=== PATIENT | male | born 1940 | race Caucasian/White ===

== ENCOUNTER 2018-09-05 09:56 | Inpatient (IN) | payer MEDICARE, OTHER ==
[~2018-09-05] VITALS: Ht 172.7 cm; Wt 62.9 kg
--- NOTE | 2018-09-05 10:11 | PHYS DOC ---
Adult General Chief Complaint Chief Complaint: PSYCH EVALUATION HPI HPI 78-year-old male presents for medical clearance for behavioral health admission. The patient was stated to have increased combativeness, not sleeping , and increased paranoia. The patient denies any medical complaints or concerns. Review of Systems Review of Systems Constitutional: Denies fever or chills [] Eyes: Denies change in visual acuity, redness, or eye pain [] HENT: Denies nasal congestion or sore throat [] Respiratory: Denies cough or shortness of breath [] Cardiovascular: No additional information not addressed in HPI [] GI: Denies abdominal pain, nausea, vomiting, bloody stools or diarrhea [] : Denies dysuria or hematuria [] Musculoskeletal: Denies back pain or joint pain [] Integument: Denies rash or skin lesions [] Neurologic: Denies headache, focal weakness or sensory changes [] Endocrine: Denies polyuria or polydipsia [] All other systems were reviewed and found to be within normal limits, except as documented in this note. Physical Exam Physical Exam Constitutional: Well developed, well nourished, no acute distress, non-toxic appearance. [] HENT: Normocephalic, atraumatic, bilateral external ears normal, oropharynx moist, no oral exudates, nose normal. [] Eyes: PERRLA, EOMI, conjunctiva normal, no discharge. [] Neck: Normal range of motion, no tenderness, supple, no stridor. [] Cardiovascular:Heart rate regular rhythm, no murmur [] Lungs & Thorax: Bilateral breath sounds clear to auscultation [] Abdomen: Bowel sounds normal, soft, no tenderness, no masses, no pulsatile masses. [] Skin: Warm, dry, no erythema, no rash. [] Back: No tenderness, no CVA tenderness. [] Extremities: No tenderness, no cyanosis, no clubbing, ROM intact, no edema. [] Neurologic: Alert and oriented X 3, normal motor function, normal sensory function, no focal deficits noted. memory impairment. [] Psychologic: Affect normal, judgement normal, mood normal. [] EKG EKG Sinus rhythm, rate 71, normal axis, there was to place or depression.[] Radiology/Procedures Radiology/Procedures [] Course & Med Decision Making Course & Med Decision Making Pertinent Labs and Imaging studies reviewed. (See chart for details) EKG is unremarkable. Patient's labs are remarkable for a creatinine 1.5 and a blood sugar of 240. The patient is diabetic. We have not been provided a full medication list at this time. I do not believe this precludes admission at health floor. They will be able to administer medicines there. The patient was medically stable for behavioral health admission [] Dragon Disclaimer Dragon Disclaimer This electronic medical record was generated, in whole or in part, using a voice recognition dictation system. Departure Departure: Referrals: DARIO KNOWLES DO (PCP) LORETTA BOLAND DO Sep 05, 2018 10:11
[2018-09-05 10:26] LABS: BASO % 0 % (0-3); EOS # 0.1 x10^3/uL (0.0-0.7); EOS % 1 % (0-3); HEMATOCRIT 40.3 % (39.0-53.0); HEMOGLOBIN 13.6 g/dL (13.0-17.5); LYMPH # 0.8 x10^3/uL (1.0-4.8); LYMPH % 8 % (24-48); MEAN CORPUSCULAR HEMOGLOBIN 30 pg (25-35); MEAN CORPUSCULAR HGB CONC 34 g/dL (31-37); MEAN CORPUSCULAR VOLUME 89 fL (79-100); MONO # 0.5 x10^3/uL (0.0-1.1); MONO % 4 % (0-9); NEUT # 9.6 x10^3uL (1.8-7.7); NEUT % 87 % (31-73); PLATELET COUNT 283 x10^3/uL (140-400); RED BLOOD COUNT 4.51 x10^6/uL (4.30-5.70); RED CELL DISTRIBUTION WIDTH 13.9 % (11.5-14.5); WHITE BLOOD COUNT 11.1 x10^3/uL (4.0-11.0)
[2018-09-05 10:34] LABS: AMORPHOUS SEDIMENT,UR PRESENT /HPF; BACTERIA,URINE 0 /HPF (0-FEW); BILIRUBIN,URINE NEG (NEG); CLARITY,URINE CLEAR; COLOR,URINE YELLOW; GLUCOSE,URINE 100 mg/dL (NEG); NITRITE,URINE NEG (NEG); RBC,URINE 0 /HPF (0-2); UROBILINOGEN,URINE 0.2 mg/dL (0.2 mg/dL); WBC,URINE RARE /HPF (0-4)
[2018-09-05 10:37] LABS: ALBUMIN/GLOBULIN RATIO 1.1 (1.0-1.7); CALCIUM 8.8 mg/dL (8.5-10.1); CREATININE 1.5 mg/dL (0.7-1.3); GFR 45.3; MAGNESIUM 1.9 mg/dL (1.8-2.4); POTASSIUM 4.1 mmol/L (3.5-5.1); TOTAL BILIRUBIN 0.5 mg/dL (0.2-1.0); TOTAL PROTEIN 7.8 g/dL (6.4-8.2)
[2018-09-05 11:30] VITALS: BP 145/77
[2018-09-05] MEDS ORDERED: MAGNESIUM HYDROXIDE 2,400 MG/30 ML ORAL.SUSP. PO PRN (11:45)
[2018-09-05] MEDS ORDERED: METHYL SALICYLATE/MENTHOL TOPICAL OINTMENT 29GM TUBE. TP PRN (11:45)
[2018-09-05] MEDS ORDERED: MAG HYDROX/AL HYDROX/SIMETH 30 ML ORAL.SUSP PO PRN (11:45)
[2018-09-05] MEDS ORDERED: ACETAMINOPHEN 325 MG TABLET PO PRN ×2 (11:45→13:00)
[2018-09-05 12:10] LABS: VAL ACID 42 mcg/mL (50-100)
--- NOTE | 2018-09-05 12:31 | EKG ---
[address] [address] Test Date: 2018-09-05 Test Time: 10:27:51 Pat Name: EBER LAU Department: Room: [address] [place] [address] Gender: M Inpatient Nursing Aide: : 1940 Requested By: LORETTA BOLAND Order Number: [id number] Reading MD: Moustapha Baker Measurements Intervals [place] Rate: 71 P: 31 [place]: 204 QRS: 63 QRSD: 126 T: 64 QT: 402 QTc: 442 Interpretive Statements SINUS RHYTHM NON SPECIFIC INTRAVENTRICULAR BLOCK QRS(T) CONTOUR ABNORMALITY CONSIDER ANTEROSEPTAL MYOCARDIAL DAMAGE ABNORMAL ECG RI6.01 Unconfirmed report No previous ECG available for comparison Electronically Signed On 09-06-2018 8:45:41 POULTRY VACCINATOR by Moustapha Baker
[2018-09-05] MEDS ORDERED: ALUMINUM HYD PO PRN (13:00)
[2018-09-05] MEDS ORDERED: SIMETH PO PRN (13:00)
[2018-09-05] MEDS ORDERED: MAG HYDROX PO PRN (13:00)
[2018-09-05] MEDS ORDERED: LISI10TA2 PO (13:11)
[2018-09-05] MEDS ORDERED: RIVA1PAT23 TD (13:11)
[2018-09-05] MEDS ORDERED: MEMA10TA PO (13:11)
[2018-09-05] MEDS ORDERED: ASPI-630 PO (13:11)
[2018-09-05] MEDS ORDERED: POLY119P19 PO (13:11)
[2018-09-05] MEDS ORDERED: DIVA125C2 PO (13:11)
[2018-09-05] MEDS ORDERED: sonata PO (13:11)
[2018-09-05] MEDS ORDERED: TOLT4CAP PO (13:11)
[2018-09-05] MEDS ORDERED: MAG355OR11 PO (13:11)
[2018-09-05] MEDS ORDERED: OMEP40CA5 PO (13:11)
[2018-09-05] MEDS ORDERED: ACET325T9 PO (13:11)
[2018-09-05] MEDS ORDERED: EZET10TA18 PO (13:11)
[2018-09-05 14:15] LABS: THYROID STIM HORMONE (TSH) 1.016 uIU/mL (0.358-3.740)
[2018-09-05] MEDS: OXYBUTYNIN CHLORIDE 5 MG TABLET PO SCH ×2 (14:26→21:10)
[2018-09-05 16:13] VITALS: BP 172/90
[2018-09-05 19:10] LABS: HEMOGLOBIN A1C 6.7 % (4.8-5.6); THYROXINE 7.1 ug/dL (4.5-12.0)
--- NOTE | 2018-09-05 19:19 | PDOC ---
Exam Note: Naman Note: Please also refer to the separate dictated note~for this date of service dictated separately.~Patient seen individually. Discussed the patient with Nursing staff reviewed the chart.~Reviewed interim history and current functioning. Reviewed vital signs,~Labs/ Radiology~and current medications noted below. Continue current treatment with the changes noted in the dictated addendum note Assessment: Vital Signs: Vital Signs Date Time Temp Pulse Resp B/P (MAP) Pulse Ox O2 Delivery O2 Flow Rate FiO2 09/05/18 16:13 97.9 101 20 172/90 (117) 97 09/05/18 11:00 Room Air Labs: Laboratory Tests Test 09/05/18 10:00 09/05/18 10:05 09/05/18 16:41 Urine Collection Type Void Urine Color Yellow Urine Clarity Clear Urine pH 7.0 Urine Specific [place] 1.020 Urine Protein Trace (NEG-TRACE) Urine Glucose (UA) 100 mg/dL (NEG) Urine Ketones (Stick) Neg mg/dL (NEG) Urine Blood Trace (NEG) Urine Nitrite Neg (NEG) Urine Bilirubin Neg (NEG) Urine Urobilinogen Dipstick 0.2 mg/dL (0.2 mg/dL) Urine Leukocyte Esterase Neg (NEG) Urine RBC 0 /HPF (0-2) Urine WBC Rare /HPF (0-4) Urine Squamous Epithelial Cells None /LPF Urine Amorphous Sediment Present /HPF Urine Bacteria 0 /HPF (0-FEW) White Blood Count 11.1 x10^3/uL (4.0-11.0) H Red Blood Count 4.51 x10^6/uL (4.30-5.70) Hemoglobin 13.6 g/dL (13.0-17.5) Hematocrit 40.3 % (39.0-53.0) Mean Corpuscular Volume 89 fL (79-100) Mean Corpuscular Hemoglobin 30 pg (25-35) Mean Corpuscular Hemoglobin Concent 34 g/dL (31-37) Red Cell Distribution Width 13.9 % (11.5-14.5) Platelet Count 283 x10^3/uL (140-400) Neutrophils (%) (Auto) 87 % (31-73) H Lymphocytes (%) (Auto) 8 % (24-48) L Monocytes (%) (Auto) 4 % (0-9) Eosinophils (%) (Auto) 1 % (0-3) Basophils (%) (Auto) 0 % (0-3) Neutrophils # (Auto) 9.6 x10^3uL (1.8-7.7) H Lymphocytes # (Auto) 0.8 x10^3/uL (1.0-4.8) L Monocytes # (Auto) 0.5 x10^3/uL (0.0-1.1) Eosinophils # (Auto) 0.1 x10^3/uL (0.0-0.7) Basophils # (Auto) 0.0 x10^3/uL (0.0-0.2) Sodium Level 134 mmol/L (136-145) L Potassium Level 4.1 mmol/L (3.5-5.1) Chloride Level 96 mmol/L (98-107) L Carbon Dioxide Level 27 mmol/L (21-32) Anion Gap 11 (6-14) Blood Urea Nitrogen 23 mg/dL (8-26) Creatinine 1.5 mg/dL (0.7-1.3) H Estimated GFR (Cockcroft-Gault) 45.3 BUN/Creatinine Ratio 15 (6-20) Glucose Level 241 mg/dL (70-99) H Hemoglobin A1c 6.7 % (4.8-5.6) H Calcium Level 8.8 mg/dL (8.5-10.1) Magnesium Level 1.9 mg/dL (1.8-2.4) Iron Level 35 ug/dL (65-175) L Total Iron Binding Capacity 338 ug/dL (250-450) Iron Saturation 10 % (15-34) L Total Bilirubin 0.5 mg/dL (0.2-1.0) Aspartate Amino Transferase (AST) 20 U/L (15-37) Alanine Aminotransferase (ALT) 30 U/L (16-63) Alkaline Phosphatase 130 U/L (46-116) H Total Protein 7.8 g/dL (6.4-8.2) Albumin 4.0 g/dL (3.4-5.0) Albumin/Globulin Ratio 1.1 (1.0-1.7) Triglycerides Level 129 mg/dL (0-150) Cholesterol Level 181 mg/dL (0-200) LDL Cholesterol, Calculated 102 mg/dL (0-100) H VLDL Cholesterol, Calculated 25 mg/dL (0-40) Non-HDL Cholesterol Calculated 127 mg/dL (0-129) HDL Cholesterol 54 mg/dL (40-60) Cholesterol/HDL Ratio 3.0 Thyroid Stimulating Hormone (TSH) 1.016 uIU/mL (0.358-3.740) Thyroxine (T4) 7.1 ug/dL (4.5-12.0) Total Triiodothyronine (TT3) 96 ng/dL (71-180) Valproic Acid Level 42 mcg/mL (50-100) L Valproic Acid Last Dose Date 09/05/18 Valproic Acid Last Dose Time 0700 Glucose (Fingerstick) 99 mg/dL (70-99) Current Medications: Meds: Current Medications Acetaminophen (Tylenol) 650 mg PRN Q6HRS PRN PO PAIN / TEMP; Start 09/05/18 at 11:45; Status Cancel Multi-Ingredient Ointment (Analgesic [place]) 1 anupama PRN QID PRN TP MUSCLE PAIN; Start 09/05/18 at 11:45 Al Hydroxide/Mg Hydroxide (Mylanta Plus Xs) 15 ml PRN AFTMEALHC PRN PO DYSPEPSIA; Start 09/05/18 at 11:45 Magnesium Hydroxide (Milk Of Magnesia) 2,400 mg PRN QHS PRN PO CONSTIPATION; Start 09/05/18 at 11:45 Acetaminophen (Tylenol) 650 mg PRN Q4HRS PRN PO MILD PAIN; Start 09/05/18 at 13:00 Lisinopril (Prinivil) 10 mg DAILY PO ; Start 09/06/18 at 09:00 Aspirin (Children'S Aspirin) 81 mg DAILYWBKFT PO ; Start 09/06/18 at 08:00 Divalproex Sodium (Depakote Sprinkles) 125 mg BID PO ; Start 09/05/18 at 21:00 EZETIMIBE (Zetia) 10 mg DAILY PO ; Start 09/06/18 at 09:00 Non-Formulary Medication (Mag Hydrox/ Aluminum Hyd/ Simeth (Maalox Advanced Suspension)) 5 ml PRN PRN PO INDIGESTION; Start 09/05/18 at 13:00; Stop at 13:16; Status DC Memantine (Namenda) 10 mg BID PO ; Start 09/05/18 at 21:00 Pantoprazole Sodium (Protonix) 40 mg DAILYAC PO ; Start 09/06/18 at 07:30 Polyethylene Glycol (miraLAX) 17 gm DAILY PO ; Start 09/06/18 at 09:00 Rivastigmine (Exelon) 1 patch DAILY TD ; Start 09/06/18 at 09:00 Oxybutynin Chloride (Ditropan) 5 mg [id number] PO Last administered on 09/05/18at 14:26; Start 09/05/18 at 14:00 Zolpidem Tartrate (Ambien) 5 mg PRN QHS PRN PO INSOMNIA; Start 09/05/18 at 13: 30 Zolpidem Tartrate (Ambien) 5 mg QHS PO ; Start 09/05/18 at 21:00 Olanzapine (ZyPREXA ZYDIS) 2.5 mg PRN Q2HR PRN PO PSYCHOSIS Last administered on 09/05/18at 17:24; Start 09/05/18 at 16:45 Active Scripts Active Reported Depakote Sprinkle (Divalproex Sodium) 125 Mg Cap.sprink 125 Mg PO BID Zetia (Ezetimibe) 10 Mg Tablet 10 Mg PO DAILY08 Tylenol (Acetaminophen) 325 Mg Tablet 650 Mg PO PRN Q4HRS PRN [sonata] 10 Mg PO HS EXELON 9.5mg/24hr (Rivastigmine) 1 Each Patch.td24 1 Patch TD DAILY Omeprazole 40 Mg Capsule.dr 40 Mg PO DAILY Namenda (Memantine Hcl) 10 Mg Tablet 10 Mg PO BID Maalox Advanced Suspension (Mag Hydrox/Aluminum Hyd/Simeth) 355 Ml Oral.susp 5 Ml PO PRN PRN Lisinopril 10 Mg Tablet 10 Mg PO DAILY Glycolax (Polyethylene Glycol 3350) 119 Gm Powder 17 Gm PO DAILY Detrol La (Tolterodine Tartrate) 4 Mg Cap.er.24h 1 Cap PO DAILY Aspirin 81 Mg Tab.chew 81 Mg PO DAILY I have reviewed the current psychotropics carefully including drug interactions. Risk benefit ratio favors no change other than as noted in my dictated progress note. Diagnosis: Problems: (1) Dementia with behavioral disturbance (2) Dementia LINO DE PAZ MD Sep 05, 2018 19:19
[2018-09-05] MEDS: MEMANTINE 10 MG TABLET. PO SCH (21:09)
[2018-09-05] MEDS: ZOLPIDEM 5 MG TABLET. PO SCH (21:09)
[2018-09-05] MEDS: DIVALPROEX 125 MG CAP.SPRINK PO SCH (21:09)
[2018-09-06 05:50] VITALS: BP 126/72
[2018-09-06] MEDS: PANTOPRAZOLE 40 MG TABLET. PO SCH (09:07)
[2018-09-06] MEDS: LISINOPRIL 10 MG TABLET PO SCH (09:07)
[2018-09-06] MEDS: EZETIMIBE 10 MG TABLET PO SCH (09:07)
[2018-09-06] MEDS: MEMANTINE 10 MG TABLET. PO SCH ×2 (09:07→19:31)
[2018-09-06] MEDS: OXYBUTYNIN CHLORIDE 5 MG TABLET PO SCH ×3 (09:07→19:31)
[2018-09-06] MEDS: DIVALPROEX 125 MG CAP.SPRINK PO SCH ×2 (09:07→19:33)
[2018-09-06] MEDS: ASPIRIN 81 MG TAB.CHEW PO SCH (09:07)
[2018-09-06] MEDS: POLYETHYLENE GLYCOL 3350 17 GM PACKET. PO SCH (09:08)
[2018-09-06] MEDS: RIVASTIGMINE 9.5MG PATCH. TD SCH (09:08)
--- NOTE | 2018-09-06 13:00 | HP ---
ADMIT DATE: 09/05/2018 PSYCHIATRIC ADMISSION HISTORY/EVALUATION This late entry 09/05/2018 covers elements not covered in my initial note. INDICATIONS: I met with the patient on evening of 09/05/2018 at previously discussed with nursing staff and with Franchesca Granger, life skills coordinator at different occasions to gather referral information from his primary care physician, Dr. Miller Chapa at [facility], recommending inpatient psychiatric stabilization. IDENTIFYING DATA: The patient is a 78-year-old male referred by Dr. Chapa from [facility] on account of increasing confusion and being progressively more combative, destructive. He is having marked insomnia, has been paranoid, delusional. He believes staff was stealing from him and he was getting progressively aggressive. He had to be placed on one-on-one status with a sitter at the facility, initially referred to the local inpatient psychiatry unit and thereafter to us for psychiatric stabilization. He has failed a prior inpatient psychiatric stabilization at [place] in March. CHIEF COMPLAINT: "They are stealing things." The patient was pacing around the unit, extremely intrusive, had been called earlier in the day and added Zyprexa p.r.n. at the request of nursing staff and he seems to have done little better with that. HISTORY OF PRESENT ILLNESS: The patient has a history of dementia, Alzheimer's vascular type. He has been residing at the above senior care for some time, but more recently is getting increasingly agitated, aggressive, disruptive, very paranoid, delusional with marked insomnia and significant mood lability. No active suicidal or homicidal ideation. He has been exit seeking, wandering, resistive to treatment, posturing and threatening towards nursing staff even on the unit since arriving a short while before I saw him. No clear history of bipolar disorder. PAST PSYCHIATRIC HISTORY: As above. PAST MEDICAL HISTORY: Diabetes mellitus, chronic kidney disease and hypertension. ACCU-CHEKS: Before meals and at bedtime. CODE STATUS: FULL CODE. DIET: Regular. Takes medications whole. Ambulates ad myrna. UA on 09/05/2018 was negative, self toilets himself for bowel movements. CURRENT PSYCHOTROPICS: Depakote 250 mg b.i.d., valproic acid level is 42, Namenda 10 mg b.i.d., Exelon patch 9.5 mg a day, Ambien 5 mg at bedtime, may repeat x 1 for insomnia and Zyprexa was added p.r.n. 2.5 mg q.2 hours psychosis, agitation, p.r.n. max 10 mg in 24 hours. FAMILY HISTORY: Noncontributory. SOCIAL HISTORY: No history of alcohol, drug abuse, physical, sexual or elder abuse. He is not known to be a perpetrator. REACTION TO HOSPITALIZATION: The patient is oblivious of this. ASSETS: Supportive living at the above facility. MENTAL STATUS EXAM: The patient was seen individually on the evening of 09/05/2018. He is wandering, anxious, restless, quite paranoid even as I met with him. He is quite distractable. Insight, judgment, recent and remote memory, attention, concentration, fund of knowledge poor, consistent with his diagnosis. IMPRESSION: Major neurocognitive disorder, Alzheimer, vascular with delusion, depression, behavioral disturbance; anxiety disorder, unspecified; impulse control disorder, unspecified. Rest as above. PLAN: Admit to geropsychiatry unit at [facility]. I will see the patient daily individually from a psychiatric standpoint, medical followup with Dr. Narayanan. Observe the patient's baseline. Continue current psychotropics, may need to increase Depakote to reach therapeutic level and add scheduled atypical antipsychotic, but will decide after the baseline assessment. We will make sure his sleep pattern is stabilized as well. Estimated length of stay 10-12 days. DISPOSITION: Plans back to [facility]. MAN Nilesh DE PAZ MD DR: RUBY/nazia JOB#: [id number] / [id number]
[2018-09-06 16:01] VITALS: BP 159/74
[2018-09-06] MEDS: ZOLPIDEM 5 MG TABLET. PO SCH (19:31)
--- NOTE | 2018-09-06 19:50 | PDOC ---
Exam Note: Naman Note: Please also refer to the separate dictated note~for this date of service dictated separately.~Patient seen individually. Discussed the patient with Nursing staff reviewed the chart.~Reviewed interim history and current functioning. Reviewed vital signs,~Labs/ Radiology~and current medications noted below. Continue current treatment with the changes noted in the dictated addendum note Assessment: Vital Signs: Vital Signs Date Time Temp Pulse Resp B/P (MAP) Pulse Ox O2 Delivery O2 Flow Rate FiO2 09/06/18 16:01 97.9 69 16 159/74 (102) 98 09/05/18 11:00 Room Air I&O Intake and Output 09/06/18 07:00 Intake Total 720 ml Balance 720 ml Intake Oral 720 ml Labs: Laboratory Tests Test 09/06/18 07:11 09/06/18 11:29 09/06/18 17:28 09/06/18 19:05 Glucose (Fingerstick) 146 mg/dL (70-99) H 121 mg/dL (70-99) H 125 mg/dL (70-99) H 173 mg/dL (70-99) H Current Medications: Meds: Current Medications Acetaminophen (Tylenol) 650 mg PRN Q6HRS PRN PO PAIN / TEMP; Start 09/05/18 at 11:45; Status Cancel Multi-Ingredient Ointment (Analgesic [place]) 1 anupama PRN QID PRN TP MUSCLE PAIN; Start 09/05/18 at 11:45 Al Hydroxide/Mg Hydroxide (Mylanta Plus Xs) 15 ml PRN AFTMEALHC PRN PO DYSPEPSIA; Start 09/05/18 at 11:45 Magnesium Hydroxide (Milk Of Magnesia) 2,400 mg PRN QHS PRN PO CONSTIPATION; Start 09/05/18 at 11:45 Acetaminophen (Tylenol) 650 mg PRN Q4HRS PRN PO MILD PAIN; Start 09/05/18 at 13:00 Lisinopril (Prinivil) 10 mg DAILY PO Last administered on 09/06/18at 09:07; Start 09/06/18 at 09:00 Aspirin (Children'S Aspirin) 81 mg DAILYWBKFT PO Last administered on at 09:07; Start 09/06/18 at 08:00 Divalproex Sodium (Depakote Sprinkles) 125 mg BID PO Last administered on 09/06 09:07; Start 09/05/18 at 21:00; Stop 09/06/18 at 18:30; Status DC EZETIMIBE (Zetia) 10 mg DAILY PO Last administered on 09/06/18at 09:07; Start 09/06/18 at 09:00 Non-Formulary Medication (Mag Hydrox/ Aluminum Hyd/ Simeth (Maalox Advanced Suspension)) 5 ml PRN PRN PO INDIGESTION; Start 09/05/18 at 13:00; Stop at 13:16; Status DC Memantine (Namenda) 10 mg BID PO Last administered on 09/06/18 19:31; Start 09/05/18 at 21:00 Pantoprazole Sodium (Protonix) 40 mg DAILYAC PO Last administered on at 09:07; Start 09/06/18 at 07:30 Polyethylene Glycol (miraLAX) 17 gm DAILY PO Last administered on 09/06/18at 09 :08; Start 09/06/18 at 09:00 Rivastigmine (Exelon) 1 patch DAILY TD Last administered on 09/06/18at 09:08; Start 09/06/18 at 09:00 Oxybutynin Chloride (Ditropan) 5 mg [id number] PO Last administered on 09/06/18 19:31; Start 09/05/18 at 14:00 Zolpidem Tartrate (Ambien) 5 mg PRN QHS PRN PO INSOMNIA; Start 09/05/18 at 13: 30 Zolpidem Tartrate (Ambien) 5 mg QHS PO Last administered on 09/06/18at 19:31; Start 09/05/18 at 21:00 Olanzapine (ZyPREXA ZYDIS) 2.5 mg PRN Q2HR PRN PO PSYCHOSIS Last administered on 09/06/18at 03:13; Start 09/05/18 at 16:45 Vitamin D (Vitamin D3) 50,000 unit WEEKLY PO ; Start 09/07/18 at 09:00 Glimepiride (Amaryl) 2 mg DAILY PO ; Start 09/07/18 at 09:00 Divalproex Sodium (Depakote Sprinkles) 250 mg BID PO Last administered on 12/19 /18at 19:33; Start 09/06/18 at 21:00 Active Scripts Active Reported Depakote Sprinkle (Divalproex Sodium) 125 Mg Cap.sprink 125 Mg PO BID Zetia (Ezetimibe) 10 Mg Tablet 10 Mg PO DAILY08 Tylenol (Acetaminophen) 325 Mg Tablet 650 Mg PO PRN Q4HRS PRN [sonata] 10 Mg PO HS EXELON 9.5mg/24hr (Rivastigmine) 1 Each Patch.td24 1 Patch TD DAILY Omeprazole 40 Mg Capsule.dr 40 Mg PO DAILY Namenda (Memantine Hcl) 10 Mg Tablet 10 Mg PO BID Maalox Advanced Suspension (Mag Hydrox/Aluminum Hyd/Simeth) 355 Ml Oral.susp 5 Ml PO PRN PRN Lisinopril 10 Mg Tablet 10 Mg PO DAILY Glycolax (Polyethylene Glycol 3350) 119 Gm Powder 17 Gm PO DAILY Detrol La (Tolterodine Tartrate) 4 Mg Cap.er.24h 1 Cap PO DAILY Aspirin 81 Mg Tab.chew 81 Mg PO DAILY I have reviewed the current psychotropics carefully including drug interactions. Risk benefit ratio favors no change other than as noted in my dictated progress note. Diagnosis: Problems: (1) Anxiety disorder (2) Dementia, vascular, with depression (3) Depression (4) Major neurocognitive disorder (5) Impulse control disorder (6) Dementia (7) Dementia with behavioral disturbance LINO DE PAZ MD Sep 06, 2018 19:50
--- NOTE | 2018-09-06 21:56 | CONS ---
DATE OF CONSULTATION: 09/06/2018 REASON FOR CONSULTATION: Medical management. HISTORY OF PRESENT ILLNESS: The patient is a 78-year-old male patient, resident at [facility], who was referred by his primary care physician to this unit on account of increasing confusion, being progressively more combative, destructive, is having marked insomnia, has been paranoid and delusional. He believes staff was stealing from him and he was getting progressively aggressive, had to be placed on a 1:1 status with sitter at the facility. He has failed prior inpatient psychiatric stabilization at [facility] in March. PAST MEDICAL HISTORY: Significant for type 2 diabetes, chronic kidney disease and hypertension. PAST SURGICAL HISTORY: Significant for tooth extraction. PSYCHIATRIC HISTORY: Significant for dementia of Alzheimer's vascular type. Apparently, he has been residing at this facility for some time, but recently he was getting increasingly agitated, aggressive, disruptive, very paranoid, delusional with marked insomnia and significant mood lability; however, there was no evidence of any active suicidal or homicidal ideation. He apparently has been exit-seeking, wandering, resistive to treatment, posturing, threatening towards nursing staff even on the unit as soon as he arrived here. Code status is full code. FAMILY HISTORY: Unremarkable. SOCIAL HISTORY: He apparently resides at [facility]. He is an ex-smoker, quit smoking years ago. He does not drink alcohol or use recreational drugs. ALLERGIES: HE IS ALLERGIC TO PENICILLIN AND AMOXICILLIN. MEDICATIONS: He is currently on following medications: He is on rivastigmine 9.5 mg patch topically daily. He is on Zetia 10 mg daily, lisinopril 10 mg once a day, aspirin 81 mg once a day, acetaminophen 650 mg every 4 hours, divalproex sodium 125 mg twice a day, Namenda 10 mg p.o. b.i.d., Maalox 15 mL as needed for indigestion, polyethylene glycol 17 grams daily, omeprazole 40 mg once a day, Detrol-LA 1 capsule p.o. daily. PHYSICAL EXAMINATION: GENERAL: On examining him, the patient was sitting comfortably in his chair, in no apparent respiratory distress, was somewhat pale, cachectic, but no jaundice or cyanosis. No lymphadenopathy, no thyromegaly. No jugular venous distention. No limb edema. VITAL SIGNS: His heart rate was 72, blood pressure 126/72, temperature was 97.8, respiratory rate was 16 and oxygen saturation was 99% on room air. HEENT: Showed he is normocephalic, atraumatic. NECK: Supple. HEART: Showed normal first and second heart sounds. No gallop, rub or murmur. CHEST: Clear to auscultation. No crepitation or rhonchi. ABDOMEN: Distended, soft, nontender. No guarding or rigidity. No organomegaly. Hernial orifice intact. Bowel sounds normal. NEUROLOGIC: He was awake, alert, responding appropriately. All cranial nerves intact. EXTREMITIES: He moves extremities without difficulty. He ambulates without assistance or assistive devices. LABORATORY DATA: Showed a white cell count of 11,100, hemoglobin 13.6, hematocrit 40.3, MCV 89 and platelet count 203,000 with normal manual differential. His serum sodium was 134, potassium 4.1, chloride 96, bicarbonate 27, anion gap of 11, BUN 23, creatinine 1.5. Estimated GFR was 45 mL per minute. His glucose was 241. His hemoglobin A1c was 6.7. His calcium was 8.8, magnesium was 1.9. Total bilirubin, AST, ALT, alkaline phosphatase are normal. Total protein was 7.8, albumin was 4. His serum iron was 35, TIBC was 338. Iron saturation was 10. Serum triglycerides was 129, total cholesterol 181, LDL cholesterol 102, VLDL was 25, HDL cholesterol was 54 and cholesterol to HDL cholesterol ratio was 3. His vitamin B12 was 479 pg/mL. A 25-hydroxy vitamin D3 was only 15 ng/mL. TSH, T3, total T4 and total T3 are all within normal range. Urinalysis was essentially unremarkable. Toxic screen showed that his valproic acid was only 42 mcg/mL, which is subtherapeutic and his treponema pallidum antibodies were nonreactive. IMPRESSION: In summary, this is a 78-year-old male patient, who was admitted on account of increasing confusion, being progressively more combative, destructive. He is having marked insomnia, has been paranoid, delusional, believed staff was stealing from him, was getting progressively aggressive. He is here for inpatient psychiatric stabilization. Medically, he has hypertension, hyperlipidemia and chronic kidney disease. His blood sugar is suboptimally controlled. He is not on any oral hypoglycemic or insulin. Given his kidney function impairment, he is not a candidate for metformin, but I will start him on Amaryl 2 mg once a day and we will follow him closely and decide and we can increase Amaryl and add insulin if need be. His vitamin D also is low, so we will start him on cholecalciferol once a week. Thank you, Dr. Low for allowing me to participate in the care of this patient. DONOVAN PIPER MD DR: MURALI/nazia JOB#: [id number] / [id number]
[2018-09-06] MEDS: ZOLPIDEM 5 MG TABLET. PO PRN (22:09)
[2018-09-07 05:56] VITALS: BP 115/67
[2018-09-07] MEDS: RIVASTIGMINE 9.5MG PATCH. TD SCH (10:10)
[2018-09-07] MEDS: POLYETHYLENE GLYCOL 3350 17 GM PACKET. PO SCH (10:10)
[2018-09-07] MEDS: LISINOPRIL 10 MG TABLET PO SCH (10:11)
[2018-09-07] MEDS: PANTOPRAZOLE 40 MG TABLET. PO SCH (10:11)
[2018-09-07] MEDS: EZETIMIBE 10 MG TABLET PO SCH (10:11)
[2018-09-07] MEDS: ASPIRIN 81 MG TAB.CHEW PO SCH (10:11)
[2018-09-07] MEDS: DIVALPROEX 125 MG CAP.SPRINK PO SCH ×2 (10:11→21:20)
[2018-09-07] MEDS: MEMANTINE 10 MG TABLET. PO SCH ×2 (10:12→21:21)
[2018-09-07] MEDS: OXYBUTYNIN CHLORIDE 5 MG TABLET PO SCH ×3 (10:12→21:19)
[2018-09-07] MEDS: GLIMEPIRIDE 2 MG TABLET PO SCH (10:13)
[2018-09-07] MEDS: CHOLECALCIFEROL (VITAMIN D3) 50,000 UNIT CAPSULE PO SCH (10:13)
[2018-09-07 15:35] VITALS: BP 153/80
[2018-09-07] MEDS: ZOLPIDEM 5 MG TABLET. PO SCH (21:20)
[2018-09-07] MEDS: traZODone 50 MG TABLET. PO SCH (21:20)
--- NOTE | 2018-09-07 22:54 | PDOC ---
Exam Note: Naman Note: Please also refer to the separate dictated note~for this date of service dictated separately.~Patient seen individually. Discussed the patient with Nursing staff reviewed the chart.~Reviewed interim history and current functioning. Reviewed vital signs,~Labs/ Radiology~and current medications noted below. Continue current treatment with the changes noted in the dictated addendum note Assessment: Vital Signs: Vital Signs Date Time Temp Pulse Resp B/P (MAP) Pulse Ox O2 Delivery O2 Flow Rate FiO2 09/07/18 15:35 97.8 98 18 153/80 (104) 100 Room Air I&O Intake and Output 09/07/18 07:01 Intake Total 1200 ml Balance 1200 ml Intake Oral 1200 ml # Voids 1 Labs: Laboratory Tests Test 09/07/18 11:29 09/07/18 16:51 09/07/18 19:12 Glucose (Fingerstick) 189 mg/dL (70-99) H 78 mg/dL (70-99) 177 mg/dL (70-99) H Current Medications: Meds: Current Medications Acetaminophen (Tylenol) 650 mg PRN Q6HRS PRN PO PAIN / TEMP; Start 09/05/18 at 11:45; Status Cancel Multi-Ingredient Ointment (Analgesic [place]) 1 anupama PRN QID PRN TP MUSCLE PAIN; Start 09/05/18 at 11:45 Al Hydroxide/Mg Hydroxide (Mylanta Plus Xs) 15 ml PRN AFTMEALHC PRN PO DYSPEPSIA; Start 09/05/18 at 11:45 Magnesium Hydroxide (Milk Of Magnesia) 2,400 mg PRN QHS PRN PO CONSTIPATION; Start 09/05/18 at 11:45 Acetaminophen (Tylenol) 650 mg PRN Q4HRS PRN PO MILD PAIN; Start 09/05/18 at 13:00 Lisinopril (Prinivil) 10 mg DAILY PO Last administered on 09/07/18at 10:11; Start 09/06/18 at 09:00 Aspirin (Children'S Aspirin) 81 mg DAILYWBKFT PO Last administered on at 10:11; Start 09/06/18 at 08:00 Divalproex Sodium (Depakote Sprinkles) 125 mg BID PO Last administered on 09/06at 09:07; Start 09/05/18 at 21:00; Stop 09/06/18 at 18:30; Status DC EZETIMIBE (Zetia) 10 mg DAILY PO Last administered on 09/07/18 10:11; Start 09/06/18 at 09:00 Non-Formulary Medication (Mag Hydrox/ Aluminum Hyd/ Simeth (Maalox Advanced Suspension)) 5 ml PRN PRN PO INDIGESTION; Start 09/05/18 at 13:00; Stop at 13:16; Status DC Memantine (Namenda) 10 mg BID PO Last administered on 09/07/18 21:21; Start 09/05/18 at 21:00 Pantoprazole Sodium (Protonix) 40 mg DAILYAC PO Last administered on 10:11; Start 09/06/18 at 07:30 Polyethylene Glycol (miraLAX) 17 gm DAILY PO Last administered on 09/07/18 10 :10; Start 09/06/18 at 09:00 Rivastigmine (Exelon) 1 patch DAILY TD Last administered on 09/07/18at 10:10; Start 09/06/18 at 09:00 Oxybutynin Chloride (Ditropan) 5 mg [id number] PO Last administered on 09/07/18 21:19; Start 09/05/18 at 14:00 Zolpidem Tartrate (Ambien) 5 mg PRN QHS PRN PO INSOMNIA Last administered on at 22:09; Start 09/05/18 at 13:30 Zolpidem Tartrate (Ambien) 5 mg QHS PO Last administered on 09/07/18at 21:20; Start 09/05/18 at 21:00 Olanzapine (ZyPREXA ZYDIS) 2.5 mg PRN Q2HR PRN PO PSYCHOSIS Last administered on 09/07/18at 14:04; Start 09/05/18 at 16:45 Vitamin D (Vitamin D3) 50,000 unit WEEKLY PO Last administered on 09/07/18 10 :13; Start 09/07/18 at 09:00 Glimepiride (Amaryl) 2 mg DAILY PO Last administered on 09/07/18at 10:13; Start 09/07/18 at 09:00 Divalproex Sodium (Depakote Sprinkles) 250 mg BID PO Last administered on 09/07at 21:20; Start 09/06/18 at 21:00 Trazodone HCl (Desyrel) 50 mg QHS PO Last administered on 09/07/18at 21:20; Start 09/07/18 at 21:00 Trazodone HCl (Desyrel) 50 mg PRN QHS PRN PO INSOMNIA; Start 09/07/18 at 11:30 Sertraline HCl (Zoloft) 25 mg DAILY PO ; Start 09/08/18 at 09:00 Active Scripts Active Reported Depakote Sprinkle (Divalproex Sodium) 125 Mg Cap.sprink 125 Mg PO BID Zetia (Ezetimibe) 10 Mg Tablet 10 Mg PO DAILY08 Tylenol (Acetaminophen) 325 Mg Tablet 650 Mg PO PRN Q4HRS PRN [sonata] 10 Mg PO HS EXELON 9.5mg/24hr (Rivastigmine) 1 Each Patch.td24 1 Patch TD DAILY Omeprazole 40 Mg Capsule.dr 40 Mg PO DAILY Namenda (Memantine Hcl) 10 Mg Tablet 10 Mg PO BID Maalox Advanced Suspension (Mag Hydrox/Aluminum Hyd/Simeth) 355 Ml Oral.susp 5 Ml PO PRN PRN Lisinopril 10 Mg Tablet 10 Mg PO DAILY Glycolax (Polyethylene Glycol 3350) 119 Gm Powder 17 Gm PO DAILY Detrol La (Tolterodine Tartrate) 4 Mg Cap.er.24h 1 Cap PO DAILY Aspirin 81 Mg Tab.chew 81 Mg PO DAILY I have reviewed the current psychotropics carefully including drug interactions. Risk benefit ratio favors no change other than as noted in my dictated progress note. Diagnosis: Problems: (1) Dementia (2) Dementia with behavioral disturbance (3) Anxiety disorder (4) Depression (5) Impulse control disorder (6) Dementia, vascular, with depression (7) Major neurocognitive disorder LINO DE PAZ MD Sep 07, 2018 22:54
[2018-09-08] MEDS: ZOLPIDEM 5 MG TABLET. PO PRN (00:09)
[2018-09-08] MEDS: traZODone 50 MG TABLET. PO PRN (00:09)
[2018-09-08 02:53] VITALS: BP 144/73
[2018-09-08 06:27] VITALS: BP 159/75
[2018-09-08] MEDS: ASPIRIN 81 MG TAB.CHEW PO SCH (09:15)
[2018-09-08] MEDS: PANTOPRAZOLE 40 MG TABLET. PO SCH (09:15)
[2018-09-08] MEDS: DIVALPROEX 125 MG CAP.SPRINK PO SCH ×2 (09:15→20:30)
[2018-09-08] MEDS: POLYETHYLENE GLYCOL 3350 17 GM PACKET. PO SCH (09:16)
[2018-09-08] MEDS: RIVASTIGMINE 9.5MG PATCH. TD SCH (09:16)
[2018-09-08] MEDS: EZETIMIBE 10 MG TABLET PO SCH (09:16)
[2018-09-08] MEDS: MEMANTINE 10 MG TABLET. PO SCH ×2 (09:16→20:30)
[2018-09-08] MEDS: GLIMEPIRIDE 2 MG TABLET PO SCH (09:16)
[2018-09-08] MEDS: LISINOPRIL 10 MG TABLET PO SCH (09:16)
[2018-09-08] MEDS: OXYBUTYNIN CHLORIDE 5 MG TABLET PO SCH ×3 (09:16→20:30)
[2018-09-08] MEDS: SERTRALINE 25 MG TABLET. PO SCH (09:17)
[2018-09-08 15:23] VITALS: BP 149/75
--- NOTE | 2018-09-08 20:23 | PN ---
DATE: 09/07/2018 PSYCHIATRIC PROGRESS NOTE This late entry 09/07/2018 covers elements not covered in my initial note. SUBJECTIVE: I met with the patient in the evening. The patient slept just 1-1/2 hours previous night. The patient was also staffed at a treatment team meeting in the morning. He seems to have significant sundowning. He believes people are in his business and his home banging on the windows, labile. REVIEW OF SYSTEMS: No CV, , pulmonary, eye, ENT system symptoms on review. Reliability poor. MENTAL STATUS EXAM: Oriented to himself. Insight, judgment, recent and remote memory, attention, concentration, fund of knowledge poor, consistent with his diagnosis mentioned in my initial note. IMPRESSION: Major neurocognitive disorder, Alzheimer, vascular with delusion, depression, behavioral disturbance. Rest unchanged. PLAN: Start Zoloft 25 mg a day, trazodone 50 mg at bedtime p.r.n., january repeat x 1. Did receive Zyprexa p.r.n. at 2:00 p.m. Rest unchanged. Follow labs level on the Depakote to reach therapeutic level. MAN Nilesh DE PAZ MD DR: RUBY/nazia JOB#: [id number] / [id number]
--- NOTE | 2018-09-08 20:26 | PN ---
DATE: 09/06/2018 This late entry 09/06/2018 covers elements not covered in my initial note. SUBJECTIVE: I met with the patient in the evening. The patient slept 5-3/4 hours previous evening. He remains quite confused, was quite combative previous night, difficult to redirect at times, again combative in the morning stripped himself naked. He received Zyprexa in the morning, confused, wandering. REVIEW OF SYSTEMS: No CV, , pulmonary, eye, ENT system symptoms on review. Reliability poor. MENTAL STATUS EXAM: Oriented to himself. Insight, judgment, recent and remote memory, attention, concentration, fund of knowledge poor, consistent with his diagnosis. IMPRESSION: Major neurocognitive disorder, Alzheimer, vascular with delusion, depression, behavioral disturbance; anxiety disorder, unspecified; impulse control disorder, unspecified. PLAN: Valproic acid level subtherapeutic at 42 on Depakote 250 b.i.d. We will increase to 375 b.i.d. On further review, in fact this level was on 125 b.i.d. and we will increase it to 250 b.i.d. Check CBC, CMP, valproic acid level in 3 days with a plan to reach therapeutic level. Rest of psychotropics are unchanged from initial note. LINO DE PAZ MD DR: RUBY/nazia JOB#: [id number] / [id number]
[2018-09-08] MEDS: traZODone 50 MG TABLET. PO SCH (20:30)
[2018-09-08] MEDS: MIRTAZAPINE 7.5 MG TABLET. PO SCH (20:33)
--- NOTE | 2018-09-08 22:42 | PDOC ---
Exam Note: Naman Note: Please also refer to the separate dictated note~for this date of service dictated separately.~Patient seen individually. Discussed the patient with Nursing staff reviewed the chart.~Reviewed interim history and current functioning. Reviewed vital signs,~Labs/ Radiology~and current medications noted below. Continue current treatment with the changes noted in the dictated addendum note Assessment: Vital Signs: Vital Signs Date Time Temp Pulse Resp B/P (MAP) Pulse Ox O2 Delivery O2 Flow Rate FiO2 09/08/18 15:23 97.5 77 20 149/75 (99) 97 09/08/18 06:27 Room Air I&O Intake and Output 09/08/18 07:01 Intake Total 965 ml Balance 965 ml Intake Oral 965 ml # Voids 3 Labs: Laboratory Tests Test 09/08/18 07:35 09/08/18 11:31 09/08/18 16:35 09/08/18 19:57 Glucose (Fingerstick) 156 mg/dL (70-99) H 144 mg/dL (70-99) H 122 mg/dL (70-99) H 169 mg/dL (70-99) H Current Medications: Meds: Current Medications Acetaminophen (Tylenol) 650 mg PRN Q6HRS PRN PO PAIN / TEMP; Start 09/05/18 at 11:45; Status Cancel Multi-Ingredient Ointment (Analgesic [place]) 1 anupama PRN QID PRN TP MUSCLE PAIN; Start 09/05/18 at 11:45 Al Hydroxide/Mg Hydroxide (Mylanta Plus Xs) 15 ml PRN AFTMEALHC PRN PO DYSPEPSIA; Start 09/05/18 at 11:45 Magnesium Hydroxide (Milk Of Magnesia) 2,400 mg PRN QHS PRN PO CONSTIPATION; Start 09/05/18 at 11:45 Acetaminophen (Tylenol) 650 mg PRN Q4HRS PRN PO MILD PAIN; Start 09/05/18 at 13:00 Lisinopril (Prinivil) 10 mg DAILY PO Last administered on 09/08/18at 09:16; Start 09/06/18 at 09:00 Aspirin (Children'S Aspirin) 81 mg DAILYWBKFT PO Last administered on at 09:15; Start 09/06/18 at 08:00 Divalproex Sodium (Depakote Sprinkles) 125 mg BID PO Last administered on 09/06at 09:07; Start 09/05/18 at 21:00; Stop 09/06/18 at 18:30; Status DC EZETIMIBE (Zetia) 10 mg DAILY PO Last administered on 09/08/18at 09:16; Start 09/06/18 at 09:00 Non-Formulary Medication (Mag Hydrox/ Aluminum Hyd/ Simeth (Maalox Advanced Suspension)) 5 ml PRN PRN PO INDIGESTION; Start 09/05/18 at 13:00; Stop at 13:16; Status DC Memantine (Namenda) 10 mg BID PO Last administered on 09/08/18at 20:30; Start 09/05/18 at 21:00 Pantoprazole Sodium (Protonix) 40 mg DAILYAC PO Last administered on at 09:15; Start 09/06/18 at 07:30 Polyethylene Glycol (miraLAX) 17 gm DAILY PO Last administered on 09/08/18at 09 :16; Start 09/06/18 at 09:00 Rivastigmine (Exelon) 1 patch DAILY TD Last administered on 09/08/18at 09:16; Start 09/06/18 at 09:00 Oxybutynin Chloride (Ditropan) 5 mg [id number] PO Last administered on 09/08/18at 20:30; Start 09/05/18 at 14:00 Zolpidem Tartrate (Ambien) 5 mg PRN QHS PRN PO INSOMNIA Last administered on at 00:09; Start 09/05/18 at 13:30; Stop 09/08/18 at 18:09; Status DC Zolpidem Tartrate (Ambien) 5 mg QHS PO Last administered on 09/07/18at 21:20; Start 09/05/18 at 21:00; Stop 09/08/18 at 18:09; Status DC Olanzapine (ZyPREXA ZYDIS) 2.5 mg PRN Q2HR PRN PO PSYCHOSIS Last administered on 09/07/18at 14:04; Start 09/05/18 at 16:45 Vitamin D (Vitamin D3) 50,000 unit WEEKLY PO Last administered on 09/07/18at 10 :13; Start 09/07/18 at 09:00 Glimepiride (Amaryl) 2 mg DAILY PO Last administered on 09/08/18at 09:16; Start 09/07/18 at 09:00 Divalproex Sodium (Depakote Sprinkles) 250 mg BID PO Last administered on 09/08at 20:30; Start 09/06/18 at 21:00 Trazodone HCl (Desyrel) 50 mg QHS PO Last administered on 09/08/18at 20:30; Start 09/07/18 at 21:00 Trazodone HCl (Desyrel) 50 mg PRN QHS PRN PO INSOMNIA Last administered on at 00:09; Start 09/07/18 at 11:30 Sertraline HCl (Zoloft) 25 mg DAILY PO Last administered on 09/08/18at 09:17; Start 09/08/18 at 09:00 Mirtazapine (Remeron) 7.5 mg QHS PO Last administered on 09/08/18at 20:33; Start 09/08/18 at 21:00 Active Scripts Active Reported Depakote Sprinkle (Divalproex Sodium) 125 Mg Cap.sprink 125 Mg PO BID Zetia (Ezetimibe) 10 Mg Tablet 10 Mg PO DAILY08 Tylenol (Acetaminophen) 325 Mg Tablet 650 Mg PO PRN Q4HRS PRN [sonata] 10 Mg PO HS EXELON 9.5mg/24hr (Rivastigmine) 1 Each Patch.td24 1 Patch TD DAILY Omeprazole 40 Mg Capsule.dr 40 Mg PO DAILY Namenda (Memantine Hcl) 10 Mg Tablet 10 Mg PO BID Maalox Advanced Suspension (Mag Hydrox/Aluminum Hyd/Simeth) 355 Ml Oral.susp 5 Ml PO PRN PRN Lisinopril 10 Mg Tablet 10 Mg PO DAILY Glycolax (Polyethylene Glycol 3350) 119 Gm Powder 17 Gm PO DAILY Detrol La (Tolterodine Tartrate) 4 Mg Cap.er.24h 1 Cap PO DAILY Aspirin 81 Mg Tab.chew 81 Mg PO DAILY I have reviewed the current psychotropics carefully including drug interactions. Risk benefit ratio favors no change other than as noted in my dictated progress note. Diagnosis: Problems: (1) Dementia (2) Dementia with behavioral disturbance (3) Anxiety disorder (4) Depression (5) Impulse control disorder (6) Dementia, vascular, with depression (7) Major neurocognitive disorder LINO DE PAZ MD Sep 08, 2018 22:42
[2018-09-09 06:38] VITALS: BP 105/63
[2018-09-09] MEDS: LISINOPRIL 10 MG TABLET PO SCH (09:00)
[2018-09-09] MEDS: PANTOPRAZOLE 40 MG TABLET. PO SCH (09:25)
[2018-09-09] MEDS: ASPIRIN 81 MG TAB.CHEW PO SCH (09:25)
[2018-09-09] MEDS: OXYBUTYNIN CHLORIDE 5 MG TABLET PO SCH ×3 (09:25→20:46)
[2018-09-09] MEDS: GLIMEPIRIDE 2 MG TABLET PO SCH (09:25)
[2018-09-09] MEDS: DIVALPROEX 125 MG CAP.SPRINK PO SCH ×2 (09:25→20:45)
[2018-09-09] MEDS: POLYETHYLENE GLYCOL 3350 17 GM PACKET. PO SCH (09:26)
[2018-09-09] MEDS: SERTRALINE 25 MG TABLET. PO SCH (09:26)
[2018-09-09] MEDS: RIVASTIGMINE 9.5MG PATCH. TD SCH (09:26)
[2018-09-09] MEDS: MEMANTINE 10 MG TABLET. PO SCH ×2 (09:26→20:46)
[2018-09-09] MEDS: EZETIMIBE 10 MG TABLET PO SCH (09:26)
[2018-09-09 11:49] LABS: ALBUMIN 3.8 g/dL (3.4-5.0); ALBUMIN/GLOBULIN RATIO 1.1 (1.0-1.7); ALK PHOS 118 U/L (46-116); ALT (SGPT) 27 U/L (16-63); ANION GAP 10 (6-14); AST (SGOT) 27 U/L (15-37); BLOOD UREA NITROGEN 40 mg/dL (8-26); BUN/CREATININE RATIO 22 (6-20); CALCIUM 9.3 mg/dL (8.5-10.1); CARBON DIOXIDE 28 mmol/L (21-32); CHLORIDE 99 mmol/L (98-107); CREATININE 1.8 mg/dL (0.7-1.3); GFR 36.7; GLUCOSE 191 mg/dL (70-99); POTASSIUM 4.5 mmol/L (3.5-5.1); SODIUM 137 mmol/L (136-145); TOTAL BILIRUBIN 0.4 mg/dL (0.2-1.0); TOTAL PROTEIN 7.4 g/dL (6.4-8.2)
[2018-09-09 11:50] LABS: VAL ACID 56 mcg/mL (50-100)
[2018-09-09 11:53] LABS: BASO % 0 % (0-3); EOS # 0.1 x10^3/uL (0.0-0.7); EOS % 1 % (0-3); HEMATOCRIT 37.3 % (39.0-53.0); HEMOGLOBIN 12.6 g/dL (13.0-17.5); LYMPH # 1.1 x10^3/uL (1.0-4.8); LYMPH % 10 % (24-48); MEAN CORPUSCULAR HEMOGLOBIN 30 pg (25-35); MEAN CORPUSCULAR HGB CONC 34 g/dL (31-37); MEAN CORPUSCULAR VOLUME 90 fL (79-100); MONO # 0.6 x10^3/uL (0.0-1.1); MONO % 6 % (0-9); NEUT # 8.8 x10^3uL (1.8-7.7); NEUT % 83 % (31-73); PLATELET COUNT 283 x10^3/uL (140-400); RED BLOOD COUNT 4.16 x10^6/uL (4.30-5.70); RED CELL DISTRIBUTION WIDTH 13.8 % (11.5-14.5); WHITE BLOOD COUNT 10.6 x10^3/uL (4.0-11.0)
[2018-09-09 16:02] VITALS: BP 141/80
[2018-09-09] MEDS: MIRTAZAPINE 7.5 MG TABLET. PO SCH (20:46)
[2018-09-09] MEDS: traZODone 50 MG TABLET. PO SCH (20:46)
--- NOTE | 2018-09-09 22:01 | PDOC ---
Exam Note: Naman Note: Please also refer to the separate dictated note~for this date of service dictated separately.~Patient seen individually. Discussed the patient with Nursing staff reviewed the chart.~Reviewed interim history and current functioning. Reviewed vital signs,~Labs/ Radiology~and current medications noted below. Continue current treatment with the changes noted in the dictated addendum note Assessment: Vital Signs: Vital Signs Date Time Temp Pulse Resp B/P (MAP) Pulse Ox O2 Delivery O2 Flow Rate FiO2 09/09/18 16:02 97.4 80 18 141/80 (100) 97 Room Air I&O Intake and Output 09/09/18 07:01 Intake Total 1080 ml Balance 1080 ml Intake Oral 1080 ml Labs: Laboratory Tests Test 09/09/18 07:38 09/09/18 11:00 09/09/18 11:43 09/09/18 16:46 Glucose (Fingerstick) 157 mg/dL (70-99) H 156 mg/dL (70-99) H 72 mg/dL (70-99) White Blood Count 10.6 x10^3/uL (4.0-11.0) Red Blood Count 4.16 x10^6/uL (4.30-5.70) L Hemoglobin 12.6 g/dL (13.0-17.5) L Hematocrit 37.3 % (39.0-53.0) L Mean Corpuscular Volume 90 fL (79-100) Mean Corpuscular Hemoglobin 30 pg (25-35) Mean Corpuscular Hemoglobin Concent 34 g/dL (31-37) Red Cell Distribution Width 13.8 % (11.5-14.5) Platelet Count 283 x10^3/uL (140-400) Neutrophils (%) (Auto) 83 % (31-73) H Lymphocytes (%) (Auto) 10 % (24-48) L Monocytes (%) (Auto) 6 % (0-9) Eosinophils (%) (Auto) 1 % (0-3) Basophils (%) (Auto) 0 % (0-3) Neutrophils # (Auto) 8.8 x10^3uL (1.8-7.7) H Lymphocytes # (Auto) 1.1 x10^3/uL (1.0-4.8) Monocytes # (Auto) 0.6 x10^3/uL (0.0-1.1) Eosinophils # (Auto) 0.1 x10^3/uL (0.0-0.7) Basophils # (Auto) 0.0 x10^3/uL (0.0-0.2) Sodium Level 137 mmol/L (136-145) Potassium Level 4.5 mmol/L (3.5-5.1) Chloride Level 99 mmol/L (98-107) Carbon Dioxide Level 28 mmol/L (21-32) Anion Gap 10 (6-14) Blood Urea Nitrogen 40 mg/dL (8-26) H Creatinine 1.8 mg/dL (0.7-1.3) H Estimated GFR (Cockcroft-Gault) 36.7 BUN/Creatinine Ratio 22 (6-20) H Glucose Level 191 mg/dL (70-99) H Calcium Level 9.3 mg/dL (8.5-10.1) Total Bilirubin 0.4 mg/dL (0.2-1.0) Aspartate Amino Transferase (AST) 27 U/L (15-37) Alanine Aminotransferase (ALT) 27 U/L (16-63) Alkaline Phosphatase 118 U/L (46-116) H Total Protein 7.4 g/dL (6.4-8.2) Albumin 3.8 g/dL (3.4-5.0) Albumin/Globulin Ratio 1.1 (1.0-1.7) Valproic Acid Level 56 mcg/mL (50-100) Valproic Acid Last Dose Date 09/08/2018 Valproic Acid Last Dose Time 2100 Test 09/09/18 19:53 Glucose (Fingerstick) 173 mg/dL (70-99) H Current Medications: Meds: Current Medications Acetaminophen (Tylenol) 650 mg PRN Q6HRS PRN PO PAIN / TEMP; Start 09/05/18 at 11:45; Status Cancel Multi-Ingredient Ointment (Analgesic [place]) 1 anupama PRN QID PRN TP MUSCLE PAIN; Start 09/05/18 at 11:45 Al Hydroxide/Mg Hydroxide (Mylanta Plus Xs) 15 ml PRN AFTMEALHC PRN PO DYSPEPSIA; Start 09/05/18 at 11:45 Magnesium Hydroxide (Milk Of Magnesia) 2,400 mg PRN QHS PRN PO CONSTIPATION; Start 09/05/18 at 11:45 Acetaminophen (Tylenol) 650 mg PRN Q4HRS PRN PO MILD PAIN; Start 09/05/18 at 13:00 Lisinopril (Prinivil) 10 mg DAILY PO Last administered on 09/08/18 09:16; Start 09/06/18 at 09:00; Stop 09/09/18 at 17:03; Status DC Aspirin (Children'S Aspirin) 81 mg DAILYWBKFT PO Last administered on 09:25; Start 09/06/18 at 08:00 Divalproex Sodium (Depakote Sprinkles) 125 mg BID PO Last administered on 09/06 09:07; Start 09/05/18 at 21:00; Stop 09/06/18 at 18:30; Status DC EZETIMIBE (Zetia) 10 mg DAILY PO Last administered on 09/09/18 09:26; Start 09/06/18 at 09:00 Non-Formulary Medication (Mag Hydrox/ Aluminum Hyd/ Simeth (Maalox Advanced Suspension)) 5 ml PRN PRN PO INDIGESTION; Start 09/05/18 at 13:00; Stop at 13:16; Status DC Memantine (Namenda) 10 mg BID PO Last administered on 09/09/18at 20:46; Start 09/05/18 at 21:00 Pantoprazole Sodium (Protonix) 40 mg DAILYAC PO Last administered on 09:25; Start 09/06/18 at 07:30 Polyethylene Glycol (miraLAX) 17 gm DAILY PO Last administered on 09/09/18at 09 :26; Start 09/06/18 at 09:00 Rivastigmine (Exelon) 1 patch DAILY TD Last administered on 09/09/18 09:26; Start 09/06/18 at 09:00 Oxybutynin Chloride (Ditropan) 5 mg [id number] PO Last administered on 09/09/18at 20:46; Start 09/05/18 at 14:00 Zolpidem Tartrate (Ambien) 5 mg PRN QHS PRN PO INSOMNIA Last administered on at 00:09; Start 09/05/18 at 13:30; Stop 09/08/18 at 18:09; Status DC Zolpidem Tartrate (Ambien) 5 mg QHS PO Last administered on 09/07/18at 21:20; Start 09/05/18 at 21:00; Stop 09/08/18 at 18:09; Status DC Olanzapine (ZyPREXA ZYDIS) 2.5 mg PRN Q2HR PRN PO PSYCHOSIS Last administered on 09/09/18at 13:14; Start 09/05/18 at 16:45 Vitamin D (Vitamin D3) 50,000 unit WEEKLY PO Last administered on 09/07/18at 10 :13; Start 09/07/18 at 09:00 Glimepiride (Amaryl) 2 mg DAILY PO Last administered on 09/09/18at 09:25; Start 09/07/18 at 09:00 Divalproex Sodium (Depakote Sprinkles) 250 mg BID PO Last administered on 09/09at 20:45; Start 09/06/18 at 21:00 Trazodone HCl (Desyrel) 50 mg QHS PO Last administered on 09/09/18at 20:46; Start 09/07/18 at 21:00 Trazodone HCl (Desyrel) 50 mg PRN QHS PRN PO INSOMNIA Last administered on at 00:09; Start 09/07/18 at 11:30 Sertraline HCl (Zoloft) 25 mg DAILY PO Last administered on 09/09/18at 09:26; Start 09/08/18 at 09:00 Mirtazapine (Remeron) 7.5 mg QHS PO Last administered on 09/09/18at 20:46; Start 09/08/18 at 21:00 Amlodipine Besylate (Norvasc) 10 mg DAILY PO ; Start 09/10/18 at 09:00 Active Scripts Active Reported Depakote Sprinkle (Divalproex Sodium) 125 Mg Cap.sprink 125 Mg PO BID Zetia (Ezetimibe) 10 Mg Tablet 10 Mg PO DAILY08 Tylenol (Acetaminophen) 325 Mg Tablet 650 Mg PO PRN Q4HRS PRN [sonata] 10 Mg PO HS EXELON 9.5mg/24hr (Rivastigmine) 1 Each Patch.td24 1 Patch TD DAILY Omeprazole 40 Mg Capsule.dr 40 Mg PO DAILY Namenda (Memantine Hcl) 10 Mg Tablet 10 Mg PO BID Maalox Advanced Suspension (Mag Hydrox/Aluminum Hyd/Simeth) 355 Ml Oral.susp 5 Ml PO PRN PRN Lisinopril 10 Mg Tablet 10 Mg PO DAILY Glycolax (Polyethylene Glycol 3350) 119 Gm Powder 17 Gm PO DAILY Detrol La (Tolterodine Tartrate) 4 Mg Cap.er.24h 1 Cap PO DAILY Aspirin 81 Mg Tab.chew 81 Mg PO DAILY I have reviewed the current psychotropics carefully including drug interactions. Risk benefit ratio favors no change other than as noted in my dictated progress note. Diagnosis: Problems: (1) Dementia (2) Dementia with behavioral disturbance (3) Anxiety disorder (4) Depression (5) Impulse control disorder (6) Dementia, vascular, with depression (7) Major neurocognitive disorder LINO DE PAZ MD Sep 09, 2018 22:01
[2018-09-10 06:11] VITALS: BP 132/62
[2018-09-10 06:14] VITALS: BP 132/62
[2018-09-10] MEDS: PANTOPRAZOLE 40 MG TABLET. PO SCH (09:18)
[2018-09-10] MEDS: GLIMEPIRIDE 2 MG TABLET PO SCH (09:19)
[2018-09-10] MEDS: POLYETHYLENE GLYCOL 3350 17 GM PACKET. PO SCH (09:19)
[2018-09-10] MEDS: OXYBUTYNIN CHLORIDE 5 MG TABLET PO SCH ×3 (09:19→20:59)
[2018-09-10] MEDS: DIVALPROEX 125 MG CAP.SPRINK PO SCH ×2 (09:19→20:59)
[2018-09-10] MEDS: SERTRALINE 25 MG TABLET. PO SCH (09:19)
[2018-09-10] MEDS: EZETIMIBE 10 MG TABLET PO SCH (09:19)
[2018-09-10] MEDS: ASPIRIN 81 MG TAB.CHEW PO SCH (09:19)
[2018-09-10] MEDS: MEMANTINE 10 MG TABLET. PO SCH ×2 (09:19→20:59)
[2018-09-10] MEDS: RIVASTIGMINE 9.5MG PATCH. TD SCH (09:20)
[2018-09-10] MEDS: amLODIPine BESYLATE 10 MG TABLET PO SCH (09:27)
--- NOTE | 2018-09-10 14:16 | PN ---
DATE: 09/09/2018 This is a late entry 09/09/2018 covers the elements not covered in my initial note. SUBJECTIVE: I met with the patient in the evening. The patient slept 6-3/4 hours previous evening. He remains confused, wandering, forgetful, urinated on the floor. Valproic acid level is 56, therapeutic. REVIEW OF SYSTEMS: No CV, , pulmonary, eye, ENT system symptoms on review. Reliability poor. MENTAL STATUS EXAM: Oriented to himself. Insight, judgment, recent and remote memory, attention, concentration, fund of knowledge poor, consistent with his diagnosis. He individually talked at length with me about getting frustrated because he gets forgetful. We talked about different phases of life, how we have different assets and disabilities at different stages including childhood, adolescent, adult and older adulthood. He seemed to share understanding, but quickly forgotten it when I came back to him a short while later on rounds. IMPRESSION: Major neurocognitive disorder, Alzheimer, vascular with delusion, depression, behavioral disturbance. Rest unchanged. PLAN: No change from initial note. We have got the Depakote therapeutic. Maintain Remeron, Namenda, Exelon patch, Zyprexa p.r.n., trazodone, and Zoloft. LINO DE PAZ MD DR: RUBY/nazia JOB#: [id number] / [id number]
[2018-09-10 16:12] VITALS: BP 109/68
--- NOTE | 2018-09-10 16:57 | PN ---
DATE: 09/08/2018 PSYCHIATRIC PROGRESS NOTE This late entry 09/08/2018 covers elements, not covered in my initial note. SUBJECTIVE: I met with the patient in the evening. The patient did not sleep at all the previous night. Remains confused, pleasant, delusional. Believes he is 57 years old and is going to war. He has not had to wear onesie however. REVIEW OF SYSTEMS: No CV, , pulmonary, eye, ENT system symptoms on review. Reliability poor. MENTAL STATUS EXAM: Oriented to himself. Insight, judgment, recent and remote memory, attention, concentration, fund of knowledge poor, consistent with his diagnosis mentioned in my initial note. PLAN: Add Remeron 7.5 mg p.o. at bedtime for insomnia. Rest unchanged. Namenda patch, Depakote along with Zyprexa p.r.n. MAN Nilesh DE PAZ MD DR: RUBY/nazia JOB#: [id number] / [id number]
[2018-09-10] MEDS: traZODone 50 MG TABLET. PO SCH (20:59)
[2018-09-10] MEDS: MIRTAZAPINE 7.5 MG TABLET. PO SCH (20:59)
--- NOTE | 2018-09-10 22:48 | PDOC ---
Exam Note: Naman Note: Please also refer to the separate dictated note~for this date of service dictated separately.~Patient seen individually. Discussed the patient with Nursing staff reviewed the chart.~Reviewed interim history and current functioning. Reviewed vital signs,~Labs/ Radiology~and current medications noted below. Continue current treatment with the changes noted in the dictated addendum note Assessment: Vital Signs: Vital Signs Date Time Temp Pulse Resp B/P (MAP) Pulse Ox O2 Delivery O2 Flow Rate FiO2 09/10/18 16:12 98.3 77 20 109/68 (82) 97 09/10/18 06:11 Room Air I&O Intake and Output 09/10/18 07:01 Intake Total 605 ml Balance 605 ml Intake Oral 605 ml # Voids 2 Labs: Laboratory Tests Test 09/10/18 07:28 09/10/18 11:27 09/10/18 16:22 09/10/18 19:17 Glucose (Fingerstick) 118 mg/dL (70-99) H 148 mg/dL (70-99) H 87 mg/dL (70-99) 145 mg/dL (70-99) H Current Medications: Meds: Current Medications Acetaminophen (Tylenol) 650 mg PRN Q6HRS PRN PO PAIN / TEMP; Start 09/05/18 at 11:45; Status Cancel Multi-Ingredient Ointment (Analgesic [place]) 1 anupama PRN QID PRN TP MUSCLE PAIN; Start 09/05/18 at 11:45 Al Hydroxide/Mg Hydroxide (Mylanta Plus Xs) 15 ml PRN AFTMEALHC PRN PO DYSPEPSIA; Start 09/05/18 at 11:45 Magnesium Hydroxide (Milk Of Magnesia) 2,400 mg PRN QHS PRN PO CONSTIPATION; Start 09/05/18 at 11:45 Acetaminophen (Tylenol) 650 mg PRN Q4HRS PRN PO MILD PAIN; Start 09/05/18 at 13:00 Lisinopril (Prinivil) 10 mg DAILY PO Last administered on 09/08/18at 09:16; Start 09/06/18 at 09:00; Stop 09/09/18 at 17:03; Status DC Aspirin (Children'S Aspirin) 81 mg DAILYWBKFT PO Last administered on at 09:19; Start 09/06/18 at 08:00 Divalproex Sodium (Depakote Sprinkles) 125 mg BID PO Last administered on 09/06 09:07; Start 09/05/18 at 21:00; Stop 09/06/18 at 18:30; Status DC EZETIMIBE (Zetia) 10 mg DAILY PO Last administered on 09/10/18 09:19; Start 09/06/18 at 09:00 Non-Formulary Medication (Mag Hydrox/ Aluminum Hyd/ Simeth (Maalox Advanced Suspension)) 5 ml PRN PRN PO INDIGESTION; Start 09/05/18 at 13:00; Stop at 13:16; Status DC Memantine (Namenda) 10 mg BID PO Last administered on 09/10/18 20:59; Start 09/05/18 at 21:00 Pantoprazole Sodium (Protonix) 40 mg DAILYAC PO Last administered on 09:18; Start 09/06/18 at 07:30 Polyethylene Glycol (miraLAX) 17 gm DAILY PO Last administered on 09/10/18 09 :19; Start 09/06/18 at 09:00 Rivastigmine (Exelon) 1 patch DAILY TD Last administered on 09/10/18 09:20; Start 09/06/18 at 09:00 Oxybutynin Chloride (Ditropan) 5 mg [id number] PO Last administered on 09/10/18at 20:59; Start 09/05/18 at 14:00 Zolpidem Tartrate (Ambien) 5 mg PRN QHS PRN PO INSOMNIA Last administered on at 00:09; Start 09/05/18 at 13:30; Stop 09/08/18 at 18:09; Status DC Zolpidem Tartrate (Ambien) 5 mg QHS PO Last administered on 09/07/18at 21:20; Start 09/05/18 at 21:00; Stop 09/08/18 at 18:09; Status DC Olanzapine (ZyPREXA ZYDIS) 2.5 mg PRN Q2HR PRN PO PSYCHOSIS Last administered on 09/10/18 21:00; Start 09/05/18 at 16:45 Vitamin D (Vitamin D3) 50,000 unit WEEKLY PO Last administered on 12/20/18at 10 :13; Start 09/07/18 at 09:00 Glimepiride (Amaryl) 2 mg DAILY PO Last administered on 09/10/18 09:19; Start 09/07/18 at 09:00 Divalproex Sodium (Depakote Sprinkles) 250 mg BID PO Last administered on 09/10 20:59; Start 09/06/18 at 21:00 Trazodone HCl (Desyrel) 50 mg QHS PO Last administered on 09/10/18 20:59; Start 09/07/18 at 21:00 Trazodone HCl (Desyrel) 50 mg PRN QHS PRN PO INSOMNIA Last administered on at 00:09; Start 09/07/18 at 11:30 Sertraline HCl (Zoloft) 25 mg DAILY PO Last administered on 09/10/18 09:19; Start 09/08/18 at 09:00 Mirtazapine (Remeron) 7.5 mg QHS PO Last administered on 09/10/18 20:59; Start 09/08/18 at 21:00 Amlodipine Besylate (Norvasc) 10 mg DAILY PO Last administered on 09/10/18 09 :27; Start 09/10/18 at 09:00 Quetiapine Fumarate (SEROquel) 12.5 mg BIDWMEALS PO ; Start 09/11/18 at 08:00 Active Scripts Active Reported Depakote Sprinkle (Divalproex Sodium) 125 Mg Cap.sprink 125 Mg PO BID Zetia (Ezetimibe) 10 Mg Tablet 10 Mg PO DAILY08 Tylenol (Acetaminophen) 325 Mg Tablet 650 Mg PO PRN Q4HRS PRN [sonata] 10 Mg PO HS EXELON 9.5mg/24hr (Rivastigmine) 1 Each Patch.td24 1 Patch TD DAILY Omeprazole 40 Mg Capsule.dr 40 Mg PO DAILY Namenda (Memantine Hcl) 10 Mg Tablet 10 Mg PO BID Maalox Advanced Suspension (Mag Hydrox/Aluminum Hyd/Simeth) 355 Ml Oral.susp 5 Ml PO PRN PRN Lisinopril 10 Mg Tablet 10 Mg PO DAILY Glycolax (Polyethylene Glycol 3350) 119 Gm Powder 17 Gm PO DAILY Detrol La (Tolterodine Tartrate) 4 Mg Cap.er.24h 1 Cap PO DAILY Aspirin 81 Mg Tab.chew 81 Mg PO DAILY I have reviewed the current psychotropics carefully including drug interactions. Risk benefit ratio favors no change other than as noted in my dictated progress note. Diagnosis: Problems: (1) Dementia (2) Dementia with behavioral disturbance (3) Anxiety disorder (4) Depression (5) Impulse control disorder (6) Dementia, vascular, with depression (7) Major neurocognitive disorder LINO DE PAZ MD Sep 10, 2018 22:48
[2018-09-11 06:20] VITALS: BP 143/79
[2018-09-11] MEDS: RIVASTIGMINE 9.5MG PATCH. TD SCH (07:28)
[2018-09-11] MEDS: DIVALPROEX 125 MG CAP.SPRINK PO SCH ×2 (07:28→21:06)
[2018-09-11] MEDS: amLODIPine BESYLATE 10 MG TABLET PO SCH (07:29)
[2018-09-11] MEDS: OXYBUTYNIN CHLORIDE 5 MG TABLET PO SCH ×3 (07:29→21:06)
[2018-09-11] MEDS: PANTOPRAZOLE 40 MG TABLET. PO SCH (07:29)
[2018-09-11] MEDS: EZETIMIBE 10 MG TABLET PO SCH (07:29)
[2018-09-11] MEDS: POLYETHYLENE GLYCOL 3350 17 GM PACKET. PO SCH (07:29)
[2018-09-11] MEDS: MEMANTINE 10 MG TABLET. PO SCH ×2 (07:29→21:06)
[2018-09-11] MEDS: SERTRALINE 25 MG TABLET. PO SCH (07:29)
[2018-09-11] MEDS: ASPIRIN 81 MG TAB.CHEW PO SCH (07:30)
[2018-09-11] MEDS: GLIMEPIRIDE 2 MG TABLET PO SCH (07:30)
[2018-09-11] MEDS: QUEtiapine 25 MG TABLET. PO SCH ×2 (07:31→16:48)
[2018-09-11 09:45] LABS: CALCIUM 8.4 mg/dL (8.5-10.1); CREATININE 1.6 mg/dL (0.7-1.3); POTASSIUM 5.2 mmol/L (3.5-5.1)
[2018-09-11 16:08] VITALS: BP 157/83
--- NOTE | 2018-09-11 18:51 | PDOC ---
Exam Note: Naman Note: Please also refer to the separate dictated note~for this date of service dictated separately.~Patient seen individually. Discussed the patient with Nursing staff reviewed the chart.~Reviewed interim history and current functioning. Reviewed vital signs,~Labs/ Radiology~and current medications noted below. Continue current treatment with the changes noted in the dictated addendum note Assessment: Vital Signs: Vital Signs Date Time Temp Pulse Resp B/P (MAP) Pulse Ox O2 Delivery O2 Flow Rate FiO2 09/11/18 16:08 97.9 55 22 157/83 (107) 98 Room Air I&O Intake and Output 09/11/18 07:01 Intake Total 1440 ml Balance 1440 ml Intake Oral 1440 ml # Bowel Movements 1 Labs: Laboratory Tests Test 09/10/18 19:17 09/11/18 07:28 09/11/18 09:26 09/11/18 11:37 Glucose (Fingerstick) 145 mg/dL (70-99) H 146 mg/dL (70-99) H 55 mg/dL (70-99) L Sodium Level 136 mmol/L (136-145) Potassium Level 5.2 mmol/L (3.5-5.1) H Chloride Level 98 mmol/L (98-107) Carbon Dioxide Level 30 mmol/L (21-32) Anion Gap 8 (6-14) Blood Urea Nitrogen 32 mg/dL (8-26) H Creatinine 1.6 mg/dL (0.7-1.3) H Estimated GFR (Cockcroft-Gault) 42.0 Glucose Level 243 mg/dL (70-99) H Calcium Level 8.4 mg/dL (8.5-10.1) L Test 09/11/18 11:50 09/11/18 16:40 Glucose (Fingerstick) 60 mg/dL (70-99) L 89 mg/dL (70-99) Current Medications: Meds: Current Medications Acetaminophen (Tylenol) 650 mg PRN Q6HRS PRN PO PAIN / TEMP; Start 09/05/18 at 11:45; Status Cancel Multi-Ingredient Ointment (Analgesic [place]) 1 anupama PRN QID PRN TP MUSCLE PAIN; Start 09/05/18 at 11:45 Al Hydroxide/Mg Hydroxide (Mylanta Plus Xs) 15 ml PRN AFTMEALHC PRN PO DYSPEPSIA; Start 09/05/18 at 11:45 Magnesium Hydroxide (Milk Of Magnesia) 2,400 mg PRN QHS PRN PO CONSTIPATION; Start 09/05/18 at 11:45 Acetaminophen (Tylenol) 650 mg PRN Q4HRS PRN PO MILD PAIN; Start 09/05/18 at 13:00 Lisinopril (Prinivil) 10 mg DAILY PO Last administered on 09/08/18 09:16; Start 09/06/18 at 09:00; Stop 09/09/18 at 17:03; Status DC Aspirin (Children'S Aspirin) 81 mg DAILYWBKFT PO Last administered on 07:30; Start 09/06/18 at 08:00 Divalproex Sodium (Depakote Sprinkles) 125 mg BID PO Last administered on 09/06at 09:07; Start 09/05/18 at 21:00; Stop 09/06/18 at 18:30; Status DC EZETIMIBE (Zetia) 10 mg DAILY PO Last administered on 09/11/18 07:29; Start 09/06/18 at 09:00 Non-Formulary Medication (Mag Hydrox/ Aluminum Hyd/ Simeth (Maalox Advanced Suspension)) 5 ml PRN PRN PO INDIGESTION; Start 09/05/18 at 13:00; Stop at 13:16; Status DC Memantine (Namenda) 10 mg BID PO Last administered on 09/11/18at 07:29; Start 09/05/18 at 21:00 Pantoprazole Sodium (Protonix) 40 mg DAILYAC PO Last administered on at 07:29; Start 09/06/18 at 07:30 Polyethylene Glycol (miraLAX) 17 gm DAILY PO Last administered on 09/11/18 07 :29; Start 09/06/18 at 09:00 Rivastigmine (Exelon) 1 patch DAILY TD Last administered on 09/11/18 07:28; Start 09/06/18 at 09:00 Oxybutynin Chloride (Ditropan) 5 mg [id number] PO Last administered on 09/11/18at 15:14; Start 09/05/18 at 14:00 Zolpidem Tartrate (Ambien) 5 mg PRN QHS PRN PO INSOMNIA Last administered on at 00:09; Start 09/05/18 at 13:30; Stop 09/08/18 at 18:09; Status DC Zolpidem Tartrate (Ambien) 5 mg QHS PO Last administered on 09/07/18at 21:20; Start 09/05/18 at 21:00; Stop 09/08/18 at 18:09; Status DC Olanzapine (ZyPREXA ZYDIS) 2.5 mg PRN Q2HR PRN PO PSYCHOSIS Last administered on 09/11/18 07:21; Start 09/05/18 at 16:45 Vitamin D (Vitamin D3) 50,000 unit WEEKLY PO Last administered on 09/07/18at 10 :13; Start 09/07/18 at 09:00 Glimepiride (Amaryl) 2 mg DAILY PO Last administered on 09/11/18at 07:30; Start 09/07/18 at 09:00 Divalproex Sodium (Depakote Sprinkles) 250 mg BID PO Last administered on 09/11at 07:28; Start 09/06/18 at 21:00 Trazodone HCl (Desyrel) 50 mg QHS PO Last administered on 09/10/18at 20:59; Start 09/07/18 at 21:00 Trazodone HCl (Desyrel) 50 mg PRN QHS PRN PO INSOMNIA Last administered on at 00:09; Start 09/07/18 at 11:30 Sertraline HCl (Zoloft) 25 mg DAILY PO Last administered on 09/11/18at 07:29; Start 09/08/18 at 09:00 Mirtazapine (Remeron) 7.5 mg QHS PO Last administered on 09/10/18at 20:59; Start 09/08/18 at 21:00 Amlodipine Besylate (Norvasc) 10 mg DAILY PO Last administered on 09/11/18 07 :29; Start 09/10/18 at 09:00 Quetiapine Fumarate (SEROquel) 12.5 mg BIDWMEALS PO Last administered on at 16:48; Start 09/11/18 at 08:00 Docusate Sodium (Colace) 100 mg BID PO ; Start 09/11/18 at 21:00 Active Scripts Active Reported Depakote Sprinkle (Divalproex Sodium) 125 Mg Cap.sprink 125 Mg PO BID Zetia (Ezetimibe) 10 Mg Tablet 10 Mg PO DAILY08 Tylenol (Acetaminophen) 325 Mg Tablet 650 Mg PO PRN Q4HRS PRN [sonata] 10 Mg PO HS EXELON 9.5mg/24hr (Rivastigmine) 1 Each Patch.td24 1 Patch TD DAILY Omeprazole 40 Mg Capsule.dr 40 Mg PO DAILY Namenda (Memantine Hcl) 10 Mg Tablet 10 Mg PO BID Maalox Advanced Suspension (Mag Hydrox/Aluminum Hyd/Simeth) 355 Ml Oral.susp 5 Ml PO PRN PRN Lisinopril 10 Mg Tablet 10 Mg PO DAILY Glycolax (Polyethylene Glycol 3350) 119 Gm Powder 17 Gm PO DAILY Detrol La (Tolterodine Tartrate) 4 Mg Cap.er.24h 1 Cap PO DAILY Aspirin 81 Mg Tab.chew 81 Mg PO DAILY I have reviewed the current psychotropics carefully including drug interactions. Risk benefit ratio favors no change other than as noted in my dictated progress note. LINO DE PAZ MD Sep 11, 2018 18:51
[2018-09-11] MEDS: traZODone 50 MG TABLET. PO SCH (21:06)
[2018-09-11] MEDS: MIRTAZAPINE 7.5 MG TABLET. PO SCH (21:06)
[2018-09-11] MEDS: DOCUSATE SODIUM 100 MG CAPSULE PO SCH (21:07)
[2018-09-12 05:26] VITALS: BP 159/77
[2018-09-12] MEDS: EZETIMIBE 10 MG TABLET PO SCH (08:17)
[2018-09-12] MEDS: PANTOPRAZOLE 40 MG TABLET. PO SCH (08:18)
[2018-09-12] MEDS: ASPIRIN 81 MG TAB.CHEW PO SCH (08:18)
[2018-09-12] MEDS: DIVALPROEX 125 MG CAP.SPRINK PO SCH ×2 (08:18→19:13)
[2018-09-12] MEDS: MEMANTINE 10 MG TABLET. PO SCH ×2 (08:18→19:13)
[2018-09-12] MEDS: SERTRALINE 25 MG TABLET. PO SCH (08:18)
[2018-09-12] MEDS: amLODIPine BESYLATE 10 MG TABLET PO SCH (08:18)
[2018-09-12] MEDS: GLIMEPIRIDE 2 MG TABLET PO SCH (08:19)
[2018-09-12] MEDS: OXYBUTYNIN CHLORIDE 5 MG TABLET PO SCH ×3 (08:19→19:13)
[2018-09-12] MEDS: DOCUSATE SODIUM 100 MG CAPSULE PO SCH ×2 (08:19→19:13)
[2018-09-12] MEDS: QUEtiapine 25 MG TABLET. PO SCH ×2 (08:19→16:59)
[2018-09-12] MEDS: RIVASTIGMINE 9.5MG PATCH. TD SCH (08:20)
[2018-09-12] MEDS: POLYETHYLENE GLYCOL 3350 17 GM PACKET. PO SCH (08:20)
[2018-09-12 16:37] VITALS: BP 141/73
--- NOTE | 2018-09-12 17:09 | PN ---
DATE: 09/10/2018 PSYCHIATRIC PROGRESS NOTE This late entry 09/10/2018 covers elements not covered in my initial note. SUBJECTIVE: I met with the patient in the evening. The patient slept 6-1/4 hours previous night. He has been restless, somewhat delusional, believes his is here, but has not urinated on the floor. BUN and creatinine elevated. We will defer to Dr. Narayanan. Postvoid bladder showed 0 mL. REVIEW OF SYSTEMS: No CV, , pulmonary, eye, ENT system symptoms on review. Reliability poor. MENTAL STATUS EXAM: Oriented to himself. Insight, judgment, recent and remote memory, attention, concentration, fund of knowledge poor consistent with his diagnosis mentioned in my initial note. IMPRESSION: Major neurocognitive disorder, Alzheimer, vascular with delusion, depression, behavioral disturbance. Rest unchanged. PLAN: Start Seroquel 12.5 mg 9 a.m., 5:00 p.m. Rest unchanged per initial note. MAN Nilesh DE PAZ MD DR: RUBY/nazia JOB#: [id number] / [id number]
--- NOTE | 2018-09-12 17:11 | PN ---
DATE: 09/11/2018 PSYCHIATRIC PROGRESS NOTE This late entry 09/11/2018 covers elements not covered in my initial note. SUBJECTIVE: I met with the patient in the evening. The patient remains confused, has been wandering around the unit. He tried to hit the nursing staff, slept 5-3/4 hours previous evening. Received Zyprexa when he became aggressive, then was better by the time I met with him in the evening. REVIEW OF SYSTEMS: No CV, , pulmonary, eye, ENT system symptoms on review. Reliability poor. MENTAL STATUS EXAM: Oriented to himself. Insight, judgment, recent and remote memory, attention, concentration, fund of knowledge poor consistent with his diagnosis mentioned in my initial note. PLAN: No change from initial note. MAN Nilesh DE PAZ MD DR: RUBY/nazia JOB#: [id number] / [id number]
--- NOTE | 2018-09-12 18:59 | PDOC ---
Exam Note: Naman Note: Please also refer to the separate dictated note~for this date of service dictated separately.~Patient seen individually. Discussed the patient with Nursing staff reviewed the chart.~Reviewed interim history and current functioning. Reviewed vital signs,~Labs/ Radiology~and current medications noted below. Continue current treatment with the changes noted in the dictated addendum note Assessment: Vital Signs: Vital Signs Date Time Temp Pulse Resp B/P (MAP) Pulse Ox O2 Delivery O2 Flow Rate FiO2 09/12/18 16:37 97.9 59 22 141/73 (95) 94 09/12/18 05:26 Room Air I&O Intake and Output 09/12/18 07:01 Intake Total 1320 ml Balance 1320 ml Intake Oral 1320 ml Labs: Laboratory Tests Test 09/11/18 19:16 09/12/18 07:17 09/12/18 11:29 09/12/18 17:50 Glucose (Fingerstick) 220 mg/dL (70-99) H 157 mg/dL (70-99) H 190 mg/dL (70-99) H 157 mg/dL (70-99) H Current Medications: Meds: Current Medications Acetaminophen (Tylenol) 650 mg PRN Q6HRS PRN PO PAIN / TEMP; Start 09/05/18 at 11:45; Status Cancel Multi-Ingredient Ointment (Analgesic [place]) 1 anupama PRN QID PRN TP MUSCLE PAIN; Start 09/05/18 at 11:45 Al Hydroxide/Mg Hydroxide (Mylanta Plus Xs) 15 ml PRN AFTMEALHC PRN PO DYSPEPSIA; Start 09/05/18 at 11:45 Magnesium Hydroxide (Milk Of Magnesia) 2,400 mg PRN QHS PRN PO CONSTIPATION; Start 09/05/18 at 11:45 Acetaminophen (Tylenol) 650 mg PRN Q4HRS PRN PO MILD PAIN; Start 09/05/18 at 13:00 Lisinopril (Prinivil) 10 mg DAILY PO Last administered on 09/08/18at 09:16; Start 09/06/18 at 09:00; Stop 09/09/18 at 17:03; Status DC Aspirin (Children'S Aspirin) 81 mg DAILYWBKFT PO Last administered on at 08:18; Start 12/19/18 at 08:00 Divalproex Sodium (Depakote Sprinkles) 125 mg BID PO Last administered on 09/06 09:07; Start 09/05/18 at 21:00; Stop 09/06/18 at 18:30; Status DC EZETIMIBE (Zetia) 10 mg DAILY PO Last administered on 09/12/18 08:17; Start 09/06/18 at 09:00 Non-Formulary Medication (Mag Hydrox/ Aluminum Hyd/ Simeth (Maalox Advanced Suspension)) 5 ml PRN PRN PO INDIGESTION; Start 09/05/18 at 13:00; Stop at 13:16; Status DC Memantine (Namenda) 10 mg BID PO Last administered on 09/12/18 08:18; Start 09/05/18 at 21:00 Pantoprazole Sodium (Protonix) 40 mg DAILYAC PO Last administered on 08:18; Start 09/06/18 at 07:30 Polyethylene Glycol (miraLAX) 17 gm DAILY PO Last administered on 09/12/18 08 :20; Start 09/06/18 at 09:00 Rivastigmine (Exelon) 1 patch DAILY TD Last administered on 09/12/18 08:20; Start 09/06/18 at 09:00 Oxybutynin Chloride (Ditropan) 5 mg [id number] PO Last administered on 09/12/18at 14:28; Start 09/05/18 at 14:00 Zolpidem Tartrate (Ambien) 5 mg PRN QHS PRN PO INSOMNIA Last administered on at 00:09; Start 09/05/18 at 13:30; Stop 09/08/18 at 18:09; Status DC Zolpidem Tartrate (Ambien) 5 mg QHS PO Last administered on 09/07/18at 21:20; Start 09/05/18 at 21:00; Stop 09/08/18 at 18:09; Status DC Olanzapine (ZyPREXA ZYDIS) 2.5 mg PRN Q2HR PRN PO PSYCHOSIS Last administered on 09/11/18at 07:21; Start 09/05/18 at 16:45 Vitamin D (Vitamin D3) 50,000 unit WEEKLY PO Last administered on 09/07/18at 10 :13; Start 09/07/18 at 09:00 Glimepiride (Amaryl) 2 mg DAILY PO Last administered on 09/12/18 08:19; Start 09/07/18 at 09:00 Divalproex Sodium (Depakote Sprinkles) 250 mg BID PO Last administered on 09/12 08:18; Start 09/06/18 at 21:00 Trazodone HCl (Desyrel) 50 mg QHS PO Last administered on 09/11/18at 21:06; Start 09/07/18 at 21:00 Trazodone HCl (Desyrel) 50 mg PRN QHS PRN PO INSOMNIA Last administered on at 00:09; Start 09/07/18 at 11:30 Sertraline HCl (Zoloft) 25 mg DAILY PO Last administered on 09/12/18 08:18; Start 09/08/18 at 09:00 Mirtazapine (Remeron) 7.5 mg QHS PO Last administered on 09/11/18at 21:06; Start 09/08/18 at 21:00 Amlodipine Besylate (Norvasc) 10 mg DAILY PO Last administered on 09/12/18 08 :18; Start 09/10/18 at 09:00 Quetiapine Fumarate (SEROquel) 12.5 mg BIDWMEALS PO Last administered on at 16:59; Start 09/11/18 at 08:00 Docusate Sodium (Colace) 100 mg BID PO Last administered on 09/12/18 08:19; Start 09/11/18 at 21:00 Active Scripts Active Reported Depakote Sprinkle (Divalproex Sodium) 125 Mg Cap.sprink 125 Mg PO BID Zetia (Ezetimibe) 10 Mg Tablet 10 Mg PO DAILY08 Tylenol (Acetaminophen) 325 Mg Tablet 650 Mg PO PRN Q4HRS PRN [sonata] 10 Mg PO HS EXELON 9.5mg/24hr (Rivastigmine) 1 Each Patch.td24 1 Patch TD DAILY Omeprazole 40 Mg Capsule.dr 40 Mg PO DAILY Namenda (Memantine Hcl) 10 Mg Tablet 10 Mg PO BID Maalox Advanced Suspension (Mag Hydrox/Aluminum Hyd/Simeth) 355 Ml Oral.susp 5 Ml PO PRN PRN Lisinopril 10 Mg Tablet 10 Mg PO DAILY Glycolax (Polyethylene Glycol 3350) 119 Gm Powder 17 Gm PO DAILY Detrol La (Tolterodine Tartrate) 4 Mg Cap.er.24h 1 Cap PO DAILY Aspirin 81 Mg Tab.chew 81 Mg PO DAILY I have reviewed the current psychotropics carefully including drug interactions. Risk benefit ratio favors no change other than as noted in my dictated progress note. Diagnosis: Problems: (1) Dementia (2) Dementia with behavioral disturbance (3) Anxiety disorder (4) Depression (5) Impulse control disorder (6) Dementia, vascular, with depression (7) Major neurocognitive disorder LINO DE PAZ MD Sep 12, 2018 18:59
[2018-09-12] MEDS: traZODone 50 MG TABLET. PO SCH (19:13)
[2018-09-12] MEDS: MIRTAZAPINE 7.5 MG TABLET. PO SCH (19:13)
[2018-09-13 06:01] VITALS: BP 163/81
[2018-09-13] MEDS: EZETIMIBE 10 MG TABLET PO SCH (08:05)
[2018-09-13] MEDS: MEMANTINE 10 MG TABLET. PO SCH ×2 (08:05→20:25)
[2018-09-13] MEDS: DIVALPROEX 125 MG CAP.SPRINK PO SCH ×2 (08:05→20:24)
[2018-09-13] MEDS: OXYBUTYNIN CHLORIDE 5 MG TABLET PO SCH ×3 (08:05→20:25)
[2018-09-13] MEDS: SERTRALINE 25 MG TABLET. PO SCH (08:05)
[2018-09-13] MEDS: DOCUSATE SODIUM 100 MG CAPSULE PO SCH ×2 (08:05→20:25)
[2018-09-13] MEDS: ASPIRIN 81 MG TAB.CHEW PO SCH (08:05)
[2018-09-13] MEDS: QUEtiapine 25 MG TABLET. PO SCH ×2 (08:06→17:44)
[2018-09-13] MEDS: RIVASTIGMINE 9.5MG PATCH. TD SCH (08:07)
[2018-09-13] MEDS: amLODIPine BESYLATE 10 MG TABLET PO SCH (08:07)
[2018-09-13] MEDS: POLYETHYLENE GLYCOL 3350 17 GM PACKET. PO SCH (08:09)
[2018-09-13] MEDS: GLIMEPIRIDE 2 MG TABLET PO SCH (08:10)
[2018-09-13] MEDS: PANTOPRAZOLE 40 MG TABLET. PO SCH (08:13)
[2018-09-13 08:15] LABS: CREATININE 1.5 mg/dL (0.7-1.3); GFR 45.3; POTASSIUM 4.2 mmol/L (3.5-5.1)
[2018-09-13 16:45] VITALS: BP 127/72
[2018-09-13] MEDS: MIRTAZAPINE 7.5 MG TABLET. PO SCH (20:24)
[2018-09-13] MEDS: traZODone 50 MG TABLET. PO SCH (20:25)
--- NOTE | 2018-09-13 22:20 | PN ---
DATE: 09/12/2018 PSYCHIATRIC PROGRESS NOTE This late entry 09/12/2018 covers elements not covered in my initial note. SUBJECTIVE: I met with the patient in the evening. The patient slept 7 hours previous night. He remains confused, has been wandering around the unit. Otherwise, pleasant as I met with him. REVIEW OF SYSTEMS: No CV, , pulmonary, eye, ENT system symptoms on review. MENTAL STATUS EXAM: Oriented to himself. Insight, judgment, recent and remote memory, attention, concentration, fund of knowledge poor, consistent with his diagnosis mentioned in my initial note. PLAN: No change from initial note. Valproic acid level therapeutic at 56. MAN Nilesh DE PAZ MD DR: RUBY/nazia JOB#: [id number] / [id number]
--- NOTE | 2018-09-13 22:45 | PDOC ---
Exam Note: Naman Note: Please also refer to the separate dictated note~for this date of service dictated separately.~Patient seen individually. Discussed the patient with Nursing staff reviewed the chart.~Reviewed interim history and current functioning. Reviewed vital signs,~Labs/ Radiology~and current medications noted below. Continue current treatment with the changes noted in the dictated addendum note Assessment: Vital Signs: Vital Signs Date Time Temp Pulse Resp B/P (MAP) Pulse Ox O2 Delivery O2 Flow Rate FiO2 09/13/18 16:45 98.9 70 18 127/72 (90) 98 09/12/18 05:26 Room Air I&O Intake and Output 09/13/18 07:01 Intake Total 1680 ml Balance 1680 ml Intake Oral 1680 ml Labs: Laboratory Tests Test 09/13/18 07:21 09/13/18 07:22 09/13/18 11:08 09/13/18 16:46 Glucose (Fingerstick) 126 mg/dL (70-99) H 152 mg/dL (70-99) H 128 mg/dL (70-99) H Sodium Level 137 mmol/L (136-145) Potassium Level 4.2 mmol/L (3.5-5.1) Chloride Level 100 mmol/L (98-107) Carbon Dioxide Level 27 mmol/L (21-32) Anion Gap 10 (6-14) Blood Urea Nitrogen 30 mg/dL (8-26) H Creatinine 1.5 mg/dL (0.7-1.3) H Estimated GFR (Cockcroft-Gault) 45.3 Glucose Level 135 mg/dL (70-99) H Calcium Level 9.0 mg/dL (8.5-10.1) Current Medications: Meds: Current Medications Acetaminophen (Tylenol) 650 mg PRN Q6HRS PRN PO PAIN / TEMP; Start 09/05/18 at 11:45; Status Cancel Multi-Ingredient Ointment (Analgesic [place]) 1 anupama PRN QID PRN TP MUSCLE PAIN; Start 09/05/18 at 11:45 Al Hydroxide/Mg Hydroxide (Mylanta Plus Xs) 15 ml PRN AFTMEALHC PRN PO DYSPEPSIA; Start 09/05/18 at 11:45 Magnesium Hydroxide (Milk Of Magnesia) 2,400 mg PRN QHS PRN PO CONSTIPATION; Start 09/05/18 at 11:45 Acetaminophen (Tylenol) 650 mg PRN Q4HRS PRN PO MILD PAIN; Start 09/05/18 at 13:00 Lisinopril (Prinivil) 10 mg DAILY PO Last administered on 09/08/18at 09:16; Start 09/06/18 at 09:00; Stop 09/09/18 at 17:03; Status DC Aspirin (Children'S Aspirin) 81 mg DAILYWBKFT PO Last administered on at 08:05; Start 09/06/18 at 08:00 Divalproex Sodium (Depakote Sprinkles) 125 mg BID PO Last administered on 09/06at 09:07; Start 09/05/18 at 21:00; Stop 09/06/18 at 18:30; Status DC EZETIMIBE (Zetia) 10 mg DAILY PO Last administered on 09/13/18at 08:05; Start 09/06/18 at 09:00 Non-Formulary Medication (Mag Hydrox/ Aluminum Hyd/ Simeth (Maalox Advanced Suspension)) 5 ml PRN PRN PO INDIGESTION; Start 09/05/18 at 13:00; Stop at 13:16; Status DC Memantine (Namenda) 10 mg BID PO Last administered on 09/13/18at 20:25; Start 09/05/18 at 21:00 Pantoprazole Sodium (Protonix) 40 mg DAILYAC PO Last administered on at 08:13; Start 09/06/18 at 07:30 Polyethylene Glycol (miraLAX) 17 gm DAILY PO Last administered on 09/13/18at 08 :09; Start 09/06/18 at 09:00 Rivastigmine (Exelon) 1 patch DAILY TD Last administered on 09/13/18at 08:07; Start 09/06/18 at 09:00 Oxybutynin Chloride (Ditropan) 5 mg [id number] PO Last administered on 09/13/18at 20:25; Start 09/05/18 at 14:00 Zolpidem Tartrate (Ambien) 5 mg PRN QHS PRN PO INSOMNIA Last administered on at 00:09; Start 09/05/18 at 13:30; Stop 09/08/18 at 18:09; Status DC Zolpidem Tartrate (Ambien) 5 mg QHS PO Last administered on 09/07/18at 21:20; Start 09/05/18 at 21:00; Stop 09/08/18 at 18:09; Status DC Olanzapine (ZyPREXA ZYDIS) 2.5 mg PRN Q2HR PRN PO PSYCHOSIS Last administered on 09/11/18 07:21; Start 09/05/18 at 16:45 Vitamin D (Vitamin D3) 50,000 unit WEEKLY PO Last administered on 09/07/18at 10 :13; Start 09/07/18 at 09:00 Glimepiride (Amaryl) 2 mg DAILY PO Last administered on 09/13/18 08:10; Start 09/07/18 at 09:00 Divalproex Sodium (Depakote Sprinkles) 250 mg BID PO Last administered on 09/13at 20:24; Start 09/06/18 at 21:00 Trazodone HCl (Desyrel) 50 mg QHS PO Last administered on 09/13/18at 20:25; Start 09/07/18 at 21:00 Trazodone HCl (Desyrel) 50 mg PRN QHS PRN PO INSOMNIA Last administered on at 00:09; Start 09/07/18 at 11:30 Sertraline HCl (Zoloft) 25 mg DAILY PO Last administered on 09/13/18at 08:05; Start 09/08/18 at 09:00 Mirtazapine (Remeron) 7.5 mg QHS PO Last administered on 09/13/18at 20:24; Start 09/08/18 at 21:00 Amlodipine Besylate (Norvasc) 10 mg DAILY PO Last administered on 09/13/18 08 :07; Start 09/10/18 at 09:00 Quetiapine Fumarate (SEROquel) 12.5 mg BIDWMEALS PO Last administered on 17:44; Start 09/11/18 at 08:00 Docusate Sodium (Colace) 100 mg BID PO Last administered on 09/13/18 20:25; Start 09/11/18 at 21:00 Active Scripts Active Reported Depakote Sprinkle (Divalproex Sodium) 125 Mg Cap.sprink 125 Mg PO BID Zetia (Ezetimibe) 10 Mg Tablet 10 Mg PO DAILY08 Tylenol (Acetaminophen) 325 Mg Tablet 650 Mg PO PRN Q4HRS PRN [sonata] 10 Mg PO HS EXELON 9.5mg/24hr (Rivastigmine) 1 Each Patch.td24 1 Patch TD DAILY Omeprazole 40 Mg Capsule.dr 40 Mg PO DAILY Namenda (Memantine Hcl) 10 Mg Tablet 10 Mg PO BID Maalox Advanced Suspension (Mag Hydrox/Aluminum Hyd/Simeth) 355 Ml Oral.susp 5 Ml PO PRN PRN Lisinopril 10 Mg Tablet 10 Mg PO DAILY Glycolax (Polyethylene Glycol 3350) 119 Gm Powder 17 Gm PO DAILY Detrol La (Tolterodine Tartrate) 4 Mg Cap.er.24h 1 Cap PO DAILY Aspirin 81 Mg Tab.chew 81 Mg PO DAILY I have reviewed the current psychotropics carefully including drug interactions. Risk benefit ratio favors no change other than as noted in my dictated progress note. Diagnosis: Problems: (1) Dementia (2) Dementia with behavioral disturbance (3) Anxiety disorder (4) Depression (5) Impulse control disorder (6) Dementia, vascular, with depression (7) Major neurocognitive disorder LINO DE PAZ MD Sep 13, 2018 22:45
[2018-09-14 05:43] VITALS: BP 165/83
[2018-09-14] MEDS: EZETIMIBE 10 MG TABLET PO SCH (08:28)
[2018-09-14] MEDS: amLODIPine BESYLATE 10 MG TABLET PO SCH (08:29)
[2018-09-14] MEDS: OXYBUTYNIN CHLORIDE 5 MG TABLET PO SCH ×3 (08:29→19:57)
[2018-09-14] MEDS: SERTRALINE 25 MG TABLET. PO SCH (08:29)
[2018-09-14] MEDS: DOCUSATE SODIUM 100 MG CAPSULE PO SCH ×2 (08:29→19:58)
[2018-09-14] MEDS: QUEtiapine 25 MG TABLET. PO SCH ×2 (08:29→18:31)
[2018-09-14] MEDS: DIVALPROEX 125 MG CAP.SPRINK PO SCH ×2 (08:29→19:57)
[2018-09-14] MEDS: POLYETHYLENE GLYCOL 3350 17 GM PACKET. PO SCH (08:30)
[2018-09-14] MEDS: ASPIRIN 81 MG TAB.CHEW PO SCH (08:30)
[2018-09-14] MEDS: MEMANTINE 10 MG TABLET. PO SCH ×2 (08:30→19:57)
[2018-09-14] MEDS: RIVASTIGMINE 9.5MG PATCH. TD SCH (08:30)
[2018-09-14] MEDS: GLIMEPIRIDE 2 MG TABLET PO SCH (08:37)
[2018-09-14] MEDS: CHOLECALCIFEROL (VITAMIN D3) 50,000 UNIT CAPSULE PO SCH (08:37)
[2018-09-14] MEDS: PANTOPRAZOLE 40 MG TABLET. PO SCH (08:37)
[2018-09-14 16:08] VITALS: BP 144/65
[2018-09-14] MEDS: MIRTAZAPINE 7.5 MG TABLET. PO SCH (19:57)
[2018-09-14] MEDS: traZODone 50 MG TABLET. PO SCH (19:58)
--- NOTE | 2018-09-14 22:41 | PDOC ---
Exam Note: Naman Note: Please also refer to the separate dictated note~for this date of service dictated separately.~Patient seen individually. Discussed the patient with Nursing staff reviewed the chart.~Reviewed interim history and current functioning. Reviewed vital signs,~Labs/ Radiology~and current medications noted below. Continue current treatment with the changes noted in the dictated addendum note Assessment: Vital Signs: Vital Signs Date Time Temp Pulse Resp B/P (MAP) Pulse Ox O2 Delivery O2 Flow Rate FiO2 09/14/18 16:08 98.5 78 16 144/65 (91) 97 09/12/18 05:26 Room Air I&O Intake and Output 09/14/18 07:01 Intake Total 960 ml Balance 960 ml Intake Oral 960 ml Labs: Laboratory Tests Test 09/14/18 07:36 Glucose (Fingerstick) 99 mg/dL (70-99) Current Medications: Meds: Current Medications Acetaminophen (Tylenol) 650 mg PRN Q6HRS PRN PO PAIN / TEMP; Start 09/05/18 at 11:45; Status Cancel Multi-Ingredient Ointment (Analgesic [place]) 1 anupama PRN QID PRN TP MUSCLE PAIN; Start 09/05/18 at 11:45 Al Hydroxide/Mg Hydroxide (Mylanta Plus Xs) 15 ml PRN AFTMEALHC PRN PO DYSPEPSIA; Start 09/05/18 at 11:45 Magnesium Hydroxide (Milk Of Magnesia) 2,400 mg PRN QHS PRN PO CONSTIPATION; Start 09/05/18 at 11:45 Acetaminophen (Tylenol) 650 mg PRN Q4HRS PRN PO MILD PAIN; Start 09/05/18 at 13:00 Lisinopril (Prinivil) 10 mg DAILY PO Last administered on 09/08/18at 09:16; Start 09/06/18 at 09:00; Stop 09/09/18 at 17:03; Status DC Aspirin (Children'S Aspirin) 81 mg DAILYWBKFT PO Last administered on at 08:30; Start 09/06/18 at 08:00 Divalproex Sodium (Depakote Sprinkles) 125 mg BID PO Last administered on 09/06at 09:07; Start 09/05/18 at 21:00; Stop 09/06/18 at 18:30; Status DC EZETIMIBE (Zetia) 10 mg DAILY PO Last administered on 09/14/18 08:28; Start 09/06/18 at 09:00 Non-Formulary Medication (Mag Hydrox/ Aluminum Hyd/ Simeth (Maalox Advanced Suspension)) 5 ml PRN PRN PO INDIGESTION; Start 09/05/18 at 13:00; Stop at 13:16; Status DC Memantine (Namenda) 10 mg BID PO Last administered on 09/14/18 19:57; Start 09/05/18 at 21:00 Pantoprazole Sodium (Protonix) 40 mg DAILYAC PO Last administered on 08:37; Start 09/06/18 at 07:30 Polyethylene Glycol (miraLAX) 17 gm DAILY PO Last administered on 09/14/18 08 :30; Start 09/06/18 at 09:00 Rivastigmine (Exelon) 1 patch DAILY TD Last administered on 09/14/18 08:30; Start 09/06/18 at 09:00 Oxybutynin Chloride (Ditropan) 5 mg [id number] PO Last administered on 09/14/18 19:57; Start 09/05/18 at 14:00 Zolpidem Tartrate (Ambien) 5 mg PRN QHS PRN PO INSOMNIA Last administered on at 00:09; Start 09/05/18 at 13:30; Stop 09/08/18 at 18:09; Status DC Zolpidem Tartrate (Ambien) 5 mg QHS PO Last administered on 09/07/18at 21:20; Start 09/05/18 at 21:00; Stop 09/08/18 at 18:09; Status DC Olanzapine (ZyPREXA ZYDIS) 2.5 mg PRN Q2HR PRN PO PSYCHOSIS Last administered on 09/11/18at 07:21; Start 09/05/18 at 16:45 Vitamin D (Vitamin D3) 50,000 unit WEEKLY PO Last administered on 09/14/18 08 :37; Start 09/07/18 at 09:00 Glimepiride (Amaryl) 2 mg DAILY PO Last administered on 09/14/18at 08:37; Start 09/07/18 at 09:00 Divalproex Sodium (Depakote Sprinkles) 250 mg BID PO Last administered on 09/14 19:57; Start 09/06/18 at 21:00 Trazodone HCl (Desyrel) 50 mg QHS PO Last administered on 09/14/18 19:58; Start 09/07/18 at 21:00 Trazodone HCl (Desyrel) 50 mg PRN QHS PRN PO INSOMNIA Last administered on at 00:09; Start 09/07/18 at 11:30 Sertraline HCl (Zoloft) 25 mg DAILY PO Last administered on 09/14/18 08:29; Start 09/08/18 at 09:00 Mirtazapine (Remeron) 7.5 mg QHS PO Last administered on 09/14/18 19:57; Start 09/08/18 at 21:00 Amlodipine Besylate (Norvasc) 10 mg DAILY PO Last administered on 09/14/18 08 :29; Start 09/10/18 at 09:00 Quetiapine Fumarate (SEROquel) 12.5 mg BIDWMEALS PO Last administered on 18:31; Start 09/11/18 at 08:00 Docusate Sodium (Colace) 100 mg BID PO Last administered on 09/14/18 19:58; Start 09/11/18 at 21:00 Active Scripts Active Reported Depakote Sprinkle (Divalproex Sodium) 125 Mg Cap.sprink 125 Mg PO BID Zetia (Ezetimibe) 10 Mg Tablet 10 Mg PO DAILY08 Tylenol (Acetaminophen) 325 Mg Tablet 650 Mg PO PRN Q4HRS PRN [sonata] 10 Mg PO HS EXELON 9.5mg/24hr (Rivastigmine) 1 Each Patch.td24 1 Patch TD DAILY Omeprazole 40 Mg Capsule.dr 40 Mg PO DAILY Namenda (Memantine Hcl) 10 Mg Tablet 10 Mg PO BID Maalox Advanced Suspension (Mag Hydrox/Aluminum Hyd/Simeth) 355 Ml Oral.susp 5 Ml PO PRN PRN Lisinopril 10 Mg Tablet 10 Mg PO DAILY Glycolax (Polyethylene Glycol 3350) 119 Gm Powder 17 Gm PO DAILY Detrol La (Tolterodine Tartrate) 4 Mg Cap.er.24h 1 Cap PO DAILY Aspirin 81 Mg Tab.chew 81 Mg PO DAILY I have reviewed the current psychotropics carefully including drug interactions. Risk benefit ratio favors no change other than as noted in my dictated progress note. Diagnosis: Problems: (1) Dementia (2) Dementia with behavioral disturbance (3) Anxiety disorder (4) Depression (5) Impulse control disorder (6) Dementia, vascular, with depression (7) Major neurocognitive disorder LINO DE PAZ MD Sep 14, 2018 22:41
[2018-09-15 06:00] VITALS: BP 122/65
[2018-09-15] MEDS: GLIMEPIRIDE 2 MG TABLET PO SCH (07:45)
[2018-09-15] MEDS: DIVALPROEX 125 MG CAP.SPRINK PO SCH ×2 (07:45→19:47)
[2018-09-15] MEDS: EZETIMIBE 10 MG TABLET PO SCH (07:45)
[2018-09-15] MEDS: PANTOPRAZOLE 40 MG TABLET. PO SCH (07:45)
[2018-09-15] MEDS: RIVASTIGMINE 9.5MG PATCH. TD SCH (07:45)
[2018-09-15] MEDS: QUEtiapine 25 MG TABLET. PO SCH ×3 (07:46→16:44)
[2018-09-15] MEDS: DOCUSATE SODIUM 100 MG CAPSULE PO SCH ×2 (07:46→19:47)
[2018-09-15] MEDS: MEMANTINE 10 MG TABLET. PO SCH ×2 (07:47→19:47)
[2018-09-15] MEDS: ASPIRIN 81 MG TAB.CHEW PO SCH (07:47)
[2018-09-15] MEDS: SERTRALINE 25 MG TABLET. PO SCH (07:47)
[2018-09-15] MEDS: OXYBUTYNIN CHLORIDE 5 MG TABLET PO SCH ×3 (07:47→19:47)
[2018-09-15] MEDS: amLODIPine BESYLATE 10 MG TABLET PO SCH (07:47)
[2018-09-15] MEDS: POLYETHYLENE GLYCOL 3350 17 GM PACKET. PO SCH (07:47)
--- NOTE | 2018-09-15 07:47 | PDOC ---
Exam Note: Naman Note: S/O: The patient was seen on rounds in the evening of 09/13/2018. Dictated note covers elements not covered in my initial note of 09/13/2018. Overall, the patient remains confused, wanders the unit, not aggressive. His visited and was very pleased that he was less angry, not rattling the doors, not aggressive. He tries to remove his clothes, oblivious of what he is doing. When I questioned him he felt the year was 1997. ROS: No CV, , Eye, ENT, pulmonary system symptoms on review. MSE: Oriented to himself. Insight and judgment, recent and remote memory, attention and concentration, fund of knowledge poor consistent with his diagnosis mentioned in my initial note. Plan: No change from initial note. Assessment: Vital Signs: Vital Signs Date Time Temp Pulse Resp B/P (MAP) Pulse Ox O2 Delivery O2 Flow Rate FiO2 09/15/18 06:00 98.6 74 20 122/65 (84) 98 09/12/18 05:26 Room Air I&O Intake and Output 09/15/18 07:01 Intake Total 1205 ml Balance 1205 ml Intake Oral 1205 ml Labs: Laboratory Tests Test 09/15/18 07:09 Glucose (Fingerstick) 104 mg/dL (70-99) H Current Medications: Meds: Current Medications Acetaminophen (Tylenol) 650 mg PRN Q6HRS PRN PO PAIN / TEMP; Start 09/05/18 at 11:45; Status Cancel Multi-Ingredient Ointment (Analgesic [place]) 1 anupama PRN QID PRN TP MUSCLE PAIN; Start 09/05/18 at 11:45 Al Hydroxide/Mg Hydroxide (Mylanta Plus Xs) 15 ml PRN AFTMEALHC PRN PO DYSPEPSIA; Start 09/05/18 at 11:45 Magnesium Hydroxide (Milk Of Magnesia) 2,400 mg PRN QHS PRN PO CONSTIPATION; Start 09/05/18 at 11:45 Acetaminophen (Tylenol) 650 mg PRN Q4HRS PRN PO MILD PAIN; Start 09/05/18 at 13:00 Lisinopril (Prinivil) 10 mg DAILY PO Last administered on 09/08/18at 09:16; Start 09/06/18 at 09:00; Stop 09/09/18 at 17:03; Status DC Aspirin (Children'S Aspirin) 81 mg DAILYWBKFT PO Last administered on at 08:30; Start 09/06/18 at 08:00 Divalproex Sodium (Depakote Sprinkles) 125 mg BID PO Last administered on 09/06at 09:07; Start 09/05/18 at 21:00; Stop 09/06/18 at 18:30; Status DC EZETIMIBE (Zetia) 10 mg DAILY PO Last administered on 09/14/18at 08:28; Start 09/06/18 at 09:00 Non-Formulary Medication (Mag Hydrox/ Aluminum Hyd/ Simeth (Maalox Advanced Suspension)) 5 ml PRN PRN PO INDIGESTION; Start 09/05/18 at 13:00; Stop at 13:16; Status DC Memantine (Namenda) 10 mg BID PO Last administered on 09/14/18at 19:57; Start 09/05/18 at 21:00 Pantoprazole Sodium (Protonix) 40 mg DAILYAC PO Last administered on at 08:37; Start 09/06/18 at 07:30 Polyethylene Glycol (miraLAX) 17 gm DAILY PO Last administered on 09/14/18 08 :30; Start 09/06/18 at 09:00 Rivastigmine (Exelon) 1 patch DAILY TD Last administered on 09/14/18 08:30; Start 09/06/18 at 09:00 Oxybutynin Chloride (Ditropan) 5 mg [id number] PO Last administered on 09/14/18at 19:57; Start 09/05/18 at 14:00 Zolpidem Tartrate (Ambien) 5 mg PRN QHS PRN PO INSOMNIA Last administered on at 00:09; Start 09/05/18 at 13:30; Stop 09/08/18 at 18:09; Status DC Zolpidem Tartrate (Ambien) 5 mg QHS PO Last administered on 09/07/18at 21:20; Start 09/05/18 at 21:00; Stop 09/08/18 at 18:09; Status DC Olanzapine (ZyPREXA ZYDIS) 2.5 mg PRN Q2HR PRN PO PSYCHOSIS Last administered on 09/11/18 07:21; Start 09/05/18 at 16:45 Vitamin D (Vitamin D3) 50,000 unit WEEKLY PO Last administered on 09/14/18 08 :37; Start 09/07/18 at 09:00 Glimepiride (Amaryl) 2 mg DAILY PO Last administered on 09/14/18 08:37; Start 09/07/18 at 09:00 Divalproex Sodium (Depakote Sprinkles) 250 mg BID PO Last administered on 09/14 19:57; Start 09/06/18 at 21:00 Trazodone HCl (Desyrel) 50 mg QHS PO Last administered on 09/14/18 19:58; Start 09/07/18 at 21:00 Trazodone HCl (Desyrel) 50 mg PRN QHS PRN PO INSOMNIA Last administered on at 00:09; Start 09/07/18 at 11:30 Sertraline HCl (Zoloft) 25 mg DAILY PO Last administered on 09/14/18 08:29; Start 09/08/18 at 09:00 Mirtazapine (Remeron) 7.5 mg QHS PO Last administered on 09/14/18 19:57; Start 09/08/18 at 21:00 Amlodipine Besylate (Norvasc) 10 mg DAILY PO Last administered on 09/14/18 08 :29; Start 09/10/18 at 09:00 Quetiapine Fumarate (SEROquel) 12.5 mg BIDWMEALS PO Last administered on 18:31; Start 09/11/18 at 08:00 Docusate Sodium (Colace) 100 mg BID PO Last administered on 09/14/18 19:58; Start 09/11/18 at 21:00 Active Scripts Active Reported Depakote Sprinkle (Divalproex Sodium) 125 Mg Cap.sprink 125 Mg PO BID Zetia (Ezetimibe) 10 Mg Tablet 10 Mg PO DAILY08 Tylenol (Acetaminophen) 325 Mg Tablet 650 Mg PO PRN Q4HRS PRN [sonata] 10 Mg PO HS EXELON 9.5mg/24hr (Rivastigmine) 1 Each Patch.td24 1 Patch TD DAILY Omeprazole 40 Mg Capsule.dr 40 Mg PO DAILY Namenda (Memantine Hcl) 10 Mg Tablet 10 Mg PO BID Maalox Advanced Suspension (Mag Hydrox/Aluminum Hyd/Simeth) 355 Ml Oral.susp 5 Ml PO PRN PRN Lisinopril 10 Mg Tablet 10 Mg PO DAILY Glycolax (Polyethylene Glycol 3350) 119 Gm Powder 17 Gm PO DAILY Detrol La (Tolterodine Tartrate) 4 Mg Cap.er.24h 1 Cap PO DAILY Aspirin 81 Mg Tab.chew 81 Mg PO DAILY I have reviewed the current psychotropics carefully including drug interactions. Risk benefit ratio favors no change other than as noted in my dictated progress note. Diagnosis: Problems: (1) Dementia (2) Dementia with behavioral disturbance (3) Anxiety disorder (4) Depression (5) Impulse control disorder (6) Dementia, vascular, with depression (7) Major neurocognitive disorder LINO DE PAZ MD Sep 15, 2018 07:47
[2018-09-15 16:34] VITALS: BP 130/72
[2018-09-15] MEDS: MIRTAZAPINE 7.5 MG TABLET. PO SCH (19:47)
[2018-09-15] MEDS: traZODone 50 MG TABLET. PO SCH (19:47)
--- NOTE | 2018-09-15 20:40 | PN ---
DATE: 09/14/2018 PSYCHIATRIC PROGRESS NOTE This late entry 09/14/2018 covers elements not covered in my initial note. SUBJECTIVE: I met with the patient in the evening. The patient remains confused. Gait unsteady. Slept 7-3/4 hours previous night. Somewhat grandiose at times. REVIEW OF SYSTEMS: No CV, , eye, ENT system symptoms on review. Reliability poor. MENTAL STATUS EXAM: Oriented to himself. Insight, judgment, recent and remote memory, attention, concentration, fund of knowledge poor, consistent with his diagnosis mentioned in my initial note. PLAN: No change from initial note. Continue psychotropics per initial note. MAN Nilesh DE PAZ MD DR: RUBY/nazia JOB#: [id number] / [id number]
--- NOTE | 2018-09-15 22:50 | PDOC ---
Exam Note: Naman Note: Please also refer to the separate dictated note~for this date of service dictated separately.~Patient seen individually. Discussed the patient with Nursing staff reviewed the chart.~Reviewed interim history and current functioning. Reviewed vital signs,~Labs/ Radiology~and current medications noted below. Continue current treatment with the changes noted in the dictated addendum note Assessment: Vital Signs: Vital Signs Date Time Temp Pulse Resp B/P (MAP) Pulse Ox O2 Delivery O2 Flow Rate FiO2 09/15/18 16:34 98.5 89 20 130/72 (91) 97 Room Air I&O Intake and Output 09/15/18 07:01 Intake Total 1205 ml Balance 1205 ml Intake Oral 1205 ml Labs: Laboratory Tests Test 09/15/18 07:09 Glucose (Fingerstick) 104 mg/dL (70-99) H Current Medications: Meds: Current Medications Acetaminophen (Tylenol) 650 mg PRN Q6HRS PRN PO PAIN / TEMP; Start 09/05/18 at 11:45; Status Cancel Multi-Ingredient Ointment (Analgesic [place]) 1 anupama PRN QID PRN TP MUSCLE PAIN; Start 09/05/18 at 11:45 Al Hydroxide/Mg Hydroxide (Mylanta Plus Xs) 15 ml PRN AFTMEALHC PRN PO DYSPEPSIA; Start 09/05/18 at 11:45 Magnesium Hydroxide (Milk Of Magnesia) 2,400 mg PRN QHS PRN PO CONSTIPATION; Start 09/05/18 at 11:45 Acetaminophen (Tylenol) 650 mg PRN Q4HRS PRN PO MILD PAIN; Start 09/05/18 at 13:00 Lisinopril (Prinivil) 10 mg DAILY PO Last administered on 09/08/18at 09:16; Start 09/06/18 at 09:00; Stop 09/09/18 at 17:03; Status DC Aspirin (Children'S Aspirin) 81 mg DAILYWBKFT PO Last administered on at 07:47; Start 09/06/18 at 08:00 Divalproex Sodium (Depakote Sprinkles) 125 mg BID PO Last administered on 09/06at 09:07; Start 09/05/18 at 21:00; Stop 09/06/18 at 18:30; Status DC EZETIMIBE (Zetia) 10 mg DAILY PO Last administered on 09/15/18 07:45; Start 09/06/18 at 09:00 Non-Formulary Medication (Mag Hydrox/ Aluminum Hyd/ Simeth (Maalox Advanced Suspension)) 5 ml PRN PRN PO INDIGESTION; Start 09/05/18 at 13:00; Stop at 13:16; Status DC Memantine (Namenda) 10 mg BID PO Last administered on 09/15/18 19:47; Start 09/05/18 at 21:00 Pantoprazole Sodium (Protonix) 40 mg DAILYAC PO Last administered on 07:45; Start 09/06/18 at 07:30 Polyethylene Glycol (miraLAX) 17 gm DAILY PO Last administered on 09/15/18 07 :47; Start 09/06/18 at 09:00 Rivastigmine (Exelon) 1 patch DAILY TD Last administered on 09/15/18 07:45; Start 09/06/18 at 09:00 Oxybutynin Chloride (Ditropan) 5 mg [id number] PO Last administered on 09/15/18 19:47; Start 09/05/18 at 14:00 Zolpidem Tartrate (Ambien) 5 mg PRN QHS PRN PO INSOMNIA Last administered on at 00:09; Start 09/05/18 at 13:30; Stop 09/08/18 at 18:09; Status DC Zolpidem Tartrate (Ambien) 5 mg QHS PO Last administered on 09/07/18at 21:20; Start 09/05/18 at 21:00; Stop 09/08/18 at 18:09; Status DC Olanzapine (ZyPREXA ZYDIS) 2.5 mg PRN Q2HR PRN PO PSYCHOSIS Last administered on 09/11/18 07:21; Start 09/05/18 at 16:45 Vitamin D (Vitamin D3) 50,000 unit WEEKLY PO Last administered on 09/14/18at 08 :37; Start 09/07/18 at 09:00 Glimepiride (Amaryl) 2 mg DAILY PO Last administered on 09/15/18 07:45; Start 09/07/18 at 09:00 Divalproex Sodium (Depakote Sprinkles) 250 mg BID PO Last administered on 09/15 19:47; Start 09/06/18 at 21:00 Trazodone HCl (Desyrel) 50 mg QHS PO Last administered on 09/15/18 19:47; Start 09/07/18 at 21:00 Trazodone HCl (Desyrel) 50 mg PRN QHS PRN PO INSOMNIA Last administered on at 00:09; Start 09/07/18 at 11:30 Sertraline HCl (Zoloft) 25 mg DAILY PO Last administered on 09/15/18 07:47; Start 09/08/18 at 09:00; Stop 09/15/18 at 12:55; Status DC Mirtazapine (Remeron) 7.5 mg QHS PO Last administered on 09/15/18 19:47; Start 09/08/18 at 21:00 Amlodipine Besylate (Norvasc) 10 mg DAILY PO Last administered on 09/15/18 07 :47; Start 09/10/18 at 09:00 Quetiapine Fumarate (SEROquel) 12.5 mg BIDWMEALS PO Last administered on 07:46; Start 09/11/18 at 08:00; Stop 09/15/18 at 12:55; Status DC Docusate Sodium (Colace) 100 mg BID PO Last administered on 09/15/18 19:47; Start 09/11/18 at 21:00 Quetiapine Fumarate (SEROquel) 12.5 mg TID@0900,1300,1700 PO Last administered on 09/15/18at 16:44; Start 09/15/18 at 13:00 Sertraline HCl (Zoloft) 50 mg DAILY PO ; Start 09/16/18 at 09:00 Active Scripts Active Reported Depakote Sprinkle (Divalproex Sodium) 125 Mg Cap.sprink 125 Mg PO BID Zetia (Ezetimibe) 10 Mg Tablet 10 Mg PO DAILY08 Tylenol (Acetaminophen) 325 Mg Tablet 650 Mg PO PRN Q4HRS PRN [sonata] 10 Mg PO HS EXELON 9.5mg/24hr (Rivastigmine) 1 Each Patch.td24 1 Patch TD DAILY Omeprazole 40 Mg Capsule.dr 40 Mg PO DAILY Namenda (Memantine Hcl) 10 Mg Tablet 10 Mg PO BID Maalox Advanced Suspension (Mag Hydrox/Aluminum Hyd/Simeth) 355 Ml Oral.susp 5 Ml PO PRN PRN Lisinopril 10 Mg Tablet 10 Mg PO DAILY Glycolax (Polyethylene Glycol 3350) 119 Gm Powder 17 Gm PO DAILY Detrol La (Tolterodine Tartrate) 4 Mg Cap.er.24h 1 Cap PO DAILY Aspirin 81 Mg Tab.chew 81 Mg PO DAILY I have reviewed the current psychotropics carefully including drug interactions. Risk benefit ratio favors no change other than as noted in my dictated progress note. Diagnosis: Problems: (1) Dementia (2) Dementia with behavioral disturbance (3) Anxiety disorder (4) Depression (5) Impulse control disorder (6) Dementia, vascular, with depression (7) Major neurocognitive disorder LINO DE PAZ MD Sep 15, 2018 22:50
[2018-09-16 05:40] VITALS: BP 145/65
[2018-09-16] MEDS ORDERED: SERTRALINE 50 MG TABLET. PO SCH (09:00)
[2018-09-16] MEDS: PANTOPRAZOLE 40 MG TABLET. PO SCH (09:06)
[2018-09-16] MEDS: ASPIRIN 81 MG TAB.CHEW PO SCH (09:07)
[2018-09-16] MEDS: GLIMEPIRIDE 2 MG TABLET PO SCH (09:07)
[2018-09-16] MEDS: DOCUSATE SODIUM 100 MG CAPSULE PO SCH ×2 (09:07→20:11)
[2018-09-16] MEDS: OXYBUTYNIN CHLORIDE 5 MG TABLET PO SCH ×3 (09:08→20:11)
[2018-09-16] MEDS: MEMANTINE 10 MG TABLET. PO SCH ×2 (09:08→20:11)
[2018-09-16] MEDS: DIVALPROEX 125 MG CAP.SPRINK PO SCH ×2 (09:08→20:11)
[2018-09-16] MEDS: POLYETHYLENE GLYCOL 3350 17 GM PACKET. PO SCH (09:08)
[2018-09-16] MEDS: EZETIMIBE 10 MG TABLET PO SCH (09:09)
[2018-09-16] MEDS: QUEtiapine 25 MG TABLET. PO SCH ×3 (09:09→17:03)
[2018-09-16] MEDS: amLODIPine BESYLATE 10 MG TABLET PO SCH (09:09)
[2018-09-16] MEDS: RIVASTIGMINE 9.5MG PATCH. TD SCH (09:10)
[2018-09-16 09:28] LABS: BASO % 1 % (0-3); EOS # 0.2 x10^3/uL (0.0-0.7); EOS % 3 % (0-3); HEMATOCRIT 37.1 % (39.0-53.0); HEMOGLOBIN 12.5 g/dL (13.0-17.5); LYMPH # 1.4 x10^3/uL (1.0-4.8); LYMPH % 17 % (24-48); MEAN CORPUSCULAR HEMOGLOBIN 30 pg (25-35); MEAN CORPUSCULAR HGB CONC 34 g/dL (31-37); MEAN CORPUSCULAR VOLUME 89 fL (79-100); MONO # 0.7 x10^3/uL (0.0-1.1); MONO % 8 % (0-9); NEUT # 5.7 x10^3uL (1.8-7.7); NEUT % 71 % (31-73); PLATELET COUNT 269 x10^3/uL (140-400); RED BLOOD COUNT 4.14 x10^6/uL (4.30-5.70); RED CELL DISTRIBUTION WIDTH 13.5 % (11.5-14.5); WHITE BLOOD COUNT 8.1 x10^3/uL (4.0-11.0)
[2018-09-16 09:43] LABS: ALBUMIN 3.8 g/dL (3.4-5.0); ALBUMIN/GLOBULIN RATIO 1.1 (1.0-1.7); CALCIUM 9.1 mg/dL (8.5-10.1); CREATININE 1.6 mg/dL (0.7-1.3); POTASSIUM 4.3 mmol/L (3.5-5.1); TOTAL BILIRUBIN 0.4 mg/dL (0.2-1.0); TOTAL PROTEIN 7.3 g/dL (6.4-8.2)
[2018-09-16 15:44] VITALS: BP 171/80
[2018-09-16] MEDS: MIRTAZAPINE 7.5 MG TABLET. PO SCH (20:11)
[2018-09-16] MEDS: traZODone 50 MG TABLET. PO SCH (20:11)
--- NOTE | 2018-09-16 22:00 | PDOC ---
Exam Note: Naman Note: Please also refer to the separate dictated note~for this date of service dictated separately.~Patient seen individually. Discussed the patient with Nursing staff reviewed the chart.~Reviewed interim history and current functioning. Reviewed vital signs,~Labs/ Radiology~and current medications noted below. Continue current treatment with the changes noted in the dictated addendum note Assessment: Vital Signs: Vital Signs Date Time Temp Pulse Resp B/P (MAP) Pulse Ox O2 Delivery O2 Flow Rate FiO2 09/16/18 15:44 98.4 67 19 171/80 (110) 100 Room Air I&O Intake and Output 09/16/18 07:01 Intake Total 1205 ml Balance 1205 ml Intake Oral 1205 ml Labs: Laboratory Tests Test 09/16/18 07:12 09/16/18 08:55 Glucose (Fingerstick) 86 mg/dL (70-99) White Blood Count 8.1 x10^3/uL (4.0-11.0) Red Blood Count 4.14 x10^6/uL (4.30-5.70) L Hemoglobin 12.5 g/dL (13.0-17.5) L Hematocrit 37.1 % (39.0-53.0) L Mean Corpuscular Volume 89 fL (79-100) Mean Corpuscular Hemoglobin 30 pg (25-35) Mean Corpuscular Hemoglobin Concent 34 g/dL (31-37) Red Cell Distribution Width 13.5 % (11.5-14.5) Platelet Count 269 x10^3/uL (140-400) Neutrophils (%) (Auto) 71 % (31-73) Lymphocytes (%) (Auto) 17 % (24-48) L Monocytes (%) (Auto) 8 % (0-9) Eosinophils (%) (Auto) 3 % (0-3) Basophils (%) (Auto) 1 % (0-3) Neutrophils # (Auto) 5.7 x10^3uL (1.8-7.7) Lymphocytes # (Auto) 1.4 x10^3/uL (1.0-4.8) Monocytes # (Auto) 0.7 x10^3/uL (0.0-1.1) Eosinophils # (Auto) 0.2 x10^3/uL (0.0-0.7) Basophils # (Auto) 0.0 x10^3/uL (0.0-0.2) Sodium Level 137 mmol/L (136-145) Potassium Level 4.3 mmol/L (3.5-5.1) Chloride Level 99 mmol/L (98-107) Carbon Dioxide Level 30 mmol/L (21-32) Anion Gap 8 (6-14) Blood Urea Nitrogen 34 mg/dL (8-26) H Creatinine 1.6 mg/dL (0.7-1.3) H Estimated GFR (Cockcroft-Gault) 42.0 BUN/Creatinine Ratio 21 (6-20) H Glucose Level 169 mg/dL (70-99) H Calcium Level 9.1 mg/dL (8.5-10.1) Total Bilirubin 0.4 mg/dL (0.2-1.0) Aspartate Amino Transferase (AST) 32 U/L (15-37) Alanine Aminotransferase (ALT) 28 U/L (16-63) Alkaline Phosphatase 110 U/L (46-116) Total Protein 7.3 g/dL (6.4-8.2) Albumin 3.8 g/dL (3.4-5.0) Albumin/Globulin Ratio 1.1 (1.0-1.7) Current Medications: Meds: Current Medications Acetaminophen (Tylenol) 650 mg PRN Q6HRS PRN PO PAIN / TEMP; Start 09/05/18 at 11:45; Status Cancel Multi-Ingredient Ointment (Analgesic [place]) 1 anupama PRN QID PRN TP MUSCLE PAIN; Start 09/05/18 at 11:45 Al Hydroxide/Mg Hydroxide (Mylanta Plus Xs) 15 ml PRN AFTMEALHC PRN PO DYSPEPSIA; Start 09/05/18 at 11:45 Magnesium Hydroxide (Milk Of Magnesia) 2,400 mg PRN QHS PRN PO CONSTIPATION; Start 09/05/18 at 11:45 Acetaminophen (Tylenol) 650 mg PRN Q4HRS PRN PO MILD PAIN; Start 09/05/18 at 13:00 Lisinopril (Prinivil) 10 mg DAILY PO Last administered on 09/08/18at 09:16; Start 09/06/18 at 09:00; Stop 09/09/18 at 17:03; Status DC Aspirin (Children'S Aspirin) 81 mg DAILYWBKFT PO Last administered on 09:07; Start 09/06/18 at 08:00 Divalproex Sodium (Depakote Sprinkles) 125 mg BID PO Last administered on 09/06at 09:07; Start 09/05/18 at 21:00; Stop 09/06/18 at 18:30; Status DC EZETIMIBE (Zetia) 10 mg DAILY PO Last administered on 09/16/18 09:09; Start 09/06/18 at 09:00 Non-Formulary Medication (Mag Hydrox/ Aluminum Hyd/ Simeth (Maalox Advanced Suspension)) 5 ml PRN PRN PO INDIGESTION; Start 09/05/18 at 13:00; Stop at 13:16; Status DC Memantine (Namenda) 10 mg BID PO Last administered on 09/16/18 20:11; Start 09/05/18 at 21:00 Pantoprazole Sodium (Protonix) 40 mg DAILYAC PO Last administered on 09:06; Start 09/06/18 at 07:30 Polyethylene Glycol (miraLAX) 17 gm DAILY PO Last administered on 09/16/18 09 :08; Start 09/06/18 at 09:00 Rivastigmine (Exelon) 1 patch DAILY TD Last administered on 09/16/18 09:10; Start 09/06/18 at 09:00 Oxybutynin Chloride (Ditropan) 5 mg [id number] PO Last administered on 09/16/18at 20:11; Start 09/05/18 at 14:00 Zolpidem Tartrate (Ambien) 5 mg PRN QHS PRN PO INSOMNIA Last administered on at 00:09; Start 09/05/18 at 13:30; Stop 09/08/18 at 18:09; Status DC Zolpidem Tartrate (Ambien) 5 mg QHS PO Last administered on 09/07/18at 21:20; Start 09/05/18 at 21:00; Stop 09/08/18 at 18:09; Status DC Olanzapine (ZyPREXA ZYDIS) 2.5 mg PRN Q2HR PRN PO PSYCHOSIS Last administered on 09/11/18at 07:21; Start 09/05/18 at 16:45 Vitamin D (Vitamin D3) 50,000 unit WEEKLY PO Last administered on 09/14/18at 08 :37; Start 09/07/18 at 09:00 Glimepiride (Amaryl) 2 mg DAILY PO Last administered on 09/16/18 09:07; Start 09/07/18 at 09:00 Divalproex Sodium (Depakote Sprinkles) 250 mg BID PO Last administered on 09/16 20:11; Start 09/06/18 at 21:00 Trazodone HCl (Desyrel) 50 mg QHS PO Last administered on 09/16/18 20:11; Start 09/07/18 at 21:00 Trazodone HCl (Desyrel) 50 mg PRN QHS PRN PO INSOMNIA Last administered on at 00:09; Start 09/07/18 at 11:30 Sertraline HCl (Zoloft) 25 mg DAILY PO Last administered on 09/15/18at 07:47; Start 09/08/18 at 09:00; Stop 09/15/18 at 12:55; Status DC Mirtazapine (Remeron) 7.5 mg QHS PO Last administered on 09/16/18 20:11; Start 09/08/18 at 21:00 Amlodipine Besylate (Norvasc) 10 mg DAILY PO Last administered on 09/16/18 09 :09; Start 09/10/18 at 09:00 Quetiapine Fumarate (SEROquel) 12.5 mg BIDWMEALS PO Last administered on at 07:46; Start 09/11/18 at 08:00; Stop 09/15/18 at 12:55; Status DC Docusate Sodium (Colace) 100 mg BID PO Last administered on 09/16/18 20:11; Start 09/11/18 at 21:00 Quetiapine Fumarate (SEROquel) 12.5 mg TID@0900,1300,1700 PO Last administered on 09/16/18 17:03; Start 09/15/18 at 13:00 Sertraline HCl (Zoloft) 50 mg DAILY PO Last administered on 09/16/18 09:10; Start 12/29/18 at 09:00 Active Scripts Active Reported Depakote Sprinkle (Divalproex Sodium) 125 Mg Cap.sprink 125 Mg PO BID Zetia (Ezetimibe) 10 Mg Tablet 10 Mg PO DAILY08 Tylenol (Acetaminophen) 325 Mg Tablet 650 Mg PO PRN Q4HRS PRN [sonata] 10 Mg PO HS EXELON 9.5mg/24hr (Rivastigmine) 1 Each Patch.td24 1 Patch TD DAILY Omeprazole 40 Mg Capsule.dr 40 Mg PO DAILY Namenda (Memantine Hcl) 10 Mg Tablet 10 Mg PO BID Maalox Advanced Suspension (Mag Hydrox/Aluminum Hyd/Simeth) 355 Ml Oral.susp 5 Ml PO PRN PRN Lisinopril 10 Mg Tablet 10 Mg PO DAILY Glycolax (Polyethylene Glycol 3350) 119 Gm Powder 17 Gm PO DAILY Detrol La (Tolterodine Tartrate) 4 Mg Cap.er.24h 1 Cap PO DAILY Aspirin 81 Mg Tab.chew 81 Mg PO DAILY I have reviewed the current psychotropics carefully including drug interactions. Risk benefit ratio favors no change other than as noted in my dictated progress note. Diagnosis: Problems: (1) Dementia (2) Dementia with behavioral disturbance (3) Anxiety disorder (4) Depression (5) Impulse control disorder (6) Dementia, vascular, with depression (7) Major neurocognitive disorder LINO DE PAZ MD Sep 16, 2018 22:00
[2018-09-17 06:32] VITALS: BP 130/76
[2018-09-17] MEDS: PANTOPRAZOLE 40 MG TABLET. PO SCH (08:34)
[2018-09-17] MEDS: ASPIRIN 81 MG TAB.CHEW PO SCH (08:35)
[2018-09-17] MEDS: DOCUSATE SODIUM 100 MG CAPSULE PO SCH ×2 (08:36→20:11)
[2018-09-17] MEDS: DIVALPROEX 125 MG CAP.SPRINK PO SCH ×2 (08:36→20:12)
[2018-09-17] MEDS: GLIMEPIRIDE 2 MG TABLET PO SCH (08:36)
[2018-09-17] MEDS: OXYBUTYNIN CHLORIDE 5 MG TABLET PO SCH ×3 (08:36→20:11)
[2018-09-17] MEDS: POLYETHYLENE GLYCOL 3350 17 GM PACKET. PO SCH (08:38)
[2018-09-17] MEDS: MEMANTINE 10 MG TABLET. PO SCH ×2 (08:39→20:13)
[2018-09-17] MEDS: RIVASTIGMINE 9.5MG PATCH. TD SCH (08:39)
[2018-09-17] MEDS: QUEtiapine 25 MG TABLET. PO SCH ×3 (08:40→17:06)
[2018-09-17] MEDS: amLODIPine BESYLATE 10 MG TABLET PO SCH (08:40)
[2018-09-17] MEDS: EZETIMIBE 10 MG TABLET PO SCH (08:43)
[2018-09-17] MEDS: SERTRALINE 25 MG TABLET. PO SCH (08:47)
[2018-09-17 16:09] VITALS: BP 135/71
[2018-09-17] MEDS: traZODone 50 MG TABLET. PO SCH (20:11)
[2018-09-17] MEDS: MIRTAZAPINE 7.5 MG TABLET. PO SCH (20:11)
[2018-09-17] MEDS: traZODone 50 MG TABLET. PO PRN (23:00)
--- NOTE | 2018-09-17 23:11 | PDOC ---
Exam Note: Naman Note: Please also refer to the separate dictated note~for this date of service dictated separately.~Patient seen individually. Discussed the patient with Nursing staff reviewed the chart.~Reviewed interim history and current functioning. Reviewed vital signs,~Labs/ Radiology~and current medications noted below. Continue current treatment with the changes noted in the dictated addendum note Assessment: Vital Signs: Vital Signs Date Time Temp Pulse Resp B/P (MAP) Pulse Ox O2 Delivery O2 Flow Rate FiO2 09/17/18 16:09 98.1 67 17 135/71 (92) 97 09/17/18 06:32 Room Air I&O Intake and Output 09/17/18 07:01 Intake Total 965 ml Balance 965 ml Intake Oral 965 ml # Bowel Movements 2 Labs: Laboratory Tests Test 09/17/18 07:27 Glucose (Fingerstick) 94 mg/dL (70-99) Current Medications: Meds: Current Medications Acetaminophen (Tylenol) 650 mg PRN Q6HRS PRN PO PAIN / TEMP; Start 09/05/18 at 11:45; Status Cancel Multi-Ingredient Ointment (Analgesic [place]) 1 anupama PRN QID PRN TP MUSCLE PAIN; Start 09/05/18 at 11:45 Al Hydroxide/Mg Hydroxide (Mylanta Plus Xs) 15 ml PRN AFTMEALHC PRN PO DYSPEPSIA; Start 09/05/18 at 11:45 Magnesium Hydroxide (Milk Of Magnesia) 2,400 mg PRN QHS PRN PO CONSTIPATION; Start 09/05/18 at 11:45 Acetaminophen (Tylenol) 650 mg PRN Q4HRS PRN PO MILD PAIN; Start 09/05/18 at 13:00 Lisinopril (Prinivil) 10 mg DAILY PO Last administered on 09/08/18at 09:16; Start 09/06/18 at 09:00; Stop 09/09/18 at 17:03; Status DC Aspirin (Children'S Aspirin) 81 mg DAILYWBKFT PO Last administered on at 08:35; Start 09/06/18 at 08:00 Divalproex Sodium (Depakote Sprinkles) 125 mg BID PO Last administered on 09/06at 09:07; Start 09/05/18 at 21:00; Stop 09/06/18 at 18:30; Status DC EZETIMIBE (Zetia) 10 mg DAILY PO Last administered on 09/17/18 08:43; Start 09/06/18 at 09:00 Non-Formulary Medication (Mag Hydrox/ Aluminum Hyd/ Simeth (Maalox Advanced Suspension)) 5 ml PRN PRN PO INDIGESTION; Start 09/05/18 at 13:00; Stop at 13:16; Status DC Memantine (Namenda) 10 mg BID PO Last administered on 09/17/18 20:13; Start 09/05/18 at 21:00 Pantoprazole Sodium (Protonix) 40 mg DAILYAC PO Last administered on 08:34; Start 09/06/18 at 07:30 Polyethylene Glycol (miraLAX) 17 gm DAILY PO Last administered on 09/17/18 08 :38; Start 09/06/18 at 09:00 Rivastigmine (Exelon) 1 patch DAILY TD Last administered on 09/17/18 08:39; Start 09/06/18 at 09:00 Oxybutynin Chloride (Ditropan) 5 mg [id number] PO Last administered on 09/17/18 20:11; Start 09/05/18 at 14:00 Zolpidem Tartrate (Ambien) 5 mg PRN QHS PRN PO INSOMNIA Last administered on at 00:09; Start 09/05/18 at 13:30; Stop 09/08/18 at 18:09; Status DC Zolpidem Tartrate (Ambien) 5 mg QHS PO Last administered on 09/07/18at 21:20; Start 09/05/18 at 21:00; Stop 09/08/18 at 18:09; Status DC Olanzapine (ZyPREXA ZYDIS) 2.5 mg PRN Q2HR PRN PO PSYCHOSIS Last administered on 09/11/18 07:21; Start 09/05/18 at 16:45 Vitamin D (Vitamin D3) 50,000 unit WEEKLY PO Last administered on 09/14/18 08 :37; Start 09/07/18 at 09:00 Glimepiride (Amaryl) 2 mg DAILY PO Last administered on 09/17/18 08:36; Start 09/07/18 at 09:00 Divalproex Sodium (Depakote Sprinkles) 250 mg BID PO Last administered on 09/17 20:12; Start 09/06/18 at 21:00 Trazodone HCl (Desyrel) 50 mg QHS PO Last administered on 09/17/18at 20:11; Start 09/07/18 at 21:00 Trazodone HCl (Desyrel) 50 mg PRN QHS PRN PO INSOMNIA Last administered on 23:00; Start 09/07/18 at 11:30 Sertraline HCl (Zoloft) 25 mg DAILY PO Last administered on 09/15/18 07:47; Start 09/08/18 at 09:00; Stop 09/15/18 at 12:55; Status DC Mirtazapine (Remeron) 7.5 mg QHS PO Last administered on 09/17/18 20:11; Start 09/08/18 at 21:00 Amlodipine Besylate (Norvasc) 10 mg DAILY PO Last administered on 09/17/18at 08 :40; Start 09/10/18 at 09:00 Quetiapine Fumarate (SEROquel) 12.5 mg BIDWMEALS PO Last administered on at 07:46; Start 09/11/18 at 08:00; Stop 09/15/18 at 12:55; Status DC Docusate Sodium (Colace) 100 mg BID PO Last administered on 09/17/18at 20:11; Start 09/11/18 at 21:00 Quetiapine Fumarate (SEROquel) 12.5 mg TID@0900,1300,1700 PO Last administered on 09/17/18 17:06; Start 09/15/18 at 13:00 Sertraline HCl (Zoloft) 50 mg DAILY PO Last administered on 09/16/18 09:10; Start 09/16/18 at 09:00; Stop 09/16/18 at 23:24; Status DC Sertraline HCl (Zoloft) 75 mg DAILY PO Last administered on 09/17/18 08:47; Start 09/17/18 at 09:00 Active Scripts Active Reported Depakote Sprinkle (Divalproex Sodium) 125 Mg Cap.sprink 125 Mg PO BID Zetia (Ezetimibe) 10 Mg Tablet 10 Mg PO DAILY08 Tylenol (Acetaminophen) 325 Mg Tablet 650 Mg PO PRN Q4HRS PRN [sonata] 10 Mg PO HS EXELON 9.5mg/24hr (Rivastigmine) 1 Each Patch.td24 1 Patch TD DAILY Omeprazole 40 Mg Capsule.dr 40 Mg PO DAILY Namenda (Memantine Hcl) 10 Mg Tablet 10 Mg PO BID Maalox Advanced Suspension (Mag Hydrox/Aluminum Hyd/Simeth) 355 Ml Oral.susp 5 Ml PO PRN PRN Lisinopril 10 Mg Tablet 10 Mg PO DAILY Glycolax (Polyethylene Glycol 3350) 119 Gm Powder 17 Gm PO DAILY Detrol La (Tolterodine Tartrate) 4 Mg Cap.er.24h 1 Cap PO DAILY Aspirin 81 Mg Tab.chew 81 Mg PO DAILY I have reviewed the current psychotropics carefully including drug interactions. Risk benefit ratio favors no change other than as noted in my dictated progress note. Diagnosis: Problems: (1) Dementia (2) Dementia with behavioral disturbance (3) Anxiety disorder (4) Depression (5) Impulse control disorder (6) Dementia, vascular, with depression (7) Major neurocognitive disorder LINO DE PAZ MD Sep 17, 2018 23:11
[2018-09-18] MEDS ORDERED: LOPERAMIDE 2 MG CAPSULE PO PRN (04:45)
[2018-09-18 05:42] VITALS: BP 152/78
[2018-09-18] MEDS: PANTOPRAZOLE 40 MG TABLET. PO SCH (08:35)
[2018-09-18] MEDS: DIVALPROEX 125 MG CAP.SPRINK PO SCH ×2 (08:36→20:42)
[2018-09-18] MEDS: GLIMEPIRIDE 2 MG TABLET PO SCH (08:36)
[2018-09-18] MEDS: ASPIRIN 81 MG TAB.CHEW PO SCH (08:36)
[2018-09-18] MEDS: DOCUSATE SODIUM 100 MG CAPSULE PO SCH ×3 (08:36→20:45)
[2018-09-18] MEDS: OXYBUTYNIN CHLORIDE 5 MG TABLET PO SCH ×3 (08:36→20:42)
[2018-09-18] MEDS: MEMANTINE 10 MG TABLET. PO SCH ×2 (08:37→20:42)
[2018-09-18] MEDS: SERTRALINE 25 MG TABLET. PO SCH (08:38)
[2018-09-18] MEDS: amLODIPine BESYLATE 10 MG TABLET PO SCH (08:38)
[2018-09-18] MEDS: EZETIMIBE 10 MG TABLET PO SCH (08:38)
[2018-09-18] MEDS: QUEtiapine 25 MG TABLET. PO SCH ×3 (08:38→16:46)
[2018-09-18] MEDS: RIVASTIGMINE 9.5MG PATCH. TD SCH (08:39)
[2018-09-18] MEDS: POLYETHYLENE GLYCOL 3350 17 GM PACKET. PO SCH (08:44)
--- NOTE | 2018-09-18 12:25 | RAD ---
CT ABDOMEN PELVIS WO CONTRAST Indication: INCONSISTENT BOWEL MOVEMENTS, POSSIBLE OBSTRUCTION. NO CONTRAST PER ORDER. CREATINE 1.6 Exposure: One or more of the following individualized dose reduction techniques were utilized for this examination: 1. Automated exposure control 2. Adjustment of the mA and/or kV according to patient size 3. Use of iterative reconstruction technique. Comparison: None are available. Contrast: No intravenous contrast given. No oral contrast per request. Evaluation of solid viscera, bowel and vasculature is compromised by the noncontrast technique. Lower thorax: There are a couple of small granulomas in the left lung base. Tiny noncalcified nodule in the anterior right lung base measures 4 mm. Liver: Unremarkable Spleen: Unremarkable Pancreas: Unremarkable Adrenals: Left adrenal mass, measures 2.6 cm and about 33 Hounsfield units. Smaller right adrenal mass measures 12 mm. Kidneys: Lesion at the lateral aspect of the left kidney measures 19 mm diameter, with a small area of wall calcification. This lesion measures 15 Hounsfield units. There is a separate smaller lesion just below this which measures 7 mm and is too small to characterize. There are couple of small right renal lesions, subcentimeter and too small to characterize. Urinary tracts: Tiny right lower pole calcification, compatible with a tiny nonobstructive calculus. Gallbladder: No calcified stone Aorta: Calcified and ectatic, with a small area of mild aneurysmal dilatation at the infrarenal aorta, measures 2.8 cm diameter. Lymph nodes: No significant enlargement GI tract: The colon is moderately distended with gas and stool. No significant small bowel dilatation. There appears to be wall thickening of the distal sigmoid colon and rectum. Appendix is normal. Reproductive organs: Prostate measures 5.3 cm in width. Urinary bladder: Unremarkable. Peritoneum: No evidence of pneumoperitoneum. No free fluid. Abdominal wall: Small fat-containing right inguinal hernia. Spine: Degenerative spondylosis. Bones: No destructive process identified. External Soft Tissue: No acute findings. IMPRESSION: 1. Moderate wall thickening of the distal sigmoid colon and rectum. Nonspecific, possibilities include malignant neoplasm versus colitis/proctitis. Recommend workup as possible malignancy. Moderate distention of the colon with gas and stool could be due to partial obstruction or ileus. 2. Complex left renal lesion, may represent a complex cyst, with wall calcification, recommend further evaluation with outpatient renal ultrasound. Other subcentimeter renal lesions are too small to characterize. 3. Small infrarenal abdominal aortic aneurysm, measures 2.8 cm. 4. Left adrenal mass, measures 2.6 cm. Smaller right adrenal mass measures 1.2 cm. These are nonspecific, could represent metastatic lesions. 5. Tiny nonobstructive right lower pole renal calculus. 6. Tiny right lung base pulmonary nodule, measures 4 mm, as per Fleischner guidelines could consider follow-up CT chest in 12 months if high risk. 7. Prostatomegaly. Electronically signed by: Rene Gottlieb MD (09/18/2018 12:21 PM) [id number]
[2018-09-18 16:48] VITALS: BP 152/78
--- NOTE | 2018-09-18 19:59 | PN ---
DATE: 09/15/2018 PSYCHIATRIC PROGRESS NOTE This late entry 09/15/2018 covers elements not covered in my initial note. SUBJECTIVE: I met with the patient in the evening and staffed at treatment team meeting earlier in the day with the entire team. The patient remains somewhat grandiose, delusional, believes he owns the hospital, and was telling the nurses "you are doing a good job." He slept 7-1/4 hours previous night. Appetite 90%. REVIEW OF SYSTEMS: No CV, , pulmonary, eye, ENT system symptoms on review. Reliability poor. MENTAL STATUS EXAM: Oriented to himself. Insight, judgment, recent and remote memory, attention, concentration, fund of knowledge poor, consistent with his diagnosis mentioned in my initial note. PLAN: Increase Seroquel from 12.5 mg b.i.d. to 12.5 mg 9 a.m., 1:00 p.m., 5:00 p.m. and Zoloft from 25 mg a day to 50 mg a day. Continue rest unchanged. MAN Nilesh DE PAZ MD DR: RUBY/nazia JOB#: [id number] / [id number]
[2018-09-18] MEDS: MIRTAZAPINE 7.5 MG TABLET. PO SCH (20:43)
[2018-09-18] MEDS: traZODone 50 MG TABLET. PO SCH (20:43)
--- NOTE | 2018-09-18 22:12 | PN ---
DATE: 09/16/2018 PSYCHIATRIC PROGRESS NOTE This late entry 09/16/2018 covers elements not covered in my initial note. SUBJECTIVE: I met with the patient in the evening. The patient slept 7 hours previous night. In the morning, he was confused, urinated on the floor. Once he was placed ____ then he did better. He remains anxious, obsessive. REVIEW OF SYSTEMS: No CV, , pulmonary, eye, ENT system symptoms on review. Reliability poor. MENTAL STATUS EXAM: Oriented to himself. Insight, judgment, recent and remote memory, attention, concentration, fund of knowledge poor, consistent with his diagnosis. IMPRESSION: Major neurocognitive disorder, Alzheimer, vascular with delusion, depression, behavioral disturbance. Rest unchanged. PLAN: Increase Zoloft from 50 mg a day to 75 mg a day. Continue rest unchanged from initial note. MAN Nilesh DE PAZ MD DR: RUBY/nazia JOB#: [id number] / [id number]
--- NOTE | 2018-09-18 22:20 | PN ---
DATE: 09/17/2018 PSYCHIATRIC PROGRESS NOTE This late entry 09/17/2018 covers elements not covered in my initial note. SUBJECTIVE: I met with the patient in the evening. The patient slept 7-1/2 hours previous night. He has some problems, toileting, urinated on the floor, then smeared his feces in the day room. Staff will use ____ to help with this, but he does redirect. REVIEW OF SYSTEMS: No CV, , pulmonary, eye, ENT system symptoms on review. Reliability poor. MENTAL STATUS EXAM: Oriented to himself. Insight, judgment, recent and remote memory, attention, concentration, fund of knowledge poor, consistent with his diagnosis mentioned in my initial note. PLAN: No change from initial note. MAN Nilesh DE PAZ MD DR: RUBY/nazia JOB#: [id number] / [id number]
--- NOTE | 2018-09-18 22:44 | PDOC ---
Exam Note: Naman Note: Please also refer to the separate dictated note~for this date of service dictated separately.~Patient seen individually. Discussed the patient with Nursing staff reviewed the chart.~Reviewed interim history and current functioning. Reviewed vital signs,~Labs/ Radiology~and current medications noted below. Continue current treatment with the changes noted in the dictated addendum note Assessment: Vital Signs: Vital Signs Date Time Temp Pulse Resp B/P (MAP) Pulse Ox O2 Delivery O2 Flow Rate FiO2 09/18/18 16:48 97.0 73 16 152/78 (102) 99.0 09/18/18 05:42 98 09/17/18 06:32 Room Air I&O Intake and Output 09/18/18 07:01 Intake Total 1160 ml Balance 1160 ml Intake Oral 1160 ml # Bowel Movements 5 Labs: Laboratory Tests Test 09/18/18 07:37 Glucose (Fingerstick) 140 mg/dL (70-99) H Current Medications: Meds: Current Medications Acetaminophen (Tylenol) 650 mg PRN Q6HRS PRN PO PAIN / TEMP; Start 09/05/18 at 11:45; Status Cancel Multi-Ingredient Ointment (Analgesic [place]) 1 anupama PRN QID PRN TP MUSCLE PAIN; Start 09/05/18 at 11:45 Al Hydroxide/Mg Hydroxide (Mylanta Plus Xs) 15 ml PRN AFTMEALHC PRN PO DYSPEPSIA; Start 09/05/18 at 11:45 Magnesium Hydroxide (Milk Of Magnesia) 2,400 mg PRN QHS PRN PO CONSTIPATION; Start 09/05/18 at 11:45 Acetaminophen (Tylenol) 650 mg PRN Q4HRS PRN PO MILD PAIN; Start 09/05/18 at 13:00 Lisinopril (Prinivil) 10 mg DAILY PO Last administered on 09/08/18at 09:16; Start 09/06/18 at 09:00; Stop 09/09/18 at 17:03; Status DC Aspirin (Children'S Aspirin) 81 mg DAILYWBKFT PO Last administered on at 08:36; Start 09/06/18 at 08:00 Divalproex Sodium (Depakote Sprinkles) 125 mg BID PO Last administered on 09/06at 09:07; Start 09/05/18 at 21:00; Stop 09/06/18 at 18:30; Status DC EZETIMIBE (Zetia) 10 mg DAILY PO Last administered on 09/18/18 08:38; Start 09/06/18 at 09:00 Non-Formulary Medication (Mag Hydrox/ Aluminum Hyd/ Simeth (Maalox Advanced Suspension)) 5 ml PRN PRN PO INDIGESTION; Start 09/05/18 at 13:00; Stop at 13:16; Status DC Memantine (Namenda) 10 mg BID PO Last administered on 09/18/18 20:42; Start 09/05/18 at 21:00 Pantoprazole Sodium (Protonix) 40 mg DAILYAC PO Last administered on 08:35; Start 09/06/18 at 07:30 Polyethylene Glycol (miraLAX) 17 gm DAILY PO Last administered on 09/17/18 08 :38; Start 09/06/18 at 09:00 Rivastigmine (Exelon) 1 patch DAILY TD Last administered on 09/18/18 08:39; Start 09/06/18 at 09:00 Oxybutynin Chloride (Ditropan) 5 mg [id number] PO Last administered on 09/18/18 20:42; Start 09/05/18 at 14:00 Zolpidem Tartrate (Ambien) 5 mg PRN QHS PRN PO INSOMNIA Last administered on at 00:09; Start 09/05/18 at 13:30; Stop 09/08/18 at 18:09; Status DC Zolpidem Tartrate (Ambien) 5 mg QHS PO Last administered on 09/07/18at 21:20; Start 09/05/18 at 21:00; Stop 09/08/18 at 18:09; Status DC Olanzapine (ZyPREXA ZYDIS) 2.5 mg PRN Q2HR PRN PO PSYCHOSIS Last administered on 09/11/18 07:21; Start 09/05/18 at 16:45 Vitamin D (Vitamin D3) 50,000 unit WEEKLY PO Last administered on 09/14/18 08 :37; Start 09/07/18 at 09:00 Glimepiride (Amaryl) 2 mg DAILY PO Last administered on 09/18/18 08:36; Start 09/07/18 at 09:00 Divalproex Sodium (Depakote Sprinkles) 250 mg BID PO Last administered on 09/18 20:42; Start 09/06/18 at 21:00 Trazodone HCl (Desyrel) 50 mg QHS PO Last administered on 09/18/18 20:43; Start 09/07/18 at 21:00 Trazodone HCl (Desyrel) 50 mg PRN QHS PRN PO INSOMNIA Last administered on 23:00; Start 09/07/18 at 11:30 Sertraline HCl (Zoloft) 25 mg DAILY PO Last administered on 09/15/18 07:47; Start 09/08/18 at 09:00; Stop 09/15/18 at 12:55; Status DC Mirtazapine (Remeron) 7.5 mg QHS PO Last administered on 09/18/18 20:43; Start 09/08/18 at 21:00 Amlodipine Besylate (Norvasc) 10 mg DAILY PO Last administered on 09/18/18 08 :38; Start 09/10/18 at 09:00 Quetiapine Fumarate (SEROquel) 12.5 mg BIDWMEALS PO Last administered on 07:46; Start 09/11/18 at 08:00; Stop 09/15/18 at 12:55; Status DC Docusate Sodium (Colace) 100 mg BID PO Last administered on 09/18/18 20:45; Start 09/11/18 at 21:00 Quetiapine Fumarate (SEROquel) 12.5 mg TID@0900,1300,1700 PO Last administered on 09/18/18 16:46; Start 09/15/18 at 13:00 Sertraline HCl (Zoloft) 50 mg DAILY PO Last administered on 09/16/18at 09:10; Start 09/16/18 at 09:00; Stop 09/16/18 at 23:24; Status DC Sertraline HCl (Zoloft) 75 mg DAILY PO Last administered on 09/18/18 08:38; Start 09/17/18 at 09:00 Loperamide HCl (Imodium) 2 mg PRN Q15MIN PRN PO DIARRHEA Last administered on 09/18/18at 04:57; Start 09/18/18 at 04:45 Active Scripts Active Reported Depakote Sprinkle (Divalproex Sodium) 125 Mg Cap.sprink 125 Mg PO BID Zetia (Ezetimibe) 10 Mg Tablet 10 Mg PO DAILY08 Tylenol (Acetaminophen) 325 Mg Tablet 650 Mg PO PRN Q4HRS PRN [sonata] 10 Mg PO HS EXELON 9.5mg/24hr (Rivastigmine) 1 Each Patch.td24 1 Patch TD DAILY Omeprazole 40 Mg Capsule.dr 40 Mg PO DAILY Namenda (Memantine Hcl) 10 Mg Tablet 10 Mg PO BID Maalox Advanced Suspension (Mag Hydrox/Aluminum Hyd/Simeth) 355 Ml Oral.susp 5 Ml PO PRN PRN Lisinopril 10 Mg Tablet 10 Mg PO DAILY Glycolax (Polyethylene Glycol 3350) 119 Gm Powder 17 Gm PO DAILY Detrol La (Tolterodine Tartrate) 4 Mg Cap.er.24h 1 Cap PO DAILY Aspirin 81 Mg Tab.chew 81 Mg PO DAILY I have reviewed the current psychotropics carefully including drug interactions. Risk benefit ratio favors no change other than as noted in my dictated progress note. Diagnosis: Problems: (1) Dementia (2) Dementia with behavioral disturbance (3) Anxiety disorder (4) Depression (5) Impulse control disorder (6) Dementia, vascular, with depression (7) Major neurocognitive disorder LINO DE PAZ MD Sep 18, 2018 22:44
[2018-09-19 05:59] VITALS: BP 127/75
[2018-09-19] MEDS: DIVALPROEX 125 MG CAP.SPRINK PO SCH ×2 (08:39→19:53)
[2018-09-19] MEDS: MEMANTINE 10 MG TABLET. PO SCH ×2 (08:39→19:52)
[2018-09-19] MEDS: EZETIMIBE 10 MG TABLET PO SCH (08:39)
[2018-09-19] MEDS: ASPIRIN 81 MG TAB.CHEW PO SCH (08:39)
[2018-09-19] MEDS: PANTOPRAZOLE 40 MG TABLET. PO SCH (08:39)
[2018-09-19] MEDS: OXYBUTYNIN CHLORIDE 5 MG TABLET PO SCH ×3 (08:39→19:53)
[2018-09-19] MEDS: GLIMEPIRIDE 2 MG TABLET PO SCH (08:39)
[2018-09-19] MEDS: SERTRALINE 25 MG TABLET. PO SCH (08:40)
[2018-09-19] MEDS: DOCUSATE SODIUM 100 MG CAPSULE PO SCH ×2 (08:40→19:52)
[2018-09-19] MEDS: QUEtiapine 25 MG TABLET. PO SCH ×3 (08:40→17:19)
[2018-09-19] MEDS: amLODIPine BESYLATE 10 MG TABLET PO SCH (08:40)
[2018-09-19] MEDS: RIVASTIGMINE 9.5MG PATCH. TD SCH (08:42)
[2018-09-19] MEDS: POLYETHYLENE GLYCOL 3350 17 GM PACKET. PO SCH (08:42)
[2018-09-19 16:25] VITALS: BP 156/80
[2018-09-19] MEDS: MIRTAZAPINE 7.5 MG TABLET. PO SCH (19:52)
[2018-09-19] MEDS: traZODone 50 MG TABLET. PO SCH (19:53)
--- NOTE | 2018-09-19 22:55 | PDOC ---
Exam Note: Naman Note: Please also refer to the separate dictated note~for this date of service dictated separately.~Patient seen individually. Discussed the patient with Nursing staff reviewed the chart.~Reviewed interim history and current functioning. Reviewed vital signs,~Labs/ Radiology~and current medications noted below. Continue current treatment with the changes noted in the dictated addendum note Assessment: Vital Signs: Vital Signs Date Time Temp Pulse Resp B/P (MAP) Pulse Ox O2 Delivery O2 Flow Rate FiO2 09/19/18 16:25 97.4 92 20 156/80 (105) 98 09/18/18 16:48 99.0 09/17/18 06:32 Room Air I&O Intake and Output 09/19/18 07:01 Intake Total 1040 ml Balance 1040 ml Intake Oral 1040 ml # Bowel Movements 2 Labs: Laboratory Tests Test 09/19/18 07:35 09/19/18 13:35 Glucose (Fingerstick) 159 mg/dL (70-99) H Clostridium difficile Toxin B Gene Negative (Negative) Current Medications: Meds: Current Medications Acetaminophen (Tylenol) 650 mg PRN Q6HRS PRN PO PAIN / TEMP; Start 09/05/18 at 11:45; Status Cancel Multi-Ingredient Ointment (Analgesic [place]) 1 anupama PRN QID PRN TP MUSCLE PAIN; Start 09/05/18 at 11:45 Al Hydroxide/Mg Hydroxide (Mylanta Plus Xs) 15 ml PRN AFTMEALHC PRN PO DYSPEPSIA; Start 09/05/18 at 11:45 Magnesium Hydroxide (Milk Of Magnesia) 2,400 mg PRN QHS PRN PO CONSTIPATION; Start 09/05/18 at 11:45 Acetaminophen (Tylenol) 650 mg PRN Q4HRS PRN PO MILD PAIN Last administered on 09/19/18at 14:23; Start 09/05/18 at 13:00 Lisinopril (Prinivil) 10 mg DAILY PO Last administered on 09/08/18at 09:16; Start 09/06/18 at 09:00; Stop 09/09/18 at 17:03; Status DC Aspirin (Children'S Aspirin) 81 mg DAILYWBKFT PO Last administered on 09/19/18at 08:39; Start 09/06/18 at 08:00 Divalproex Sodium (Depakote Sprinkles) 125 mg BID PO Last administered on 09/06at 09:07; Start 09/05/18 at 21:00; Stop 09/06/18 at 18:30; Status DC EZETIMIBE (Zetia) 10 mg DAILY PO Last administered on 09/19/18 08:39; Start at 09:00 Non-Formulary Medication (Mag Hydrox/ Aluminum Hyd/ Simeth (Maalox Advanced Suspension)) 5 ml PRN PRN PO INDIGESTION; Start 09/05/18 at 13:00; Stop at 13:16; Status DC Memantine (Namenda) 10 mg BID PO Last administered on 09/19/18 19:52; Start at 21:00 Pantoprazole Sodium (Protonix) 40 mg DAILYAC PO Last administered on 09/19/18 08:39; Start 09/06/18 at 07:30 Polyethylene Glycol (miraLAX) 17 gm DAILY PO Last administered on 09/19/18 08: 42; Start 09/06/18 at 09:00 Rivastigmine (Exelon) 1 patch DAILY TD Last administered on 09/19/18 08:42; Start 09/06/18 at 09:00 Oxybutynin Chloride (Ditropan) 5 mg [id number] PO Last administered on 09/19/18 19: 53; Start 09/05/18 at 14:00 Zolpidem Tartrate (Ambien) 5 mg PRN QHS PRN PO INSOMNIA Last administered on at 00:09; Start 09/05/18 at 13:30; Stop 09/08/18 at 18:09; Status DC Zolpidem Tartrate (Ambien) 5 mg QHS PO Last administered on 09/07/18at 21:20; Start 09/05/18 at 21:00; Stop 09/08/18 at 18:09; Status DC Olanzapine (ZyPREXA ZYDIS) 2.5 mg PRN Q2HR PRN PO PSYCHOSIS Last administered on 09/11/18at 07:21; Start 09/05/18 at 16:45 Vitamin D (Vitamin D3) 50,000 unit WEEKLY PO Last administered on 09/14/18at 08 :37; Start 09/07/18 at 09:00 Glimepiride (Amaryl) 2 mg DAILY PO Last administered on 09/19/18 08:39; Start 09/07/18 at 09:00 Divalproex Sodium (Depakote Sprinkles) 250 mg BID PO Last administered on 19:53; Start 09/06/18 at 21:00 Trazodone HCl (Desyrel) 50 mg QHS PO Last administered on 09/19/18 19:53; Start 09/07/18 at 21:00 Trazodone HCl (Desyrel) 50 mg PRN QHS PRN PO INSOMNIA Last administered on at 23:00; Start 09/07/18 at 11:30 Sertraline HCl (Zoloft) 25 mg DAILY PO Last administered on 09/15/18at 07:47; Start 09/08/18 at 09:00; Stop 09/15/18 at 12:55; Status DC Mirtazapine (Remeron) 7.5 mg QHS PO Last administered on 09/19/18 19:52; Start 09/08/18 at 21:00 Amlodipine Besylate (Norvasc) 10 mg DAILY PO Last administered on 09/19/18 08: 40; Start 09/10/18 at 09:00 Quetiapine Fumarate (SEROquel) 12.5 mg BIDWMEALS PO Last administered on at 07:46; Start 09/11/18 at 08:00; Stop 09/15/18 at 12:55; Status DC Docusate Sodium (Colace) 100 mg BID PO Last administered on 09/19/18 19:52; Start 09/11/18 at 21:00 Quetiapine Fumarate (SEROquel) 12.5 mg TID@0900,1300,1700 PO Last administered on 09/19/18 17:19; Start 09/15/18 at 13:00 Sertraline HCl (Zoloft) 50 mg DAILY PO Last administered on 09/16/18at 09:10; Start 09/16/18 at 09:00; Stop 09/16/18 at 23:24; Status DC Sertraline HCl (Zoloft) 75 mg DAILY PO Last administered on 1/1/19at 08:40; Start 09/17/18 at 09:00 Loperamide HCl (Imodium) 2 mg PRN Q15MIN PRN PO DIARRHEA Last administered on 09/18/18at 04:57; Start 09/18/18 at 04:45 Active Scripts Active Reported Depakote Sprinkle (Divalproex Sodium) 125 Mg Cap.sprink 125 Mg PO BID Zetia (Ezetimibe) 10 Mg Tablet 10 Mg PO DAILY08 Tylenol (Acetaminophen) 325 Mg Tablet 650 Mg PO PRN Q4HRS PRN [sonata] 10 Mg PO HS EXELON 9.5mg/24hr (Rivastigmine) 1 Each Patch.td24 1 Patch TD DAILY Omeprazole 40 Mg Capsule.dr 40 Mg PO DAILY Namenda (Memantine Hcl) 10 Mg Tablet 10 Mg PO BID Maalox Advanced Suspension (Mag Hydrox/Aluminum Hyd/Simeth) 355 Ml Oral.susp 5 Ml PO PRN PRN Lisinopril 10 Mg Tablet 10 Mg PO DAILY Glycolax (Polyethylene Glycol 3350) 119 Gm Powder 17 Gm PO DAILY Detrol La (Tolterodine Tartrate) 4 Mg Cap.er.24h 1 Cap PO DAILY Aspirin 81 Mg Tab.chew 81 Mg PO DAILY I have reviewed the current psychotropics carefully including drug interactions. Risk benefit ratio favors no change other than as noted in my dictated progress note. Diagnosis: Problems: (1) Dementia (2) Dementia with behavioral disturbance (3) Anxiety disorder (4) Depression (5) Impulse control disorder (6) Dementia, vascular, with depression (7) Major neurocognitive disorder LINO DE PAZ MD Sep 19, 2018 22:55
--- NOTE | 2018-09-19 23:32 | PN ---
DATE: 09/18/2018 PSYCHIATRIC PROGRESS NOTE This late entry for date of service 09/18/2018 covers elements not covered in my initial note. SUBJECTIVE: I met with the patient in the evening. The patient slept 4-1/4 hours previous night. He did well at night, at times up and down in his moods, ambulating in the unit. He was having some diarrhea, complained of abdominal pain. CT abdomen shows some masses in the adrenal and kidney area and I will defer to Dr. Narayanan. Stool sample has been sent for Dr. Narayanan. REVIEW OF SYSTEMS: No CV, , pulmonary, eye, ENT system symptoms on review. Reliability poor. MENTAL STATUS EXAMINATION: Oriented to himself. Insight, judgment, recent and remote memory, attention, concentration, fund of knowledge poor, consistent with his diagnosis mentioned in my initial note. PLAN: No change from initial note. MAN Nilesh DE PAZ MD DR: RUBY/nazia JOB#: [id number] / [id number]
[2018-09-20 05:34] VITALS: BP 135/73
[2018-09-20] MEDS: RIVASTIGMINE 9.5MG PATCH. TD SCH (07:43)
[2018-09-20] MEDS: amLODIPine BESYLATE 10 MG TABLET PO SCH (07:44)
[2018-09-20] MEDS: SERTRALINE 25 MG TABLET. PO SCH (07:44)
[2018-09-20] MEDS: EZETIMIBE 10 MG TABLET PO SCH (07:44)
[2018-09-20] MEDS: GLIMEPIRIDE 2 MG TABLET PO SCH (07:44)
[2018-09-20] MEDS: ASPIRIN 81 MG TAB.CHEW PO SCH (07:45)
[2018-09-20] MEDS: DIVALPROEX 125 MG CAP.SPRINK PO SCH (07:45)
[2018-09-20] MEDS: PANTOPRAZOLE 40 MG TABLET. PO SCH (07:45)
[2018-09-20] MEDS: QUEtiapine 25 MG TABLET. PO SCH ×3 (07:45→17:34)
[2018-09-20] MEDS: OXYBUTYNIN CHLORIDE 5 MG TABLET PO SCH ×2 (07:45→12:29)
[2018-09-20] MEDS: MEMANTINE 10 MG TABLET. PO SCH (07:45)
[2018-09-20] MEDS: DOCUSATE SODIUM 100 MG CAPSULE PO SCH (07:49)
[2018-09-20] MEDS: POLYETHYLENE GLYCOL 3350 17 GM PACKET. PO SCH (07:49)
[2018-09-20 14:39] LABS: BASO # 0.1 x10^3/uL (0.0-0.2); BASO % 1 % (0-3); EOS # 0.1 x10^3/uL (0.0-0.7); EOS % 1 % (0-3); HEMATOCRIT 39.4 % (39.0-53.0); HEMOGLOBIN 12.9 g/dL (13.0-17.5); LYMPH # 1.1 x10^3/uL (1.0-4.8); LYMPH % 10 % (24-48); MEAN CORPUSCULAR HEMOGLOBIN 30 pg (25-35); MEAN CORPUSCULAR HGB CONC 33 g/dL (31-37); MEAN CORPUSCULAR VOLUME 91 fL (79-100); MONO # 0.7 x10^3/uL (0.0-1.1); MONO % 6 % (0-9); NEUT # 9.2 x10^3uL (1.8-7.7); NEUT % 83 % (31-73); PLATELET COUNT 304 x10^3/uL (140-400); RED BLOOD COUNT 4.35 x10^6/uL (4.30-5.70); RED CELL DISTRIBUTION WIDTH 13.7 % (11.5-14.5); WHITE BLOOD COUNT 11.1 x10^3/uL (4.0-11.0)
[2018-09-20 14:52] LABS: ALBUMIN 3.9 g/dL (3.4-5.0); CREATININE 1.7 mg/dL (0.7-1.3); GFR 39.2; TOTAL BILIRUBIN 0.3 mg/dL (0.2-1.0); TOTAL PROTEIN 7.7 g/dL (6.4-8.2)
[2018-09-20 16:10] VITALS: BP 144/87
[2018-09-20] MEDS ORDERED: CHOL500016 PO (17:16)
[2018-09-20] MEDS ORDERED: GLIM2TAB2 PO (17:17)
[2018-09-20] MEDS ORDERED: LOPE2CAP PO (17:18)
[2018-09-20] MEDS ORDERED: MAGN2400 PO (17:18)
[2018-09-20] MEDS ORDERED: MIRT7.5T8 PO (17:19)
[2018-09-20] MEDS ORDERED: METH29OI TP (17:19)
[2018-09-20] MEDS ORDERED: OLAN5TAB9 PO (17:20)
[2018-09-20] MEDS ORDERED: OXYB5TAB7 PO (17:21)
[2018-09-20] MEDS ORDERED: PANT40TA3 PO (17:21)
[2018-09-20] MEDS ORDERED: QUET25TA5 PO (17:22)
[2018-09-20] MEDS ORDERED: AMLO10TA4 PO (17:23)
[2018-09-20] MEDS ORDERED: SERT50TA PO (17:23)
[2018-09-20] MEDS ORDERED: TRAZ-85 PO ×2 (17:24)
--- NOTE | 2018-09-20 18:47 | PDOC ---
Exam Note: Naman Note: Please also refer to the separate dictated note~for this date of service dictated separately.~Patient seen individually. Discussed the patient with Nursing staff reviewed the chart.~Reviewed interim history and current functioning. Reviewed vital signs,~Labs/ Radiology~and current medications noted below. Continue current treatment with the changes noted in the dictated addendum note Assessment: Vital Signs: Vital Signs Date Time Temp Pulse Resp B/P (MAP) Pulse Ox O2 Delivery O2 Flow Rate FiO2 09/20/18 16:10 97.8 86 20 144/87 (106) 97 09/18/18 16:48 99.0 09/17/18 06:32 Room Air I&O Intake and Output 09/20/18 07:01 Intake Total 960 ml Balance 960 ml Intake Oral 960 ml # Bowel Movements 1 Labs: Laboratory Tests Test 09/20/18 07:31 09/20/18 14:25 Glucose (Fingerstick) 135 mg/dL (70-99) H White Blood Count 11.1 x10^3/uL (4.0-11.0) H Red Blood Count 4.35 x10^6/uL (4.30-5.70) Hemoglobin 12.9 g/dL (13.0-17.5) L Hematocrit 39.4 % (39.0-53.0) Mean Corpuscular Volume 91 fL (79-100) Mean Corpuscular Hemoglobin 30 pg (25-35) Mean Corpuscular Hemoglobin Concent 33 g/dL (31-37) Red Cell Distribution Width 13.7 % (11.5-14.5) Platelet Count 304 x10^3/uL (140-400) Neutrophils (%) (Auto) 83 % (31-73) H Lymphocytes (%) (Auto) 10 % (24-48) L Monocytes (%) (Auto) 6 % (0-9) Eosinophils (%) (Auto) 1 % (0-3) Basophils (%) (Auto) 1 % (0-3) Neutrophils # (Auto) 9.2 x10^3uL (1.8-7.7) H Lymphocytes # (Auto) 1.1 x10^3/uL (1.0-4.8) Monocytes # (Auto) 0.7 x10^3/uL (0.0-1.1) Eosinophils # (Auto) 0.1 x10^3/uL (0.0-0.7) Basophils # (Auto) 0.1 x10^3/uL (0.0-0.2) Sodium Level 138 mmol/L (136-145) Potassium Level 4.0 mmol/L (3.5-5.1) Chloride Level 101 mmol/L (98-107) Carbon Dioxide Level 28 mmol/L (21-32) Anion Gap 9 (6-14) Blood Urea Nitrogen 47 mg/dL (8-26) H Creatinine 1.7 mg/dL (0.7-1.3) H Estimated GFR (Cockcroft-Gault) 39.2 BUN/Creatinine Ratio 28 (6-20) H Glucose Level 158 mg/dL (70-99) H Calcium Level 9.0 mg/dL (8.5-10.1) Total Bilirubin 0.3 mg/dL (0.2-1.0) Aspartate Amino Transferase (AST) 25 U/L (15-37) Alanine Aminotransferase (ALT) 28 U/L (16-63) Alkaline Phosphatase 107 U/L (46-116) Total Protein 7.7 g/dL (6.4-8.2) Albumin 3.9 g/dL (3.4-5.0) Albumin/Globulin Ratio 1.0 (1.0-1.7) Current Medications: Meds: Current Medications Acetaminophen (Tylenol) 650 mg PRN Q6HRS PRN PO PAIN / TEMP; Start 09/05/18 at 11:45; Status Cancel Multi-Ingredient Ointment (Analgesic [place]) 1 teresita PRN QID PRN TP MUSCLE PAIN; Start 09/05/18 at 11:45; Stop 09/20/18 at 17:56; Status DC Al Hydroxide/Mg Hydroxide (Mylanta Plus Xs) 15 ml PRN AFTMEALHC PRN PO DYSPEPSIA; Start 09/05/18 at 11:45; Stop 09/20/18 at 17:56; Status DC Magnesium Hydroxide (Milk Of Magnesia) 2,400 mg PRN QHS PRN PO CONSTIPATION; Start 09/05/18 at 11:45; Stop 09/20/18 at 17:56; Status DC Acetaminophen (Tylenol) 650 mg PRN Q4HRS PRN PO MILD PAIN Last administered on 09/19/18 14:23; Start 09/05/18 at 13:00; Stop 09/20/18 at 17:56; Status DC Lisinopril (Prinivil) 10 mg DAILY PO Last administered on 09/08/18at 09:16; Start 09/06/18 at 09:00; Stop 09/09/18 at 17:03; Status DC Aspirin (Children'S Aspirin) 81 mg DAILYWBKFT PO Last administered on 09/20/18 07:45; Start 09/06/18 at 08:00; Stop 09/20/18 at 17:56; Status DC Divalproex Sodium (Depakote Sprinkles) 125 mg BID PO Last administered on 09/06at 09:07; Start 09/05/18 at 21:00; Stop 09/06/18 at 18:30; Status DC EZETIMIBE (Zetia) 10 mg DAILY PO Last administered on 09/20/18 07:44; Start at 09:00; Stop 09/20/18 at 17:56; Status DC Non-Formulary Medication (Mag Hydrox/ Aluminum Hyd/ Simeth (Maalox Advanced Suspension)) 5 ml PRN PRN PO INDIGESTION; Start 09/05/18 at 13:00; Stop at 13:16; Status DC Memantine (Namenda) 10 mg BID PO Last administered on 09/20/18 07:45; Start at 21:00; Stop 09/20/18 at 17:56; Status DC Pantoprazole Sodium (Protonix) 40 mg DAILYAC PO Last administered on 09/20/18 07:45; Start 09/06/18 at 07:30; Stop 09/20/18 at 17:56; Status DC Polyethylene Glycol (miraLAX) 17 gm DAILY PO Last administered on 09/19/18 08: 42; Start 09/06/18 at 09:00; Stop 09/20/18 at 17:56; Status DC Rivastigmine (Exelon) 1 patch DAILY TD Last administered on 09/20/18 07:43; Start 09/06/18 at 09:00; Stop 09/20/18 at 17:56; Status DC Oxybutynin Chloride (Ditropan) 5 mg [id number] PO Last administered on 09/20/18 12: 29; Start 09/05/18 at 14:00; Stop 09/20/18 at 17:56; Status DC Zolpidem Tartrate (Ambien) 5 mg PRN QHS PRN PO INSOMNIA Last administered on at 00:09; Start 09/05/18 at 13:30; Stop 09/08/18 at 18:09; Status DC Zolpidem Tartrate (Ambien) 5 mg QHS PO Last administered on 09/07/18at 21:20; Start 09/05/18 at 21:00; Stop 09/08/18 at 18:09; Status DC Olanzapine (ZyPREXA ZYDIS) 2.5 mg PRN Q2HR PRN PO PSYCHOSIS Last administered on 09/11/18at 07:21; Start 09/05/18 at 16:45; Stop 09/20/18 at 17:56; Status DC Vitamin D (Vitamin D3) 50,000 unit WEEKLY PO Last administered on 09/14/18at 08 :37; Start 09/07/18 at 09:00; Stop 09/20/18 at 17:56; Status DC Glimepiride (Amaryl) 2 mg DAILY PO Last administered on 09/20/18 07:44; Start 09/07/18 at 09:00; Stop 09/20/18 at 17:56; Status DC Divalproex Sodium (Depakote Sprinkles) 250 mg BID PO Last administered on 07:45; Start 09/06/18 at 21:00; Stop 09/20/18 at 17:56; Status DC Trazodone HCl (Desyrel) 50 mg QHS PO Last administered on 09/19/18 19:53; Start 09/07/18 at 21:00; Stop 09/20/18 at 17:56; Status DC Trazodone HCl (Desyrel) 50 mg PRN QHS PRN PO INSOMNIA Last administered on at 23:00; Start 09/07/18 at 11:30; Stop 09/20/18 at 17:56; Status DC Sertraline HCl (Zoloft) 25 mg DAILY PO Last administered on 09/15/18at 07:47; Start 09/08/18 at 09:00; Stop 09/15/18 at 12:55; Status DC Mirtazapine (Remeron) 7.5 mg QHS PO Last administered on 09/19/18 19:52; Start 09/08/18 at 21:00; Stop 09/20/18 at 17:56; Status DC Amlodipine Besylate (Norvasc) 10 mg DAILY PO Last administered on 09/20/18at 07: 44; Start 09/10/18 at 09:00; Stop 09/20/18 at 17:56; Status DC Quetiapine Fumarate (SEROquel) 12.5 mg BIDWMEALS PO Last administered on at 07:46; Start 09/11/18 at 08:00; Stop 09/15/18 at 12:55; Status DC Docusate Sodium (Colace) 100 mg BID PO Last administered on 09/19/18 19:52; Start 09/11/18 at 21:00; Stop 09/20/18 at 17:56; Status DC Quetiapine Fumarate (SEROquel) 12.5 mg TID@0900,1300,1700 PO Last administered on 09/20/18at 17:34; Start 09/15/18 at 13:00; Stop 09/20/18 at 17:56; Status DC Sertraline HCl (Zoloft) 50 mg DAILY PO Last administered on 09/16/18at 09:10; Start 09/16/18 at 09:00; Stop 09/16/18 at 23:24; Status DC Sertraline HCl (Zoloft) 75 mg DAILY PO Last administered on 09/20/18at 07:44; Start 09/17/18 at 09:00; Stop 09/20/18 at 17:56; Status DC Loperamide HCl (Imodium) 2 mg PRN Q15MIN PRN PO DIARRHEA Last administered on 09/18/18at 04:57; Start 09/18/18 at 04:45; Stop 09/20/18 at 17:56; Status DC Active Scripts Active Reported Trazodone Hcl 50 Mg Tablet 50 Mg PO PRN QHS PRN Trazodone Hcl 50 Mg Tablet 50 Mg PO QHS Norvasc (Amlodipine Besylate) 10 Mg Tablet 10 Mg PO DAILY Zoloft (Sertraline Hcl) 50 Mg Tablet 75 Mg PO DAILY PRN Seroquel (Quetiapine Fumarate) 25 Mg Tablet 12.5 Tab PO TID@0900,1300,1700 Protonix (Pantoprazole Sodium) 40 Mg Tablet.dr 40 Mg PO DAILYAC Oxybutynin Chloride 5 Mg Tablet 5 Mg PO [id number] Olanzapine 5 Mg Tablet 2.5 Mg PO PRN Q2HR PRN Mirtazapine 7.5 Mg Tablet 7.5 Mg PO QHS Analgesic [place] (Methyl Salicylate/Menthol) 28 Gm Oint...g. 1 Teresita TP PRN QID PRN Milk Of Magnesia (Magnesium Hydroxide) 2,400 Mg/10 Ml Oral.susp 2,400 Mg PO PRN QHS PRN Loperamide (Loperamide Hcl) 2 Mg Capsule 2 Mg PO PRN Q15MIN PRN Glimepiride 2 Mg Tablet 2 Mg PO DAILY Vitamin D3 (Cholecalciferol (Vitamin D3)) 5,000 Unit Tablet 5,000 Unit PO WEEKLY Depakote Sprinkle (Divalproex Sodium) 125 Mg Cap.sprink 250 Mg PO BID Zetia (Ezetimibe) 10 Mg Tablet 10 Mg PO DAILY08 Tylenol (Acetaminophen) 325 Mg Tablet 650 Mg PO PRN Q4HRS PRN EXELON 9.5mg/24hr (Rivastigmine) 1 Each Patch.td24 1 Patch TD DAILY Namenda (Memantine Hcl) 10 Mg Tablet 10 Mg PO BID Maalox Advanced Suspension (Mag Hydrox/Aluminum Hyd/Simeth) 355 Ml Oral.susp 5 Ml PO PRN PRN Aspirin 81 Mg Tab.chew 81 Mg PO DAILY I have reviewed the current psychotropics carefully including drug interactions. Risk benefit ratio favors no change other than as noted in my dictated progress note. Diagnosis: Problems: (1) Proctocolitis (2) Major neurocognitive disorder (3) Dementia, vascular, with depression (4) Impulse control disorder (5) Anxiety disorder LINO DE PAZ MD Sep 20, 2018 18:47
--- NOTE | 2018-09-20 23:04 | PN ---
DATE: 09/19/2018 PSYCHIATRIC PROGRESS NOTE This late entry 09/19/2018 covers elements not covered in my initial note. SUBJECTIVE: I met with the patient in the evening. The patient slept 3-1/2 hours previous night. He is compliant with his medications. He is constantly talking about feeling like he is going to have bowel movement. CT abdomen has some masses, but I will defer this to Dr. Narayanan. Compliant with meds. REVIEW OF SYSTEMS: No CV, , pulmonary, eye, ENT system symptoms on review. Reliability poor. MENTAL STATUS EXAM: Oriented to himself. Insight, judgment, recent and remote memory, attention, concentration, fund of knowledge poor, consistent with his diagnosis mentioned in my initial note. PLAN: Increase trazodone and he can get another 50 mg p.r.n. after the scheduled dosage of 50 mg if he is still not asleep. Rest of the meds will be unchanged, but we will increase the Remeron from 7.5 at bedtime to 15 mg at bedtime. MAN Nilesh DE PAZ MD DR: RUBY/nazia JOB#: [id number] / [id number]
--- NOTE | 2018-09-21 18:05 | DS ---
DATE OF DISCHARGE: 09/20/2018 DISCHARGE SUMMARY/PSYCHIATRIC PROGRESS NOTE This late entry 09/20/2018 covers elements not covered in my initial note of 09/20/2018. REASON FOR ADMISSION: Please refer to the admission history for details. Briefly, the patient is a 78-year-old male referred to us from [facility] by his primary care physician on account of worsening confusion being combative, destructive, and unmanageable. He is having marked paranoia and delusion, the staff was stealing from him. He is demented, was having significant insomnia. He had failed outpatient psychiatric interventions. SIGNIFICANT FINDINGS AND CLINICAL COURSE: Following admission, the patient was seen daily individually by myself from a psychiatric standpoint, medical followup with Dr. Narayanan. The patient remains confused, somewhat anxious, restless, paranoid. Adjustments were made in his psychotropics and he seemed to be responding to a combination of Depakote 250 mg b.i.d. with a valproic acid level therapeutic at 56, Namenda 10 b.i.d., Exelon patch 9.5 mg a day, Remeron 15 mg at bedtime to help with insomnia and anxiety. Zyprexa was p.r.n., trazodone 50 mg at bedtime, january repeat x 1; Zoloft 75 mg a day; Seroquel 12.5 mg 3 times a day. From a psychiatric standpoint, he was doing much better with his agitation, though he remained confused. Paranoia was much improved. However, at this stage, he developed some medical setbacks. A CT abdomen had shown some intra-abdominal lesions and Dr. Narayanan transferred him to [address] [place] [address] for further medical management. REVIEW OF SYSTEMS: Prior to discharge on 09/20/2018, no CV, , pulmonary, eye, ENT system symptoms on review. Reliability poor. MENTAL STATUS EXAM: Oriented to himself. Insight, judgment, recent and remote memory, attention, concentration, fund of knowledge poor, consistent with his diagnosis. FINAL DIAGNOSES: Major neurocognitive disorder, Alzheimer, vascular with delusion, depression, behavioral disturbance; anxiety disorder, unspecified; impulse control disorder, unspecified; proctocolitis. Positive CT abdomen. Rest unchanged from admission. DISCHARGE MEDICATIONS: Please refer to the MRAD. DISCHARGE INSTRUCTIONS: Further psychiatric medical followup on . Time for discharge day management greater than 30 minutes. LINO DE PAZ MD DR: RUBY/nazia JOB#: [id number] / [id number]
== END 2018-09-20 17:55 | disposition short-term general hospital (02) | DRG 57 ==
LOC: ER 09:56 → GEROPSY 11:10
PROVIDERS: ADMIT Psychiatry & Neurology Psychiatry; ATTEND Psychiatry & Neurology Psychiatry
DX: G30.9 Alzheimer's disease, unspecified (principal); F01.51 Vascular dementia, unspecified severity, with behavioral disturbance; F02.81 Dementia in other diseases classified elsewhere, unspecified severity, with behavioral disturbance; F05 Delirium due to known physiological condition; E11.22 Type 2 diabetes mellitus with diabetic chronic kidney disease; E78.5 Hyperlipidemia, unspecified; F32.9 Major depressive disorder, single episode, unspecified; F41.9 Anxiety disorder, unspecified; F63.9 Impulse disorder, unspecified; G47.00 Insomnia, unspecified; I12.9 Hypertensive chronic kidney disease with stage 1 through stage 4 chronic kidney disease, or unspecified chronic kidney disease; N18.9 Chronic kidney disease, unspecified; Z79.899 Other long term (current) drug therapy; Z87.891 Personal history of nicotine dependence; Z88.0 Allergy status to penicillin; Z88.8 Allergy status to other drugs, medicaments and biological substances
CPT/HCPCS: 36415; 74176; 80048; 80053; 80061; 80164; 81001; 82306; 82607; 82947; 83036; 83540; 83550; 83735; 84436; 84443; 84480; 85025; 86592; 87045; 87493; 93005; 99285-25

== ENCOUNTER 2018-09-20 18:03 | Inpatient (IN) | payer MEDICARE, OTHER ==
[~2018-09-20] VITALS: Ht 172.7 cm; Wt 62.7 kg
[~2018-09-20 18:03] MED LIST: ACET325T9 PO; AMLO10TA4 PO; ASPI-630 PO; CHOL500016 PO; DIVA125C2 PO; EZET10TA18 PO; GLIM2TAB2 PO; LISI10TA2 PO; LOPE2CAP PO; MAG355OR11 PO; MAGN2400 PO; MEMA10TA PO; METH29OI TP; MIRT7.5T8 PO; OLAN5TAB9 PO; OMEP40CA5 PO; OXYB5TAB7 PO; PANT40TA3 PO; POLY119P19 PO; QUET25TA5 PO; RIVA1PAT23 TD; SERT50TA PO; TOLT4CAP PO; TRAZ-85 PO; sonata PO
[2018-09-20 18:36] VITALS: BP 158/80
[2018-09-20] MEDS ORDERED: METHYL SALICYLATE/MENTHOL TOPICAL OINTMENT 29GM TUBE. TP PRN (19:00)
[2018-09-20] MEDS ORDERED: traZODone 50 MG TABLET. PO PRN (19:00)
[2018-09-20] MEDS ORDERED: SERTRALINE 50 MG TABLET. PO PRN (19:00)
[2018-09-20] MEDS ORDERED: ACETAMINOPHEN 325 MG TABLET PO PRN (19:00)
[2018-09-20] MEDS ORDERED: MAG HYDROX/AL HYDROX/SIMETH 30 ML ORAL.SUSP PO PRN (19:15)
[2018-09-20] MEDS ORDERED: MAGNESIUM HYDROXIDE 2,400 MG/30 ML ORAL.SUSP. PO PRN (19:15)
[2018-09-20] MEDS ORDERED: LOPERAMIDE 2 MG CAPSULE PO PRN (19:15)
[2018-09-20] MEDS ORDERED: cefTRIAXone IV Push 1 GM VIAL. IVP SCH (20:00)
[2018-09-20] MEDS: IV NORMAL SALINE 1,000ML 1,000 ML IV SCH (20:10)
[2018-09-20] MEDS: OXYBUTYNIN CHLORIDE 5 MG TABLET PO SCH (20:11)
[2018-09-20] MEDS: DIVALPROEX 125 MG CAP.SPRINK PO SCH (20:11)
[2018-09-20] MEDS: MEMANTINE 10 MG TABLET. PO SCH (20:12)
[2018-09-20] MEDS ORDERED: traZODone 50 MG TABLET. PO SCH (21:00)
[2018-09-20] MEDS ORDERED: MIRTAZAPINE 7.5 MG TABLET. PO SCH (21:00)
[2018-09-20] MEDS ORDERED: oxyCODONE IR 5 MG TABLET PO PRN (23:00)
[2018-09-21 00:01] VITALS: BP 169/74
[2018-09-21 05:49] VITALS: BP 166/82
[2018-09-21] MEDS ORDERED: PANTOPRAZOLE 40 MG TABLET. PO SCH (07:30)
[2018-09-21] MEDS ORDERED: ASPIRIN 81 MG TAB.CHEW PO SCH (08:00)
[2018-09-21] MEDS ORDERED: EZETIMIBE 10 MG TABLET PO SCH (09:00)
[2018-09-21] MEDS ORDERED: CHOLECALCIFEROL (VITAMIN D3) 50,000 UNIT CAPSULE PO SCH (09:00)
[2018-09-21] MEDS ORDERED: GLIMEPIRIDE 2 MG TABLET PO SCH (09:00)
[2018-09-21] MEDS ORDERED: RIVASTIGMINE 9.5MG PATCH. TD SCH (09:00)
[2018-09-21] MEDS ORDERED: SERTRALINE 50 MG TABLET. PO SCH (09:00)
[2018-09-21] MEDS ORDERED: amLODIPine BESYLATE 10 MG TABLET PO SCH (09:00)
[2018-09-21] MEDS: QUEtiapine 25 MG TABLET. PO SCH ×3 (09:12→17:23)
[2018-09-21] MEDS: IV NORMAL SALINE 1,000ML 1,000 ML IV SCH ×2 (09:12→15:00)
[2018-09-21] MEDS: DIVALPROEX 125 MG CAP.SPRINK PO SCH (09:13)
[2018-09-21] MEDS: MEMANTINE 10 MG TABLET. PO SCH (09:14)
[2018-09-21] MEDS: OXYBUTYNIN CHLORIDE 5 MG TABLET PO SCH ×2 (09:14→14:14)
[2018-09-21 09:31] LABS: CALCIUM 8.5 mg/dL (8.5-10.1); CREATININE 1.5 mg/dL (0.7-1.3); GFR 45.3; POTASSIUM 3.6 mmol/L (3.5-5.1)
[2018-09-21 11:02] VITALS: BP 179/82
[2018-09-21 11:54] LABS: BASO % 0 % (0-3); EOS % 0 % (0-3); HEMATOCRIT 33.8 % (39.0-53.0); HEMOGLOBIN 11.6 g/dL (13.0-17.5); LYMPH # 0.5 x10^3/uL (1.0-4.8); LYMPH % 5 % (24-48); MEAN CORPUSCULAR HEMOGLOBIN 31 pg (25-35); MEAN CORPUSCULAR HGB CONC 34 g/dL (31-37); MEAN CORPUSCULAR VOLUME 89 fL (79-100); MONO # 0.3 x10^3/uL (0.0-1.1); MONO % 3 % (0-9); NEUT # 8.9 x10^3uL (1.8-7.7); NEUT % 91 % (31-73); PLATELET COUNT 249 x10^3/uL (140-400); RED CELL DISTRIBUTION WIDTH 13.5 % (11.5-14.5); WHITE BLOOD COUNT 9.7 x10^3/uL (4.0-11.0)
[2018-09-21] MEDS ORDERED: MORPHINE SULFATE 2 MG/ML DISP.SYRIN. IV ONE (12:00)
[2018-09-21] MEDS ORDERED: HYOSCYAMINE 0.125 MG TAB.RAPDIS PO PRN (13:30)
[2018-09-21 15:20] VITALS: BP 176/78
[2018-09-21] MEDS: MORPHINE SULFATE 4 MG/ML DISP.SYRIN. IV PRN ×2 (15:23→18:54)
--- NOTE | 2018-09-21 15:35 | SSS ---
ADMIT DATE: 09/20/2018 HISTORY OF PRESENT ILLNESS: The patient is a 78-year-old male patient who was seen originally at [facility] for medical management. He was noted to have recurrent bouts of diarrhea and his kidney function has worsened, so we did send stool for C. diff as well as stool for culture and sensitivities and I did a CT scan of the abdomen and pelvis, which showed multiple abnormalities including moderate wall thickening of the distal sigmoid colon and rectum, nonspecific, possibilities include 1. Malignant neoplasm versus colitis, proctitis, and the radiologist recommended workup for possible malignancy, moderate distention of the colon with gas and stool could be due to partial obstruction or ileus. 2. Complex left renal lesion represents complex cyst with wall calcification. I recommend further evaluation with outpatient renal ultrasound. 3. Small infrarenal abdominal aortic aneurysm measuring about 2.8 cm, left adrenal mass measuring 2.6 cm, smaller right adrenal mass measuring 1.2 cm. These are nonspecific and could represent metastatic lesion. He has tiny nonobstructive right lower pole renal calculus. 4. Tiny right lung base pulmonary nodule measuring 4 mm and prostatomegaly. Given that he has diarrhea and his kidney function is worsening, a decision was made to transfer him to [address] [place] [address] and start him on IV antibiotic as well as IV fluid for rehydration. Given that he is allergic to PENICILLIN, I did start him on IV Rocephin and Zithromax. PAST MEDICAL HISTORY: Significant for type 2 diabetes, chronic kidney disease, hypertension, and benign prostatic hypertrophy. PAST SURGICAL HISTORY: Significant for tooth extraction. PSYCHIATRIC HISTORY: Significant for dementia, Alzheimer's vascular type. Apparently, he has been residing at [facility] for some time, but recently he was getting increasingly agitated, aggressive, disruptive, very paranoid, delusional with marked insomnia, and significant mood lability. However, there was no evidence of any active suicidal or homicidal ideation. He apparently has been exit seeking, wondering, resistant to treatment, posturing, threatening towards nursing staff even at the [facility] as soon as he arrived there. FAMILY HISTORY: Unremarkable. SOCIAL HISTORY: Apparently, resides at the [facility]. He is an ex-smoker, quit smoking years ago. He does not drink alcohol or use any recreational drugs. ALLERGIES: He is allergic to PENICILLIN and AMOXICILLIN. MEDICATIONS: He is currently on following medications: He is on Exelon 9.5 mg patch topically once a day, Zetia 10 mg once a day, amlodipine 10 mg once a day, aspirin 81 mg once a day, methyl salicylate for analgesic balm 4 times a day, acetaminophen 650 mg every 4 hours, divalproex sodium 125 mg twice a day, mirtazapine 7.5 mg at bedtime, sertraline 75 mg p.o. daily, trazodone 50 mg at bedtime as needed, olanzapine 2.5 mg every 2 hours, quetiapine fumarate 12.5 mg 3 times a day. He is on Namenda 10 mg twice a day, Maalox 15 mL as needed, loperamide 2 mg every 2 hours as needed for diarrhea, milk of magnesia 30 mL p.o. daily p.r.n. for constipation, glipizide 10 mg once a day, cholecalciferol for vitamin D3 5000 international units once a week. REVIEW OF SYSTEMS: The patient is complaining of abdominal pain and diarrhea, and was transferred to ICU. PHYSICAL EXAMINATION: GENERAL: On arrival, he looked well and was clearly in no apparent respiratory distress, pale, somewhat cachectic, but no jaundice, cyanosis, or thyromegaly. No jugular venous distension. No limb edema. VITAL SIGNS: His heart rate was 84, blood pressure was 169/74, temperature was 97.9, respiratory rate was 18 and oxygen saturation was 98%. HEAD, EYES, EARS, NOSE AND THROAT: Showed normocephalic, atraumatic. NECK: Supple. HEART: Showed normal first and second heart sounds. No gallop, rub or murmur. CHEST: Clear to auscultation. No crepitation or rhonchi. ABDOMEN: Distended, soft, nontender. No guarding or rigidity. No organomegaly. There is some tenderness mostly in the suprapubic area. LABORATORY DATA: Showed white cell count of 11,000, hemoglobin 12.9, hematocrit 39, MCV 91, and platelet count of 304,000. His chemistry showed serum sodium of 138, potassium 4, chloride 101, bicarbonate 28, anion gap of 9, BUN 47, creatinine 1.7, estimated GFR was 59 mL per minute, his glucose 158, calcium was 9. Total bilirubin, AST, ALT, alkaline phosphatase were normal. Total protein was 7.7 and albumin was 3.9. He was started on IV Rocephin and Zithromax as well as IV fluid. He was transferred to the ICU. He did very well overnight. Unfortunately, this morning, he started complaining of pain in the suprapubic area and he was noted to be retaining urine, so an indwelling Navarro catheter was placed. He also complained of back pain and was started with IV fluid. Repeat lab work this morning showed serum sodium is 140, potassium 3.6, chloride 104, bicarbonate 25, anion gap of 11, BUN 44, creatinine 1.5, estimated GFR was 45 mL per minute, his glucose 163, calcium was 8.5. His white cell count was 9700, hemoglobin 12, hematocrit 34, MCV 89 and platelet count of 249,000. Given that there is a chance that he might have colon cancer with metastases versus acute proctocolitis and after a lengthy discussion with his , a decision was made to transfer him to [place] to consult the director river restoration to decide on further management accordingly. FINAL DISCHARGE DIAGNOSES: Moderate wall thickening of the distal sigmoid colon and rectum with a differential including malignant neoplasm versus proctocolitis, acute on chronic kidney injury, benign prostatic hypertrophy with bladder outlet obstruction requiring indwelling Navarro catheter. Multiple complex renal lesions, left adrenal mass measuring 2.6 cm, small right adrenal mass that could represent metastatic lesion. DONOVAN PIPER MD DR: MURALI/nazia JOB#: [id number] / [id number]
--- NOTE | 2018-09-21 18:47 | PDOC ---
Exam Note: Naman Note: Please also refer to the separate dictated note~for this date of service dictated separately.~Patient seen individually. Discussed the patient with Nursing staff reviewed the chart.~Reviewed interim history and current functioning. Reviewed vital signs,~Labs/ Radiology~and current medications noted below. Continue current treatment with the changes noted in the dictated addendum note Assessment: Vital Signs: Vital Signs Date Time Temp Pulse Resp B/P (MAP) Pulse Ox O2 Delivery O2 Flow Rate FiO2 09/21/18 15:59 99 Room Air 09/21/18 15:20 99.3 72 20 176/78 (110) I&O Intake and Output 09/21/18 07:01 Intake Total 1000 ml Output Total 850 ml Balance 150 ml Intake Oral 900 ml IV Total 100 ml Output Urine Total 850 ml # Voids 13 Labs: Laboratory Tests Test 09/21/18 09:05 White Blood Count 9.7 x10^3/uL (4.0-11.0) Red Blood Count 3.80 x10^6/uL (4.30-5.70) L Hemoglobin 11.6 g/dL (13.0-17.5) L Hematocrit 33.8 % (39.0-53.0) L Mean Corpuscular Volume 89 fL (79-100) Mean Corpuscular Hemoglobin 31 pg (25-35) Mean Corpuscular Hemoglobin Concent 34 g/dL (31-37) Red Cell Distribution Width 13.5 % (11.5-14.5) Platelet Count 249 x10^3/uL (140-400) Neutrophils (%) (Auto) 91 % (31-73) H Lymphocytes (%) (Auto) 5 % (24-48) L Monocytes (%) (Auto) 3 % (0-9) Eosinophils (%) (Auto) 0 % (0-3) Basophils (%) (Auto) 0 % (0-3) Neutrophils # (Auto) 8.9 x10^3uL (1.8-7.7) H Lymphocytes # (Auto) 0.5 x10^3/uL (1.0-4.8) L Monocytes # (Auto) 0.3 x10^3/uL (0.0-1.1) Eosinophils # (Auto) 0.0 x10^3/uL (0.0-0.7) Basophils # (Auto) 0.0 x10^3/uL (0.0-0.2) Sodium Level 140 mmol/L (136-145) Potassium Level 3.6 mmol/L (3.5-5.1) Chloride Level 104 mmol/L (98-107) Carbon Dioxide Level 25 mmol/L (21-32) Anion Gap 11 (6-14) Blood Urea Nitrogen 44 mg/dL (8-26) H Creatinine 1.5 mg/dL (0.7-1.3) H Estimated GFR (Cockcroft-Gault) 45.3 Glucose Level 163 mg/dL (70-99) H Calcium Level 8.5 mg/dL (8.5-10.1) Current Medications: Meds: Current Medications Sodium Chloride 1,000 ml @ 100 mls/hr Q10H IV Last administered on 09/21/18 09 :12; Start 09/20/18 at 19:00 Metronidazole 100 ml @ 100 mls/hr Q8HRS IV Last administered on 09/21/18 14:56 ; Start 09/20/18 at 22:00 Ceftriaxone Sodium 1 gm/ Sodium Chloride 50 ml @ 100 mls/hr Q24H IV ; Start 09/20/18 at 20:00; Stop 09/20/18 at 22:10; Status DC Acetaminophen (Tylenol) 650 mg PRN Q4HRS PRN PO MILD PAIN Last administered on 09/20/18 21:35; Start 09/20/18 at 19:00 Multi-Ingredient Ointment (Analgesic [place]) 1 teresita PRN QID PRN TP muscle pain; Start 09/20/18 at 19:00 Mirtazapine (Remeron) 7.5 mg QHS PO Last administered on 09/20/18 20:12; Start 09/20/18 at 21:00 Oxybutynin Chloride (Ditropan) 5 mg [id number] PO Last administered on 09/21/18 14: 14; Start 09/20/18 at 21:00 Sertraline HCl (Zoloft) 75 mg DAILY PRN PO ; Start 09/20/18 at 19:00; Stop at 19:06; Status DC Amlodipine Besylate (Norvasc) 10 mg DAILY PO Last administered on 1/3/19at 09: 12; Start 09/21/18 at 09:00 Aspirin (Children'S Aspirin) 81 mg [id number] PO Last administered on 09/21/18 09:15; Start 09/21/18 at 08:00 Vitamin D (Vitamin D3) 50,000 unit WEEKLY PO Last administered on 09/21/18 09: 13; Start 09/21/18 at 09:00 Divalproex Sodium (Depakote Sprinkles) 250 mg BID PO Last administered on 09:13; Start 09/20/18 at 21:00 EZETIMIBE (Zetia) 10 mg DAILY PO Last administered on 09/21/18 09:15; Start 09/21/18 at 09:00 Glimepiride (Amaryl) 2 mg DAILY PO Last administered on 09/21/18 09:14; Start 09/21/18 at 09:00 Loperamide HCl (Imodium) 2 mg PRN Q15MIN PRN PO DIARRHEA; Start 09/20/18 at 19: 15 Al Hydroxide/Mg Hydroxide (Mylanta Plus Xs) 15 ml PRN Q2HR PRN PO DYSPEPSIA; Start 09/20/18 at 19:15 Magnesium Hydroxide (Milk Of Magnesia) 2,400 mg PRN QHS PRN PO CONSTIPATION; Start 09/20/18 at 19:15 Memantine (Namenda) 10 mg BID PO Last administered on 09/21/18 09:14; Start 09/20/18 at 21:00 Olanzapine (ZyPREXA ZYDIS) 2.5 mg PRN Q2HR PRN PO psychosis Last administered on 09/20/18at 21:35; Start 09/20/18 at 19:15 Pantoprazole Sodium (Protonix) 40 mg DAILYAC PO Last administered on 09/21/18 09:14; Start 09/21/18 at 07:30 Quetiapine Fumarate (SEROquel) 12.5 mg TID@0900,1300,1700 PO Last administered on 09/21/18 17:23; Start 09/21/18 at 09:00 Rivastigmine (Exelon) 1 patch DAILY TD Last administered on 09/21/18 09:15; Start 09/21/18 at 09:00 Trazodone HCl (Desyrel) 50 mg PRN QHS PRN PO INSOMNIA Last administered on 22:28; Start 09/20/18 at 19:00 Trazodone HCl (Desyrel) 50 mg QHS PO Last administered on 09/20/18at 20:11; Start 09/20/18 at 21:00 Sertraline HCl (Zoloft) 75 mg DAILY PO Last administered on 09/21/18at 09:14; Start 09/21/18 at 09:00 Ceftriaxone Sodium (Rocephin) 1 gm Q24H IVP Last administered on 09/20/18at 20:10 ; Start 09/20/18 at 20:00 Oxycodone HCl (Roxicodone) 5 mg PRN Q4HRS PRN PO PAIN Last administered on 23:04; Start 09/20/18 at 23:00 Morphine Sulfate (Morphine 2mg Syringe) 2 mg 1X ONCE IV Last administered on at 11:54; Start 09/21/18 at 12:00; Stop 09/21/18 at 12:01; Status DC Hyoscyamine (Anaspaz) 0.125 mg PRN Q4HRS PRN PO STOMACH CRAMPING Last administered on 09/21/18at 15:24; Start 09/21/18 at 13:30 Lactobacillus Rhamnosus (Culturelle) 1 cap BID PO ; Start 09/21/18 at 21:00 Morphine Sulfate (Morphine 4mg Syringe) 4 mg PRN Q4HRS PRN IV PAIN Last administered on 09/21/18at 15:23; Start 09/21/18 at 15:15 Active Scripts Active Reported Trazodone Hcl 50 Mg Tablet 50 Mg PO PRN QHS PRN Trazodone Hcl 50 Mg Tablet 50 Mg PO QHS Norvasc (Amlodipine Besylate) 10 Mg Tablet 10 Mg PO DAILY Zoloft (Sertraline Hcl) 50 Mg Tablet 75 Mg PO DAILY PRN Seroquel (Quetiapine Fumarate) 25 Mg Tablet 12.5 Tab PO TID@0900,1300,1700 Protonix (Pantoprazole Sodium) 40 Mg Tablet.dr 40 Mg PO DAILYAC Oxybutynin Chloride 5 Mg Tablet 5 Mg PO [id number] Olanzapine 5 Mg Tablet 2.5 Mg PO PRN Q2HR PRN Mirtazapine 7.5 Mg Tablet 7.5 Mg PO QHS Analgesic [place] (Methyl Salicylate/Menthol) 28 Gm Oint...g. 1 Teresita TP PRN QID PRN Milk Of Magnesia (Magnesium Hydroxide) 2,400 Mg/10 Ml Oral.susp 2,400 Mg PO PRN QHS PRN Loperamide (Loperamide Hcl) 2 Mg Capsule 2 Mg PO PRN Q15MIN PRN Glimepiride 2 Mg Tablet 2 Mg PO DAILY Vitamin D3 (Cholecalciferol (Vitamin D3)) 5,000 Unit Tablet 5,000 Unit PO WEEKLY Depakote Sprinkle (Divalproex Sodium) 125 Mg Cap.sprink 250 Mg PO BID Zetia (Ezetimibe) 10 Mg Tablet 10 Mg PO DAILY08 Tylenol (Acetaminophen) 325 Mg Tablet 650 Mg PO PRN Q4HRS PRN EXELON 9.5mg/24hr (Rivastigmine) 1 Each Patch.td24 1 Patch TD DAILY Namenda (Memantine Hcl) 10 Mg Tablet 10 Mg PO BID Maalox Advanced Suspension (Mag Hydrox/Aluminum Hyd/Simeth) 355 Ml Oral.susp 5 Ml PO PRN PRN Aspirin 81 Mg Tab.chew 81 Mg PO DAILY I have reviewed the current psychotropics carefully including drug interactions. Risk benefit ratio favors no change other than as noted in my dictated progress note. Diagnosis: Problems: (1) Gmjvo-ar-kfhecpc kidney injury (2) Proctocolitis (3) Major neurocognitive disorder (4) Dementia, vascular, with depression (5) Impulse control disorder (6) Anxiety disorder LINO DE PAZ MD Sep 21, 2018 18:47
[2018-09-21] MEDS ORDERED: LACTOBACILLUS RHAMNOSUS GG 1 CAPSULE. PO SCH (21:00)
--- NOTE | 2018-09-22 20:11 | PN ---
DATE: 09/21/2018 PSYCHIATRIC PROGRESS NOTE This note covers elements not covered in my initial note 09/21/2018. SUBJECTIVE: Briefly, the patient is a 78-year-old male who was in the ICU at [facility] having been transferred from [facility] on account of proctocolitis with possible intraabdominal malignancy, primary or secondary. He remains confused, somewhat restless, agitated, but is being transferred to [facility] for further medical management. I did discuss with nursing staff. Overall, his mentation is no different from the [facility] and remains confused consistent with his diagnosis of major neurocognitive disorder, Alzheimer, vascular with delusion, depression; anxiety disorder, unspecified. PLAN: I would not recommend any changes in his psychotropics. Further management can be continued at [facility]. MAN Nilesh DE PAZ MD DR: RUBY/nazia JOB#: [id number] / [id number]
== END 2018-09-21 19:00 | disposition short-term general hospital (02) | DRG 375 ==
LOC: ICU 18:08
PROVIDERS: ADMIT Internal Medicine; ATTEND Internal Medicine
DX: C18.9 Malignant neoplasm of colon, unspecified (principal); K51.30 Ulcerative (chronic) rectosigmoiditis without complications; N17.9 Acute kidney failure, unspecified; E11.22 Type 2 diabetes mellitus with diabetic chronic kidney disease; F01.50 Vascular dementia, unspecified severity, without behavioral disturbance, psychotic disturbance, mood disturbance, and anxiety; F02.80 Dementia in other diseases classified elsewhere, unspecified severity, without behavioral disturbance, psychotic disturbance, mood disturbance, and anxiety; F32.9 Major depressive disorder, single episode, unspecified; F41.9 Anxiety disorder, unspecified; F63.9 Impulse disorder, unspecified; Z88.8 Allergy status to other drugs, medicaments and biological substances; G30.9 Alzheimer's disease, unspecified; E27.8 Other specified disorders of adrenal gland; N32.0 Bladder-neck obstruction; G47.00 Insomnia, unspecified; I12.9 Hypertensive chronic kidney disease with stage 1 through stage 4 chronic kidney disease, or unspecified chronic kidney disease; N18.9 Chronic kidney disease, unspecified; N40.0 Benign prostatic hyperplasia without lower urinary tract symptoms; Z87.891 Personal history of nicotine dependence; Z88.0 Allergy status to penicillin
CPT/HCPCS: 36415; 80048; 85025; 87040; 87641; J0696; J2270; J3490; J7030

== ENCOUNTER 2018-09-28 16:32 | Inpatient (IN) | payer MEDICARE, OTHER ==
[~2018-09-28] VITALS: Ht 172.7 cm; Wt 59.4 kg
[2018-09-28] MEDS ORDERED: TAMS0.4C2 PO (18:02)
[2018-09-28] MEDS ORDERED: MAGN400T3 PO (18:02)
[2018-09-28] MEDS ORDERED: OXYC1TAB15 PO (18:02)
[2018-09-28] MEDS ORDERED: HYOS0.12 PO (18:02)
[2018-09-28] MEDS ORDERED: CLON1PAT2 TD (18:02)
--- NOTE | 2018-09-28 18:27 | NUR ---
Admission Note with Justification for Admission to [facility] Patient admitted to [facility] for protective oversight for emergency stabilization of acute psychiatric crisis. Pt admitted from: [facility] Mode of arrival: EMS Accompanied By: EMS Precipitating behaviors that initiated intake and admission: It was reported that patient was combative with nurses at [facility] and a code arambula had to be called. He has been agitated and aggressive, confused, hallucinating and delusional. Description of failure of out patient attempts at stabilization in previous setting list behavior and medication trials: previous hospitalization at [facility], but then he was transferred to [facility] for medical reasons before discharge. Behaviors and assessment findings upon admission: Patient arrived with EMS on a gurney. He was wearing a gown and shoes. He did NOT have his glasses upon arrival. He was verbally abusive and tried to strike [employer]. He is resistive with vital signs and assessment. Accusing staff of stealing his sun glasses. Skin on his bottom is reddened but intact. Has pink foam on it for protection. [facility] reported that he is having formed stools. Navarro, rectal tube and IV removed before arrival. Patient ambulates with walker, assist x2 per report. Plan: Admit for protective oversight for adjustment and stabilization of medications, behaviors and mood. Intense treatment regimen including groups, medication adjustments, therapy, consistent regimen for ADL's, self care, and sleep hygiene. Daily monitoring by Inpatient staff, Psychiatry, and Medical Physician.
[2018-09-28] MEDS ORDERED: oxyCODONE/APAP 5/325 1 TAB TABLET PO PRN (18:30)
[2018-09-28] MEDS ORDERED: ACETAMINOPHEN 325 MG TABLET PO PRN (18:30)
[2018-09-28] MEDS ORDERED: METHYL SALICYLATE/MENTHOL TOPICAL OINTMENT 29GM TUBE. TP PRN (18:30)
[2018-09-28] MEDS ORDERED: HYOSCYAMINE 0.125 MG TAB.RAPDIS PO PRN (18:30)
[2018-09-28 18:32] VITALS: BP 152/70
[2018-09-28] MEDS ORDERED: MAGNESIUM HYDROXIDE 2,400 MG/30 ML ORAL.SUSP. PO PRN (18:45)
[2018-09-28] MEDS ORDERED: MAG HYDROX/AL HYDROX/SIMETH 30 ML ORAL.SUSP PO PRN (18:45)
[2018-09-28] MEDS ORDERED: LOPERAMIDE 2 MG CAPSULE PO PRN (18:45)
[2018-09-28] MEDS: MIRTAZAPINE 7.5 MG TABLET. PO SCH (19:56)
[2018-09-28] MEDS: MEMANTINE 10 MG TABLET. PO SCH (19:57)
[2018-09-28] MEDS: OXYBUTYNIN CHLORIDE 5 MG TABLET PO SCH (19:57)
[2018-09-28] MEDS: DIVALPROEX 125 MG CAP.SPRINK PO SCH (19:57)
--- NOTE | 2018-09-28 22:46 | NUR ---
Nursing Note The patient was located in his room when approached for his medication pass. The patient was very confused and disoriented when assessed by this nurse. The patient took his medication crushed in ice cream. The patient was interactive during interview but unable to follow conversation/very disorganized. The patient exited bed at approximately 2230 with no clothing or undergarments and was witnessed by this nurse ambulating in the hallway. the patient was escorted back into his room and was helped into the bathroom. The patient had urinated a large amount in his bed and brief. The patient is currently receiving a shower.
--- NOTE | 2018-09-28 22:51 | PDOC ---
Exam Note: Naman Note: Please also refer to the separate dictated note~for this date of service dictated separately.~Patient seen individually. Discussed the patient with Nursing staff reviewed the chart.~Reviewed interim history and current functioning. Reviewed vital signs,~Labs/ Radiology~and current medications noted below. Continue current treatment with the changes noted in the dictated addendum note Assessment: Vital Signs: Vital Signs Date Time Temp Pulse Resp B/P (MAP) Pulse Ox O2 Delivery O2 Flow Rate FiO2 09/28/18 18:32 97.6 91 20 152/70 (97) 97 Room Air Labs: Laboratory Tests Test 09/28/18 19:26 Glucose (Fingerstick) 87 mg/dL (70-99) Current Medications: Meds: Current Medications Acetaminophen (Tylenol) 650 mg PRN Q4HRS PRN PO MILD PAIN; Start 09/28/18 at 18 :30 Clonidine HCl (Catapres Tts-2) 1 patch WEEKLY TD ; Start 09/30/18 at 09:00 Hyoscyamine (Anaspaz) 0.125 mg PRN Q4HRS PRN PO stomach cramping ; Start at 18:30 Multi-Ingredient Ointment (Analgesic [place]) 1 teresita PRN QID PRN TP muscle pain; Start 09/28/18 at 18:30 Mirtazapine (Remeron) 7.5 mg QHS PO Last administered on 09/28/18at 19:56; Start 09/28/18 at 21:00 Oxybutynin Chloride (Ditropan) 5 mg [id number] PO Last administered on 09/28/18at 19 :57; Start 09/28/18 at 21:00 Oxycodone/ Acetaminophen (Percocet 5/325) 1 tab PRN Q4HRS PRN PO PAIN; Start at 18:30 Sertraline HCl (Zoloft) 75 mg DAILY PO ; Start 09/29/18 at 09:00 Tamsulosin HCl (Flomax) 0.4 mg DAILY PO ; Start 09/29/18 at 09:00 Amlodipine Besylate (Norvasc) 10 mg DAILY PO ; Start 09/29/18 at 09:00 Aspirin (Children'S Aspirin) 81 mg DAILY PO ; Start 09/29/18 at 09:00 Vitamin D (Vitamin D3) 5,000 unit WEEKLY PO ; Start 09/29/18 at 09:00 Divalproex Sodium (Depakote Sprinkles) 250 mg BID PO Last administered on at 19:57; Start 09/28/18 at 21:00 EZETIMIBE (Zetia) 10 mg DAILY08 PO ; Start 09/29/18 at 08:00 Glimepiride (Amaryl) 2 mg DAILY PO ; Start 09/29/18 at 09:00 Loperamide HCl (Imodium) 2 mg PRN Q15MIN PRN PO DIARRHEA; Start 09/28/18 at 18: 45 Al Hydroxide/Mg Hydroxide (Mylanta Plus Xs) 15 ml PRN Q2HR PRN PO INDIGESTION; Start 09/28/18 at 18:45 Magnesium Hydroxide (Milk Of Magnesia) 2,400 mg PRN QHS PRN PO CONSTIPATION; Start 09/28/18 at 18:45 Memantine (Namenda) 10 mg BID PO Last administered on 09/28/18at 19:57; Start at 21:00 Olanzapine (ZyPREXA ZYDIS) 2.5 mg PRN Q2HR PRN PO AGITATION; Start 09/28/18 at 18:45 Pantoprazole Sodium (Protonix) 40 mg DAILYAC PO ; Start 09/29/18 at 07:30 Quetiapine Fumarate (SEROquel) 12.5 mg TID@0900,1300,1700 PO ; Start 09/29/18 at 09:00 Rivastigmine (Exelon) 1 patch DAILY TD ; Start 09/29/18 at 09:00 Active Scripts Active Reported Tamsulosin Hcl 0.4 Mg Cap.er.24h 0.4 Mg PO DAILY Percocet 5-325 Mg Tablet (Oxycodone Hcl/Acetaminophen) 1 Each Tablet 1 Tab PO PRN Q4HRS PRN Magnesium Oxide 400 Mg Tablet 2,400 Mg PO PRN QHS Anaspaz (Hyoscyamine Sulfate) 0.125 Mg Tab.rapdis 0.125 Mg PO PRN Q4HRS PRN Clonidine Tts-2 (Clonidine) 1 Each Patch.tdwk 1 Patch TD WEEKLY Norvasc (Amlodipine Besylate) 10 Mg Tablet 10 Mg PO DAILY Zoloft (Sertraline Hcl) 50 Mg Tablet 75 Mg PO DAILY PRN Seroquel (Quetiapine Fumarate) 25 Mg Tablet 12.5 Tab PO TID@0900,1300,1700 Protonix (Pantoprazole Sodium) 40 Mg Tablet.dr 40 Mg PO DAILYAC Oxybutynin Chloride 5 Mg Tablet 5 Mg PO [id number] Olanzapine 5 Mg Tablet 2.5 Mg PO PRN Q2HR PRN Mirtazapine 7.5 Mg Tablet 7.5 Mg PO QHS Analgesic [place] (Methyl Salicylate/Menthol) 28 Gm Oint...g. 1 Teresita TP PRN QID PRN Loperamide (Loperamide Hcl) 2 Mg Capsule 2 Mg PO PRN Q15MIN PRN Glimepiride 2 Mg Tablet 2 Mg PO DAILY Vitamin D3 (Cholecalciferol (Vitamin D3)) 5,000 Unit Tablet 5,000 Unit PO WEEKLY Depakote Sprinkle (Divalproex Sodium) 125 Mg Cap.sprink 250 Mg PO BID Zetia (Ezetimibe) 10 Mg Tablet 10 Mg PO DAILY08 Tylenol (Acetaminophen) 325 Mg Tablet 650 Mg PO PRN Q4HRS PRN EXELON 9.5mg/24hr (Rivastigmine) 1 Each Patch.td24 1 Patch TD DAILY Namenda (Memantine Hcl) 10 Mg Tablet 10 Mg PO BID Maalox Advanced Suspension (Mag Hydrox/Aluminum Hyd/Simeth) 355 Ml Oral.susp 15 Ml PO PRN Q2HR PRN Aspirin 81 Mg Tab.chew 81 Mg PO DAILY I have reviewed the current psychotropics carefully including drug interactions. Risk benefit ratio favors no change other than as noted in my dictated progress note. Diagnosis: Problems: (1) Dementia with behavioral disturbance (2) Depression (3) Proctocolitis (4) Anxiety disorder (5) Impulse control disorder (6) Dementia, vascular, with depression (7) Soxep-io-jbblcjz kidney injury (8) Major neurocognitive disorder LINO DE PAZ MD Sep 28, 2018 22:51
[2018-09-29 05:29] VITALS: BP 130/69
[2018-09-29 07:43] LABS: BASO # 0.1 x10^3/uL (0.0-0.2); BASO % 1 % (0-3); EOS # 0.6 x10^3/uL (0.0-0.7); EOS % 6 % (0-3); HEMOGLOBIN 11.2 g/dL (13.0-17.5); LYMPH # 0.8 x10^3/uL (1.0-4.8); LYMPH % 8 % (24-48); MEAN CORPUSCULAR HEMOGLOBIN 30 pg (25-35); MEAN CORPUSCULAR HGB CONC 34 g/dL (31-37); MEAN CORPUSCULAR VOLUME 89 fL (79-100); MONO # 0.7 x10^3/uL (0.0-1.1); MONO % 6 % (0-9); NEUT # 8.3 x10^3uL (1.8-7.7); NEUT % 79 % (31-73); PLATELET COUNT 257 x10^3/uL (140-400); RED BLOOD COUNT 3.72 x10^6/uL (4.30-5.70); WHITE BLOOD COUNT 10.4 x10^3/uL (4.0-11.0)
[2018-09-29 07:53] LABS: ALBUMIN 2.8 g/dL (3.4-5.0); ALBUMIN/GLOBULIN RATIO 0.9 (1.0-1.7); CALCIUM 8.2 mg/dL (8.5-10.1); CREATININE 1.3 mg/dL (0.7-1.3); GFR 53.4; TOTAL BILIRUBIN 0.4 mg/dL (0.2-1.0); TOTAL PROTEIN 5.8 g/dL (6.4-8.2)
[2018-09-29 08:06] LABS: VAL ACID 30 mcg/mL (50-100)
[2018-09-29] MEDS ORDERED: CHOLECALCIFEROL (VITAMIN D3) 1,000 UNIT TABLET PO SCH (09:00)
--- NOTE | 2018-09-29 09:23 | NUR ---
Activity Therapy Assessment Pt. previously admitted to [facility] on 09/05/2018 and discharged 09/21/2018. Initial assessment remains valid, see below. Pt. is still experiencing delusions and is often combative with staff. Pt. did not recognize therapist when she greeted him this morning. Repeating goal for this admission- Goal set to increase leisure awareness: Pt. will participate in three groups per week. Activity Therapy Assessment Completed based on observation, interview, and [employer] notes. Pt. was in the hallway wandering and was agreeable to meet with therapist. Pt. stood and wandered while speaking with therapist, seemingly restless. Pt. was able to answer therapist questions with some processing time. Pt. memory seems to be slow and his lucidity seems to vary. Pt. stated at the beginning of the interview that his two sons are "about 16 and 17" and he has no grandchildren. Later in the interview, Pt. stated that he has a granddaughter, Dominga, and that both of his boys are . Pt. stated that 'my memory comes and goes. There isn't much to be done about it I guess'. Pt. expressed he enjoys golf but ' it is far too expensive to play now' and then jumped into a clear memory of taking his granddaughter golfing. In terms of stress management, Pt. stated 'I learned to get along- I have stress every day. It's annoying but there isn't anything I can do about it'. Pt. seems friendlier and more lucid in the mornings; he is able to attend groups at that time and participates well. In the afternoons and evenings, Pt. displays clear sundowning behavior- he becomes more agitated, confused, delusional and combative. It has also been reported that Pt. is not sleeping well. Initial goal set to increase leisure awareness: Pt. will participate in three groups before discharge Goal changed 09/14/2018: Pt. will participate in three groups per week
[2018-09-29] MEDS: DIVALPROEX 125 MG CAP.SPRINK PO SCH ×2 (09:49→20:14)
[2018-09-29] MEDS: OXYBUTYNIN CHLORIDE 5 MG TABLET PO SCH ×3 (09:49→20:14)
[2018-09-29] MEDS: MEMANTINE 10 MG TABLET. PO SCH ×2 (09:49→20:14)
[2018-09-29] MEDS: TAMSULOSIN 0.4 MG CAP.ER.24H. PO SCH (09:52)
[2018-09-29] MEDS: GLIMEPIRIDE 2 MG TABLET PO SCH (09:52)
[2018-09-29] MEDS: PANTOPRAZOLE 40 MG TABLET. PO SCH (09:52)
[2018-09-29] MEDS: QUEtiapine 25 MG TABLET. PO SCH ×3 (09:52→17:10)
[2018-09-29] MEDS: ASPIRIN 81 MG TAB.CHEW PO SCH (09:53)
[2018-09-29] MEDS: amLODIPine BESYLATE 10 MG TABLET PO SCH (09:53)
[2018-09-29] MEDS: EZETIMIBE 10 MG TABLET PO SCH (09:53)
[2018-09-29] MEDS: SERTRALINE 50 MG TABLET. PO SCH (09:53)
[2018-09-29] MEDS: RIVASTIGMINE 9.5MG PATCH. TD SCH (09:54)
--- NOTE | 2018-09-29 10:55 | NUR ---
PSYCHOSOCIAL ASSESSMENT ADMISSION DATE: 09/28/18 CONTACT INFORMATION: DPOA/Guardian Contact Name: Thi Hilario Contact Address: [place] [address] Contact Phone #: [phone] (H) or [phone] (C) ETHNIC ORIGIN: REASONS FOR ADMISSION: Combative, Sig. Change Sleep, Suspicious/paranoid ADDITIONAL ADMISSION COMMENTS: Per pt. intake, pt. is combative, destructive, not sleeping, cornered staff claiming they were stealing from him, and increased paranoia. REASON FOR ADMISSION IN PATIENT/FAMILY'S OWN WORDS: Per pt., "I have a problem with my butt". "It's been a couple of years now and I fell off a step stool". Per pt. , "He can't seem to locate a bathroom" and will urinate in the hallway. Pt. "wanders" is "not sleeping" and "got combative Tuesday night". She also shared he has been on a 1:1 at his facility, and they moved him up to assisted living. He also has wild thoughts and gets stuck on them, such as believing some jesus is working on his house and that someone has parked a bunch of cars on his property. PATIENT/FAMILY EXPECTATIONS FOR ADMISSION: Per pt., "That they can look at me and see what can be done". Per pt., "I would like to see him sleep all night," "not get angry," and "be a little calmer." "I want him to be comfortable where ever he has to be." LIVING SITUATION: Patient lives with: Assisted Living Contact Name: Britt [facility] Contact Address: [address] [place] [address] Contact Phone #: [phone] and [phone] (C) Contact Fax #: [phone] FAMILY RELATIONS: Marital Status: # of Marriages: 1 Pt. has been to his Thi for 60 years. # of Children: 2 Pt. has two boys Jeremy and Jeol and two granddaughters Dominga and Jaison. [facility] Family Support: Concerned and Cooperative Additional Comments r/t Family: Pt. family would prefer to be called aftertreatment team for pt. update. SIGNIFICANT PSYCHIATRIC/MEDICAL HISTORY: Psychiatric/Treatment History: Per pt. , pt. was diagnosed with Dementia over 5 years ago. No psychiatric treatment history was reported. Pertinent Family History: Pt. family has no known psychiatric history. HISTORICAL DATA: Childhood Environment: [place], Nurturing, and Supportive Comment: According to pt., his childhood was "good". 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 Pt. shared he lived with his mother, father, and older brother Cresencio. He said they didn't have a lot of money but made do with what they had. Psychological Abuse: None Additional Comments: None reported by both pt. and pt. . Drug Abuse History last 12 months: No Comment: PERSONAL HISTORY: Vocational history: After retiring from the [employer], the pt. 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 service: [employer] 20 years. Druze background: When asked if pt. was taoist/spiritual he responded, "not really". He went on to share he has "been going to congregational over in...I don't remember the name of the town". He believe mass was "Confucianist". According to his , pt. was going to congregational service while at [place] but had limited knowledge of what mass it was. She stated he grew up "Sikhism, but hasn't gone in years". Sexual orientation: Heterosexual Educational Level: Pt. graduated from high school. Past/Present Interests/Hobbies: Per pt., "I guess the only hobby I have now is collecting guns, cleaning them up, and keeping them in the safe." Pt. shared pt. used to love to mow the grass. Financial support/resources: [facility]/Pension, Social Security, and Long-Term Care Insurance Monthly income: [id number] Person handling finances: Thi Hilario Do you have a history of legal problems: N Cultural considerations: None SOCIAL RELATIONSHIPS-CURRENT/PAST: Psychiatrist: None PCP: Dr. Miller Chapa Counselor/Therapist: None Veterans' Administration: None Support Group: None Fancy Needleworker/Motor Teacher: None Other relationships: None STRENGTHS & WEAKNESSES: Patient's strengths: Good family support, Good verbal skills, Stable living arrange, and Financial support Patient's weaknesses: Impulsive and Health problems PRELIMINARY PLAN OF TREATMENT: Preliminary plan: Dec. Hallucination/Delusions, Promote Coping Skill, Medication Stabilization, Control abnormal behavior, and Prevent Deterioration DISCHARGE PLANNING: Discharge planning/disposition: Assisted Living - [facility] ADDITIONAL INFORMATION: Other Pertinent Data: Pt. was able to supply some of the information needed for psychosocial, however, family was contacted for verification and more information. Pt. shared she transported pt. here and would probably be transporting him back upon discharge. ADDITIONAL: Psychosocial was copied from pt. previous visit 09/05/2018 to 09/20/2018. Pt. , Thi, was contacted for updated pt. information. Thi shared pt. medical history over the past couple of weeks. She stated, "I don't want him going through any surgeries". She is worried about his "quality of life". She reports pt. was returned to the [facility] due to pt. being "a little combative" and "pulling out tubes". Per pt. intake, pt. was combative with nursing staff, sundowners, insomnia, agitated, restless, hallucinating, delusional, distracted, belligerent, and verbally aggressive. Pt. will need a memory care facility upon discharge.
--- NOTE | 2018-09-29 12:04 | NUR ---
patient calm and compliant with medication crushed taken in chocolate ice cream. Wearing onesie r/t taking his clothes off and walking in hallway overnight. Patients spouse dropped off bags of belongings, will inventory items and place in closet. No aggression or combativeness noted. Patient calmly wandering in hallway and day room throughout the morning.
[2018-09-29] MEDS: MIRTAZAPINE 7.5 MG TABLET. PO SCH (20:14)
--- NOTE | 2018-09-29 21:16 | PN ---
DATE: 09/29/2018 SUBJECTIVE: The patient was seen today, met with the staff, chart reviewed, also covering for Dr. Low. Staff reports increased confusion. constantly wandering, intrusive, walking into others home, but also labile, occasionally becomes combative with the staff, increased confusion in the afternoons, also periods where he becomes delusional and also having auditory hallucinations. The patient is also exhibiting poor impulse control and difficulty to read or write: VITAL SIGNS: Temperature 98.8, blood pressure 130/69, pulse 70, respirations 20, O2 sat 97%. Slept about 5 hours last night. CURRENT MEDICATIONS: The patient's medications reviewed and include Seroquel 12.5 mg t.i.d., Exelon patch 1 daily, Zoloft 75 mg daily, Namenda 10 mg b.i.d., Depakote 250 mg b.i.d., mirtazapine 7.5 mg at night. The patient is not having any side effects. LABORATORY DATA: The patient's lab reviewed. The patient's hemoglobin was low at 11.2. Fluctuating glucose levels. The patient is not having any major behavior problems at this time. ASSESSMENT: Dementia with behavior disturbances; impulse control disorder, unspecified. PLAN: Continue with the current treatment plan. JOHNNA BURGER MD DR: KERVIN/nazia JOB#: [id number] / [id number]
[2018-09-29 21:28] LABS: BACTERIA,URINE 0 /HPF (0-FEW); BILIRUBIN,URINE NEG (NEG); CLARITY,URINE CLEAR; COLOR,URINE AMBER; GLUCOSE,URINE NEG (NEG); NITRITE,URINE NEG (NEG); RBC,URINE 0 /HPF (0-2); UROBILINOGEN,URINE 0.2 mg/dL (0.2 mg/dL); WBC,URINE OCC /HPF (0-4)
[2018-09-29 21:29] LABS: SQUAMOUS EPITHELIAL CELL,UR OCC /LPF
--- NOTE | 2018-09-30 01:59 | CONS ---
DATE OF CONSULTATION: 09/29/2018 HISTORY OF PRESENT ILLNESS: The patient is a 78-year-old male patient who was [facility] a transfer from [facility] on account of increasing confusion, being progressively more of combative, destructive, having marked insomnia, has been paranoid and delusional. He believes staff were stealing from him. He was getting progressively aggressive, had to be placed on a 1:1 status in different facility. He has failed prior inpatient psychiatric stabilization at [facility] in March and was admitted to this unit for inpatient psychiatric stabilization. While here, he has had multiple episodes of diarrhea and therefore he was transferred to [address] [place] [address] scan showed the possibility of proctocolitis versus malignancy. We did start him on IV antibiotic in the form of Rocephin and Flagyl. Stool sent for C. diff toxin was negative and after discussion with his , he was transferred to [facility] where he was evaluated by the surgical team and the tray room worker. We continued the IV fluid, IV antibiotic, and he underwent flexible sigmoidoscopy, which showed that there is no evidence of malignancy. The rectal and sigmoid mucosa were normal. He was found to have sigmoid volvulus and he underwent partial decompression after which he had multiple episodes of diarrhea and has hypokalemia and acute kidney injury that was treated with IV fluid and potassium supplement. He was seen by the surgical team who spoke with his and apparently she did not want any further aggressive treatment or surgical treatment, although she is aware that the sigmoid volvulus might recur. We attempted to transfer him to a care home facility in [place] as per his 's request, but the DON there refused to take him on the account of his behavior and therefore after he was medically stabilized at [facility], he was transferred back to [facility] for inpatient psychiatric stabilization. When I saw him today, he was actually doing extremely well, he was sitting in the dining room. He did not eat much food, but he ate his applesauce, his tea, and his grapes, and has been up and about, walking around without any assistance or assistive devices. PAST MEDICAL HISTORY: Significant for type 2 diabetes, chronic kidney disease, hypertension, benign prostatic hypertrophy, and most recently sigmoid volvulus that required flexible sigmoidoscopy for decompression. PAST SURGICAL HISTORY: Significant for tooth extraction and recently flexible sigmoidoscopy and sigmoid volvulus decompression. PAST PSYCHIATRIC HISTORY: Significant for dementia of Alzheimer, vascular type. FAMILY HISTORY: Unremarkable. SOCIAL HISTORY: He apparently was a resident at the [facility]. He is an ex-smoker, quit smoking years ago. He does not drink alcohol or use any recreational drugs. ALLERGIES: He is allergic to PENICILLIN AND AMOXICILLIN. MEDICATIONS: He is currently on following medications: He is on Exelon 9.5 mg transdermal patch topically daily; hyoscyamine 0.125 mg p.o. q. 4 hourly p.r.n. for stomach cramping; tamsulosin 0.4 mg at bedtime for benign prostatic hypertrophy; Zetia 10 mg daily; clonidine patch TTS-2 topically once a week; amlodipine 10 mg once a day; aspirin 81 mg once a day; analgesic balm applied topically 4 times a day; oxycodone/APAP 5/325 one tablet every 4 hours as needed; Tylenol 650 mg every 4 hours; divalproex sodium 250 mg twice a day; mirtazapine 7.5 mg at bedtime; Zoloft 75 mg daily; olanzapine 2.5 mg every 2 hours; Seroquel 12.5 mg 3 times a day; Namenda 10 mg twice a day; Maalox 15 mL every 2 hours as needed; magnesium oxide 400 mg daily; loperamide 2 mg 4 times a day as needed; Protonix 40 mg daily; glimepiride 2 mg once a day; oxybutynin chloride 5 mg 3 times a day; vitamin D3 5000 units p.o. weekly. REVIEW OF SYSTEMS: As per history of present illness. PHYSICAL EXAMINATION GENERAL: When I examined him this afternoon, he looked well and was clearly in no apparent respiratory distress. He was pale, cachectic, no jaundice, cyanosis or thyromegaly. No jugular venous distension. No lower limb edema. VITAL SIGNS: His heart rate was 70, blood pressure was 130/69, temperature was 98.8, respiratory rate 20, and oxygen saturation was 97%. HEAD, EYES, EARS, NOSE, and THROAT: Showed normocephalic, atraumatic. NECK: Supple. HEART: Showed normal first and second heart sounds. No gallop, rub or murmur. CHEST: Clear to auscultation. No crepitation or rhonchi. ABDOMEN: Scaphoid, soft, nontender. NEUROLOGIC: He was demented, but without any obvious lateralizing sign. All his cranial nerves are intact. EXTREMITIES: He moves extremities without difficulty, ambulates without assistance or assistive devices. LABORATORY DATA: As of this morning showed a white cell count of 10,400, hemoglobin 11, hematocrit 33, MCV 89 and platelet count 257,000. His serum sodium was 144, potassium 4, chloride 109, bicarbonate 26, anion gap of 9, BUN 18, creatinine 1.3, estimated GFR was 53 mL per minute. His glucose was 83, calcium was 8.2, magnesium 2. Total bilirubin, AST, ALT, alkaline phosphatase are normal. Total protein was 5.8, albumin 2.8. His valproic acid was 30 mcg/mL. IMPRESSION: In summary, this is a 78-year-old male patient who was transferred to [facility]. Initial suspicion was that he might have malignancy versus proctocolitis; however, he was found to have sigmoid volvulus that was partially decompressed by flexible sigmoidoscopy. Since then, his abdomen is flat and has not had any further complaint of abdominal pain. Post procedure, he developed diarrhea with acute kidney injury as well as hypokalemia that has all resolved. Currently, the patient seems to be medically stable. I will definitely continue all his current medication. We will follow him closely and monitor. His is aware that sigmoid volvulus is likely to recur, but she made it clear that she does not want any surgical intervention. Thank you, Dr. Low, for allowing me to participate in the care of this patient. DONOVAN PIPER MD DR: MURALI/nazia JOB#: [id number] / [id number]
[2018-09-30 06:09] VITALS: BP 113/60
[2018-09-30] MEDS: RIVASTIGMINE 9.5MG PATCH. TD SCH (07:52)
[2018-09-30] MEDS: EZETIMIBE 10 MG TABLET PO SCH (07:53)
[2018-09-30] MEDS: TAMSULOSIN 0.4 MG CAP.ER.24H. PO SCH (07:53)
[2018-09-30] MEDS: OXYBUTYNIN CHLORIDE 5 MG TABLET PO SCH ×3 (07:53→19:56)
[2018-09-30] MEDS: QUEtiapine 25 MG TABLET. PO SCH ×3 (07:54→16:17)
[2018-09-30] MEDS: MEMANTINE 10 MG TABLET. PO SCH ×2 (07:54→19:56)
[2018-09-30] MEDS: SERTRALINE 50 MG TABLET. PO SCH (07:54)
[2018-09-30] MEDS: ASPIRIN 81 MG TAB.CHEW PO SCH (07:54)
[2018-09-30] MEDS: DIVALPROEX 125 MG CAP.SPRINK PO SCH ×2 (07:54→19:56)
[2018-09-30] MEDS: PANTOPRAZOLE 40 MG TABLET. PO SCH (07:54)
[2018-09-30] MEDS: amLODIPine BESYLATE 10 MG TABLET PO SCH (07:55)
[2018-09-30] MEDS: GLIMEPIRIDE 2 MG TABLET PO SCH (07:55)
[2018-09-30] MEDS ORDERED: cloNIDine TTS-2 1 PATCH PATCH TD SCH (09:00)
[2018-09-30 15:37] VITALS: BP 95/59
--- NOTE | 2018-09-30 17:12 | NUR ---
Pt oriented to himself only. Pt calm, compliant, with meds and cares, interactive but confused on time, date and situation. No behaviors this shift.
[2018-09-30] MEDS: MIRTAZAPINE 7.5 MG TABLET. PO SCH (19:56)
--- NOTE | 2018-09-30 22:35 | NUR ---
Patient alert to self, pleasant and cooperative with care. Medication given crushed in ice cream without difficulty. No behaviors noted at this point. Patient currently in bed. Will continue to monitor.
[2018-10-01 05:53] VITALS: BP 105/47
[2018-10-01] MEDS: ASPIRIN 81 MG TAB.CHEW PO SCH (07:48)
[2018-10-01] MEDS: TAMSULOSIN 0.4 MG CAP.ER.24H. PO SCH (07:49)
[2018-10-01] MEDS: amLODIPine BESYLATE 10 MG TABLET PO SCH (07:49)
[2018-10-01] MEDS: SERTRALINE 50 MG TABLET. PO SCH (07:49)
[2018-10-01] MEDS: GLIMEPIRIDE 2 MG TABLET PO SCH (07:50)
[2018-10-01] MEDS: EZETIMIBE 10 MG TABLET PO SCH (07:50)
[2018-10-01] MEDS: DIVALPROEX 125 MG CAP.SPRINK PO SCH ×2 (07:50→19:38)
[2018-10-01] MEDS: PANTOPRAZOLE 40 MG TABLET. PO SCH (07:50)
[2018-10-01] MEDS: MEMANTINE 10 MG TABLET. PO SCH ×2 (07:51→19:38)
[2018-10-01] MEDS: QUEtiapine 25 MG TABLET. PO SCH ×3 (07:51→16:21)
[2018-10-01] MEDS: OXYBUTYNIN CHLORIDE 5 MG TABLET PO SCH ×3 (08:03→19:38)
[2018-10-01] MEDS: RIVASTIGMINE 9.5MG PATCH. TD SCH (08:03)
--- NOTE | 2018-10-01 12:14 | PN ---
DATE: 10/01/2018 SUBJECTIVE: The patient was seen today, met with the staff, chart reviewed. The patient continues to complain of pain, but sleeping better, staying in bed most of the time. Still high level of anxiety, some confusion, restlessness, currently not expressing any delusional thinking. The patient has a history of aggressive behaviors, both verbal and physical. OBSERVATION: VITAL SIGNS: Temperature 99.1, blood pressure 105/47, pulse 63, respirations 16 and O2 sat 97%. Slept about 3 hours last night. The patient continues to have high level of anxiety, also complains of feeling depressed. The patient also having multiple physical complaints. The patient also tends to be labile at times with pressured speech. The patient is known to have both visual and auditory hallucinations in the past. MEDICATIONS: The patient's medications reviewed. Currently on Seroquel, Exelon patch, Zoloft, Namenda, Depakote, and mirtazapine. The patient denies of any side effects to the medications. ASSESSMENT: Dementia with behavioral disturbances, impulse control disorder, unspecified. PLAN: Continue with the treatment. JOHNNA BURGER MD DR: KERVIN/nazia JOB#: [id number] / [id number]
--- NOTE | 2018-10-01 14:14 | NUR ---
Pt oriented to himself only. Pt calm, compliant, with meds and cares, interactive but confused on time, date and situation. Pt drowsy, sleeping in the afternoon, behaviors this shift.
[2018-10-01 15:54] VITALS: BP 121/63
[2018-10-01] MEDS: MIRTAZAPINE 7.5 MG TABLET. PO SCH (19:38)
--- NOTE | 2018-10-01 21:32 | NUR ---
Nursing Note Pt up in day room, pleasant calm and cooperative, confused. Wanders no behaviors.
[2018-10-02 05:51] VITALS: BP 134/69
[2018-10-02] MEDS: EZETIMIBE 10 MG TABLET PO SCH (07:49)
[2018-10-02] MEDS: TAMSULOSIN 0.4 MG CAP.ER.24H. PO SCH (07:49)
[2018-10-02] MEDS: DIVALPROEX 125 MG CAP.SPRINK PO SCH ×2 (07:49→19:53)
[2018-10-02] MEDS: RIVASTIGMINE 9.5MG PATCH. TD SCH (07:49)
[2018-10-02] MEDS: MEMANTINE 10 MG TABLET. PO SCH ×2 (07:55→19:53)
[2018-10-02] MEDS: GLIMEPIRIDE 2 MG TABLET PO SCH (07:55)
[2018-10-02] MEDS: SERTRALINE 50 MG TABLET. PO SCH (07:55)
[2018-10-02] MEDS: QUEtiapine 25 MG TABLET. PO SCH ×3 (07:55→17:00)
[2018-10-02] MEDS: OXYBUTYNIN CHLORIDE 5 MG TABLET PO SCH ×3 (07:56→19:53)
[2018-10-02] MEDS: PANTOPRAZOLE 40 MG TABLET. PO SCH (07:56)
[2018-10-02] MEDS: amLODIPine BESYLATE 10 MG TABLET PO SCH (07:56)
[2018-10-02] MEDS: ASPIRIN 81 MG TAB.CHEW PO SCH (07:56)
--- NOTE | 2018-10-02 10:18 | NUR ---
SW left message for Dilia, social psychologist, at [facility] for possible pt. placement.
[2018-10-02 16:25] VITALS: BP 105/58
--- NOTE | 2018-10-02 18:42 | NUR ---
Pt oriented to himself only. Pt calm, compliant, with meds and cares, interactive but confused on time, date and situation.
[2018-10-02] MEDS: MIRTAZAPINE 7.5 MG TABLET. PO SCH (19:53)
[2018-10-02] MEDS: VANCOMYCIN 125 MG/2.5 ML ORAL SOLUTION. PO SCH (21:00)
[2018-10-02] MEDS: LACTOBACILLUS RHAMNOSUS GG 1 CAPSULE. PO SCH (21:00)
--- NOTE | 2018-10-03 01:23 | NUR ---
Pt wandering in day room at shift change. Pt A/O to self, pleasantly confused, calm, and interactive. Pt cooperative and compliant with medications and assessment. Medications administered crushed in ice cream. Repeat stool sample sent to lab d/t lab error.
--- NOTE | 2018-10-03 05:35 | NUR ---
Call received from Chantelle in the lab reporting that [facility] had just faxed over the results of pt's first stool sample indicating a positive result and that the result had been entered into the EMR. Spoke with Shirley, nursing concrete paving supervisor, in regards to the result in the computer as well as report received at shift change last night that the lab had called to indicate there was possibly a mix up with another sample. Shirley advised this nurse to tell our lab to send the second stool sample collected this shift for c-diff testing in order to confirm the result for this pt. Lab informed and sample to be sent. Will report to [facility].
[2018-10-03 05:42] VITALS: BP 114/54
[2018-10-03] MEDS: EZETIMIBE 10 MG TABLET PO SCH (07:41)
[2018-10-03] MEDS: DIVALPROEX 125 MG CAP.SPRINK PO SCH (07:41)
[2018-10-03] MEDS: SERTRALINE 50 MG TABLET. PO SCH (07:42)
[2018-10-03 07:44] VITALS: BP 114/54
[2018-10-03] MEDS: ASPIRIN 81 MG TAB.CHEW PO SCH (07:44)
[2018-10-03] MEDS: amLODIPine BESYLATE 10 MG TABLET PO SCH (07:44)
[2018-10-03] MEDS: OXYBUTYNIN CHLORIDE 5 MG TABLET PO SCH (07:44)
[2018-10-03] MEDS: QUEtiapine 25 MG TABLET. PO SCH (07:44)
[2018-10-03] MEDS: MEMANTINE 10 MG TABLET. PO SCH (07:44)
[2018-10-03] MEDS: LACTOBACILLUS RHAMNOSUS GG 1 CAPSULE. PO SCH (07:44)
[2018-10-03] MEDS: PANTOPRAZOLE 40 MG TABLET. PO SCH (07:44)
[2018-10-03] MEDS: TAMSULOSIN 0.4 MG CAP.ER.24H. PO SCH (07:44)
[2018-10-03] MEDS: GLIMEPIRIDE 2 MG TABLET PO SCH (07:45)
[2018-10-03] MEDS: RIVASTIGMINE 9.5MG PATCH. TD SCH (07:45)
--- NOTE | 2018-10-03 09:12 | PDOC ---
Exam Note: Naman Note: Late entry for DOS 10/02/2018. Please also refer to the separate dictated note~ for this date of service dictated separately.~Patient seen individually. Discussed the patient with Nursing staff reviewed the chart.~Reviewed interim history and current functioning. Reviewed vital signs,~Labs/ Radiology~and current medications noted below. Continue current treatment with the changes noted in the dictated addendum note Assessment: Vital Signs: VS - Last 72 Hours, by Label Date Time Temp Pulse Resp B/P (MAP) Pulse Ox O2 Delivery O2 Flow Rate FiO2 10/03/18 07:44 63 114/54 10/03/18 05:42 97.2 63 14 114/54 (74) 98 10/02/18 16:25 98.4 77 18 105/58 (74) 99 10/02/18 07:56 60 134/69 10/02/18 05:51 97.5 60 16 134/69 (90) 96 10/01/18 15:54 97.9 69 18 121/63 (82) 98 10/01/18 07:49 63 105/47 10/01/18 05:53 99.1 63 16 105/47 (66) 16 09/30/18 15:37 97.7 74 20 95/59 (71) 98 Room Air Vital Signs Date Time Temp Pulse Resp B/P (MAP) Pulse Ox O2 Delivery O2 Flow Rate FiO2 10/03/18 07:44 63 114/54 10/03/18 05:42 97.2 14 98 09/30/18 15:37 Room Air I&O Intake and Output 10/03/18 07:01 Intake Total 1040 ml Balance 1040 ml Intake Oral 1040 ml # Bowel Movements 1 Labs: Laboratory Tests Test 10/02/18 11:51 10/02/18 16:58 10/02/18 19:02 10/03/18 07:22 Glucose (Fingerstick) 109 mg/dL (70-99) H 134 mg/dL (70-99) H 150 mg/dL (70-99) H 80 mg/dL (70-99) Current Medications: Meds: Current Medications Acetaminophen (Tylenol) 650 mg PRN Q4HRS PRN PO MILD PAIN; Start 09/28/18 at 18 :30 Clonidine HCl (Catapres Tts-2) 1 patch WEEKLY TD Last administered on 07:58; Start 09/30/18 at 09:00 Hyoscyamine (Anaspaz) 0.125 mg PRN Q4HRS PRN PO stomach cramping ; Start at 18:30 Multi-Ingredient Ointment (Analgesic [place]) 1 anupama PRN QID PRN TP muscle pain; Start 09/28/18 at 18:30 Mirtazapine (Remeron) 7.5 mg QHS PO Last administered on 10/02/18 19:53; Start 09/28/18 at 21:00 Oxybutynin Chloride (Ditropan) 5 mg [id number] PO Last administered on 10/03/18 07 :44; Start 09/28/18 at 21:00 Oxycodone/ Acetaminophen (Percocet 5/325) 1 tab PRN Q4HRS PRN PO PAIN; Start at 18:30 Sertraline HCl (Zoloft) 75 mg DAILY PO Last administered on 10/03/18 07:42; Start 09/29/18 at 09:00 Tamsulosin HCl (Flomax) 0.4 mg DAILY PO Last administered on 10/03/18 07:44; Start 09/29/18 at 09:00 Amlodipine Besylate (Norvasc) 10 mg DAILY PO Last administered on 10/03/18 07: 44; Start 09/29/18 at 09:00 Aspirin (Children'S Aspirin) 81 mg DAILY PO Last administered on 10/03/18 07: 44; Start 09/29/18 at 09:00 Vitamin D (Vitamin D3) 5,000 unit WEEKLY PO Last administered on 09/29/18 09: 52; Start 09/29/18 at 09:00 Divalproex Sodium (Depakote Sprinkles) 250 mg BID PO Last administered on 07:41; Start 09/28/18 at 21:00 EZETIMIBE (Zetia) 10 mg DAILY08 PO Last administered on 10/03/18 07:41; Start 09/29/18 at 08:00 Glimepiride (Amaryl) 2 mg DAILY PO Last administered on 10/03/18 07:45; Start 09/29/18 at 09:00 Loperamide HCl (Imodium) 2 mg PRN Q15MIN PRN PO DIARRHEA; Start 09/28/18 at 18: 45 Al Hydroxide/Mg Hydroxide (Mylanta Plus Xs) 15 ml PRN Q2HR PRN PO INDIGESTION; Start 09/28/18 at 18:45 Magnesium Hydroxide (Milk Of Magnesia) 2,400 mg PRN QHS PRN PO CONSTIPATION; Start 09/28/18 at 18:45 Memantine (Namenda) 10 mg BID PO Last administered on 10/03/18at 07:44; Start at 21:00 Olanzapine (ZyPREXA ZYDIS) 2.5 mg PRN Q2HR PRN PO AGITATION; Start 09/28/18 at 18:45 Pantoprazole Sodium (Protonix) 40 mg DAILYAC PO Last administered on 10/03/18at 07:44; Start 09/29/18 at 07:30 Quetiapine Fumarate (SEROquel) 12.5 mg TID@0900,1300,1700 PO Last administered on 10/03/18at 07:44; Start 09/29/18 at 09:00 Rivastigmine (Exelon) 1 patch DAILY TD Last administered on 10/03/18 07:45; Start 09/29/18 at 09:00 Lactobacillus Rhamnosus (Culturelle) 1 cap TID PO Last administered on at 07:44; Start 10/02/18 at 21:00 Vancomycin HCl (Vancomycin Oral Solution) 125 mg [id number] PO ; Start 10/02/18 at 17:00 Active Scripts Active Reported Tamsulosin Hcl 0.4 Mg Cap.er.24h 0.4 Mg PO DAILY Percocet 5-325 Mg Tablet (Oxycodone Hcl/Acetaminophen) 1 Each Tablet 1 Tab PO PRN Q4HRS PRN Anaspaz (Hyoscyamine Sulfate) 0.125 Mg Tab.rapdis 0.125 Mg PO PRN Q4HRS PRN Clonidine Tts-2 (Clonidine) 1 Each Patch.tdwk 1 Patch TD WEEKLY Norvasc (Amlodipine Besylate) 10 Mg Tablet 10 Mg PO DAILY Zoloft (Sertraline Hcl) 50 Mg Tablet 75 Mg PO DAILY Seroquel (Quetiapine Fumarate) 25 Mg Tablet 12.5 Tab PO TID@0900,1300,1700 Protonix (Pantoprazole Sodium) 40 Mg Tablet.dr 40 Mg PO DAILYAC Oxybutynin Chloride 5 Mg Tablet 5 Mg PO [id number] Olanzapine 5 Mg Tablet 2.5 Mg PO PRN Q2HR PRN Mirtazapine 7.5 Mg Tablet 7.5 Mg PO QHS Loperamide (Loperamide Hcl) 2 Mg Capsule 2 Mg PO PRN Q15MIN PRN Glimepiride 2 Mg Tablet 2 Mg PO DAILY Vitamin D3 (Cholecalciferol (Vitamin D3)) 5,000 Unit Tablet 5,000 Unit PO WEEKLY Depakote Sprinkle (Divalproex Sodium) 125 Mg Cap.sprink 250 Mg PO BID Zetia (Ezetimibe) 10 Mg Tablet 10 Mg PO DAILY08 Tylenol (Acetaminophen) 325 Mg Tablet 650 Mg PO PRN Q4HRS PRN EXELON 9.5mg/24hr (Rivastigmine) 1 Each Patch.td24 1 Patch TD DAILY Namenda (Memantine Hcl) 10 Mg Tablet 10 Mg PO BID Aspirin 81 Mg Tab.chew 81 Mg PO DAILY I have reviewed the current psychotropics carefully including drug interactions. Risk benefit ratio favors no change other than as noted in my dictated progress note. Diagnosis: Problems: (1) Proctocolitis (2) Anxiety disorder (3) Depression (4) Impulse control disorder (5) Dementia, vascular, with depression (6) Dementia with behavioral disturbance (7) Zcrqf-ro-klgxjen kidney injury (8) Major neurocognitive disorder LINO DE PAZ MD Oct 03, 2018 09:12
[2018-10-03] MEDS: VANCOMYCIN 125 MG/2.5 ML ORAL SOLUTION. PO SCH (09:25)
--- NOTE | 2018-10-03 09:45 | NUR ---
Transition Record was faxed to follow-up provider with the following elements: Reason for admission, procedures, tests, principal diagnosis, pending studies, patient instructions, 11/04 contact information for unit, phone number to obtain pending test results, plan for follow-up care, physician follow-up, advanced directive information, and medication list with dose, duration and instructions. This information was included in the following documents: History and physical, lab results, study results, progress notes, social work planning form, DC instruction form, patient visit summary, and medication reconciliation form. Date & time record faxed: 10/03/18 AT 0900 Record faxed to: REY STEPHENS, [address] [place] [address] Record discussed with/ report given to: REY STEPHENS AT 0944 PT DISCHARGED FOR ADMISSION TO [facility] VIA W/C. ALL PERSONAL ITEMS SENT WITH PT
--- NOTE | 2018-10-03 17:32 | HP ---
ADMIT DATE: 09/28/2018 PSYCHIATRIC ADMISSION HISTORY/EVALUATION This is a late entry for date of service 09/28/2018 and covers elements not covered in my initial note of 09/28/2018. IDENTIFYING DATA: The patient is a 78-year-old male, who is referred back to us from [facility] by Dr. Narayanan on account of his ongoing agitation and aggression. The patient has been combative with nursing staff, was having sundowning, marked insomnia, agitated, restless, having active hallucinations, delusional. He was reportedly distracted belligerent, verbally aggressive. He grabbed the arm of the nursing staff at [facility] and a code arambula had to be called since his behaviors were totally out of control and unmanageable. Dr. Narayanan had called me on the phone to facilitate this readmission to our unit. The patient was previously on our unit for his dementia with delusion, behavioral disturbance. He had developed volvulus and was transferred to [facility]. He was stabilized medically as the did not want to proceed with any surgical interventions, but his behaviors persisted despite all of this resulting in this referral back to us. CHIEF COMPLAINT: "No." HISTORY OF PRESENT ILLNESS: The patient has a history of dementia, Alzheimer's vascular type. He was initially referred to us from the senior care, stabilized on the unit, developed abnormal CT abdomen and volvulus, transferred to [place], but the behaviors persisted and noted resulting in this referral back to us. He has had sleep and appetite changes, marked psychotic symptoms. No clear symptoms of bipolar disorder. No active suicidal or homicidal ideation. PAST PSYCHIATRIC HISTORY: As above. MEDICAL HISTORY: Positive for the volvulus noted above, history of colitis versus colorectal cancer, abdominal aortic aneurysm, diabetes mellitus, chronic kidney disease, hypertension, BPH. ACCU-CHEKS: A.c. and at bedtime. CODE STATUS: DNR. ALLERGIES: PENICILLIN, AMOXIL. DIET: Diabetic, regular. MEDICATIONS: Whole crushed in ice cream, ambulates up ad myrna, sometimes with walker, but forgets. FAMILY HISTORY: Noncontributory. CURRENT PSYCHOTROPICS: MRAD was reviewed. FAMILY HISTORY: Noncontributory. SOCIAL HISTORY: No alcohol, drug abuse, physical, sexual or elder abuse history is noted. Not known to be a perpetrator. MENTAL STATUS EXAMINATION: The patient is oriented to himself. Insight, judgment, recent and remote memory, attention, concentration, fund of knowledge is poor, consistent with his diagnoses. IMPRESSION: Major neurocognitive disorder, Alzheimer, vascular with delusion, depression, behavioral disturbance; anxiety disorder, unspecified; impulse control disorder, unspecified. Rest as above. PLAN: Admit to Geropsychiatry Unit at [facility]. I will see the patient daily individually from a psychiatric standpoint, medical followup with Dr. Narayanan. Dr. Piña will cover for me during my vacation. We will adjust psychotropics further as clinically indicated. MAN Nilesh DE PAZ MD DR: RUBY/nazia JOB#: [id number] / [id number]
--- NOTE | 2018-10-03 20:24 | PN ---
DATE: 10/02/2018 PSYCHIATRIC PROGRESS NOTE This late entry 10/02/2018 covers elements not covered in my initial note. SUBJECTIVE: I met with the patient in the evening. Per nursing report, the patient may be positive for C. diff and if so he may be transferred to [address] [place] [address] N[address]. Otherwise, he has been confused, disorganized, going into other patient's rooms, lying on the bed using their toilet area. All this is concerning given his C. diff. Once confirmed again, we will be transferring him. He has not been aggressive. REVIEW OF SYSTEMS: No CV, , pulmonary, eye, ENT system symptoms on review. Reliability poor. MENTAL STATUS EXAM: Oriented to himself. Insight, judgment, recent and remote memory, attention, concentration, fund of knowledge poor, consistent with his diagnosis mentioned in my initial note. IMPRESSION: Major neurocognitive disorder, Alzheimer, vascular with delusion, depression, behavioral disturbance; anxiety disorder, unspecified; impulse control disorder, unspecified. PLAN: No change from initial note. MAN Nilesh DE PAZ MD DR: RUBY/nazia JOB#: [id number] / [id number]
--- NOTE | 2018-10-04 10:55 | PDOC ---
Exam Note: Naman Note: Late entry for DOD 10/03/2018. Please also refer to the separate dictated note~ for this date of service dictated separately.~Patient seen individually. Discussed the patient with Nursing staff reviewed the chart.~Reviewed interim history and current functioning. Reviewed vital signs,~Labs/ Radiology~and current medications noted below. Continue current treatment with the changes noted in the dictated addendum note Assessment: Vital Signs: VS - Last 72 Hours, by Label Date Time Temp Pulse Resp B/P (MAP) Pulse Ox O2 Delivery O2 Flow Rate FiO2 10/03/18 07:44 63 114/54 10/03/18 05:42 97.2 63 14 114/54 (74) 98 10/02/18 16:25 98.4 77 18 105/58 (74) 99 10/02/18 07:56 60 134/69 10/02/18 05:51 97.5 60 16 134/69 (90) 96 10/01/18 15:54 97.9 69 18 121/63 (82) 98 Vital Signs Date Time Temp Pulse Resp B/P (MAP) Pulse Ox O2 Delivery O2 Flow Rate FiO2 10/03/18 07:44 63 114/54 10/03/18 05:42 97.2 14 98 09/30/18 15:37 Room Air I&O Intake and Output 10/04/18 07:01 Intake Total 480 ml Balance 480 ml Intake Oral 480 ml Current Medications: Meds: Current Medications Acetaminophen (Tylenol) 650 mg PRN Q4HRS PRN PO MILD PAIN; Start 09/28/18 at 18 :30; Stop 10/03/18 at 09:52; Status DC Clonidine HCl (Catapres Tts-2) 1 patch WEEKLY TD Last administered on at 07:58; Start 09/30/18 at 09:00; Stop 10/03/18 at 09:52; Status DC Hyoscyamine (Anaspaz) 0.125 mg PRN Q4HRS PRN PO stomach cramping ; Start at 18:30; Stop 10/03/18 at 09:52; Status DC Multi-Ingredient Ointment (Analgesic [place]) 1 anupama PRN QID PRN TP muscle pain; Start 09/28/18 at 18:30; Stop 10/03/18 at 09:52; Status DC Mirtazapine (Remeron) 7.5 mg QHS PO Last administered on 10/02/18at 19:53; Start 09/28/18 at 21:00; Stop 10/03/18 at 09:52; Status DC Oxybutynin Chloride (Ditropan) 5 mg [id number] PO Last administered on 10/03/18at 07 :44; Start 09/28/18 at 21:00; Stop 10/03/18 at 09:52; Status DC Oxycodone/ Acetaminophen (Percocet 5/325) 1 tab PRN Q4HRS PRN PO PAIN; Start at 18:30; Stop 10/03/18 at 09:52; Status DC Sertraline HCl (Zoloft) 75 mg DAILY PO Last administered on 10/03/18at 07:42; Start 09/29/18 at 09:00; Stop 10/03/18 at 09:52; Status DC Tamsulosin HCl (Flomax) 0.4 mg DAILY PO Last administered on 10/03/18at 07:44; Start 09/29/18 at 09:00; Stop 10/03/18 at 09:52; Status DC Amlodipine Besylate (Norvasc) 10 mg DAILY PO Last administered on 10/03/18 07: 44; Start 09/29/18 at 09:00; Stop 10/03/18 at 09:52; Status DC Aspirin (Children'S Aspirin) 81 mg DAILY PO Last administered on 10/03/18 07: 44; Start 09/29/18 at 09:00; Stop 10/03/18 at 09:52; Status DC Vitamin D (Vitamin D3) 5,000 unit WEEKLY PO Last administered on 09/29/18at 09: 52; Start 09/29/18 at 09:00; Stop 10/03/18 at 09:52; Status DC Divalproex Sodium (Depakote Sprinkles) 250 mg BID PO Last administered on 07:41; Start 09/28/18 at 21:00; Stop 10/03/18 at 09:52; Status DC EZETIMIBE (Zetia) 10 mg DAILY08 PO Last administered on 10/03/18at 07:41; Start 09/29/18 at 08:00; Stop 10/03/18 at 09:52; Status DC Glimepiride (Amaryl) 2 mg DAILY PO Last administered on 10/03/18at 07:45; Start 09/29/18 at 09:00; Stop 10/03/18 at 09:52; Status DC Loperamide HCl (Imodium) 2 mg PRN Q15MIN PRN PO DIARRHEA; Start 09/28/18 at 18: 45; Stop 10/03/18 at 09:52; Status DC Al Hydroxide/Mg Hydroxide (Mylanta Plus Xs) 15 ml PRN Q2HR PRN PO INDIGESTION; Start 09/28/18 at 18:45; Stop 10/03/18 at 09:52; Status DC Magnesium Hydroxide (Milk Of Magnesia) 2,400 mg PRN QHS PRN PO CONSTIPATION; Start 09/28/18 at 18:45; Stop 10/03/18 at 09:52; Status DC Memantine (Namenda) 10 mg BID PO Last administered on 10/03/18at 07:44; Start at 21:00; Stop 10/03/18 at 09:52; Status DC Olanzapine (ZyPREXA ZYDIS) 2.5 mg PRN Q2HR PRN PO AGITATION; Start 09/28/18 at 18:45; Stop 10/03/18 at 09:52; Status DC Pantoprazole Sodium (Protonix) 40 mg DAILYAC PO Last administered on 10/03/18at 07:44; Start 09/29/18 at 07:30; Stop 10/03/18 at 09:52; Status DC Quetiapine Fumarate (SEROquel) 12.5 mg TID@0900,1300,1700 PO Last administered on 10/03/18at 07:44; Start 09/29/18 at 09:00; Stop 10/03/18 at 09:52; Status DC Rivastigmine (Exelon) 1 patch DAILY TD Last administered on 10/03/18at 07:45; Start 09/29/18 at 09:00; Stop 10/03/18 at 09:52; Status DC Lactobacillus Rhamnosus (Culturelle) 1 cap TID PO Last administered on at 07:44; Start 10/02/18 at 21:00; Stop 10/03/18 at 09:52; Status DC Vancomycin HCl (Vancomycin Oral Solution) 125 mg [id number] PO Last administered on 10/03/18at 09:25; Start 10/02/18 at 17:00; Stop 10/03/18 at 09:52; Status DC Active Scripts Active Reported Tamsulosin Hcl 0.4 Mg Cap.er.24h 0.4 Mg PO DAILY Percocet 5-325 Mg Tablet (Oxycodone Hcl/Acetaminophen) 1 Each Tablet 1 Tab PO PRN Q4HRS PRN Anaspaz (Hyoscyamine Sulfate) 0.125 Mg Tab.rapdis 0.125 Mg PO PRN Q4HRS PRN Clonidine Tts-2 (Clonidine) 1 Each Patch.tdwk 1 Patch TD WEEKLY Norvasc (Amlodipine Besylate) 10 Mg Tablet 10 Mg PO DAILY Zoloft (Sertraline Hcl) 50 Mg Tablet 75 Mg PO DAILY Seroquel (Quetiapine Fumarate) 25 Mg Tablet 12.5 Tab PO TID@0900,1300,1700 Protonix (Pantoprazole Sodium) 40 Mg Tablet.dr 40 Mg PO DAILYAC Oxybutynin Chloride 5 Mg Tablet 5 Mg PO [id number] Olanzapine 5 Mg Tablet 2.5 Mg PO PRN Q2HR PRN Mirtazapine 7.5 Mg Tablet 7.5 Mg PO QHS Loperamide (Loperamide Hcl) 2 Mg Capsule 2 Mg PO PRN Q15MIN PRN Glimepiride 2 Mg Tablet 2 Mg PO DAILY Vitamin D3 (Cholecalciferol (Vitamin D3)) 5,000 Unit Tablet 5,000 Unit PO WEEKLY Depakote Sprinkle (Divalproex Sodium) 125 Mg Cap.sprink 250 Mg PO BID Zetia (Ezetimibe) 10 Mg Tablet 10 Mg PO DAILY08 Tylenol (Acetaminophen) 325 Mg Tablet 650 Mg PO PRN Q4HRS PRN EXELON 9.5mg/24hr (Rivastigmine) 1 Each Patch.td24 1 Patch TD DAILY Namenda (Memantine Hcl) 10 Mg Tablet 10 Mg PO BID Aspirin 81 Mg Tab.chew 81 Mg PO DAILY I have reviewed the current psychotropics carefully including drug interactions. Risk benefit ratio favors no change other than as noted in my dictated progress note. Diagnosis: Problems: (1) Proctocolitis (2) Anxiety disorder (3) Depression (4) Impulse control disorder (5) Dementia, vascular, with depression (6) Dementia with behavioral disturbance (7) Kajlk-pf-jbxmsgt kidney injury (8) Major neurocognitive disorder LINO DE PAZ MD Oct 04, 2018 10:55
--- NOTE | 2018-10-04 12:27 | DS ---
DATE OF DISCHARGE: 10/03/2018 DISCHARGE SUMMARY/PSYCHIATRIC PROGRESS This is a later entry, date of service 10/03/2018 covers elements not covered in my initial note. REASON FOR ADMISSION: Please refer to the admission history for details. Briefly, the patient is a 78-year-old male who returned back to us from [facility], where he was treated medically for his intestinal volvulus after the refused surgery. He was previously on our unit for worsening confusion, agitation, aggression at the detention. Once he is medically stabilized, while at [place] he was still aggressive, out of control, unmanageable, grabbed the arm of a nursing staff and richar arambula had to be called. He was distracted belligerent, verbally aggressive with worsening sundowning, insomnia, hallucinations. He was re-referred for inpatient psychiatric stabilization. SIGNIFICANT FINDINGS AND CLINICAL COURSE: Following admission, the patient was seen daily individually from a psychiatric standpoint by myself and medical followup with Dr. Narayanan. He was quite confused, anxious, restless, wandering into the rooms of other residents. Adjustments were made in his psychotropics and he seems to be tolerating Depakote Sprinkles 250 b.i.d., Namenda 10 b.i.d., Remeron 7.5 mg at bedtime, Zyprexa p.r.n., Seroquel 12.5 t.i.d., Exelon patch 9.5 mg a day, Zoloft 75 mg a day. He was, however, having diarrhea and stool for C. diff was positive and for this reason, he was transferred to [facility] per Dr. Narayanan prior to discharge on 10/03/2018. REVIEW OF SYSTEMS: No CV, , eye, ENT or pulmonary system symptoms on review. Reliability poor. MENTAL STATUS EXAM: Oriented to himself. Insight, judgment, recent and remote memory, attention, concentration, fund of knowledge poor, consistent with his diagnosis. FINAL DIAGNOSES: Major neurocognitive disorder, Alzheimer, vascular with delusion, depression, behavioral disturbance; anxiety disorder, unspecified; impulse control disorder, unspecified. C. diff positive. Rest unchanged from admission. DISCHARGE MEDICATIONS: Please refer to [facility]. Psychiatric and medical followup on [facility]. MAN Nilesh DE PAZ MD DR: RUBY/nazia JOB#: [id number] / [id number]
== END 2018-10-03 09:47 | disposition short-term general hospital (02) | DRG 57 ==
LOC: GEROPSY 18:21
PROVIDERS: ADMIT Psychiatry & Neurology Psychiatry; ATTEND Psychiatry & Neurology Psychiatry
DX: G30.9 Alzheimer's disease, unspecified (principal); F02.81 Dementia in other diseases classified elsewhere, unspecified severity, with behavioral disturbance; A04.72 Enterocolitis due to Clostridium difficile, not specified as recurrent; F01.51 Vascular dementia, unspecified severity, with behavioral disturbance; F05 Delirium due to known physiological condition; E44.0 Moderate protein-calorie malnutrition; Z68.1 Body mass index [BMI] 19.9 or less, adult; E11.22 Type 2 diabetes mellitus with diabetic chronic kidney disease; E87.6 Hypokalemia; F32.9 Major depressive disorder, single episode, unspecified; F41.9 Anxiety disorder, unspecified; F63.9 Impulse disorder, unspecified; G47.00 Insomnia, unspecified; I12.9 Hypertensive chronic kidney disease with stage 1 through stage 4 chronic kidney disease, or unspecified chronic kidney disease; N18.9 Chronic kidney disease, unspecified; N40.0 Benign prostatic hyperplasia without lower urinary tract symptoms; Z66 Do not resuscitate; Z87.891 Personal history of nicotine dependence
CPT/HCPCS: 36415; 80053; 80164; 81001; 82947; 83735; 85025; 87493

== ENCOUNTER 2018-10-03 09:32 | Inpatient (IN) | payer MEDICARE, OTHER ==
[~2018-10-03] VITALS: Ht 175.3 cm; Wt 53.6 kg
[~2018-10-03 09:32] MED LIST changes: +CLON1PAT2 TD; +HYOS0.12 PO; +MAGN400T3 PO; +OXYC1TAB15 PO; +TAMS0.4C2 PO
[2018-10-03 10:22] VITALS: BP 92/44
[2018-10-03] MEDS ORDERED: oxyCODONE/APAP 5/325 1 TAB TABLET PO PRN (10:30)
[2018-10-03] MEDS ORDERED: HYOSCYAMINE 0.125 MG TAB.RAPDIS PO PRN (10:30)
[2018-10-03] MEDS ORDERED: LOPERAMIDE 2 MG CAPSULE PO PRN (10:45)
[2018-10-03 11:19] LABS: BASO # 0.1 x10^3/uL (0.0-0.2); BASO % 1 % (0-3); EOS # 0.2 x10^3/uL (0.0-0.7); EOS % 2 % (0-3); HEMATOCRIT 28.7 % (39.0-53.0); HEMOGLOBIN 9.7 g/dL (13.0-17.5); LYMPH # 0.8 x10^3/uL (1.0-4.8); LYMPH % 8 % (24-48); MEAN CORPUSCULAR HEMOGLOBIN 30 pg (25-35); MEAN CORPUSCULAR HGB CONC 34 g/dL (31-37); MEAN CORPUSCULAR VOLUME 89 fL (79-100); MONO % 9 % (0-9); NEUT # 8.8 x10^3uL (1.8-7.7); NEUT % 81 % (31-73); PLATELET COUNT 244 x10^3/uL (140-400); RED BLOOD COUNT 3.22 x10^6/uL (4.30-5.70); RED CELL DISTRIBUTION WIDTH 14.1 % (11.5-14.5); WHITE BLOOD COUNT 10.9 x10^3/uL (4.0-11.0)
[2018-10-03 11:27] LABS: ALBUMIN 2.5 g/dL (3.4-5.0); ALBUMIN/GLOBULIN RATIO 0.8 (1.0-1.7); CALCIUM 7.8 mg/dL (8.5-10.1); CREATININE 1.5 mg/dL (0.7-1.3); GFR 45.3; POTASSIUM 3.3 mmol/L (3.5-5.1); TOTAL BILIRUBIN 0.2 mg/dL (0.2-1.0); TOTAL PROTEIN 5.5 g/dL (6.4-8.2)
[2018-10-03] MEDS: VANCOMYCIN 125 MG/2.5 ML ORAL SOLUTION. PO SCH ×3 (12:31→20:33)
[2018-10-03] MEDS: QUEtiapine 25 MG TABLET. PO SCH ×2 (12:31→17:41)
[2018-10-03 16:19] VITALS: BP 110/58
[2018-10-03] MEDS: LACTOBACILLUS RHAMNOSUS GG 1 CAPSULE. PO SCH ×2 (17:41→20:33)
[2018-10-03] MEDS: OXYBUTYNIN CHLORIDE 5 MG TABLET PO SCH ×2 (17:41→20:33)
[2018-10-03 20:32] VITALS: BP 125/64
[2018-10-03] MEDS: MEMANTINE 10 MG TABLET. PO SCH (20:32)
[2018-10-03] MEDS: POTASSIUM CL 40MEQ IN 0.9%NACL 1,000 ML IV SCH (20:32)
[2018-10-03] MEDS: MIRTAZAPINE 7.5 MG TABLET. PO SCH (20:32)
[2018-10-03] MEDS: POTASSIUM CHLORIDE 20 MEQ TABLET.ER. PO SCH (20:33)
[2018-10-03] MEDS: DIVALPROEX 125 MG CAP.SPRINK PO SCH (20:33)
--- NOTE | 2018-10-03 22:39 | PDOC ---
Exam Note: Naman Note: Please also refer to the separate dictated note~for this date of service dictated separately. Discussed the patient with Nursing staff reviewed the chart.~Reviewed interim history and current functioning. Reviewed vital signs,~ Labs/ Radiology~and current medications noted below. Continue current treatment with the changes noted in the dictated addendum note Assessment: Vital Signs: Vital Signs Date Time Temp Pulse Resp B/P (MAP) Pulse Ox O2 Delivery O2 Flow Rate FiO2 10/03/18 20:32 98.2 78 18 125/64 (84) 94 10/03/18 16:19 Room Air Labs: Laboratory Tests Test 10/03/18 11:08 10/03/18 11:17 10/03/18 20:50 White Blood Count 10.9 x10^3/uL (4.0-11.0) Red Blood Count 3.22 x10^6/uL (4.30-5.70) L Hemoglobin 9.7 g/dL (13.0-17.5) L Hematocrit 28.7 % (39.0-53.0) L Mean Corpuscular Volume 89 fL (79-100) Mean Corpuscular Hemoglobin 30 pg (25-35) Mean Corpuscular Hemoglobin Concent 34 g/dL (31-37) Red Cell Distribution Width 14.1 % (11.5-14.5) Platelet Count 244 x10^3/uL (140-400) Neutrophils (%) (Auto) 81 % (31-73) H Lymphocytes (%) (Auto) 8 % (24-48) L Monocytes (%) (Auto) 9 % (0-9) Eosinophils (%) (Auto) 2 % (0-3) Basophils (%) (Auto) 1 % (0-3) Neutrophils # (Auto) 8.8 x10^3uL (1.8-7.7) H Lymphocytes # (Auto) 0.8 x10^3/uL (1.0-4.8) L Monocytes # (Auto) 1.0 x10^3/uL (0.0-1.1) Eosinophils # (Auto) 0.2 x10^3/uL (0.0-0.7) Basophils # (Auto) 0.1 x10^3/uL (0.0-0.2) Sodium Level 140 mmol/L (136-145) Potassium Level 3.3 mmol/L (3.5-5.1) L Chloride Level 105 mmol/L (98-107) Carbon Dioxide Level 29 mmol/L (21-32) Anion Gap 6 (6-14) Blood Urea Nitrogen 14 mg/dL (8-26) Creatinine 1.5 mg/dL (0.7-1.3) H Estimated GFR (Cockcroft-Gault) 45.3 BUN/Creatinine Ratio 9 (6-20) Glucose Level 172 mg/dL (70-99) H Calcium Level 7.8 mg/dL (8.5-10.1) L Total Bilirubin 0.2 mg/dL (0.2-1.0) Aspartate Amino Transferase (AST) 25 U/L (15-37) Alanine Aminotransferase (ALT) 31 U/L (16-63) Alkaline Phosphatase 76 U/L (46-116) Total Protein 5.5 g/dL (6.4-8.2) L Albumin 2.5 g/dL (3.4-5.0) L Albumin/Globulin Ratio 0.8 (1.0-1.7) L Nasal Screen MRSA (PCR) Positive (Negative) Glucose (Fingerstick) 119 mg/dL (70-99) H Current Medications: Meds: Current Medications Vancomycin HCl (Vancomycin Oral Solution) 125 mg [id number] PO Last administered on 10/03/18at 20:33; Start 10/03/18 at 13:00; Stop 10/13/18 at 12:59 Lactobacillus Rhamnosus (Culturelle) 1 cap TID PO Last administered on at 20:33; Start 10/03/18 at 14:00; Stop 10/13/18 at 13:59 Acetaminophen (Tylenol) 650 mg PRN Q4HRS PRN PO MILD PAIN; Start 10/03/18 at 10 :30 Clonidine HCl (Catapres Tts-2) 1 patch WEEKLY TD ; Start 10/10/18 at 09:00 Hyoscyamine (Anaspaz) 0.125 mg PRN Q4HRS PRN PO stomach cramping ; Start at 10:30 Mirtazapine (Remeron) 7.5 mg QHS PO Last administered on 10/03/18at 20:32; Start 10/03/18 at 21:00 Oxybutynin Chloride (Ditropan) 5 mg [id number] PO Last administered on 10/03/18at 20 :33; Start 10/03/18 at 14:00 Oxycodone/ Acetaminophen (Percocet 5/325) 1 tab PRN Q4HRS PRN PO PAIN; Start at 10:30 Sertraline HCl (Zoloft) 75 mg DAILY PO ; Start 10/04/18 at 09:00 Tamsulosin HCl (Flomax) 0.4 mg DAILY PO ; Start 10/04/18 at 09:00 Amlodipine Besylate (Norvasc) 10 mg DAILY PO ; Start 10/04/18 at 09:00 Aspirin (Children'S Aspirin) 81 mg [id number] PO ; Start 10/04/18 at 08:00 Vitamin D (Vitamin D3) 50,000 unit WEEKLY PO ; Start 10/10/18 at 09:00 Divalproex Sodium (Depakote Sprinkles) 250 mg BID PO Last administered on at 20:33; Start 10/03/18 at 21:00 EZETIMIBE (Zetia) 10 mg DAILY08 PO ; Start 10/04/18 at 08:00 Glimepiride (Amaryl) 2 mg DAILY PO ; Start 10/04/18 at 09:00 Loperamide HCl (Imodium) 2 mg PRN Q15MIN PRN PO DIARRHEA; Start 10/03/18 at 10: 45 Memantine (Namenda) 10 mg BID PO Last administered on 10/03/18at 20:32; Start at 21:00 Olanzapine (ZyPREXA) 2.5 mg PRN Q2HR PRN PO AGITATION; Start 10/03/18 at 10:45 Pantoprazole Sodium (Protonix) 40 mg DAILYAC PO ; Start 10/04/18 at 07:30 Quetiapine Fumarate (SEROquel) 12.5 mg DAILY@0900,1300,1700 PO Last administered on 10/03/18at 17:41; Start 10/03/18 at 13:00 Rivastigmine (Exelon) 1 patch DAILY TD ; Start 10/04/18 at 09:00 Potassium Chloride (Klor-Con) 20 meq TID PO Last administered on 10/03/18at 20: 33; Start 10/03/18 at 21:00 Potassium Chloride/Sodium Chloride 1,000 ml @ 75 mls/hr [id number] IV Last administered on 10/03/18at 20:32; Start 10/03/18 at 19:30 Active Scripts Active Reported Tamsulosin Hcl 0.4 Mg Cap.er.24h 0.4 Mg PO DAILY Percocet 5-325 Mg Tablet (Oxycodone Hcl/Acetaminophen) 1 Each Tablet 1 Tab PO PRN Q4HRS PRN Anaspaz (Hyoscyamine Sulfate) 0.125 Mg Tab.rapdis 0.125 Mg PO PRN Q4HRS PRN Clonidine Tts-2 (Clonidine) 1 Each Patch.tdwk 1 Patch TD WEEKLY Norvasc (Amlodipine Besylate) 10 Mg Tablet 10 Mg PO DAILY Zoloft (Sertraline Hcl) 50 Mg Tablet 75 Mg PO DAILY Seroquel (Quetiapine Fumarate) 25 Mg Tablet 12.5 Tab PO TID@0900,1300,1700 Protonix (Pantoprazole Sodium) 40 Mg Tablet.dr 40 Mg PO DAILYAC Oxybutynin Chloride 5 Mg Tablet 5 Mg PO [id number] Olanzapine 5 Mg Tablet 2.5 Mg PO PRN Q2HR PRN Mirtazapine 7.5 Mg Tablet 7.5 Mg PO QHS Loperamide (Loperamide Hcl) 2 Mg Capsule 2 Mg PO PRN Q15MIN PRN Glimepiride 2 Mg Tablet 2 Mg PO DAILY Vitamin D3 (Cholecalciferol (Vitamin D3)) 5,000 Unit Tablet 5,000 Unit PO WEEKLY Depakote Sprinkle (Divalproex Sodium) 125 Mg Cap.sprink 250 Mg PO BID Zetia (Ezetimibe) 10 Mg Tablet 10 Mg PO DAILY08 Tylenol (Acetaminophen) 325 Mg Tablet 650 Mg PO PRN Q4HRS PRN EXELON 9.5mg/24hr (Rivastigmine) 1 Each Patch.td24 1 Patch TD DAILY Namenda (Memantine Hcl) 10 Mg Tablet 10 Mg PO BID Aspirin 81 Mg Tab.chew 81 Mg PO DAILY I have reviewed the current psychotropics carefully including drug interactions. Risk benefit ratio favors no change other than as noted in my dictated progress note. Diagnosis: Problems: (1) Proctocolitis (2) Anxiety disorder (3) Depression (4) Impulse control disorder (5) Dementia, vascular, with depression (6) Dementia with behavioral disturbance (7) Crbgs-ov-alqaavy kidney injury (8) Major neurocognitive disorder LINO DE PAZ MD Oct 03, 2018 22:39
[2018-10-03 22:57] VITALS: BP 127/63
[2018-10-04 05:43] VITALS: BP 132/60
[2018-10-04 06:50] LABS: ALBUMIN 2.7 g/dL (3.4-5.0); ALBUMIN/GLOBULIN RATIO 0.8 (1.0-1.7); CALCIUM 7.9 mg/dL (8.5-10.1); CREATININE 1.3 mg/dL (0.7-1.3); GFR 53.4; POTASSIUM 3.3 mmol/L (3.5-5.1); TOTAL BILIRUBIN 0.3 mg/dL (0.2-1.0)
[2018-10-04] MEDS: VANCOMYCIN 125 MG/2.5 ML ORAL SOLUTION. PO SCH ×4 (08:19→21:05)
[2018-10-04] MEDS: DIVALPROEX 125 MG CAP.SPRINK PO SCH ×2 (08:20→21:05)
[2018-10-04] MEDS: OXYBUTYNIN CHLORIDE 5 MG TABLET PO SCH ×3 (08:20→21:05)
[2018-10-04] MEDS: POTASSIUM CL 40MEQ IN 0.9%NACL 1,000 ML IV SCH ×2 (08:20→21:08)
[2018-10-04] MEDS: amLODIPine BESYLATE 10 MG TABLET PO SCH (08:21)
[2018-10-04] MEDS: EZETIMIBE 10 MG TABLET PO SCH (08:21)
[2018-10-04] MEDS: GLIMEPIRIDE 2 MG TABLET PO SCH (08:21)
[2018-10-04] MEDS: MEMANTINE 10 MG TABLET. PO SCH ×2 (08:21→21:05)
[2018-10-04] MEDS: POTASSIUM CHLORIDE 20 MEQ TABLET.ER. PO SCH ×3 (08:21→21:04)
[2018-10-04] MEDS: ASPIRIN 81 MG TAB.CHEW PO SCH (08:21)
[2018-10-04] MEDS: TAMSULOSIN 0.4 MG CAP.ER.24H. PO SCH (08:21)
[2018-10-04] MEDS: LACTOBACILLUS RHAMNOSUS GG 1 CAPSULE. PO SCH ×3 (08:21→21:05)
[2018-10-04] MEDS: PANTOPRAZOLE 40 MG TABLET. PO SCH (08:21)
[2018-10-04] MEDS: SERTRALINE 50 MG TABLET. PO SCH (08:22)
[2018-10-04] MEDS: QUEtiapine 25 MG TABLET. PO SCH ×3 (08:25→17:35)
[2018-10-04] MEDS: RIVASTIGMINE 9.5MG PATCH. TD SCH (08:25)
[2018-10-04 09:55] VITALS: BP 95/51
--- NOTE | 2018-10-04 12:27 | HP ---
ADMIT DATE: 10/03/2018 HISTORY OF PRESENT ILLNESS: The patient is a 78-year-old male patient who was transferred from [facility], as he was noted to have recurrent episode of loose bowel movement and the stool sample was sent and turned out to be positive for Clostridium difficile toxins. It was felt that the patient will be easier to manage downstairs as he has been defecating all over the place and going from one resident to another at the [facility] and therefore, he was started on oral vancomycin. The patient himself is demented, but denied any nausea or vomiting. Denied any abdominal pain. In fact, denied any diarrhea, although the nursing staff states that he has numerous loose bowel movement. He was transferred to [address] [place] [address] and was started on oral vancomycin 125 mg 4 times a day as well as lactobacillus acidophilus, and was continued with all his other medications. 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 He also has an episode of what seemed to be colitis for which he received treatment in the form of Rocephin and Flagyl. PAST SURGICAL HISTORY: Significant for tooth extraction recently, flexible sigmoidoscopy and sigmoid volvulus to compression. PAST PSYCHIATRIC HISTORY: Significant for dementia, Alzheimer's vascular type. FAMILY HISTORY: Unremarkable. SOCIAL HISTORY: He was a resident at [facility]. He is an ex-smoker, quit years ago. He does not drink alcohol or use recreational drugs. ALLERGIES: HE IS ALLERGIC TO PENICILLIN AND AMOXICILLIN. MEDICATIONS: He is currently on following medications: He is on rivastigmine for Exelon 9.5 mg topically once a day, hyoscyamine sulfate 0.125 mg sublingually every 4 hours as needed, tamsulosin 0.4 mg daily, Zetia 10 mg once a day, clonidine TTS 2 patch topically once a week, amlodipine 10 mg once a day, aspirin 81 mg once a day, oxycodone/APAP 5/325 one tablet every 4 hours. He is on Tylenol 650 mg every 4 hours, divalproex sodium 250 mg twice a day, mirtazapine 7.5 mg at bedtime, sertraline for Zoloft 75 mg once a day, olanzapine 2.5 mg every 2 hours, quetiapine fumarate 12.5 mg 3 times a day, Namenda 10 mg twice a day, loperamide 2 mg every 4 hours as needed, Protonix 40 mg once a day, glimepiride 2 mg once a day, cholecalciferol for vitamin D3 5000 international units once a week. REVIEW OF SYSTEMS: Unobtainable. PHYSICAL EXAMINATION: GENERAL: On examining the patient, he looked well and was clearly in no apparent respiratory distress. He was pale, cachectic, but no jaundice, cyanosis, or thyromegaly. No jugular venous distension. No limb edema. VITAL SIGNS: His heart rate was 58, blood pressure was 92/44, temperature was 97.9, respiratory rate was 18 and oxygen saturation was 97%. HEAD, EYES, EARS, NOSE AND THROAT: Showed normocephalic, atraumatic. NECK: Supple. HEART: Showed normal first and second heart sounds. No gallop, rub or murmur. CHEST: Clear to auscultation. No crepitation or rhonchi. ABDOMEN: Distended, soft, nontender. No guarding or rigidity. No organomegaly. All hernial orifice intact. Bowel sounds normal. NEUROLOGIC: He is demented, but without any obvious lateralizing sign. All his cranial nerves are intact. EXTREMITIES: He moves extremities without difficulty, ambulates without assistance or assistive devices. LABORATORY DATA: On admission showed that his white cell count was 10,900, hemoglobin 10, hematocrit 29, MCV 89 and platelet count 244,000 with normal manual differential. His chemistry on admission showed serum sodium 140, potassium 3.3, chloride 105, bicarbonate 29, anion gap of 6, BUN 14, creatinine 1.5, estimated GFR was 45 mL per minute, his glucose 172, calcium was 7.8. Total bilirubin, AST, ALT, alkaline phosphatase were normal. Total protein was 5.5, albumin 2.5. His nasal screen for MRSA PCR was positive. ASSESSMENT AND PLAN: The patient was admitted to [address] [place] [address] with diagnosis of C. diff colitis. He is also MRSA positive. He was kept in isolation. We will continue with oral vancomycin 125 mg 4 times a day, lactobacillus acidophilus 1 capsule 3 times a day. He has also hypokalemia that will be replenished. Continue to monitor his lab works and adjust his medications accordingly. DONOVAN PIPER MD DR: MURALI/nazia JOB#: [id number] / [id number]
[2018-10-04] MEDS: POTASSIUM CHLORIDE 20 MEQ/15 ML ORAL LIQUID. PEG SCH ×2 (13:52→21:04)
[2018-10-04 15:50] VITALS: BP 128/66
[2018-10-04 19:42] VITALS: BP 130/70
--- NOTE | 2018-10-04 21:01 | PN ---
DATE: 10/04/2018 SUBJECTIVE: The patient was transferred from [facility] on account of recurrent bouts of loose bowel movement that transpired to be due to Clostridium difficile colitis. He was also found to be MRSA positive and therefore he was transferred down to [address] [place] [address], as it was felt that it is safer for him to be down. He was started on oral vancomycin as well as lactobacillus acidophilus. He is demented and does not give any useful information; however, the nursing staff stated that he continued to have multiple episodes of loose bowel movements, although he denied any nausea or vomiting. Denied any abdominal pain. Denied any chills, rigors, or fever. PHYSICAL EXAMINATION: GENERAL: When I examined him this morning, he looked pale, cachectic, but no jaundice, cyanosis, or thyromegaly. No jugular venous distension. No limb edema. VITAL SIGNS: His heart rate was 63, blood pressure was 95/51, temperature was 97, respiratory rate was 20, and oxygen saturation was 99%. HEAD, EYES, EARS, NOSE, AND THROAT: Showed normocephalic, atraumatic. NECK: Supple. HEART: Showed normal first and second sounds. No gallop, rub, or murmur. CHEST: Clear to auscultation. No crepitation or rhonchi. ABDOMEN: Scaphoid, soft, nontender. NEUROLOGIC: He was definitely demented without any obvious lateralizing sign. All his cranial nerves are intact. He moves extremities without difficulty, though he has marked muscle wasting and weakness. LABORATORY DATA: His lab work again showed that his serum sodium 142, potassium 3.3, chloride 107, bicarbonate 26, anion gap of 7, BUN 12, creatinine 1.3. ASSESSMENT: 1. Clostridium difficile colitis. 2. Methicillin-resistant Staphylococcus aureus positive for nasal screen. 3. Chronic kidney disease. 4. Benign prostatic hypertrophy. 5. Hypertension. 6. Type 2 diabetes, seems to be well controlled on glimepiride. PLAN: My plan is to replenish his potassium and we will start him on 20 mEq 3 times a day, liquid potassium. DONOVAN PIPER MD DR: MURALI/nazia JOB#: [id number] / [id number]
[2018-10-04] MEDS: MIRTAZAPINE 7.5 MG TABLET. PO SCH (21:05)
--- NOTE | 2018-10-04 22:31 | PDOC ---
Exam Note: Naman Note: Please also refer to the separate dictated note~for this date of service dictated separately. Discussed the patient with Nursing staff reviewed the chart.~Reviewed interim history and current functioning. Reviewed vital signs,~ Labs/ Radiology~and current medications noted below. Continue current treatment with the changes noted in the dictated addendum note Assessment: Vital Signs: Vital Signs Date Time Temp Pulse Resp B/P (MAP) Pulse Ox O2 Delivery O2 Flow Rate FiO2 10/04/18 19:42 99.5 77 20 130/70 (90) 95 Room Air I&O Intake and Output 10/04/18 07:01 Intake Total 854 ml Balance 854 ml Intake Oral 250 ml IV Total 604 ml # Voids 4 # Bowel Movements 3 Labs: Laboratory Tests Test 10/04/18 06:10 10/04/18 07:45 10/04/18 16:42 10/04/18 20:22 Sodium Level 142 mmol/L (136-145) Potassium Level 3.3 mmol/L (3.5-5.1) L Chloride Level 107 mmol/L (98-107) Carbon Dioxide Level 28 mmol/L (21-32) Anion Gap 7 (6-14) Blood Urea Nitrogen 12 mg/dL (8-26) Creatinine 1.3 mg/dL (0.7-1.3) Estimated GFR (Cockcroft-Gault) 53.4 BUN/Creatinine Ratio 9 (6-20) Glucose Level 84 mg/dL (70-99) Calcium Level 7.9 mg/dL (8.5-10.1) L Total Bilirubin 0.3 mg/dL (0.2-1.0) Aspartate Amino Transferase (AST) 23 U/L (15-37) Alanine Aminotransferase (ALT) 31 U/L (16-63) Alkaline Phosphatase 84 U/L (46-116) Total Protein 6.0 g/dL (6.4-8.2) L Albumin 2.7 g/dL (3.4-5.0) L Albumin/Globulin Ratio 0.8 (1.0-1.7) L Glucose (Fingerstick) 78 mg/dL (70-99) 104 mg/dL (70-99) H 97 mg/dL (70-99) Current Medications: Meds: Current Medications Vancomycin HCl (Vancomycin Oral Solution) 125 mg [id number] PO Last administered on 10/04/18 21:05; Start 10/03/18 at 13:00; Stop 10/13/18 at 12:59 Lactobacillus Rhamnosus (Culturelle) 1 cap TID PO Last administered on at 21:05; Start 10/03/18 at 14:00; Stop 10/13/18 at 13:59 Acetaminophen (Tylenol) 650 mg PRN Q4HRS PRN PO MILD PAIN; Start 10/03/18 at 10 :30 Clonidine HCl (Catapres Tts-2) 1 patch WEEKLY TD ; Start 10/10/18 at 09:00 Hyoscyamine (Anaspaz) 0.125 mg PRN Q4HRS PRN PO stomach cramping ; Start at 10:30 Mirtazapine (Remeron) 7.5 mg QHS PO Last administered on 10/04/18 21:05; Start 10/03/18 at 21:00 Oxybutynin Chloride (Ditropan) 5 mg [id number] PO Last administered on 10/04/18at 21 :05; Start 10/03/18 at 14:00 Oxycodone/ Acetaminophen (Percocet 5/325) 1 tab PRN Q4HRS PRN PO PAIN; Start at 10:30 Sertraline HCl (Zoloft) 75 mg DAILY PO Last administered on 10/04/18at 08:22; Start 10/04/18 at 09:00 Tamsulosin HCl (Flomax) 0.4 mg DAILY PO Last administered on 10/04/18at 08:21; Start 10/04/18 at 09:00 Amlodipine Besylate (Norvasc) 10 mg DAILY PO Last administered on 10/04/18 08: 21; Start 10/04/18 at 09:00 Aspirin (Children'S Aspirin) 81 mg [id number] PO Last administered on at 08:21; Start 10/04/18 at 08:00 Vitamin D (Vitamin D3) 50,000 unit WEEKLY PO ; Start 10/10/18 at 09:00 Divalproex Sodium (Depakote Sprinkles) 250 mg BID PO Last administered on at 21:05; Start 10/03/18 at 21:00 EZETIMIBE (Zetia) 10 mg DAILY08 PO Last administered on 10/04/18 08:21; Start 10/04/18 at 08:00 Glimepiride (Amaryl) 2 mg DAILY PO Last administered on 10/04/18 08:21; Start 10/04/18 at 09:00 Loperamide HCl (Imodium) 2 mg PRN Q15MIN PRN PO DIARRHEA; Start 10/03/18 at 10: 45 Memantine (Namenda) 10 mg BID PO Last administered on 10/04/18at 21:05; Start at 21:00 Olanzapine (ZyPREXA) 2.5 mg PRN Q2HR PRN PO AGITATION; Start 10/03/18 at 10:45 Pantoprazole Sodium (Protonix) 40 mg DAILYAC PO Last administered on 10/04/18 08:21; Start 10/04/18 at 07:30 Quetiapine Fumarate (SEROquel) 12.5 mg DAILY@0900,1300,1700 PO Last administered on 10/04/18at 17:35; Start 10/03/18 at 13:00 Rivastigmine (Exelon) 1 patch DAILY TD Last administered on 10/04/18 08:25; Start 10/04/18 at 09:00 Potassium Chloride (Klor-Con) 20 meq TID PO Last administered on 10/04/18 21: 04; Start 10/03/18 at 21:00 Potassium Chloride/Sodium Chloride 1,000 ml @ 75 mls/hr [id number] IV Last administered on 10/04/18 08:20; Start 10/03/18 at 19:30 Potassium Chloride (KCl Oral Soln) 20 meq TID PEG Last administered on 21:04; Start 10/04/18 at 14:00 Active Scripts Active Reported Tamsulosin Hcl 0.4 Mg Cap.er.24h 0.4 Mg PO DAILY Percocet 5-325 Mg Tablet (Oxycodone Hcl/Acetaminophen) 1 Each Tablet 1 Tab PO PRN Q4HRS PRN Anaspaz (Hyoscyamine Sulfate) 0.125 Mg Tab.rapdis 0.125 Mg PO PRN Q4HRS PRN Clonidine Tts-2 (Clonidine) 1 Each Patch.tdwk 1 Patch TD WEEKLY Norvasc (Amlodipine Besylate) 10 Mg Tablet 10 Mg PO DAILY Zoloft (Sertraline Hcl) 50 Mg Tablet 75 Mg PO DAILY Seroquel (Quetiapine Fumarate) 25 Mg Tablet 12.5 Tab PO TID@0900,1300,1700 Protonix (Pantoprazole Sodium) 40 Mg Tablet.dr 40 Mg PO DAILYAC Oxybutynin Chloride 5 Mg Tablet 5 Mg PO [id number] Olanzapine 5 Mg Tablet 2.5 Mg PO PRN Q2HR PRN Mirtazapine 7.5 Mg Tablet 7.5 Mg PO QHS Loperamide (Loperamide Hcl) 2 Mg Capsule 2 Mg PO PRN Q15MIN PRN Glimepiride 2 Mg Tablet 2 Mg PO DAILY Vitamin D3 (Cholecalciferol (Vitamin D3)) 5,000 Unit Tablet 5,000 Unit PO WEEKLY Depakote Sprinkle (Divalproex Sodium) 125 Mg Cap.sprink 250 Mg PO BID Zetia (Ezetimibe) 10 Mg Tablet 10 Mg PO DAILY08 Tylenol (Acetaminophen) 325 Mg Tablet 650 Mg PO PRN Q4HRS PRN EXELON 9.5mg/24hr (Rivastigmine) 1 Each Patch.td24 1 Patch TD DAILY Namenda (Memantine Hcl) 10 Mg Tablet 10 Mg PO BID Aspirin 81 Mg Tab.chew 81 Mg PO DAILY I have reviewed the current psychotropics carefully including drug interactions. Risk benefit ratio favors no change other than as noted in my dictated progress note. Diagnosis: Problems: (1) Proctocolitis (2) Anxiety disorder (3) Depression (4) Impulse control disorder (5) Dementia, vascular, with depression (6) Dementia with behavioral disturbance (7) Llwgc-cu-nqhskap kidney injury (8) Major neurocognitive disorder LINO DE PAZ MD Oct 04, 2018 22:30
[2018-10-04 23:39] VITALS: BP 143/66
[2018-10-05 05:47] VITALS: BP 131/65
[2018-10-05 06:34] LABS: CREATININE 1.2 mg/dL (0.7-1.3); GFR 58.6
[2018-10-05] MEDS: VANCOMYCIN 125 MG/2.5 ML ORAL SOLUTION. PO SCH ×4 (09:08→20:34)
[2018-10-05] MEDS: LACTOBACILLUS RHAMNOSUS GG 1 CAPSULE. PO SCH ×3 (09:09→20:34)
[2018-10-05] MEDS: POTASSIUM CHLORIDE 20 MEQ/15 ML ORAL LIQUID. PEG SCH ×3 (09:09→20:33)
[2018-10-05] MEDS: DIVALPROEX 125 MG CAP.SPRINK PO SCH ×2 (09:10→20:34)
[2018-10-05] MEDS: POTASSIUM CHLORIDE 20 MEQ TABLET.ER. PO SCH ×3 (09:10→20:34)
[2018-10-05] MEDS: TAMSULOSIN 0.4 MG CAP.ER.24H. PO SCH (09:10)
[2018-10-05] MEDS: QUEtiapine 25 MG TABLET. PO SCH ×3 (09:12→17:40)
[2018-10-05] MEDS: ASPIRIN 81 MG TAB.CHEW PO SCH (09:12)
[2018-10-05] MEDS: GLIMEPIRIDE 2 MG TABLET PO SCH (09:13)
[2018-10-05] MEDS: SERTRALINE 50 MG TABLET. PO SCH (09:13)
[2018-10-05] MEDS: EZETIMIBE 10 MG TABLET PO SCH (09:13)
[2018-10-05] MEDS: MEMANTINE 10 MG TABLET. PO SCH ×2 (09:15→20:34)
[2018-10-05] MEDS: RIVASTIGMINE 9.5MG PATCH. TD SCH (09:15)
[2018-10-05] MEDS: amLODIPine BESYLATE 10 MG TABLET PO SCH (09:15)
[2018-10-05] MEDS: OXYBUTYNIN CHLORIDE 5 MG TABLET PO SCH ×3 (09:37→20:37)
[2018-10-05] MEDS: PANTOPRAZOLE 40 MG TABLET. PO SCH (09:37)
[2018-10-05 10:44] VITALS: BP 123/70
[2018-10-05] MEDS: POTASSIUM CL 40MEQ IN 0.9%NACL 1,000 ML IV SCH (11:30)
[2018-10-05 14:25] VITALS: BP 125/68
--- NOTE | 2018-10-05 17:44 | PN ---
DATE: 10/04/2018 PSYCHIATRIC PROGRESS NOTE This late entry date of service 10/04/2018 covers elements not covered in my initial note. SUBJECTIVE: I met with the patient in the evening. I have been asked to follow the patient from a psychiatric standpoint since he was transferred to [address] [place] [address] for C. diff positive status. While [facility], being treated for his major neurocognitive disorder, Alzheimer, vascular with delusion, depression, behavioral disturbance. He is being transferred to [facility] from [place] where he was initially medically managed for his volvulus since the declined surgical intervention. He remains confused, but not disruptive or aggressive. I met with him in his room. He is seated on the side of the room, head bent forward, oriented just to himself, somewhat sedated, but otherwise appropriate. REVIEW OF SYSTEMS: No CV, , pulmonary, eye, ENT system symptoms on review. MENTAL STATUS EXAM: Oriented to himself. Insight, judgment, recent and remote memory, attention, concentration, fund of knowledge poor, consistent with his diagnosis. IMPRESSION: Major neurocognitive disorder, Alzheimer's, vascular with delusion, depression, behavioral disturbance, Clostridium difficile positive, anxiety disorder, unspecified rest. PLAN: No change from initial note. I reviewed his current psychotropics and we will leave them unchanged for now. LINO DE PAZ MD DR: RUBY/nazia JOB#: [id number] / [id number]
--- NOTE | 2018-10-05 18:03 | PDOC ---
Exam Note: Naman Note: Please also refer to the separate dictated note~for this date of service dictated separately.~Patient seen individually. Discussed the patient with Nursing staff reviewed the chart.~Reviewed interim history and current functioning. Reviewed vital signs,~Labs/ Radiology~and current medications noted below. Continue current treatment with the changes noted in the dictated addendum note Assessment: Vital Signs: Vital Signs Date Time Temp Pulse Resp B/P (MAP) Pulse Ox O2 Delivery O2 Flow Rate FiO2 10/05/18 14:25 98.2 80 18 125/68 (87) 98 Room Air I&O Intake and Output 10/05/18 07:01 Intake Total 1320 ml Balance 1320 ml Intake Oral 1020 ml IV Total 300 ml # Voids 4 # Bowel Movements 6 Labs: Laboratory Tests Test 10/04/18 20:22 10/05/18 06:00 10/05/18 07:26 10/05/18 12:00 Glucose (Fingerstick) 97 mg/dL (70-99) 72 mg/dL (70-99) 131 mg/dL (70-99) H Sodium Level 141 mmol/L (136-145) Potassium Level 4.0 mmol/L (3.5-5.1) Chloride Level 107 mmol/L (98-107) Carbon Dioxide Level 25 mmol/L (21-32) Anion Gap 9 (6-14) Blood Urea Nitrogen 11 mg/dL (8-26) Creatinine 1.2 mg/dL (0.7-1.3) Estimated GFR (Cockcroft-Gault) 58.6 Glucose Level 71 mg/dL (70-99) Calcium Level 8.0 mg/dL (8.5-10.1) L Test 10/05/18 16:55 Glucose (Fingerstick) 75 mg/dL (70-99) Current Medications: Meds: Current Medications Vancomycin HCl (Vancomycin Oral Solution) 125 mg [id number] PO Last administered on 10/05/18at 17:40; Start 10/03/18 at 13:00; Stop 10/13/18 at 12:59 Lactobacillus Rhamnosus (Culturelle) 1 cap TID PO Last administered on at 14:04; Start 10/03/18 at 14:00; Stop 10/13/18 at 13:59 Acetaminophen (Tylenol) 650 mg PRN Q4HRS PRN PO MILD PAIN; Start 10/03/18 at 10 :30 Clonidine HCl (Catapres Tts-2) 1 patch WEEKLY TD ; Start 10/10/18 at 09:00 Hyoscyamine (Anaspaz) 0.125 mg PRN Q4HRS PRN PO stomach cramping ; Start at 10:30 Mirtazapine (Remeron) 7.5 mg QHS PO Last administered on 10/04/18at 21:05; Start 10/03/18 at 21:00 Oxybutynin Chloride (Ditropan) 5 mg [id number] PO Last administered on 10/05/18at 14 :05; Start 10/03/18 at 14:00 Oxycodone/ Acetaminophen (Percocet 5/325) 1 tab PRN Q4HRS PRN PO PAIN; Start at 10:30 Sertraline HCl (Zoloft) 75 mg DAILY PO Last administered on 10/05/18at 09:13; Start 10/04/18 at 09:00 Tamsulosin HCl (Flomax) 0.4 mg DAILY PO Last administered on 10/05/18at 09:10; Start 10/04/18 at 09:00 Amlodipine Besylate (Norvasc) 10 mg DAILY PO Last administered on 10/05/18at 09: 15; Start 10/04/18 at 09:00 Aspirin (Children'S Aspirin) 81 mg DAILYWBKFT PO Last administered on at 09:12; Start 10/04/18 at 08:00 Vitamin D (Vitamin D3) 50,000 unit WEEKLY PO ; Start 10/10/18 at 09:00 Divalproex Sodium (Depakote Sprinkles) 250 mg BID PO Last administered on at 09:10; Start 10/03/18 at 21:00 EZETIMIBE (Zetia) 10 mg DAILY08 PO Last administered on 10/05/18at 09:13; Start 10/04/18 at 08:00 Glimepiride (Amaryl) 2 mg DAILY PO Last administered on 10/05/18at 09:13; Start 10/04/18 at 09:00 Loperamide HCl (Imodium) 2 mg PRN Q15MIN PRN PO DIARRHEA; Start 10/03/18 at 10: 45 Memantine (Namenda) 10 mg BID PO Last administered on 10/05/18at 09:15; Start at 21:00 Olanzapine (ZyPREXA) 2.5 mg PRN Q2HR PRN PO AGITATION; Start 10/03/18 at 10:45 Pantoprazole Sodium (Protonix) 40 mg DAILYAC PO Last administered on 10/05/18at 09:37; Start 10/04/18 at 07:30 Quetiapine Fumarate (SEROquel) 12.5 mg DAILY@0900,1300,1700 PO Last administered on 10/05/18at 17:40; Start 10/03/18 at 13:00 Rivastigmine (Exelon) 1 patch DAILY TD Last administered on 10/05/18at 09:15; Start 10/04/18 at 09:00 Potassium Chloride (Klor-Con) 20 meq TID PO Last administered on 10/05/18at 14: 05; Start 10/03/18 at 21:00 Potassium Chloride/Sodium Chloride 1,000 ml @ 75 mls/hr [id number] IV Last administered on 10/04/18at 08:20; Start 10/03/18 at 19:30 Potassium Chloride (KCl Oral Soln) 20 meq TID PEG Last administered on at 14:05; Start 10/04/18 at 14:00 Active Scripts Active Reported Tamsulosin Hcl 0.4 Mg Cap.er.24h 0.4 Mg PO DAILY Percocet 5-325 Mg Tablet (Oxycodone Hcl/Acetaminophen) 1 Each Tablet 1 Tab PO PRN Q4HRS PRN Anaspaz (Hyoscyamine Sulfate) 0.125 Mg Tab.rapdis 0.125 Mg PO PRN Q4HRS PRN Clonidine Tts-2 (Clonidine) 1 Each Patch.tdwk 1 Patch TD WEEKLY Norvasc (Amlodipine Besylate) 10 Mg Tablet 10 Mg PO DAILY Zoloft (Sertraline Hcl) 50 Mg Tablet 75 Mg PO DAILY Seroquel (Quetiapine Fumarate) 25 Mg Tablet 12.5 Tab PO TID@0900,1300,1700 Protonix (Pantoprazole Sodium) 40 Mg Tablet.dr 40 Mg PO DAILYAC Oxybutynin Chloride 5 Mg Tablet 5 Mg PO [id number] Olanzapine 5 Mg Tablet 2.5 Mg PO PRN Q2HR PRN Mirtazapine 7.5 Mg Tablet 7.5 Mg PO QHS Loperamide (Loperamide Hcl) 2 Mg Capsule 2 Mg PO PRN Q15MIN PRN Glimepiride 2 Mg Tablet 2 Mg PO DAILY Vitamin D3 (Cholecalciferol (Vitamin D3)) 5,000 Unit Tablet 5,000 Unit PO WEEKLY Depakote Sprinkle (Divalproex Sodium) 125 Mg Cap.sprink 250 Mg PO BID Zetia (Ezetimibe) 10 Mg Tablet 10 Mg PO DAILY08 Tylenol (Acetaminophen) 325 Mg Tablet 650 Mg PO PRN Q4HRS PRN EXELON 9.5mg/24hr (Rivastigmine) 1 Each Patch.td24 1 Patch TD DAILY Namenda (Memantine Hcl) 10 Mg Tablet 10 Mg PO BID Aspirin 81 Mg Tab.chew 81 Mg PO DAILY I have reviewed the current psychotropics carefully including drug interactions. Risk benefit ratio favors no change other than as noted in my dictated progress note. Diagnosis: Problems: (1) Major neurocognitive disorder (2) Dementia with behavioral disturbance (3) Dementia, vascular, with depression (4) Impulse control disorder (5) Depression (6) Anxiety disorder LINO DE PAZ MD Oct 05, 2018 18:03
[2018-10-05 19:20] VITALS: BP 129/67
--- NOTE | 2018-10-05 19:23 | PN ---
DATE: 10/05/2018 SUBJECTIVE: The patient continues to be extremely confused and disorganized; however, he continued to have loose bowel movement, mostly mucus; however, he is very cooperative and compliant with his medication. PHYSICAL EXAMINATION: GENERAL: When I examined him today, he looked well and was clearly in no apparent respiratory distress. He was pale, no jaundice, cyanosis, or thyromegaly. No jugular venous distension. No limb edema. VITAL SIGNS: His heart rate was 67, blood pressure was 123/70, temperature was 98.9, respiratory rate was 18 and oxygen saturation was 98% on room air. HEAD, EYES, EARS, NOSE AND THROAT: Showed normocephalic, atraumatic. NECK: Supple. HEART: Showed normal first and second heart sounds. No gallop, rub or murmur. CHEST: Clear to auscultation. No crepitation or rhonchi. ABDOMEN: Scaphoid, soft, nontender. NEUROLOGIC: He was demented, but without any obvious lateralizing sign. All his cranial nerves are intact. He moves extremities without difficulty, ambulates without assistance or assistive devices. His intake was 815. No output was recorded. LABORATORY DATA: This morning showed a serum sodium 141, potassium 4, chloride 107, bicarbonate 25, anion gap of 9, BUN 11, creatinine 1.2, estimated GFR was 58 mL per minute. His glucose was 71. Calcium was 8. His white cell count was 10,900, hemoglobin 9.7, hematocrit 28.7, MCV 89 and platelet count 244,000. ASSESSMENT: 1. Clostridium difficile colitis. The patient continued to have multiple loose bowel movement. 2. Methicillin-resistant Staphylococcus aureus, positive from nasal screen. 3. Chronic kidney disease. 4. Benign prostatic hypertrophy. 5. Hypertension. 6. Type 2 diabetes mellitus, seems to be well controlled on glimepiride. 7. Recent sigmoid volvulus with decompression by sigmoidoscopy. 8. Hypokalemia that is replenished. In fact, his potassium this morning was 4. PLAN: Continue with oral vancomycin. Continue with all his medications. Continue with the lactobacillus acidophilus. DONOVAN PIPER MD DR: MURALI/nazia JOB#: [id number] / [id number]
[2018-10-05] MEDS: MIRTAZAPINE 7.5 MG TABLET. PO SCH (20:34)
[2018-10-05] MEDS: ACETAMINOPHEN 325 MG TABLET PO PRN (20:34)
--- NOTE | 2018-10-05 22:56 | PDOC ---
Exam Note: Naman Note: Please also refer to the separate dictated note~for this date of service dictated separately.~Patient seen individually. Discussed the patient with Nursing staff reviewed the chart.~Reviewed interim history and current functioning. Reviewed vital signs,~Labs/ Radiology~and current medications noted below. Continue current treatment with the changes noted in the dictated addendum note Assessment: Vital Signs: Vital Signs Date Time Temp Pulse Resp B/P (MAP) Pulse Ox O2 Delivery O2 Flow Rate FiO2 10/05/18 21:31 Room Air 10/05/18 19:20 98.0 70 20 129/67 (87) 97 I&O Intake and Output 10/05/18 07:01 Intake Total 1320 ml Balance 1320 ml Intake Oral 1020 ml IV Total 300 ml # Voids 4 # Bowel Movements 6 Labs: Laboratory Tests Test 10/05/18 06:00 10/05/18 07:26 10/05/18 12:00 10/05/18 16:55 Sodium Level 141 mmol/L (136-145) Potassium Level 4.0 mmol/L (3.5-5.1) Chloride Level 107 mmol/L (98-107) Carbon Dioxide Level 25 mmol/L (21-32) Anion Gap 9 (6-14) Blood Urea Nitrogen 11 mg/dL (8-26) Creatinine 1.2 mg/dL (0.7-1.3) Estimated GFR (Cockcroft-Gault) 58.6 Glucose Level 71 mg/dL (70-99) Calcium Level 8.0 mg/dL (8.5-10.1) L Glucose (Fingerstick) 72 mg/dL (70-99) 131 mg/dL (70-99) H 75 mg/dL (70-99) Test 10/05/18 20:41 Glucose (Fingerstick) 110 mg/dL (70-99) H Current Medications: Meds: Current Medications Vancomycin HCl (Vancomycin Oral Solution) 125 mg [id number] PO Last administered on 10/05/18at 20:34; Start 10/03/18 at 13:00; Stop 10/13/18 at 12:59 Lactobacillus Rhamnosus (Culturelle) 1 cap TID PO Last administered on at 20:34; Start 10/03/18 at 14:00; Stop 10/13/18 at 13:59 Acetaminophen (Tylenol) 650 mg PRN Q4HRS PRN PO MILD PAIN Last administered on 10/05/18at 20:34; Start 10/03/18 at 10:30 Clonidine HCl (Catapres Tts-2) 1 patch WEEKLY TD ; Start 10/10/18 at 09:00 Hyoscyamine (Anaspaz) 0.125 mg PRN Q4HRS PRN PO stomach cramping ; Start at 10:30 Mirtazapine (Remeron) 7.5 mg QHS PO Last administered on 10/05/18at 20:34; Start 10/03/18 at 21:00 Oxybutynin Chloride (Ditropan) 5 mg [id number] PO Last administered on 10/05/18at 20 :37; Start 10/03/18 at 14:00 Oxycodone/ Acetaminophen (Percocet 5/325) 1 tab PRN Q4HRS PRN PO PAIN; Start at 10:30 Sertraline HCl (Zoloft) 75 mg DAILY PO Last administered on 10/05/18at 09:13; Start 10/04/18 at 09:00 Tamsulosin HCl (Flomax) 0.4 mg DAILY PO Last administered on 10/05/18at 09:10; Start 10/04/18 at 09:00 Amlodipine Besylate (Norvasc) 10 mg DAILY PO Last administered on 10/05/18 09: 15; Start 10/04/18 at 09:00 Aspirin (Children'S Aspirin) 81 mg DAILYWBKFT PO Last administered on at 09:12; Start 10/04/18 at 08:00 Vitamin D (Vitamin D3) 50,000 unit WEEKLY PO ; Start 10/10/18 at 09:00 Divalproex Sodium (Depakote Sprinkles) 250 mg BID PO Last administered on 20:34; Start 10/03/18 at 21:00 EZETIMIBE (Zetia) 10 mg DAILY08 PO Last administered on 10/05/18 09:13; Start 10/04/18 at 08:00 Glimepiride (Amaryl) 2 mg DAILY PO Last administered on 10/05/18at 09:13; Start 10/04/18 at 09:00 Loperamide HCl (Imodium) 2 mg PRN Q15MIN PRN PO DIARRHEA; Start 10/03/18 at 10: 45 Memantine (Namenda) 10 mg BID PO Last administered on 10/05/18at 20:34; Start at 21:00 Olanzapine (ZyPREXA) 2.5 mg PRN Q2HR PRN PO AGITATION; Start 10/03/18 at 10:45 Pantoprazole Sodium (Protonix) 40 mg DAILYAC PO Last administered on 10/05/18at 09:37; Start 10/04/18 at 07:30 Quetiapine Fumarate (SEROquel) 12.5 mg DAILY@0900,1300,1700 PO Last administered on 10/05/18 17:40; Start 10/03/18 at 13:00 Rivastigmine (Exelon) 1 patch DAILY TD Last administered on 10/05/18 09:15; Start 10/04/18 at 09:00 Potassium Chloride (Klor-Con) 20 meq TID PO Last administered on 10/05/18at 20: 34; Start 10/03/18 at 21:00 Potassium Chloride/Sodium Chloride 1,000 ml @ 75 mls/hr [id number] IV Last administered on 10/04/18 08:20; Start 10/03/18 at 19:30 Potassium Chloride (KCl Oral Soln) 20 meq TID PEG Last administered on at 20:33; Start 10/04/18 at 14:00 Active Scripts Active Reported Tamsulosin Hcl 0.4 Mg Cap.er.24h 0.4 Mg PO DAILY Percocet 5-325 Mg Tablet (Oxycodone Hcl/Acetaminophen) 1 Each Tablet 1 Tab PO PRN Q4HRS PRN Anaspaz (Hyoscyamine Sulfate) 0.125 Mg Tab.rapdis 0.125 Mg PO PRN Q4HRS PRN Clonidine Tts-2 (Clonidine) 1 Each Patch.tdwk 1 Patch TD WEEKLY Norvasc (Amlodipine Besylate) 10 Mg Tablet 10 Mg PO DAILY Zoloft (Sertraline Hcl) 50 Mg Tablet 75 Mg PO DAILY Seroquel (Quetiapine Fumarate) 25 Mg Tablet 12.5 Tab PO TID@0900,1300,1700 Protonix (Pantoprazole Sodium) 40 Mg Tablet.dr 40 Mg PO DAILYAC Oxybutynin Chloride 5 Mg Tablet 5 Mg PO [id number] Olanzapine 5 Mg Tablet 2.5 Mg PO PRN Q2HR PRN Mirtazapine 7.5 Mg Tablet 7.5 Mg PO QHS Loperamide (Loperamide Hcl) 2 Mg Capsule 2 Mg PO PRN Q15MIN PRN Glimepiride 2 Mg Tablet 2 Mg PO DAILY Vitamin D3 (Cholecalciferol (Vitamin D3)) 5,000 Unit Tablet 5,000 Unit PO WEEKLY Depakote Sprinkle (Divalproex Sodium) 125 Mg Cap.sprink 250 Mg PO BID Zetia (Ezetimibe) 10 Mg Tablet 10 Mg PO DAILY08 Tylenol (Acetaminophen) 325 Mg Tablet 650 Mg PO PRN Q4HRS PRN EXELON 9.5mg/24hr (Rivastigmine) 1 Each Patch.td24 1 Patch TD DAILY Namenda (Memantine Hcl) 10 Mg Tablet 10 Mg PO BID Aspirin 81 Mg Tab.chew 81 Mg PO DAILY I have reviewed the current psychotropics carefully including drug interactions. Risk benefit ratio favors no change other than as noted in my dictated progress note. Diagnosis: Problems: (1) Proctocolitis (2) Anxiety disorder (3) Depression (4) Impulse control disorder (5) Dementia, vascular, with depression (6) Dementia with behavioral disturbance (7) Yuzhn-uq-qpdqiyi kidney injury (8) Major neurocognitive disorder LINO DE PAZ MD Oct 05, 2018 22:56
[2018-10-05 23:51] VITALS: BP 137/67
[2018-10-06] MEDS: POTASSIUM CL 40MEQ IN 0.9%NACL 1,000 ML IV SCH (00:50)
[2018-10-06 04:23] VITALS: BP_SYST 133; BP_DIAS 7; BP_DIAS 77
[2018-10-06 06:26] LABS: HEMATOCRIT 31.8 % (39.0-53.0); HEMOGLOBIN 10.9 g/dL (13.0-17.5); RED BLOOD COUNT 3.6 x10^6/uL (4.30-5.70); WHITE BLOOD COUNT 6.9 x10^3/uL (4.0-11.0)
[2018-10-06 06:31] LABS: CALCIUM 8.4 mg/dL (8.5-10.1); CREATININE 1.2 mg/dL (0.7-1.3); GFR 58.6; POTASSIUM 4.3 mmol/L (3.5-5.1)
[2018-10-06] MEDS: VANCOMYCIN 125 MG/2.5 ML ORAL SOLUTION. PO SCH ×4 (08:34→20:21)
[2018-10-06] MEDS: RIVASTIGMINE 9.5MG PATCH. TD SCH (08:34)
[2018-10-06] MEDS: POTASSIUM CHLORIDE 20 MEQ/15 ML ORAL LIQUID. PEG SCH ×3 (08:34→20:21)
[2018-10-06] MEDS: DIVALPROEX 125 MG CAP.SPRINK PO SCH ×2 (08:37→20:22)
[2018-10-06] MEDS: EZETIMIBE 10 MG TABLET PO SCH (08:37)
[2018-10-06] MEDS: MEMANTINE 10 MG TABLET. PO SCH ×2 (08:37→20:21)
[2018-10-06] MEDS: LACTOBACILLUS RHAMNOSUS GG 1 CAPSULE. PO SCH ×3 (08:37→20:21)
[2018-10-06] MEDS: amLODIPine BESYLATE 10 MG TABLET PO SCH (08:37)
[2018-10-06] MEDS: QUEtiapine 25 MG TABLET. PO SCH ×3 (08:39→16:39)
[2018-10-06] MEDS: OXYBUTYNIN CHLORIDE 5 MG TABLET PO SCH ×3 (08:39→20:22)
[2018-10-06] MEDS: SERTRALINE 50 MG TABLET. PO SCH (08:39)
[2018-10-06] MEDS: POTASSIUM CHLORIDE 20 MEQ TABLET.ER. PO SCH ×3 (08:40→20:22)
[2018-10-06] MEDS: TAMSULOSIN 0.4 MG CAP.ER.24H. PO SCH (08:40)
[2018-10-06] MEDS: ASPIRIN 81 MG TAB.CHEW PO SCH (08:40)
[2018-10-06] MEDS: PANTOPRAZOLE 40 MG TABLET. PO SCH (08:40)
[2018-10-06] MEDS: GLIMEPIRIDE 2 MG TABLET PO SCH (08:40)
--- NOTE | 2018-10-06 13:07 | PN ---
DATE: 10/06/2018 SUBJECTIVE: The patient is sitting comfortably in his chair, in no apparent distress. He continued to have loose bowel movement and apparently has about 4 bowel movements so far this morning. Nursing staff did not voice any concern. LABORATORY DATA: Actually anything seemed to be better. His white cell count was down to 6900, hemoglobin 11, hematocrit 32, MCV 88 and platelet count 268,000. His chemistry also has improved. His potassium is up to 4.3 and his creatinine is down to 1.2. OBJECTIVE: GENERAL: On examining him, he looked pale, cachectic, but no jaundice, cyanosis, or thyromegaly. No jugular venous distention. No limb edema. VITAL SIGNS: His heart rate was 81, blood pressure was 133/77, temperature was 98.3, respiratory rate was 18, and oxygen saturation was 99%. HEAD, EYES, EARS, NOSE AND THROAT: Showed normocephalic, atraumatic. NECK: Supple. HEART: Showed normal first and second heart sounds. No gallop, rub or murmur. CHEST: Clear to auscultation. No crepitation or rhonchi. ABDOMEN: Distended, soft, nontender. No guarding or rigidity. No organomegaly. Hernial orifice intact. Bowel sounds normal. NEUROLOGIC: He is demented, but without any obvious lateralizing sign. All his cranial nerves are intact. He moves extremities without difficulty, ambulates without assistance or assistive devices. His intake and output are incompletely recorded. His lab work this morning showed a serum sodium 141, potassium 4.3, chloride 106, bicarbonate 27, anion gap of 8, BUN 9, creatinine 1.2, estimated GFR was 58 mL per minute. His glucose was 78 and calcium was 8.4. His white cell count was 6900, hemoglobin 10.9, hematocrit 31.8, MCV 88, and platelet count 268,000. ASSESSMENT: 1. Clostridium difficile colitis. The patient continued to have multiple loose bowel movements, although his electrolytes, kidney function as well as H and H are improving. 2. Methicillin-resistant Staphylococcus aureus from nasal screen. 3. Chronic kidney disease. 4. Benign prostatic hypertrophy. 5. Hypertension. 6. Type 2 diabetes mellitus, seems to be well controlled on glimepiride. 7. Recent sigmoid volvulus with decompression by sigmoidoscopy. 8. Hypokalemia, it has improved. In fact, his potassium this morning was 4.3. PLAN: To continue with oral vancomycin. Continue with Lactobacillus acidophilus. Continue with all other medications. Once his diarrhea subsides, he will be discharged to [facility] if he is accepted there as his wanted him to be transferred there eventually. DONOVAN PIPER MD DR: MURALI/nazia JOB#: [id number] / [id number]
[2018-10-06 14:50] VITALS: BP 143/68
--- NOTE | 2018-10-06 18:02 | PN ---
DATE: 10/05/2018 PSYCHIATRIC PROGRESS NOTE This is a late entry 10/05/2018, covers elements not covered in my initial note. SUBJECTIVE: I met with the patient in his room evening of 10/05/2018. Overall, the patient remains confused, but has not been agitated or aggressive. He is still being treated for C. diff colitis per Dr. Narayanan. He was ambulating in his room as I met with him, oblivious of his surroundings, but otherwise pleasant. REVIEW OF SYSTEMS: No CV, , pulmonary, eye, ENT system symptoms on review. Reliability poor. MENTAL STATUS EXAM: Oriented to himself. Insight, judgment, recent and remote memory, attention, concentration, fund of knowledge poor, consistent with his diagnoses mentioned in my initial note. IMPRESSION: Major neurocognitive disorder, Alzheimer, vascular with delusion, depression, behavioral disturbance. Rest unchanged. PLAN: No change from my initial note with respect to the psychotropics. LINO DE PAZ MD DR: RUBY/nazia JOB#: [id number] / [id number]
[2018-10-06] MEDS: OLANZapine 2.5 MG TABLET PO PRN (20:21)
[2018-10-06] MEDS: MIRTAZAPINE 7.5 MG TABLET. PO SCH (20:21)
[2018-10-06 20:23] VITALS: BP 152/71
--- NOTE | 2018-10-06 23:52 | PDOC ---
Exam Note: Naman Note: Please also refer to the separate dictated note~for this date of service dictated separately.~Patient seen individually. Discussed the patient with Nursing staff reviewed the chart.~Reviewed interim history and current functioning. Reviewed vital signs,~Labs/ Radiology~and current medications noted below. Continue current treatment with the changes noted in the dictated addendum note Assessment: Vital Signs: Vital Signs Date Time Temp Pulse Resp B/P (MAP) Pulse Ox O2 Delivery O2 Flow Rate FiO2 10/06/18 23:01 Room Air 10/06/18 20:23 98.4 85 18 152/71 (98) 97 I&O Intake and Output 10/06/18 07:01 Intake Total 900 ml Output Total 2 ml Balance 898 ml Intake Oral 900 ml Output Urine/Stool Mix 2 ml # Voids 3 # Bowel Movements 12 Labs: Laboratory Tests Test 10/06/18 06:07 10/06/18 07:38 10/06/18 11:43 10/06/18 16:36 White Blood Count 6.9 x10^3/uL (4.0-11.0) Red Blood Count 3.60 x10^6/uL (4.30-5.70) L Hemoglobin 10.9 g/dL (13.0-17.5) L Hematocrit 31.8 % (39.0-53.0) L Mean Corpuscular Volume 88 fL (79-100) Mean Corpuscular Hemoglobin 30 pg (25-35) Mean Corpuscular Hemoglobin Concent 34 g/dL (31-37) Red Cell Distribution Width 14.0 % (11.5-14.5) Platelet Count 268 x10^3/uL (140-400) Sodium Level 141 mmol/L (136-145) Potassium Level 4.3 mmol/L (3.5-5.1) Chloride Level 106 mmol/L (98-107) Carbon Dioxide Level 27 mmol/L (21-32) Anion Gap 8 (6-14) Blood Urea Nitrogen 9 mg/dL (8-26) Creatinine 1.2 mg/dL (0.7-1.3) Estimated GFR (Cockcroft-Gault) 58.6 Glucose Level 78 mg/dL (70-99) Calcium Level 8.4 mg/dL (8.5-10.1) L Glucose (Fingerstick) 70 mg/dL (70-99) 83 mg/dL (70-99) 97 mg/dL (70-99) Test 10/06/18 21:35 Glucose (Fingerstick) 106 mg/dL (70-99) H Current Medications: Meds: Current Medications Vancomycin HCl (Vancomycin Oral Solution) 125 mg [id number] PO Last administered on 10/06/18 20:21; Start 10/03/18 at 13:00; Stop 10/13/18 at 12:59 Lactobacillus Rhamnosus (Culturelle) 1 cap TID PO Last administered on 20:21; Start 10/03/18 at 14:00; Stop 10/13/18 at 13:59 Acetaminophen (Tylenol) 650 mg PRN Q4HRS PRN PO MILD PAIN Last administered on 10/05/18at 20:34; Start 10/03/18 at 10:30 Clonidine HCl (Catapres Tts-2) 1 patch WEEKLY TD ; Start 10/10/18 at 09:00 Hyoscyamine (Anaspaz) 0.125 mg PRN Q4HRS PRN PO stomach cramping ; Start at 10:30 Mirtazapine (Remeron) 7.5 mg QHS PO Last administered on 10/06/18 20:21; Start 10/03/18 at 21:00 Oxybutynin Chloride (Ditropan) 5 mg [id number] PO Last administered on 10/06/18 20 :22; Start 10/03/18 at 14:00 Oxycodone/ Acetaminophen (Percocet 5/325) 1 tab PRN Q4HRS PRN PO PAIN; Start at 10:30 Sertraline HCl (Zoloft) 75 mg DAILY PO Last administered on 10/06/18at 08:39; Start 10/04/18 at 09:00 Tamsulosin HCl (Flomax) 0.4 mg DAILY PO Last administered on 10/06/18 08:40; Start 10/04/18 at 09:00 Amlodipine Besylate (Norvasc) 10 mg DAILY PO Last administered on 10/06/18 08: 37; Start 10/04/18 at 09:00 Aspirin (Children'S Aspirin) 81 mg [id number] PO Last administered on 08:40; Start 10/04/18 at 08:00 Vitamin D (Vitamin D3) 50,000 unit WEEKLY PO ; Start 10/10/18 at 09:00 Divalproex Sodium (Depakote Sprinkles) 250 mg BID PO Last administered on 20:22; Start 10/03/18 at 21:00 EZETIMIBE (Zetia) 10 mg DAILY08 PO Last administered on 10/06/18 08:37; Start 10/04/18 at 08:00 Glimepiride (Amaryl) 2 mg DAILY PO Last administered on 10/06/18 08:40; Start 10/04/18 at 09:00 Loperamide HCl (Imodium) 2 mg PRN Q15MIN PRN PO DIARRHEA Last administered on 20:22; Start 10/03/18 at 10:45 Memantine (Namenda) 10 mg BID PO Last administered on 10/06/18 20:21; Start at 21:00 Olanzapine (ZyPREXA) 2.5 mg PRN Q2HR PRN PO AGITATION Last administered on 10/06 20:21; Start 10/03/18 at 10:45 Pantoprazole Sodium (Protonix) 40 mg DAILYAC PO Last administered on 10/06/18 08:40; Start 10/04/18 at 07:30 Quetiapine Fumarate (SEROquel) 12.5 mg DAILY@0900,1300,1700 PO Last administered on 10/06/18 16:39; Start 10/03/18 at 13:00 Rivastigmine (Exelon) 1 patch DAILY TD Last administered on 10/06/18 08:34; Start 10/04/18 at 09:00 Potassium Chloride (Klor-Con) 20 meq TID PO Last administered on 10/06/18 14: 19; Start 10/03/18 at 21:00 Potassium Chloride/Sodium Chloride 1,000 ml @ 75 mls/hr [id number] IV Last administered on 10/04/18 08:20; Start 10/03/18 at 19:30; Stop 10/06/18 at 00:54 ; Status DC Potassium Chloride (KCl Oral Soln) 20 meq TID PEG Last administered on 1/18/ 19at 20:21; Start 10/04/18 at 14:00 Active Scripts Active Reported Tamsulosin Hcl 0.4 Mg Cap.er.24h 0.4 Mg PO DAILY Percocet 5-325 Mg Tablet (Oxycodone Hcl/Acetaminophen) 1 Each Tablet 1 Tab PO PRN Q4HRS PRN Anaspaz (Hyoscyamine Sulfate) 0.125 Mg Tab.rapdis 0.125 Mg PO PRN Q4HRS PRN Clonidine Tts-2 (Clonidine) 1 Each Patch.tdwk 1 Patch TD WEEKLY Norvasc (Amlodipine Besylate) 10 Mg Tablet 10 Mg PO DAILY Zoloft (Sertraline Hcl) 50 Mg Tablet 75 Mg PO DAILY Seroquel (Quetiapine Fumarate) 25 Mg Tablet 12.5 Tab PO TID@0900,1300,1700 Protonix (Pantoprazole Sodium) 40 Mg Tablet.dr 40 Mg PO DAILYAC Oxybutynin Chloride 5 Mg Tablet 5 Mg PO [id number] Olanzapine 5 Mg Tablet 2.5 Mg PO PRN Q2HR PRN Mirtazapine 7.5 Mg Tablet 7.5 Mg PO QHS Loperamide (Loperamide Hcl) 2 Mg Capsule 2 Mg PO PRN Q15MIN PRN Glimepiride 2 Mg Tablet 2 Mg PO DAILY Vitamin D3 (Cholecalciferol (Vitamin D3)) 5,000 Unit Tablet 5,000 Unit PO WEEKLY Depakote Sprinkle (Divalproex Sodium) 125 Mg Cap.sprink 250 Mg PO BID Zetia (Ezetimibe) 10 Mg Tablet 10 Mg PO DAILY08 Tylenol (Acetaminophen) 325 Mg Tablet 650 Mg PO PRN Q4HRS PRN EXELON 9.5mg/24hr (Rivastigmine) 1 Each Patch.td24 1 Patch TD DAILY Namenda (Memantine Hcl) 10 Mg Tablet 10 Mg PO BID Aspirin 81 Mg Tab.chew 81 Mg PO DAILY I have reviewed the current psychotropics carefully including drug interactions. Risk benefit ratio favors no change other than as noted in my dictated progress note. Diagnosis: Problems: (1) Proctocolitis (2) Anxiety disorder (3) Depression (4) Impulse control disorder (5) Dementia, vascular, with depression (6) Dementia with behavioral disturbance (7) Rohqy-sa-bboadnl kidney injury (8) Major neurocognitive disorder LINO ED PAZ MD Oct 06, 2018 23:52
[2018-10-07 05:37] VITALS: BP 127/62
[2018-10-07] MEDS: POTASSIUM CHLORIDE 20 MEQ TABLET.ER. PO SCH (09:00)
[2018-10-07] MEDS: DIVALPROEX 125 MG CAP.SPRINK PO SCH ×2 (09:38→20:39)
[2018-10-07] MEDS: POTASSIUM CHLORIDE 20 MEQ/15 ML ORAL LIQUID. PEG SCH ×3 (09:38→20:39)
[2018-10-07] MEDS: SERTRALINE 50 MG TABLET. PO SCH (09:38)
[2018-10-07] MEDS: EZETIMIBE 10 MG TABLET PO SCH (09:39)
[2018-10-07] MEDS: amLODIPine BESYLATE 10 MG TABLET PO SCH (09:39)
[2018-10-07] MEDS: GLIMEPIRIDE 2 MG TABLET PO SCH (09:39)
[2018-10-07] MEDS: TAMSULOSIN 0.4 MG CAP.ER.24H. PO SCH (09:39)
[2018-10-07] MEDS: LACTOBACILLUS RHAMNOSUS GG 1 CAPSULE. PO SCH ×3 (09:40→20:39)
[2018-10-07] MEDS: QUEtiapine 25 MG TABLET. PO SCH ×3 (09:40→18:28)
[2018-10-07] MEDS: PANTOPRAZOLE 40 MG TABLET. PO SCH (09:40)
[2018-10-07] MEDS: ASPIRIN 81 MG TAB.CHEW PO SCH (09:40)
[2018-10-07] MEDS: RIVASTIGMINE 9.5MG PATCH. TD SCH (09:41)
[2018-10-07] MEDS: OXYBUTYNIN CHLORIDE 5 MG TABLET PO SCH ×3 (09:41→20:39)
[2018-10-07] MEDS: VANCOMYCIN 125 MG/2.5 ML ORAL SOLUTION. PO SCH ×4 (09:41→20:41)
[2018-10-07] MEDS: MEMANTINE 10 MG TABLET. PO SCH ×2 (09:42→20:39)
[2018-10-07 10:37] VITALS: BP 146/66
--- NOTE | 2018-10-07 14:34 | PN ---
DATE: 10/07/2018 SUBJECTIVE: The patient is sitting comfortably in his chair, in no apparent distress. He apparently has continued to have loose bowel movement and has only one bowel movement this morning. The nursing staff did not voice any other concerns. OBJECTIVE: GENERAL: On examining him; he looked well, slightly pale, no jaundice, cyanosis or thyromegaly. No jugular venous distention. No limb edema. VITAL SIGNS: His heart rate was 66, blood pressure was 146/66, temperature was 98.3, respiratory rate 20, and oxygen saturation was 99%. HEAD, EYES, EARS, NOSE AND THROAT: Showed normocephalic, atraumatic. NECK: Supple. HEART: Showed normal first and second heart sounds with no gallop, rub or murmur. CHEST: Clear to auscultation. No crepitation or rhonchi. ABDOMEN: Distended, soft, nontender. No guarding or rigidity. No organomegaly. All hernial orifices intact. Bowel sounds normal. NEUROLOGIC: He was demented, but without any obvious lateralizing sign. All his cranial nerves are intact. He moves extremities without difficulty, ambulates without assistance or assistive devices. His intake and output is incompletely recorded. LABORATORY DATA: His lab work as of yesterday showed white cell count of 6900, hemoglobin 11, hematocrit 32, MCV 88, and platelet count 268,000. His chemistry as of yesterday showed a serum sodium 141, potassium 4.2, chloride 106, bicarbonate 27, anion gap of 9, BUN 9, creatinine 1.2, estimated GFR was 58 mL per minute, his glucose 78, calcium was 8.4. ASSESSMENT: 1. Clostridium difficile colitis, the patient continued to have multiple loose bowel movements, although it seems that there are slowing down as he has only one bowel movement this morning. His kidney function as well as hemoglobin and hematocrit are improving. 2. The patient is positive for methicillin-resistant Staphylococcus aureus in his notes. 3. Chronic kidney disease. 4. Benign prostatic hypertrophy. 5. Hypertension. 6. Type 2 diabetes mellitus, seems to be reasonably controlled on glimepiride. 7. Recent sigmoid volvulus, status post decompression by sigmoidoscopy. 8. Hypokalemia has resolved. In fact, his serum potassium is up to 4.3 mEq per liter. PLAN: To continue with oral vancomycin. Continue with lactobacillus. Continue with all his other medications. Once his diarrhea subsided he will be discharged to [facility] as requested by his . DONOVAN PIPER MD DR: MURALI/nzaia JOB#: [id number] / [id number]
[2018-10-07 15:01] VITALS: BP 109/63
[2018-10-07 19:40] VITALS: BP 82/45
[2018-10-07] MEDS ORDERED: IV NORMAL SALINE 1,000ML 1,000 ML IV ONE (20:00)
[2018-10-07] MEDS: MIRTAZAPINE 7.5 MG TABLET. PO SCH (20:39)
[2018-10-07] MEDS: IV DEXTROSE 5 %-0.45 % NACL 1,000 ML IV SCH (20:40)
[2018-10-07 22:43] VITALS: BP 107/56
[2018-10-08 07:26] LABS: CALCIUM 8.4 mg/dL (8.5-10.1); CREATININE 1.3 mg/dL (0.7-1.3); GFR 53.4; POTASSIUM 4.5 mmol/L (3.5-5.1)
[2018-10-08] MEDS: amLODIPine BESYLATE 10 MG TABLET PO SCH (08:19)
[2018-10-08] MEDS: SERTRALINE 50 MG TABLET. PO SCH (08:28)
[2018-10-08] MEDS: DIVALPROEX 125 MG CAP.SPRINK PO SCH ×2 (08:28→19:37)
[2018-10-08] MEDS: ASPIRIN 81 MG TAB.CHEW PO SCH (08:28)
[2018-10-08] MEDS: QUEtiapine 25 MG TABLET. PO SCH ×3 (08:28→17:06)
[2018-10-08] MEDS: OXYBUTYNIN CHLORIDE 5 MG TABLET PO SCH ×3 (08:28→19:37)
[2018-10-08] MEDS: TAMSULOSIN 0.4 MG CAP.ER.24H. PO SCH (08:29)
[2018-10-08] MEDS: LACTOBACILLUS RHAMNOSUS GG 1 CAPSULE. PO SCH ×3 (08:29→19:37)
[2018-10-08] MEDS: MEMANTINE 10 MG TABLET. PO SCH ×2 (08:29→19:37)
[2018-10-08] MEDS: EZETIMIBE 10 MG TABLET PO SCH (08:29)
[2018-10-08] MEDS: VANCOMYCIN 125 MG/2.5 ML ORAL SOLUTION. PO SCH ×4 (08:29→19:37)
[2018-10-08] MEDS: PANTOPRAZOLE 40 MG TABLET. PO SCH (08:29)
[2018-10-08] MEDS: POTASSIUM CHLORIDE 20 MEQ/15 ML ORAL LIQUID. PEG SCH ×3 (08:30→19:38)
[2018-10-08] MEDS: RIVASTIGMINE 9.5MG PATCH. TD SCH (08:30)
[2018-10-08] MEDS: IV DEXTROSE 5 %-0.45 % NACL 1,000 ML IV SCH ×2 (09:01→19:39)
[2018-10-08 09:02] VITALS: BP 149/77
--- NOTE | 2018-10-08 12:11 | PN ---
DATE: 10/08/2018 SUBJECTIVE: The patient is resting, slightly propped up in his recliner, in no apparent distress. On questioning him, he denied any complaint. The nursing staff said that he has one loose bowel movement. Other than that, he has an uneventful night. PHYSICAL EXAMINATION: GENERAL: When I examined him this morning, he looked well and was clearly in no apparent respiratory distress, pale, cachectic, but no jaundice, cyanosis, or thyromegaly. No jugular venous distension. No limb edema. VITAL SIGNS: His heart rate was 70, blood pressure was 149/77, temperature was 97.5, respiratory rate was 18 and oxygen saturation was 95%. HEAD, EYES, EARS, NOSE AND THROAT: Normocephalic, atraumatic. NECK: Supple. HEART: Showed normal first and second heart sounds. No gallop, rub or murmur. CHEST: Clear to auscultation. No crepitation or rhonchi. ABDOMEN: Distended, soft, nontender. No guarding or rigidity. No organomegaly. All hernial orifices are intact. Bowel sounds normal. NEUROLOGIC: He was demented, but without any obvious localizing sign. All cranial nerves intact. He moves extremities without difficulty, ambulates without assistance or assistive devices. Intake was 500, output was incompletely recorded. LABORATORY DATA: This morning showed a serum sodium 139, potassium 4.5, chloride 104, bicarbonate 29, anion gap of 6, BUN 10, creatinine 1.3, estimated GFR was 53 mL per minute, his glucose 95, calcium was 8.4. His most recent white cell count was 6900, hemoglobin 11, hematocrit 32, MCV 88, and platelet count 268,000. ASSESSMENT: 1. Clostridium difficile colitis for which the patient continues to be on oral vancomycin. He has only one loose bowel movement today. His kidney function as well as hemoglobin remained stable. 2. The patient is positive for methicillin-resistant Staphylococcus aureus, both nostrils. 3. The patient has chronic kidney disease. 4. Benign prostatic hypertrophy. 5. Hypertension. 6. Type 2 diabetes, seems to be reasonably controlled, on glipizide. 7. Recent sigmoid volvulus, status post decompression by sigmoidoscopy. 8. Hypokalemia, it has resolved. His most recent serum potassium is 4.3 mEq per liter. PLAN: To continue the vancomycin. Continue lactobacillus. Continue with other medication. Once his diarrhea has subsided, to be able to discharge him back to [facility] in [place], as his 's request. DONOVAN PIPER MD DR: MURALI/nazia JOB#: [id number] / [id number]
[2018-10-08 17:42] VITALS: BP 109/66
[2018-10-08] MEDS: MIRTAZAPINE 7.5 MG TABLET. PO SCH (19:37)
[2018-10-08 19:54] VITALS: BP 130/73
--- NOTE | 2018-10-08 20:43 | PN ---
DATE: 10/06/2018 PSYCHIATRIC PROGRESS NOTE This is a late entry 10/06/2018 covers elements not covered in my initial note. SUBJECTIVE: I met with the patient in the evening. Overall, the patient remains somewhat withdrawn, but has not been disruptive on the unit per nursing report, but he is still having diarrhea. REVIEW OF SYSTEMS: Positive for some tiredness. No CV, GI, , pulmonary, eye system symptoms on review. Does have the diarrhea. MENTAL STATUS EXAM: Oriented to himself. Insight, judgment, recent and remote memory, attention, concentration, fund of knowledge poor, consistent with his diagnosis mentioned in my initial note. IMPRESSION: Major neurocognitive disorder, Alzheimer, vascular with delusion, depression, behavioral disturbance. C. diff colitis. Rest unchanged. PLAN: No change from a psychiatric standpoint. MAN Nilesh DE PAZ MD DR: RUBY/nazia JOB#: [id number] / [id number]
--- NOTE | 2018-10-08 20:47 | PN ---
DATE: 10/07/2018 PSYCHIATRIC PROGRESS NOTE This late entry 10/07/2018 covers elements not covered in my initial note. SUBJECTIVE: I met with the patient in his room. He was seated on a Broda chair, continues to have diarrhea, but has not been disruptive. REVIEW OF SYSTEMS: Other than above. No CV, , pulmonary, eye system symptoms on review. Reliability poor. MENTAL STATUS EXAM: Oriented to himself. Insight, judgment, recent and remote memory, attention, concentration, fund of knowledge poor, consistent with his diagnosis. IMPRESSION: Major neurocognitive disorder, Alzheimer, vascular with delusion, depression, behavioral disturbance, Clostridium difficile colitis. Speech had moderate latency, often responses monosyllabic. PLAN: No change from a psychiatric standpoint from initial note. MAN Nilesh DE PAZ MD DR: RUBY/nazia JOB#: [id number] / [id number]
--- NOTE | 2018-10-08 22:21 | PDOC ---
Exam Note: Naman Note: Please also refer to the separate dictated note~for this date of service dictated separately. Discussed the patient with Nursing staff reviewed the chart.~Reviewed interim history and current functioning. Reviewed vital signs,~ Labs/ Radiology~and current medications noted below. Continue current treatment with the changes noted in the dictated addendum note Assessment: Vital Signs: Vital Signs Date Time Temp Pulse Resp B/P (MAP) Pulse Ox O2 Delivery O2 Flow Rate FiO2 10/08/18 20:00 Room Air 10/08/18 19:54 98.2 79 20 130/73 (92) 99 I&O Intake and Output 10/08/18 07:01 Intake Total 900 ml Balance 900 ml Intake Oral 900 ml IV Total 0 ml # Voids 3 # Bowel Movements 3 Labs: Laboratory Tests Test 10/07/18 22:50 10/07/18 23:51 10/08/18 01:04 10/08/18 02:09 Glucose (Fingerstick) 182 mg/dL (70-99) H 163 mg/dL (70-99) H 163 mg/dL (70-99) H 184 mg/dL (70-99) H Test 10/08/18 03:26 10/08/18 04:27 10/08/18 05:40 10/08/18 06:21 Glucose (Fingerstick) 135 mg/dL (70-99) H 112 mg/dL (70-99) H 82 mg/dL (70-99) 90 mg/dL (70-99) Test 10/08/18 06:25 10/08/18 07:24 10/08/18 11:28 10/08/18 17:26 Sodium Level 139 mmol/L (136-145) Potassium Level 4.5 mmol/L (3.5-5.1) Chloride Level 104 mmol/L (98-107) Carbon Dioxide Level 29 mmol/L (21-32) Anion Gap 6 (6-14) Blood Urea Nitrogen 10 mg/dL (8-26) Creatinine 1.3 mg/dL (0.7-1.3) Estimated GFR (Cockcroft-Gault) 53.4 Glucose Level 95 mg/dL (70-99) Calcium Level 8.4 mg/dL (8.5-10.1) L Glucose (Fingerstick) 91 mg/dL (70-99) 127 mg/dL (70-99) H 106 mg/dL (70-99) H Test 10/08/18 20:33 Glucose (Fingerstick) 124 mg/dL (70-99) H Current Medications: Meds: Current Medications Vancomycin HCl (Vancomycin Oral Solution) 125 mg [id number] PO Last administered on 10/08/18 19:37; Start 10/03/18 at 13:00; Stop 10/13/18 at 12:59 Lactobacillus Rhamnosus (Culturelle) 1 cap TID PO Last administered on 19:37; Start 10/03/18 at 14:00; Stop 10/13/18 at 13:59 Acetaminophen (Tylenol) 650 mg PRN Q4HRS PRN PO MILD PAIN Last administered on 10/05/18at 20:34; Start 10/03/18 at 10:30 Clonidine HCl (Catapres Tts-2) 1 patch WEEKLY TD ; Start 10/10/18 at 09:00 Hyoscyamine (Anaspaz) 0.125 mg PRN Q4HRS PRN PO stomach cramping ; Start at 10:30 Mirtazapine (Remeron) 7.5 mg QHS PO Last administered on 10/08/18 19:37; Start 10/03/18 at 21:00 Oxybutynin Chloride (Ditropan) 5 mg [id number] PO Last administered on 10/08/18 19 :37; Start 10/03/18 at 14:00 Oxycodone/ Acetaminophen (Percocet 5/325) 1 tab PRN Q4HRS PRN PO PAIN; Start at 10:30 Sertraline HCl (Zoloft) 75 mg DAILY PO Last administered on 10/08/18 08:28; Start 10/04/18 at 09:00 Tamsulosin HCl (Flomax) 0.4 mg DAILY PO Last administered on 10/08/18 08:29; Start 10/04/18 at 09:00 Amlodipine Besylate (Norvasc) 10 mg DAILY PO Last administered on 10/08/18 08: 19; Start 10/04/18 at 09:00 Aspirin (Children'S Aspirin) 81 mg [id number] PO Last administered on at 08:28; Start 10/04/18 at 08:00 Vitamin D (Vitamin D3) 50,000 unit WEEKLY PO ; Start 10/10/18 at 09:00 Divalproex Sodium (Depakote Sprinkles) 250 mg BID PO Last administered on at 19:37; Start 10/03/18 at 21:00 EZETIMIBE (Zetia) 10 mg DAILY08 PO Last administered on 10/08/18 08:29; Start 10/04/18 at 08:00 Glimepiride (Amaryl) 2 mg DAILY PO Last administered on 10/07/18at 09:39; Start 10/04/18 at 09:00; Stop 10/07/18 at 20:29; Status DC Loperamide HCl (Imodium) 2 mg PRN Q15MIN PRN PO DIARRHEA Last administered on 20:22; Start 10/03/18 at 10:45 Memantine (Namenda) 10 mg BID PO Last administered on 10/08/18at 19:37; Start at 21:00 Olanzapine (ZyPREXA) 2.5 mg PRN Q2HR PRN PO AGITATION Last administered on 10/06 20:21; Start 10/03/18 at 10:45 Pantoprazole Sodium (Protonix) 40 mg DAILYAC PO Last administered on 10/08/18 08:29; Start 10/04/18 at 07:30 Quetiapine Fumarate (SEROquel) 12.5 mg DAILY@0900,1300,1700 PO Last administered on 10/08/18at 17:06; Start 10/03/18 at 13:00 Rivastigmine (Exelon) 1 patch DAILY TD Last administered on 10/08/18 08:30; Start 10/04/18 at 09:00 Potassium Chloride (Klor-Con) 20 meq TID PO Last administered on 10/06/18at 14: 19; Start 10/03/18 at 21:00; Stop 10/07/18 at 13:48; Status DC Potassium Chloride/Sodium Chloride 1,000 ml @ 75 mls/hr [id number] IV Last administered on 10/04/18at 08:20; Start 10/03/18 at 19:30; Stop 10/06/18 at 00:54 ; Status DC Potassium Chloride (KCl Oral Soln) 20 meq TID PEG Last administered on at 19:38; Start 10/04/18 at 14:00 Sodium Chloride 1,000 ml @ 1,000 mls/hr 1X ONCE IV Last administered on at 20:03; Start 10/07/18 at 20:00; Stop 10/07/18 at 20:29; Status DC Dextrose/Sodium Chloride 1,000 ml @ 75 mls/hr [id number] IV Last administered on 10/08/18at 09:01; Start 10/07/18 at 20:30 Active Scripts Active Reported Tamsulosin Hcl 0.4 Mg Cap.er.24h 0.4 Mg PO DAILY Percocet 5-325 Mg Tablet (Oxycodone Hcl/Acetaminophen) 1 Each Tablet 1 Tab PO PRN Q4HRS PRN Anaspaz (Hyoscyamine Sulfate) 0.125 Mg Tab.rapdis 0.125 Mg PO PRN Q4HRS PRN Clonidine Tts-2 (Clonidine) 1 Each Patch.tdwk 1 Patch TD WEEKLY Norvasc (Amlodipine Besylate) 10 Mg Tablet 10 Mg PO DAILY Zoloft (Sertraline Hcl) 50 Mg Tablet 75 Mg PO DAILY Seroquel (Quetiapine Fumarate) 25 Mg Tablet 12.5 Tab PO TID@0900,1300,1700 Protonix (Pantoprazole Sodium) 40 Mg Tablet.dr 40 Mg PO DAILYAC Oxybutynin Chloride 5 Mg Tablet 5 Mg PO [id number] Olanzapine 5 Mg Tablet 2.5 Mg PO PRN Q2HR PRN Mirtazapine 7.5 Mg Tablet 7.5 Mg PO QHS Loperamide (Loperamide Hcl) 2 Mg Capsule 2 Mg PO PRN Q15MIN PRN Glimepiride 2 Mg Tablet 2 Mg PO DAILY Vitamin D3 (Cholecalciferol (Vitamin D3)) 5,000 Unit Tablet 5,000 Unit PO WEEKLY Depakote Sprinkle (Divalproex Sodium) 125 Mg Cap.sprink 250 Mg PO BID Zetia (Ezetimibe) 10 Mg Tablet 10 Mg PO DAILY08 Tylenol (Acetaminophen) 325 Mg Tablet 650 Mg PO PRN Q4HRS PRN EXELON 9.5mg/24hr (Rivastigmine) 1 Each Patch.td24 1 Patch TD DAILY Namenda (Memantine Hcl) 10 Mg Tablet 10 Mg PO BID Aspirin 81 Mg Tab.chew 81 Mg PO DAILY I have reviewed the current psychotropics carefully including drug interactions. Risk benefit ratio favors no change other than as noted in my dictated progress note. Diagnosis: Problems: (1) Proctocolitis (2) Anxiety disorder (3) Depression (4) Impulse control disorder (5) Dementia, vascular, with depression (6) Dementia with behavioral disturbance (7) Zcilu-eh-yjbnqmr kidney injury (8) Major neurocognitive disorder LINO DE PAZ MD Oct 08, 2018 22:21
[2018-10-09 05:25] VITALS: BP 133/68
[2018-10-09] MEDS: TAMSULOSIN 0.4 MG CAP.ER.24H. PO SCH (09:29)
[2018-10-09] MEDS: OXYBUTYNIN CHLORIDE 5 MG TABLET PO SCH ×3 (09:29→22:19)
[2018-10-09] MEDS: MEMANTINE 10 MG TABLET. PO SCH ×2 (09:29→22:19)
[2018-10-09] MEDS: EZETIMIBE 10 MG TABLET PO SCH (09:29)
[2018-10-09] MEDS: POTASSIUM CHLORIDE 20 MEQ/15 ML ORAL LIQUID. PEG SCH ×3 (09:29→22:18)
[2018-10-09] MEDS: DIVALPROEX 125 MG CAP.SPRINK PO SCH ×2 (09:31→22:18)
[2018-10-09] MEDS: PANTOPRAZOLE 40 MG TABLET. PO SCH (09:31)
[2018-10-09] MEDS: LACTOBACILLUS RHAMNOSUS GG 1 CAPSULE. PO SCH ×3 (09:31→22:18)
[2018-10-09] MEDS: ASPIRIN 81 MG TAB.CHEW PO SCH (09:31)
[2018-10-09] MEDS: QUEtiapine 25 MG TABLET. PO SCH ×3 (09:31→17:32)
[2018-10-09] MEDS: RIVASTIGMINE 9.5MG PATCH. TD SCH (09:32)
[2018-10-09] MEDS: SERTRALINE 50 MG TABLET. PO SCH (09:32)
[2018-10-09] MEDS: amLODIPine BESYLATE 10 MG TABLET PO SCH (09:32)
[2018-10-09] MEDS: VANCOMYCIN 125 MG/2.5 ML ORAL SOLUTION. PO SCH ×4 (09:33→22:18)
[2018-10-09 11:15] VITALS: BP 110/64
[2018-10-09 15:11] VITALS: BP 118/67
--- NOTE | 2018-10-09 18:42 | PN ---
DATE: 10/09/2018 SUBJECTIVE: The patient is resting comfortably in his chair, in no apparent respiratory distress. He denied any complaint. Nursing staff states that he has only one loose bowel movement today, he was none last night, and one yesterday. He was very cooperative and compliant with care and medication and there was no evidence of any restlessness or agitation. He was not combative or aggressive towards the staff. PHYSICAL EXAMINATION: GENERAL: When I examined him, he looked well and was clearly in no apparent respiratory distress, pale, cachectic, but no jaundice, cyanosis, or thyromegaly. No jugular venous distension. No lower limb edema. VITAL SIGNS: His heart rate was 108, blood pressure 118/67, temperature was 98.3, respiratory rate 20, and oxygen saturation was 93% on room air. HEAD, EYES, EARS, NOSE AND THROAT: Showed normocephalic and atraumatic. NECK: Supple. HEART: Showed normal first and second heart sounds. No gallop, rub, or murmur. CHEST: Clear to auscultation. No crepitation or rhonchi. ABDOMEN: Scaphoid, soft, nontender. NEUROLOGIC: He was demented, but without any obvious lateralizing sign. All his cranial nerves are intact. He moves extremities without difficulty. He ambulates without assistance or assistive devices. His intake over the last 24 hours was 900, no output was recorded. LABORATORY DATA: His lab work as of yesterday showed a serum sodium 139, potassium 4.5, chloride 104, bicarbonate 29, anion gap of 6, BUN 10, creatinine 1.3, estimated GFR was 53 mL per minute. His glucose was 95 and calcium was 8.4. His most recent white cell count was 6900, hemoglobin 11, hematocrit 32, MCV 88, and platelet count 268,000. ASSESSMENT: 1. Clostridium difficile colitis, for which the patient continues to be on oral vancomycin. He has only one loose bowel movement today. His kidney function as well as hemoglobin remained stable. 2. The patient is positive for methicillin-resistant Staphylococcus aureus, both nostrils. 3. The patient has chronic kidney disease. 4. Benign prostatic hypertrophy. 5. Hypertension. 6. Type 2 diabetes mellitus, seems reasonably controlled on glipizide. In fact, I have discontinued the glipizide altogether. 7. Recent sigmoid volvulus, status post decompression by sigmoidoscopy. 8. Hypokalemia has resolved. His most recent serum potassium was up to 4.3 mEq per liter. PLAN: To continue with oral vancomycin. Continue with lactobacillus. Continue with other medication. His diarrhea is subsiding. He has only one episode of diarrhea ____ one yesterday, none last night. He remained very pleasant, cooperative and compliant with all medication and care, has not shown any evidence of combativeness or aggressive behavior. I will repeat his lab work tomorrow again and hopefully if they are stable and he was accepted at [facility] in [place], we will discharge him back there tomorrow. DONOVAN PIPER MD DR: MURALI/nazia JOB#: [id number] / [id number]
[2018-10-09 19:46] VITALS: BP 115/66
--- NOTE | 2018-10-09 20:06 | PN ---
DATE: 10/08/2018 This is a late entry date of service 10/08/2018 covers elements not covered in my initial note of 10/08/2018. SUBJECTIVE: The patient remains confused, but has not been made aware of any overt disruptive behaviors. He continues to have bowel movements and has had 3 bowel movements during the day reflective of his C. diff status. Gait remains unsteady, but he is unable to respond to specific review of system questions consequent to his dementia. REVIEW OF SYSTEMS: No CV, , eye, ENT system symptoms on review. MENTAL STATUS EXAM: Insight, judgment, recent and remote memory, attention, concentration, fund of knowledge poor, consistent with his diagnosis mentioned in my initial note. PLAN: No change from initial note. MAN Nilesh DE PAZ MD DR: RUBY/nazia JOB#: [id number] / [id number]
[2018-10-09] MEDS: MIRTAZAPINE 7.5 MG TABLET. PO SCH (22:18)
--- NOTE | 2018-10-09 22:27 | PDOC ---
Exam Note: Naman Note: Please also refer to the separate dictated note~for this date of service dictated separately.~Patient seen individually. Discussed the patient with Nursing staff reviewed the chart.~Reviewed interim history and current functioning. Reviewed vital signs,~Labs/ Radiology~and current medications noted below. Continue current treatment with the changes noted in the dictated addendum note Assessment: Vital Signs: Vital Signs Date Time Temp Pulse Resp B/P (MAP) Pulse Ox O2 Delivery O2 Flow Rate FiO2 10/09/18 20:27 Room Air 10/09/18 19:46 98.4 89 18 115/66 (82) 100 I&O Intake and Output 10/09/18 07:01 Intake Total 240 ml Balance 240 ml Intake Oral 240 ml # Voids 5 # Bowel Movements 1 Labs: Laboratory Tests Test 10/09/18 06:30 10/09/18 07:11 10/09/18 11:32 10/09/18 16:26 Glucose (Fingerstick) 83 mg/dL (70-99) 76 mg/dL (70-99) 129 mg/dL (70-99) H 116 mg/dL (70-99) H Test 10/09/18 20:15 Glucose (Fingerstick) 118 mg/dL (70-99) H Current Medications: Meds: Current Medications Vancomycin HCl (Vancomycin Oral Solution) 125 mg [id number] PO Last administered on 10/09/18at 22:18; Start 10/03/18 at 13:00; Stop 10/13/18 at 12:59 Lactobacillus Rhamnosus (Culturelle) 1 cap TID PO Last administered on at 22:18; Start 10/03/18 at 14:00; Stop 10/13/18 at 13:59 Acetaminophen (Tylenol) 650 mg PRN Q4HRS PRN PO MILD PAIN Last administered on 10/05/18at 20:34; Start 10/03/18 at 10:30 Clonidine HCl (Catapres Tts-2) 1 patch WEEKLY TD ; Start 10/10/18 at 09:00 Hyoscyamine (Anaspaz) 0.125 mg PRN Q4HRS PRN PO stomach cramping ; Start at 10:30 Mirtazapine (Remeron) 7.5 mg QHS PO Last administered on 10/09/18at 22:18; Start 10/03/18 at 21:00 Oxybutynin Chloride (Ditropan) 5 mg [id number] PO Last administered on 10/09/18 22 :19; Start 10/03/18 at 14:00 Oxycodone/ Acetaminophen (Percocet 5/325) 1 tab PRN Q4HRS PRN PO PAIN; Start at 10:30 Sertraline HCl (Zoloft) 75 mg DAILY PO Last administered on 10/09/18 09:32; Start 10/04/18 at 09:00 Tamsulosin HCl (Flomax) 0.4 mg DAILY PO Last administered on 10/09/18 09:29; Start 10/04/18 at 09:00 Amlodipine Besylate (Norvasc) 10 mg DAILY PO Last administered on 10/09/18 09: 32; Start 10/04/18 at 09:00 Aspirin (Children'S Aspirin) 81 mg [id number] PO Last administered on 09:31; Start 10/04/18 at 08:00 Vitamin D (Vitamin D3) 50,000 unit WEEKLY PO ; Start 10/10/18 at 09:00 Divalproex Sodium (Depakote Sprinkles) 250 mg BID PO Last administered on 22:18; Start 10/03/18 at 21:00 EZETIMIBE (Zetia) 10 mg DAILY08 PO Last administered on 10/09/18 09:29; Start 10/04/18 at 08:00 Glimepiride (Amaryl) 2 mg DAILY PO Last administered on 10/07/18at 09:39; Start 10/04/18 at 09:00; Stop 10/07/18 at 20:29; Status DC Loperamide HCl (Imodium) 2 mg PRN Q15MIN PRN PO DIARRHEA Last administered on 20:22; Start 10/03/18 at 10:45 Memantine (Namenda) 10 mg BID PO Last administered on 10/09/18 22:19; Start at 21:00 Olanzapine (ZyPREXA) 2.5 mg PRN Q2HR PRN PO AGITATION Last administered on 10/06 20:21; Start 10/03/18 at 10:45 Pantoprazole Sodium (Protonix) 40 mg DAILYAC PO Last administered on 10/09/18at 09:31; Start 10/04/18 at 07:30 Quetiapine Fumarate (SEROquel) 12.5 mg DAILY@0900,1300,1700 PO Last administered on 10/09/18at 17:32; Start 10/03/18 at 13:00 Rivastigmine (Exelon) 1 patch DAILY TD Last administered on 10/09/18at 09:32; Start 10/04/18 at 09:00 Potassium Chloride (Klor-Con) 20 meq TID PO Last administered on 10/06/18at 14: 19; Start 10/03/18 at 21:00; Stop 10/07/18 at 13:48; Status DC Potassium Chloride/Sodium Chloride 1,000 ml @ 75 mls/hr [id number] IV Last administered on 10/04/18at 08:20; Start 10/03/18 at 19:30; Stop 10/06/18 at 00:54 ; Status DC Potassium Chloride (KCl Oral Soln) 20 meq TID PEG Last administered on at 22:18; Start 10/04/18 at 14:00 Sodium Chloride 1,000 ml @ 1,000 mls/hr 1X ONCE IV Last administered on at 20:03; Start 10/07/18 at 20:00; Stop 10/07/18 at 20:29; Status DC Dextrose/Sodium Chloride 1,000 ml @ 75 mls/hr [id number] IV Last administered on 10/08/18at 09:01; Start 10/07/18 at 20:30; Stop 10/09/18 at 06:23; Status DC Active Scripts Active Reported Tamsulosin Hcl 0.4 Mg Cap.er.24h 0.4 Mg PO DAILY Percocet 5-325 Mg Tablet (Oxycodone Hcl/Acetaminophen) 1 Each Tablet 1 Tab PO PRN Q4HRS PRN Anaspaz (Hyoscyamine Sulfate) 0.125 Mg Tab.rapdis 0.125 Mg PO PRN Q4HRS PRN Clonidine Tts-2 (Clonidine) 1 Each Patch.tdwk 1 Patch TD WEEKLY Norvasc (Amlodipine Besylate) 10 Mg Tablet 10 Mg PO DAILY Zoloft (Sertraline Hcl) 50 Mg Tablet 75 Mg PO DAILY Seroquel (Quetiapine Fumarate) 25 Mg Tablet 12.5 Tab PO TID@0900,1300,1700 Protonix (Pantoprazole Sodium) 40 Mg Tablet.dr 40 Mg PO DAILYAC Oxybutynin Chloride 5 Mg Tablet 5 Mg PO [id number] Olanzapine 5 Mg Tablet 2.5 Mg PO PRN Q2HR PRN Mirtazapine 7.5 Mg Tablet 7.5 Mg PO QHS Loperamide (Loperamide Hcl) 2 Mg Capsule 2 Mg PO PRN Q15MIN PRN Glimepiride 2 Mg Tablet 2 Mg PO DAILY Vitamin D3 (Cholecalciferol (Vitamin D3)) 5,000 Unit Tablet 5,000 Unit PO WEEKLY Depakote Sprinkle (Divalproex Sodium) 125 Mg Cap.sprink 250 Mg PO BID Zetia (Ezetimibe) 10 Mg Tablet 10 Mg PO [id number] Tylenol (Acetaminophen) 325 Mg Tablet 650 Mg PO PRN Q4HRS PRN EXELON 9.5mg/24hr (Rivastigmine) 1 Each Patch.td24 1 Patch TD DAILY Namenda (Memantine Hcl) 10 Mg Tablet 10 Mg PO BID Aspirin 81 Mg Tab.chew 81 Mg PO DAILY I have reviewed the current psychotropics carefully including drug interactions. Risk benefit ratio favors no change other than as noted in my dictated progress note. Diagnosis: Problems: (1) Proctocolitis (2) Anxiety disorder (3) Depression (4) Impulse control disorder (5) Dementia, vascular, with depression (6) Dementia with behavioral disturbance (7) [id number] kidney injury (8) Major neurocognitive disorder LINO DE PAZ MD Oct 09, 2018 22:27
--- NOTE | 2018-10-09 23:09 | PN ---
DATE: 10/09/2018 PSYCHIATRIC PROGRESS NOTE This note covers elements not covered in my initial note of 10/09/2018. Per nursing report, the patient has had no behavioral problems. He has had one episode of diarrhea during the day today, and the C. diff seems to be improving. He was seated in a Broda chair outside his room as I met with him. REVIEW OF SYSTEMS: Ambulation impaired, but he is confused, unable to respond to other review of systems symptom questions. MENTAL STATUS EXAM: Oriented to himself. Insight, judgment, recent and remote memory, attention, concentration, fund of knowledge poor, consistent with his diagnosis. IMPRESSION: Major neurocognitive disorder, Alzheimer, vascular with delusion, depression, behavioral disturbance; anxiety disorder, unspecified. Clostridium difficile colitis. Rest unchanged. PLAN: I have reviewed her psychotropics. No changes are indicated at this time. MAN Nilesh DE PAZ MD DR: RUBY/nazia JOB#: [id number] / [id number]
[2018-10-10 05:50] VITALS: BP 146/70
[2018-10-10 06:57] LABS: BASO % 1 % (0-3); EOS # 0.2 x10^3/uL (0.0-0.7); EOS % 4 % (0-3); HEMATOCRIT 39.7 % (39.0-53.0); HEMOGLOBIN 12.9 g/dL (13.0-17.5); LYMPH # 1.1 x10^3/uL (1.0-4.8); LYMPH % 23 % (24-48); MEAN CORPUSCULAR HEMOGLOBIN 29 pg (25-35); MEAN CORPUSCULAR HGB CONC 33 g/dL (31-37); MEAN CORPUSCULAR VOLUME 90 fL (79-100); MONO # 0.7 x10^3/uL (0.0-1.1); MONO % 14 % (0-9); NEUT # 2.9 x10^3uL (1.8-7.7); NEUT % 59 % (31-73); PLATELET COUNT 263 x10^3/uL (140-400); RED BLOOD COUNT 4.41 x10^6/uL (4.30-5.70)
[2018-10-10 07:11] LABS: ALBUMIN 3.1 g/dL (3.4-5.0); ALBUMIN/GLOBULIN RATIO 0.8 (1.0-1.7); CALCIUM 9.1 mg/dL (8.5-10.1); CREATININE 1.3 mg/dL (0.7-1.3); GFR 53.4; POTASSIUM 4.7 mmol/L (3.5-5.1); TOTAL BILIRUBIN 0.3 mg/dL (0.2-1.0); TOTAL PROTEIN 7.2 g/dL (6.4-8.2)
[2018-10-10] MEDS: QUEtiapine 25 MG TABLET. PO SCH ×3 (08:32→17:41)
[2018-10-10] MEDS: amLODIPine BESYLATE 10 MG TABLET PO SCH (08:32)
[2018-10-10] MEDS: MEMANTINE 10 MG TABLET. PO SCH ×2 (08:32→20:00)
[2018-10-10] MEDS: OXYBUTYNIN CHLORIDE 5 MG TABLET PO SCH ×3 (08:33→20:01)
[2018-10-10] MEDS: LACTOBACILLUS RHAMNOSUS GG 1 CAPSULE. PO SCH ×3 (08:33→20:00)
[2018-10-10] MEDS: PANTOPRAZOLE 40 MG TABLET. PO SCH (08:33)
[2018-10-10] MEDS: POTASSIUM CHLORIDE 20 MEQ/15 ML ORAL LIQUID. PEG SCH ×3 (08:33→20:00)
[2018-10-10] MEDS: SERTRALINE 50 MG TABLET. PO SCH (08:33)
[2018-10-10] MEDS: ASPIRIN 81 MG TAB.CHEW PO SCH (08:34)
[2018-10-10] MEDS: TAMSULOSIN 0.4 MG CAP.ER.24H. PO SCH (08:34)
[2018-10-10] MEDS: EZETIMIBE 10 MG TABLET PO SCH (08:34)
[2018-10-10] MEDS: CHOLECALCIFEROL (VITAMIN D3) 50,000 UNIT CAPSULE PO SCH (08:34)
[2018-10-10] MEDS: DIVALPROEX 125 MG CAP.SPRINK PO SCH ×2 (08:34→20:00)
[2018-10-10] MEDS: RIVASTIGMINE 9.5MG PATCH. TD SCH (08:35)
[2018-10-10] MEDS: VANCOMYCIN 125 MG/2.5 ML ORAL SOLUTION. PO SCH ×4 (08:37→20:00)
[2018-10-10] MEDS ORDERED: cloNIDine TTS-2 1 PATCH PATCH TD SCH (09:00)
[2018-10-10 11:45] VITALS: BP 132/68
[2018-10-10 15:39] VITALS: BP 120/65
--- NOTE | 2018-10-10 18:25 | PDOC ---
Exam Note: Naman Note: Please also refer to the separate dictated note~for this date of service dictated separately.~Patient seen individually. Discussed the patient with Nursing staff reviewed the chart.~Reviewed interim history and current functioning. Reviewed vital signs,~Labs/ Radiology~and current medications noted below. Continue current treatment with the changes noted in the dictated addendum note Assessment: Vital Signs: Vital Signs Date Time Temp Pulse Resp B/P (MAP) Pulse Ox O2 Delivery O2 Flow Rate FiO2 10/10/18 15:39 97.8 68 18 120/65 (83) 97 Room Air I&O Intake and Output 10/10/18 07:01 Intake Total 600 ml Balance 600 ml Intake Oral 600 ml # Voids 5 # Bowel Movements 1 Labs: Laboratory Tests Test 10/09/18 20:15 10/10/18 05:55 10/10/18 06:00 10/10/18 07:21 Glucose (Fingerstick) 118 mg/dL (70-99) H 86 mg/dL (70-99) White Blood Count 5.0 x10^3/uL (4.0-11.0) Red Blood Count 4.41 x10^6/uL (4.30-5.70) Hemoglobin 12.9 g/dL (13.0-17.5) L Hematocrit 39.7 % (39.0-53.0) Mean Corpuscular Volume 90 fL (79-100) Mean Corpuscular Hemoglobin 29 pg (25-35) Mean Corpuscular Hemoglobin Concent 33 g/dL (31-37) Red Cell Distribution Width 14.0 % (11.5-14.5) Platelet Count 263 x10^3/uL (140-400) Neutrophils (%) (Auto) 59 % (31-73) Lymphocytes (%) (Auto) 23 % (24-48) L Monocytes (%) (Auto) 14 % (0-9) H Eosinophils (%) (Auto) 4 % (0-3) H Basophils (%) (Auto) 1 % (0-3) Neutrophils # (Auto) 2.9 x10^3uL (1.8-7.7) Lymphocytes # (Auto) 1.1 x10^3/uL (1.0-4.8) Monocytes # (Auto) 0.7 x10^3/uL (0.0-1.1) Eosinophils # (Auto) 0.2 x10^3/uL (0.0-0.7) Basophils # (Auto) 0.0 x10^3/uL (0.0-0.2) Sodium Level 141 mmol/L (136-145) Potassium Level 4.7 mmol/L (3.5-5.1) Chloride Level 104 mmol/L (98-107) Carbon Dioxide Level 30 mmol/L (21-32) Anion Gap 7 (6-14) Blood Urea Nitrogen 12 mg/dL (8-26) Creatinine 1.3 mg/dL (0.7-1.3) Estimated GFR (Cockcroft-Gault) 53.4 BUN/Creatinine Ratio 9 (6-20) Glucose Level 94 mg/dL (70-99) Calcium Level 9.1 mg/dL (8.5-10.1) Total Bilirubin 0.3 mg/dL (0.2-1.0) Aspartate Amino Transferase (AST) 18 U/L (15-37) Alanine Aminotransferase (ALT) 26 U/L (16-63) Alkaline Phosphatase 105 U/L (46-116) Total Protein 7.2 g/dL (6.4-8.2) Albumin 3.1 g/dL (3.4-5.0) L Albumin/Globulin Ratio 0.8 (1.0-1.7) L Nasal Screen MRSA (PCR) Positive (Negative) Test 10/10/18 11:35 10/10/18 17:00 Glucose (Fingerstick) 172 mg/dL (70-99) H 88 mg/dL (70-99) Current Medications: Meds: Current Medications Vancomycin HCl (Vancomycin Oral Solution) 125 mg [id number] PO Last administered on 10/10/18at 17:41; Start 10/03/18 at 13:00; Stop 10/13/18 at 12:59 Lactobacillus Rhamnosus (Culturelle) 1 cap TID PO Last administered on at 14:21; Start 10/03/18 at 14:00; Stop 10/13/18 at 13:59 Acetaminophen (Tylenol) 650 mg PRN Q4HRS PRN PO MILD PAIN Last administered on 10/05/18at 20:34; Start 10/03/18 at 10:30 Clonidine HCl (Catapres Tts-2) 1 patch WEEKLY TD Last administered on 08:35; Start 10/10/18 at 09:00 Hyoscyamine (Anaspaz) 0.125 mg PRN Q4HRS PRN PO stomach cramping ; Start at 10:30 Mirtazapine (Remeron) 7.5 mg QHS PO Last administered on 10/09/18at 22:18; Start 10/03/18 at 21:00 Oxybutynin Chloride (Ditropan) 5 mg [id number] PO Last administered on 10/10/18at 14 :21; Start 10/03/18 at 14:00 Oxycodone/ Acetaminophen (Percocet 5/325) 1 tab PRN Q4HRS PRN PO PAIN; Start at 10:30 Sertraline HCl (Zoloft) 75 mg DAILY PO Last administered on 10/10/18 08:33; Start 10/04/18 at 09:00 Tamsulosin HCl (Flomax) 0.4 mg DAILY PO Last administered on 10/10/18 08:34; Start 10/04/18 at 09:00 Amlodipine Besylate (Norvasc) 10 mg DAILY PO Last administered on 10/10/18 08: 32; Start 10/04/18 at 09:00 Aspirin (Children'S Aspirin) 81 mg DAILYWBKFT PO Last administered on 08:34; Start 10/04/18 at 08:00 Vitamin D (Vitamin D3) 50,000 unit WEEKLY PO Last administered on 10/10/18 08: 34; Start 10/10/18 at 09:00 Divalproex Sodium (Depakote Sprinkles) 250 mg BID PO Last administered on 08:34; Start 10/03/18 at 21:00 EZETIMIBE (Zetia) 10 mg [id number] PO Last administered on 10/10/18 08:34; Start 10/04/18 at 08:00 Glimepiride (Amaryl) 2 mg DAILY PO Last administered on 10/07/18at 09:39; Start 10/04/18 at 09:00; Stop 10/07/18 at 20:29; Status DC Loperamide HCl (Imodium) 2 mg PRN Q15MIN PRN PO DIARRHEA Last administered on 20:22; Start 10/03/18 at 10:45 Memantine (Namenda) 10 mg BID PO Last administered on 10/10/18 08:32; Start at 21:00 Olanzapine (ZyPREXA) 2.5 mg PRN Q2HR PRN PO AGITATION Last administered on 10/06 20:21; Start 10/03/18 at 10:45 Pantoprazole Sodium (Protonix) 40 mg DAILYAC PO Last administered on 10/10/18 08:33; Start 10/04/18 at 07:30 Quetiapine Fumarate (SEROquel) 12.5 mg DAILY@0900,1300,1700 PO Last administered on 10/10/18 17:41; Start 10/03/18 at 13:00 Rivastigmine (Exelon) 1 patch DAILY TD Last administered on 10/10/18 08:35; Start 10/04/18 at 09:00 Potassium Chloride (Klor-Con) 20 meq TID PO Last administered on 10/06/18at 14: 19; Start 10/03/18 at 21:00; Stop 10/07/18 at 13:48; Status DC Potassium Chloride/Sodium Chloride 1,000 ml @ 75 mls/hr [id number] IV Last administered on 10/04/18 08:20; Start 10/03/18 at 19:30; Stop 10/06/18 at 00:54 ; Status DC Potassium Chloride (KCl Oral Soln) 20 meq TID PEG Last administered on at 14:21; Start 10/04/18 at 14:00 Sodium Chloride 1,000 ml @ 1,000 mls/hr 1X ONCE IV Last administered on 20:03; Start 10/07/18 at 20:00; Stop 10/07/18 at 20:29; Status DC Dextrose/Sodium Chloride 1,000 ml @ 75 mls/hr [id number] IV Last administered on 10/08/18 09:01; Start 10/07/18 at 20:30; Stop 10/09/18 at 06:23; Status DC Active Scripts Active Reported Tamsulosin Hcl 0.4 Mg Cap.er.24h 0.4 Mg PO DAILY Percocet 5-325 Mg Tablet (Oxycodone Hcl/Acetaminophen) 1 Each Tablet 1 Tab PO PRN Q4HRS PRN Anaspaz (Hyoscyamine Sulfate) 0.125 Mg Tab.rapdis 0.125 Mg PO PRN Q4HRS PRN Clonidine Tts-2 (Clonidine) 1 Each Patch.tdwk 1 Patch TD WEEKLY Norvasc (Amlodipine Besylate) 10 Mg Tablet 10 Mg PO DAILY Zoloft (Sertraline Hcl) 50 Mg Tablet 75 Mg PO DAILY Seroquel (Quetiapine Fumarate) 25 Mg Tablet 12.5 Tab PO TID@0900,1300,1700 Protonix (Pantoprazole Sodium) 40 Mg Tablet.dr 40 Mg PO DAILYAC Oxybutynin Chloride 5 Mg Tablet 5 Mg PO [id number] Olanzapine 5 Mg Tablet 2.5 Mg PO PRN Q2HR PRN Mirtazapine 7.5 Mg Tablet 7.5 Mg PO QHS Loperamide (Loperamide Hcl) 2 Mg Capsule 2 Mg PO PRN Q15MIN PRN Glimepiride 2 Mg Tablet 2 Mg PO DAILY Vitamin D3 (Cholecalciferol (Vitamin D3)) 5,000 Unit Tablet 5,000 Unit PO WEEKLY Depakote Sprinkle (Divalproex Sodium) 125 Mg Cap.sprink 250 Mg PO BID Zetia (Ezetimibe) 10 Mg Tablet 10 Mg PO DAILY08 Tylenol (Acetaminophen) 325 Mg Tablet 650 Mg PO PRN Q4HRS PRN EXELON 9.5mg/24hr (Rivastigmine) 1 Each Patch.td24 1 Patch TD DAILY Namenda (Memantine Hcl) 10 Mg Tablet 10 Mg PO BID Aspirin 81 Mg Tab.chew 81 Mg PO DAILY I have reviewed the current psychotropics carefully including drug interactions. Risk benefit ratio favors no change other than as noted in my dictated progress note. Diagnosis: Problems: (1) Dementia with behavioral disturbance (2) Dementia, vascular, with depression (3) Impulse control disorder (4) Anxiety disorder LINO DE PAZ MD Oct 10, 2018 18:25
[2018-10-10] MEDS: MIRTAZAPINE 7.5 MG TABLET. PO SCH (20:00)
[2018-10-10] MEDS: ACETAMINOPHEN 325 MG TABLET PO PRN (20:00)
--- NOTE | 2018-10-10 20:05 | PN ---
DATE: 10/10/2018 SUBJECTIVE: The patient is resting slightly propped up in bed, in his recliner, in no apparent distress. He is confused, but denied any complaint. The nursing staff stated that he has one loose bowel movement today and last night and he did not display any aggressive behavior. He was not combative and was very cooperative and compliant with care and medication. He is able to ambulate without assistance or assistive devices. PHYSICAL EXAMINATION: GENERAL: When I examined him this morning, he looked well and was clearly in no apparent respiratory distress. He was pale, but no jaundice, cyanosis or thyromegaly. No jugular venous distension. No limb edema. VITAL SIGNS: His heart rate was 76, blood pressure was 146/70, temperature was 98.2, respiratory rate was 18 and oxygen saturation was 99%. HEENT: Examination of the head, eyes, ears, nose and throat showed normocephalic, atraumatic. NECK: Supple. HEART: Showed normal first and second heart sounds. No gallop, rub or murmur. CHEST: Clear to auscultation. No crepitation or rhonchi. ABDOMEN: Scaphoid, soft, nontender. NEUROLOGIC: He is demented without any obvious lateralizing sign. All his cranial nerves are intact. EXTREMITIES: He moves extremities without difficulty, ambulates without assistance or assistive devices, although he can be unsteady on his feet. His intake over the last 24 hours and output were incompletely recorded. LABORATORY DATA: His lab work this morning showed a serum sodium 141, potassium 4.7, chloride 104, bicarbonate 30, anion gap of 7, BUN 12, creatinine 1.3, estimated GFR was 53 mL per minute. His glucose was 94, calcium was 9.1. Total bilirubin, AST, ALT, alkaline phosphatase were normal. Total protein was 7.2, albumin 3.1. His white cell count was 5000, hemoglobin 13, hematocrit 39, MCV 90 and platelet count of 263,000. His nasal screen for MRSA by PCR was positive twice. ASSESSMENT: 1. Clostridium difficile colitis for which the patient continues to be on oral vancomycin. He has only one loose bowel movement today and last night. His electrolytes are all within acceptable range. 2. The patient is positive and continued to be positive for methicillin-resistant Staphylococcus aureus in his nostrils. 3. The patient has chronic kidney disease. 4. Benign prostatic hypertrophy. 5. Hypertension. 6. Type 2 diabetes and it seems to be reasonably controlled. 7. Recent sigmoid volvulus, status post decompressive compression by sigmoidoscopy. 8. Hypokalemia, resolved. His most recent serum potassium is 4.3 mEq per liter. PLAN: The plan is to continue with oral vancomycin, continue lactobacillus, continue all the medication, await his acceptance at the [facility] in [place] to be discharged as per his 's wishes. DONOVAN PIPER MD DR: MURALI/nazia JOB#: [id number] / [id number]
[2018-10-10 20:51] VITALS: BP 116/83
--- NOTE | 2018-10-10 22:16 | PDOC ---
Exam Note: Naman Note: Please also refer to the separate dictated note~for this date of service dictated separately.~Patient seen individually. Discussed the patient with Nursing staff reviewed the chart.~Reviewed interim history and current functioning. Reviewed vital signs,~Labs/ Radiology~and current medications noted below. Continue current treatment with the changes noted in the dictated addendum note Assessment: Vital Signs: Vital Signs Date Time Temp Pulse Resp B/P (MAP) Pulse Ox O2 Delivery O2 Flow Rate FiO2 10/10/18 20:51 97.7 78 18 116/83 (94) 94 Room Air I&O Intake and Output 10/10/18 07:01 Intake Total 600 ml Balance 600 ml Intake Oral 600 ml # Voids 5 # Bowel Movements 1 Labs: Laboratory Tests Test 10/10/18 05:55 10/10/18 06:00 10/10/18 07:21 10/10/18 11:35 White Blood Count 5.0 x10^3/uL (4.0-11.0) Red Blood Count 4.41 x10^6/uL (4.30-5.70) Hemoglobin 12.9 g/dL (13.0-17.5) L Hematocrit 39.7 % (39.0-53.0) Mean Corpuscular Volume 90 fL (79-100) Mean Corpuscular Hemoglobin 29 pg (25-35) Mean Corpuscular Hemoglobin Concent 33 g/dL (31-37) Red Cell Distribution Width 14.0 % (11.5-14.5) Platelet Count 263 x10^3/uL (140-400) Neutrophils (%) (Auto) 59 % (31-73) Lymphocytes (%) (Auto) 23 % (24-48) L Monocytes (%) (Auto) 14 % (0-9) H Eosinophils (%) (Auto) 4 % (0-3) H Basophils (%) (Auto) 1 % (0-3) Neutrophils # (Auto) 2.9 x10^3uL (1.8-7.7) Lymphocytes # (Auto) 1.1 x10^3/uL (1.0-4.8) Monocytes # (Auto) 0.7 x10^3/uL (0.0-1.1) Eosinophils # (Auto) 0.2 x10^3/uL (0.0-0.7) Basophils # (Auto) 0.0 x10^3/uL (0.0-0.2) Sodium Level 141 mmol/L (136-145) Potassium Level 4.7 mmol/L (3.5-5.1) Chloride Level 104 mmol/L (98-107) Carbon Dioxide Level 30 mmol/L (21-32) Anion Gap 7 (6-14) Blood Urea Nitrogen 12 mg/dL (8-26) Creatinine 1.3 mg/dL (0.7-1.3) Estimated GFR (Cockcroft-Gault) 53.4 BUN/Creatinine Ratio 9 (6-20) Glucose Level 94 mg/dL (70-99) Calcium Level 9.1 mg/dL (8.5-10.1) Total Bilirubin 0.3 mg/dL (0.2-1.0) Aspartate Amino Transferase (AST) 18 U/L (15-37) Alanine Aminotransferase (ALT) 26 U/L (16-63) Alkaline Phosphatase 105 U/L (46-116) Total Protein 7.2 g/dL (6.4-8.2) Albumin 3.1 g/dL (3.4-5.0) L Albumin/Globulin Ratio 0.8 (1.0-1.7) L Nasal Screen MRSA (PCR) Positive (Negative) Glucose (Fingerstick) 86 mg/dL (70-99) 172 mg/dL (70-99) H Test 10/10/18 17:00 10/10/18 20:11 Glucose (Fingerstick) 88 mg/dL (70-99) 130 mg/dL (70-99) H Current Medications: Meds: Current Medications Vancomycin HCl (Vancomycin Oral Solution) 125 mg [id number] PO Last administered on 10/10/18 20:00; Start 10/03/18 at 13:00; Stop 10/13/18 at 12:59 Lactobacillus Rhamnosus (Culturelle) 1 cap TID PO Last administered on 20:00; Start 10/03/18 at 14:00; Stop 10/13/18 at 13:59 Acetaminophen (Tylenol) 650 mg PRN Q4HRS PRN PO MILD PAIN Last administered on 10/10/18at 20:00; Start 10/03/18 at 10:30 Clonidine HCl (Catapres Tts-2) 1 patch WEEKLY TD Last administered on 08:35; Start 10/10/18 at 09:00 Hyoscyamine (Anaspaz) 0.125 mg PRN Q4HRS PRN PO stomach cramping ; Start at 10:30 Mirtazapine (Remeron) 7.5 mg QHS PO Last administered on 10/10/18 20:00; Start 10/03/18 at 21:00 Oxybutynin Chloride (Ditropan) 5 mg [id number] PO Last administered on 10/10/18 20 :01; Start 10/03/18 at 14:00 Oxycodone/ Acetaminophen (Percocet 5/325) 1 tab PRN Q4HRS PRN PO PAIN; Start at 10:30 Sertraline HCl (Zoloft) 75 mg DAILY PO Last administered on 10/10/18 08:33; Start 10/04/18 at 09:00 Tamsulosin HCl (Flomax) 0.4 mg DAILY PO Last administered on 10/10/18 08:34; Start 10/04/18 at 09:00 Amlodipine Besylate (Norvasc) 10 mg DAILY PO Last administered on 10/10/18 08: 32; Start 10/04/18 at 09:00 Aspirin (Children'S Aspirin) 81 mg [id number] PO Last administered on 08:34; Start 10/04/18 at 08:00 Vitamin D (Vitamin D3) 50,000 unit WEEKLY PO Last administered on 10/10/18 08: 34; Start 10/10/18 at 09:00 Divalproex Sodium (Depakote Sprinkles) 250 mg BID PO Last administered on 20:00; Start 10/03/18 at 21:00 EZETIMIBE (Zetia) 10 mg [id number] PO Last administered on 10/10/18 08:34; Start 10/04/18 at 08:00 Glimepiride (Amaryl) 2 mg DAILY PO Last administered on 10/07/18at 09:39; Start 10/04/18 at 09:00; Stop 10/07/18 at 20:29; Status DC Loperamide HCl (Imodium) 2 mg PRN Q15MIN PRN PO DIARRHEA Last administered on 20:22; Start 10/03/18 at 10:45 Memantine (Namenda) 10 mg BID PO Last administered on 10/10/18 20:00; Start at 21:00 Olanzapine (ZyPREXA) 2.5 mg PRN Q2HR PRN PO AGITATION Last administered on 10/06 20:21; Start 10/03/18 at 10:45 Pantoprazole Sodium (Protonix) 40 mg DAILYAC PO Last administered on 10/10/18 08:33; Start 10/04/18 at 07:30 Quetiapine Fumarate (SEROquel) 12.5 mg DAILY@0900,1300,1700 PO Last administered on 10/10/18 17:41; Start 10/03/18 at 13:00 Rivastigmine (Exelon) 1 patch DAILY TD Last administered on 10/10/18 08:35; Start 10/04/18 at 09:00 Potassium Chloride (Klor-Con) 20 meq TID PO Last administered on 10/06/18at 14: 19; Start 10/03/18 at 21:00; Stop 10/07/18 at 13:48; Status DC Potassium Chloride/Sodium Chloride 1,000 ml @ 75 mls/hr [id number] IV Last administered on 10/04/18 08:20; Start 10/03/18 at 19:30; Stop 10/06/18 at 00:54 ; Status DC Potassium Chloride (KCl Oral Soln) 20 meq TID PEG Last administered on at 20:00; Start 10/04/18 at 14:00 Sodium Chloride 1,000 ml @ 1,000 mls/hr 1X ONCE IV Last administered on 20:03; Start 10/07/18 at 20:00; Stop 10/07/18 at 20:29; Status DC Dextrose/Sodium Chloride 1,000 ml @ 75 mls/hr [id number] IV Last administered on 10/08/18 09:01; Start 10/07/18 at 20:30; Stop 10/09/18 at 06:23; Status DC Active Scripts Active Reported Tamsulosin Hcl 0.4 Mg Cap.er.24h 0.4 Mg PO DAILY Percocet 5-325 Mg Tablet (Oxycodone Hcl/Acetaminophen) 1 Each Tablet 1 Tab PO PRN Q4HRS PRN Anaspaz (Hyoscyamine Sulfate) 0.125 Mg Tab.rapdis 0.125 Mg PO PRN Q4HRS PRN Clonidine Tts-2 (Clonidine) 1 Each Patch.tdwk 1 Patch TD WEEKLY Norvasc (Amlodipine Besylate) 10 Mg Tablet 10 Mg PO DAILY Zoloft (Sertraline Hcl) 50 Mg Tablet 75 Mg PO DAILY Seroquel (Quetiapine Fumarate) 25 Mg Tablet 12.5 Tab PO TID@0900,1300,1700 Protonix (Pantoprazole Sodium) 40 Mg Tablet.dr 40 Mg PO DAILYAC Oxybutynin Chloride 5 Mg Tablet 5 Mg PO [id number] Olanzapine 5 Mg Tablet 2.5 Mg PO PRN Q2HR PRN Mirtazapine 7.5 Mg Tablet 7.5 Mg PO QHS Loperamide (Loperamide Hcl) 2 Mg Capsule 2 Mg PO PRN Q15MIN PRN Glimepiride 2 Mg Tablet 2 Mg PO DAILY Vitamin D3 (Cholecalciferol (Vitamin D3)) 5,000 Unit Tablet 5,000 Unit PO WEEKLY Depakote Sprinkle (Divalproex Sodium) 125 Mg Cap.sprink 250 Mg PO BID Zetia (Ezetimibe) 10 Mg Tablet 10 Mg PO DAILY08 Tylenol (Acetaminophen) 325 Mg Tablet 650 Mg PO PRN Q4HRS PRN EXELON 9.5mg/24hr (Rivastigmine) 1 Each Patch.td24 1 Patch TD DAILY Namenda (Memantine Hcl) 10 Mg Tablet 10 Mg PO BID Aspirin 81 Mg Tab.chew 81 Mg PO DAILY I have reviewed the current psychotropics carefully including drug interactions. Risk benefit ratio favors no change other than as noted in my dictated progress note. Diagnosis: Problems: (1) Proctocolitis (2) Anxiety disorder (3) Depression (4) Impulse control disorder (5) Dementia, vascular, with depression (6) Dementia with behavioral disturbance (7) Ikuzn-ry-ouphavn kidney injury (8) Major neurocognitive disorder LINO DE PAZ MD Oct 10, 2018 22:16
[2018-10-11] VITALS (7 sets, daily range): BP systolic 82–147; BP diastolic 50–70
--- NOTE | 2018-10-11 01:21 | PN ---
DATE: 10/10/2018 SUBJECTIVE: The patient is resting slightly propped up in his recliner, in no apparent distress, sleeping comfortably. He is very confused, but denied any complaint. The nursing staff stated that he has 1 loose bowel movement today, none last night. He did not display any aggressive behavior, combativeness or any other concerning behavior. PHYSICAL EXAMINATION: GENERAL: When I examined him today, he looked well, pale, cachectic, but no jaundice, cyanosis, or thyromegaly. No jugular venous distension. No limb edema. VITAL SIGNS: His heart rate was 76, blood pressure 146/70, temperature was 98.2, respiratory rate was 18 and oxygen saturation was 99%. HEAD, EYES, EARS, NOSE AND THROAT: Showed normocephalic, atraumatic. NECK: Supple. HEART: Showed normal first and second heart sounds with no gallop, rub or murmur. CHEST: Clear to auscultation. No crepitation or rhonchi. ABDOMEN: Distended, soft, nontender. No guarding or rigidity. No organomegaly. All hernial orifices intact. Bowel sounds normal. NEUROLOGIC: DICTATION ENDS HERE DONOVAN PIPER MD DR: MURALI/nazia JOB#: [id number] / [id number]
[2018-10-11] MEDS: OXYBUTYNIN CHLORIDE 5 MG TABLET PO SCH ×3 (07:25→22:38)
[2018-10-11] MEDS: POTASSIUM CHLORIDE 20 MEQ/15 ML ORAL LIQUID. PEG SCH ×3 (07:25→22:38)
[2018-10-11] MEDS: TAMSULOSIN 0.4 MG CAP.ER.24H. PO SCH (07:25)
[2018-10-11] MEDS: DIVALPROEX 125 MG CAP.SPRINK PO SCH ×2 (07:25→22:38)
[2018-10-11] MEDS: QUEtiapine 25 MG TABLET. PO SCH ×3 (07:26→16:57)
[2018-10-11] MEDS: SERTRALINE 50 MG TABLET. PO SCH (07:27)
[2018-10-11] MEDS: EZETIMIBE 10 MG TABLET PO SCH (07:27)
[2018-10-11] MEDS: RIVASTIGMINE 9.5MG PATCH. TD SCH (07:27)
[2018-10-11] MEDS: ASPIRIN 81 MG TAB.CHEW PO SCH (07:27)
[2018-10-11] MEDS: MEMANTINE 10 MG TABLET. PO SCH ×2 (07:27→22:39)
[2018-10-11] MEDS: LACTOBACILLUS RHAMNOSUS GG 1 CAPSULE. PO SCH ×3 (07:27→22:38)
[2018-10-11] MEDS: VANCOMYCIN 125 MG/2.5 ML ORAL SOLUTION. PO SCH ×4 (07:29→22:38)
[2018-10-11] MEDS: PANTOPRAZOLE 40 MG TABLET. PO SCH (07:30)
[2018-10-11] MEDS: amLODIPine BESYLATE 10 MG TABLET PO SCH (07:30)
--- NOTE | 2018-10-11 16:32 | PN ---
DATE: 10/11/2018 SUBJECTIVE: The patient is resting, sitting comfortably in his chair, in no apparent distress. On questioning him, he denied any complaint. The nursing staff did not voice any concerns that he had an uneventful night. He has not had any bowel movement yesterday or today. He has been very pleasant, compliant and cooperative with care and medication. OBJECTIVE: GENERAL: When I examined him, he looked pale, but no jaundice, cyanosis, or thyromegaly. No jugular venous distension. No limb edema. VITAL SIGNS: His heart rate was 50, blood pressure was 94/53, temperature was 97.6, respiratory rate was 18, and oxygen saturation 100%. HEAD, EYES, EARS, NOSE AND THROAT: Normocephalic and atraumatic. NECK: Supple. HEART: Showed normal first and second sounds. No gallop or murmur. CHEST: Clear to auscultation. No crepitation or rhonchi. ABDOMEN: Distended, soft, nontender. NEUROLOGIC: He was demented, but without any obvious lateralizing sign. The patient is able to walk, although at times he is unsteady on his feet. His intake was 600, no output was recorded. No labs were ordered today. ASSESSMENT: 1. Clostridium difficile colitis, resolving. He continues to be on oral vancomycin. He has not had any bowel movement yesterday or today so far. 2. The patient continued to be positive for MRSA in his nostrils. 3. Chronic kidney disease. 4. Benign prostatic hypertrophy. 5. Hypertension. 6. Type 2 diabetes, seems to be reasonably controlled. 7. Recent sigmoid volvulus, status post decompressive sigmoidoscopy. 8. Hyperkalemia, resolved. His most recent serum potassium is 4.7. I will repeat his lab works tomorrow and hopefully, he can be accepted at [facility] in [place] tomorrow. DONOVAN PIPER MD DR: MURALI/nazia JOB#: [id number] / [id number]
--- NOTE | 2018-10-11 22:27 | PDOC ---
Exam Note: Naman Note: Please also refer to the separate dictated note~for this date of service dictated separately.~Patient seen individually. Discussed the patient with Nursing staff reviewed the chart.~Reviewed interim history and current functioning. Reviewed vital signs,~Labs/ Radiology~and current medications noted below. Continue current treatment with the changes noted in the dictated addendum note Assessment: Vital Signs: Vital Signs Date Time Temp Pulse Resp B/P (MAP) Pulse Ox O2 Delivery O2 Flow Rate FiO2 10/11/18 19:35 98.3 67 20 93/53 (66) 94 Room Air I&O Intake and Output 10/11/18 07:01 Intake Total 1320 ml Balance 1320 ml Intake Oral 1320 ml # Voids 5 # Bowel Movements 1 Labs: Laboratory Tests Test 10/11/18 07:19 10/11/18 11:20 10/11/18 16:28 10/11/18 19:51 Glucose (Fingerstick) 82 mg/dL (70-99) 134 mg/dL (70-99) H 113 mg/dL (70-99) H 91 mg/dL (70-99) Current Medications: Meds: Current Medications Vancomycin HCl (Vancomycin Oral Solution) 125 mg [id number] PO Last administered on 10/11/18at 16:57; Start 10/03/18 at 13:00; Stop 10/13/18 at 12:59 Lactobacillus Rhamnosus (Culturelle) 1 cap TID PO Last administered on at 13:28; Start 10/03/18 at 14:00; Stop 10/13/18 at 13:59 Acetaminophen (Tylenol) 650 mg PRN Q4HRS PRN PO MILD PAIN Last administered on 10/10/18at 20:00; Start 10/03/18 at 10:30 Clonidine HCl (Catapres Tts-2) 1 patch WEEKLY TD Last administered on at 08:35; Start 10/10/18 at 09:00 Hyoscyamine (Anaspaz) 0.125 mg PRN Q4HRS PRN PO stomach cramping ; Start at 10:30 Mirtazapine (Remeron) 7.5 mg QHS PO Last administered on 10/10/18at 20:00; Start 10/03/18 at 21:00 Oxybutynin Chloride (Ditropan) 5 mg [id number] PO Last administered on 10/11/18 13 :27; Start 10/03/18 at 14:00 Oxycodone/ Acetaminophen (Percocet 5/325) 1 tab PRN Q4HRS PRN PO PAIN; Start at 10:30 Sertraline HCl (Zoloft) 75 mg DAILY PO Last administered on 10/11/18 07:27; Start 10/04/18 at 09:00 Tamsulosin HCl (Flomax) 0.4 mg DAILY PO Last administered on 10/11/18 07:25; Start 10/04/18 at 09:00 Amlodipine Besylate (Norvasc) 10 mg DAILY PO Last administered on 10/11/18 07: 30; Start 10/04/18 at 09:00 Aspirin (Children'S Aspirin) 81 mg DAILYWBKFT PO Last administered on 07:27; Start 10/04/18 at 08:00 Vitamin D (Vitamin D3) 50,000 unit WEEKLY PO Last administered on 10/10/18 08: 34; Start 10/10/18 at 09:00 Divalproex Sodium (Depakote Sprinkles) 250 mg BID PO Last administered on 07:25; Start 10/03/18 at 21:00 EZETIMIBE (Zetia) 10 mg DAILY08 PO Last administered on 10/11/18 07:27; Start 10/04/18 at 08:00 Glimepiride (Amaryl) 2 mg DAILY PO Last administered on 10/07/18 09:39; Start 10/04/18 at 09:00; Stop 10/07/18 at 20:29; Status DC Loperamide HCl (Imodium) 2 mg PRN Q15MIN PRN PO DIARRHEA Last administered on 20:22; Start 10/03/18 at 10:45 Memantine (Namenda) 10 mg BID PO Last administered on 10/11/18 07:27; Start at 21:00 Olanzapine (ZyPREXA) 2.5 mg PRN Q2HR PRN PO AGITATION Last administered on 10/06 20:21; Start 10/03/18 at 10:45 Pantoprazole Sodium (Protonix) 40 mg DAILYAC PO Last administered on 10/11/18 07:30; Start 10/04/18 at 07:30 Quetiapine Fumarate (SEROquel) 12.5 mg DAILY@0900,1300,1700 PO Last administered on 10/11/18 16:57; Start 10/03/18 at 13:00 Rivastigmine (Exelon) 1 patch DAILY TD Last administered on 10/11/18 07:27; Start 10/04/18 at 09:00 Potassium Chloride (Klor-Con) 20 meq TID PO Last administered on 10/06/18at 14: 19; Start 10/03/18 at 21:00; Stop 10/07/18 at 13:48; Status DC Potassium Chloride/Sodium Chloride 1,000 ml @ 75 mls/hr [id number] IV Last administered on 10/04/18 08:20; Start 10/03/18 at 19:30; Stop 10/06/18 at 00:54 ; Status DC Potassium Chloride (KCl Oral Soln) 20 meq TID PEG Last administered on at 13:27; Start 10/04/18 at 14:00 Sodium Chloride 1,000 ml @ 1,000 mls/hr 1X ONCE IV Last administered on 20:03; Start 10/07/18 at 20:00; Stop 10/07/18 at 20:29; Status DC Dextrose/Sodium Chloride 1,000 ml @ 75 mls/hr [id number] IV Last administered on 10/08/18at 09:01; Start 10/07/18 at 20:30; Stop 10/09/18 at 06:23; Status DC Active Scripts Active Reported Tamsulosin Hcl 0.4 Mg Cap.er.24h 0.4 Mg PO DAILY Percocet 5-325 Mg Tablet (Oxycodone Hcl/Acetaminophen) 1 Each Tablet 1 Tab PO PRN Q4HRS PRN Anaspaz (Hyoscyamine Sulfate) 0.125 Mg Tab.rapdis 0.125 Mg PO PRN Q4HRS PRN Clonidine Tts-2 (Clonidine) 1 Each Patch.tdwk 1 Patch TD WEEKLY Norvasc (Amlodipine Besylate) 10 Mg Tablet 10 Mg PO DAILY Zoloft (Sertraline Hcl) 50 Mg Tablet 75 Mg PO DAILY Seroquel (Quetiapine Fumarate) 25 Mg Tablet 12.5 Tab PO TID@0900,1300,1700 Protonix (Pantoprazole Sodium) 40 Mg Tablet.dr 40 Mg PO DAILYAC Oxybutynin Chloride 5 Mg Tablet 5 Mg PO [id number] Olanzapine 5 Mg Tablet 2.5 Mg PO PRN Q2HR PRN Mirtazapine 7.5 Mg Tablet 7.5 Mg PO QHS Loperamide (Loperamide Hcl) 2 Mg Capsule 2 Mg PO PRN Q15MIN PRN Glimepiride 2 Mg Tablet 2 Mg PO DAILY Vitamin D3 (Cholecalciferol (Vitamin D3)) 5,000 Unit Tablet 5,000 Unit PO WEEKLY Depakote Sprinkle (Divalproex Sodium) 125 Mg Cap.sprink 250 Mg PO BID Zetia (Ezetimibe) 10 Mg Tablet 10 Mg PO DAILY08 Tylenol (Acetaminophen) 325 Mg Tablet 650 Mg PO PRN Q4HRS PRN EXELON 9.5mg/24hr (Rivastigmine) 1 Each Patch.td24 1 Patch TD DAILY Namenda (Memantine Hcl) 10 Mg Tablet 10 Mg PO BID Aspirin 81 Mg Tab.chew 81 Mg PO DAILY I have reviewed the current psychotropics carefully including drug interactions. Risk benefit ratio favors no change other than as noted in my dictated progress note. Diagnosis: Problems: (1) Proctocolitis (2) Anxiety disorder (3) Depression (4) Impulse control disorder (5) Dementia, vascular, with depression (6) Dementia with behavioral disturbance (7) Onwmz-uq-nkfsnse kidney injury (8) Major neurocognitive disorder LINO DE PAZ MD Oct 11, 2018 22:27
[2018-10-11] MEDS: MIRTAZAPINE 7.5 MG TABLET. PO SCH (22:38)
--- NOTE | 2018-10-11 22:50 | PN ---
DATE: 10/10/2018 PSYCHIATRIC PROGRESS NOTE This late entry 10/10/2018 covers elements, not covered in my initial note. SUBJECTIVE: I met with the patient in the evening. Per nursing report, the patient remains confused, slowly recovering from the C. diff colitis, but behaviorally quite manageable, pleasant, interactive, but oblivious of his surroundings. I met with him in his room. He is trying to settle his bed, but unaware of where he is, very pleasant, smiling. REVIEW OF SYSTEMS: No CV, , pulmonary, eye, ENT system symptoms on review and he was unsure about his diarrhea questioning. MENTAL STATUS EXAM: Oriented to himself. Insight, judgment, recent and remote memory, attention, concentration, fund of knowledge poor, consistent with his diagnosis. IMPRESSION: Major neurocognitive disorder, Alzheimer, vascular with delusion, depression, behavioral disturbance. C. diff colitis, recovering; anxiety disorder, unspecified; impulse control disorder, unspecified. PLAN: I have been informed that case management is looking at transition back to longterm after he is medically stable. I have seen the patient daily inpatient for the last several days. Despite his C. diff colitis, he has been pleasant, cooperative, not agitated, aggressive. We maintained his psychotropics unchanged with ongoing stability and I feel once he is medically stable, he can return back to the longterm. At this stage, he does not seem to require readmission for inpatient psychiatric stabilization. I have relayed all this to the nursing staff for communication to the case management. LINO DE PAZ MD DR: RUBY/nazia JOB#: [id number] / [id number]
[2018-10-12 00:44] VITALS: BP 93/57
--- NOTE | 2018-10-12 02:04 | PN ---
DATE: 10/11/2018 This notes covers elements not covered in my initial note of 10/11/2018. SUBJECTIVE: I met with the patient in the evening. Discussed with nursing staff. Overall, the patient has been pleasant, cooperative, certainly confused and his C. diff diarrhea has improved. Behaviorally, he has been quite stable, pleasant. REVIEW OF SYSTEMS: No CV, , pulmonary, eye, ENT system symptoms on review. Reliability poor. I met with him in his room. MENTAL STATUS EXAM: Oriented to himself. Insight, judgment, recent and remote memory, attention, concentration, fund of knowledge poor, consistent with his diagnosis mentioned in my initial note. IMPRESSION: Major neurocognitive disorder, Alzheimer, vascular with delusion, depression, behavioral disturbance. Rest unchanged. PLAN: No change from initial note. The patient may transfer to the nursing facility once he is medically stable. MAN Nilesh DE PAZ MD DR: RUBY/nazia JOB#: [id number] / [id number]
[2018-10-12 05:49] VITALS: BP 122/70
[2018-10-12 06:30] LABS: CALCIUM 8.7 mg/dL (8.5-10.1); CREATININE 1.7 mg/dL (0.7-1.3); GFR 39.2; POTASSIUM 4.7 mmol/L (3.5-5.1)
[2018-10-12] MEDS: POTASSIUM CHLORIDE 20 MEQ/15 ML ORAL LIQUID. PEG SCH ×3 (08:59→20:46)
[2018-10-12] MEDS: amLODIPine BESYLATE 10 MG TABLET PO SCH (09:00)
[2018-10-12] MEDS: VANCOMYCIN 125 MG/2.5 ML ORAL SOLUTION. PO SCH ×4 (09:00→20:46)
[2018-10-12] MEDS: RIVASTIGMINE 9.5MG PATCH. TD SCH (09:00)
[2018-10-12] MEDS: EZETIMIBE 10 MG TABLET PO SCH (09:01)
[2018-10-12] MEDS: PANTOPRAZOLE 40 MG TABLET. PO SCH (09:01)
[2018-10-12] MEDS: TAMSULOSIN 0.4 MG CAP.ER.24H. PO SCH (09:01)
[2018-10-12] MEDS: MEMANTINE 10 MG TABLET. PO SCH ×2 (09:01→20:46)
[2018-10-12] MEDS: LACTOBACILLUS RHAMNOSUS GG 1 CAPSULE. PO SCH ×3 (09:01→20:47)
[2018-10-12] MEDS: OXYBUTYNIN CHLORIDE 5 MG TABLET PO SCH ×3 (09:01→20:47)
[2018-10-12] MEDS: DIVALPROEX 125 MG CAP.SPRINK PO SCH ×2 (09:01→20:46)
[2018-10-12] MEDS: SERTRALINE 50 MG TABLET. PO SCH (09:03)
[2018-10-12] MEDS: QUEtiapine 25 MG TABLET. PO SCH ×3 (09:04→16:16)
[2018-10-12] MEDS: ASPIRIN 81 MG TAB.CHEW PO SCH (09:05)
[2018-10-12 11:08] VITALS: BP 101/61
[2018-10-12] MEDS ORDERED: IV NORMAL SALINE 500ML 500 ML IV ONE (14:45)
[2018-10-12] MEDS: IV NORMAL SALINE 1,000ML 1,000 ML IV SCH (15:34)
[2018-10-12 15:52] VITALS: BP 108/66
[2018-10-12 19:15] VITALS: BP 109/70
--- NOTE | 2018-10-12 19:31 | PN ---
DATE: 10/12/2018 SUBJECTIVE: The patient is resting slightly propped up in bed, sleepy, but arousable. Nursing staff were concerned that his blood pressure and a heart rate are low. His heart rate is actually in the low 40 and his blood pressure is in between 90-110. His amlodipine was held by the nursing staff and although yesterday, he has retained about 500 mL. We did check ____ is only about 200 and his sodium has dropped to 130 and creatinine have dramatically risen to 1.7 from 1.3. PHYSICAL EXAMINATION: GENERAL: When I examined him this afternoon, he looked pale, cachectic, but no jaundice, cyanosis, or thyromegaly. No jugular venous distension. No limb edema. VITAL SIGNS: His heart rate was 49, blood pressure was 101/61, temperature was 97.9, respiratory rate was 16, and oxygen saturation was 96% on room air. HEAD, EYES, EARS, NOSE AND THROAT: Showed normocephalic, atraumatic. NECK: Supple. HEART: Showed normal first and second sounds. No gallop or murmur. CHEST: Clear to auscultation. No crepitation or rhonchi. ABDOMEN: Scaphoid, soft, nontender. No guarding or rigidity. No organomegaly. All hernial orifices intact. Bowel sounds normal. NEUROLOGIC: He was demented, but without any obvious lateralizing sign. All his cranial nerves are intact. He moves extremities without difficulty, although he is very sleepy today and mostly in bed. He has not eaten even his lunch today. LABORATORY DATA: This morning showed a serum sodium 130, potassium 4.7, chloride 100, bicarbonate 30, anion gap 0, BUN 22, creatinine 1.7, estimated GFR was 39 mL per minute. His glucose was 100 and calcium was 8.7. ASSESSMENT: 1. Hypotension and bradycardia, likely due to clonidine effect. I will discontinue the clonidine patch and will give him a bolus of normal saline and monitor his output closely and he might have to end up having an indwelling Navarro catheter. 2. Proceed Clostridium difficile colitis, resolving. In fact, the patient has not had any bowel movement yesterday or today so far. He continues to be on oral vancomycin. 3. The patient continued to be positive for methicillin-resistant Staphylococcus aureus in his nostrils. 4. Chronic kidney disease. 5. Benign prostatic hypertrophy. 6. Hypertension. 7. Type 2 diabetes, seems to be reasonably controlled. 8. Recent sigmoid volvulus, status post decompressive sigmoidoscopy. 9. Hyperkalemia, resolved. His most recent serum potassium was 4.7. PLAN: My plan is to do a 12-lead EKG, discontinue clonidine patch, give him a bolus of normal saline and decide the further management accordingly. DONOVAN PIPER MD DR: MURALI/nazia JOB#: [id number] / [id number]
[2018-10-12] MEDS: MIRTAZAPINE 7.5 MG TABLET. PO SCH (20:47)
[2018-10-12 23:18] VITALS: BP 107/54
[2018-10-13 05:11] VITALS: BP 121/64
[2018-10-13] MEDS: IV NORMAL SALINE 1,000ML 1,000 ML IV SCH ×2 (05:20→17:41)
[2018-10-13 06:25] LABS: HEMOGLOBIN 11.9 g/dL (13.0-17.5); RED BLOOD COUNT 4.01 x10^6/uL (4.30-5.70); WHITE BLOOD COUNT 7.4 x10^3/uL (4.0-11.0)
[2018-10-13 06:27] LABS: CALCIUM 8.5 mg/dL (8.5-10.1); CREATININE 1.4 mg/dL (0.7-1.3); POTASSIUM 5.1 mmol/L (3.5-5.1)
[2018-10-13] MEDS: QUEtiapine 25 MG TABLET. PO SCH (09:00)
[2018-10-13] MEDS: POTASSIUM CHLORIDE 20 MEQ/15 ML ORAL LIQUID. PEG SCH ×3 (09:00→21:00)
--- NOTE | 2018-10-13 10:01 | PDOC2 ---
CONSULT Date of Admission DATE: 10/13/18 TIME: 09:59 Reason for Consult: bradycardia History of Present Illness Mr Hilario is a 78 year old male who was originally admitted in early September, [facility] a [facility] from [facility] on account of increasing confusion, being progressively more of combative, destructive, having marked insomnia, and being paranoid and delusional. He apparently developed diarrhea which was found to be positive for C-diff so transferred to medical on 10/03/18. Yesterday he apparently developed some hypotension in the early am . He has been noted to be bradycardic as well, so a consult was called. His Catapres patch was discontinued and he was given fluid bolus yesterday evening. His QTC wasnoted to be prolonged so Seroquel was discontinued as well. Pharmacy did review his medications and there were 3 meds which are noted to have potential for bradycardia. Today he remains mildly bradycardia, but without symptoms. Tele reveals sinus riaz in the upper 40-lower 50's without any significant conduction abnormality. He denies chest pain, dyspnea or congestive symptoms. He is a fairly poor historian so history is obtained from the chart. Past Medical History type 2 diabetes, chronic kidney disease, hypertension, benign prostatic hypertrophy, sigmoid volvulus requiring sigmoidoscopy for decompression, colitis Cardiovascular: HTN GI: GERD, Other (proctocolitis, vovlus) Psych: Other (Alzheimer dementia) Past Surgical History tooth extraction recently, flexible sigmoidoscopy and sigmoid volvulus to compression. Family History noncontributory Social History resident at [facility]. prior history (remote) smoking. no ETOH or drug abuse. Current Medications Current Medications Vancomycin HCl (Vancomycin Oral Solution) 125 mg [id number] PO Last administered on 10/12/18at 20:46; Start 10/03/18 at 13:00; Stop 10/13/18 at 12:59 Lactobacillus Rhamnosus (Culturelle) 1 cap TID PO Last administered on at 20:47; Start 10/03/18 at 14:00; Stop 10/13/18 at 13:59 Acetaminophen (Tylenol) 650 mg PRN Q4HRS PRN PO MILD PAIN Last administered on 10/10/18at 20:00; Start 10/03/18 at 10:30 Clonidine HCl (Catapres Tts-2) 1 patch WEEKLY TD Last administered on 08:35; Start 10/10/18 at 09:00; Stop 10/12/18 at 14:35; Status DC Hyoscyamine (Anaspaz) 0.125 mg PRN Q4HRS PRN PO stomach cramping ; Start at 10:30 Mirtazapine (Remeron) 7.5 mg QHS PO Last administered on 10/11/18 22:38; Start 10/03/18 at 21:00 Oxybutynin Chloride (Ditropan) 5 mg [id number] PO Last administered on 10/12/18 20 :47; Start 10/03/18 at 14:00 Oxycodone/ Acetaminophen (Percocet 5/325) 1 tab PRN Q4HRS PRN PO PAIN; Start at 10:30 Sertraline HCl (Zoloft) 75 mg DAILY PO Last administered on 10/12/18 09:03; Start 10/04/18 at 09:00 Tamsulosin HCl (Flomax) 0.4 mg DAILY PO Last administered on 10/12/18 09:01; Start 10/04/18 at 09:00 Amlodipine Besylate (Norvasc) 10 mg DAILY PO Last administered on 10/11/18 07: 30; Start 10/04/18 at 09:00; Stop 10/12/18 at 14:36; Status DC Aspirin (Children'S Aspirin) 81 mg [id number] PO Last administered on 09:05; Start 10/04/18 at 08:00 Vitamin D (Vitamin D3) 50,000 unit WEEKLY PO Last administered on 10/10/18 08: 34; Start 10/10/18 at 09:00 Divalproex Sodium (Depakote Sprinkles) 250 mg BID PO Last administered on 20:46; Start 10/03/18 at 21:00 EZETIMIBE (Zetia) 10 mg DAILY08 PO Last administered on 10/12/18 09:01; Start 10/04/18 at 08:00 Glimepiride (Amaryl) 2 mg DAILY PO Last administered on 10/07/18 09:39; Start 10/04/18 at 09:00; Stop 10/07/18 at 20:29; Status DC Loperamide HCl (Imodium) 2 mg PRN Q15MIN PRN PO DIARRHEA Last administered on 20:22; Start 10/03/18 at 10:45 Memantine (Namenda) 10 mg BID PO Last administered on 10/12/18 20:46; Start at 21:00 Olanzapine (ZyPREXA) 2.5 mg PRN Q2HR PRN PO AGITATION Last administered on 10/06 20:21; Start 10/03/18 at 10:45 Pantoprazole Sodium (Protonix) 40 mg DAILYAC PO Last administered on 10/12/18 09:01; Start 10/04/18 at 07:30 Quetiapine Fumarate (SEROquel) 12.5 mg DAILY@0900,1300,1700 PO Last administered on 10/12/18 13:28; Start 10/03/18 at 13:00 Rivastigmine (Exelon) 1 patch DAILY TD Last administered on 10/12/18 09:00; Start 10/04/18 at 09:00 Potassium Chloride (Klor-Con) 20 meq TID PO Last administered on 10/06/18 14: 19; Start 10/03/18 at 21:00; Stop 10/07/18 at 13:48; Status DC Potassium Chloride/Sodium Chloride 1,000 ml @ 75 mls/hr [id number] IV Last administered on 10/04/18 08:20; Start 10/03/18 at 19:30; Stop 10/06/18 at 00:54 ; Status DC Potassium Chloride (KCl Oral Soln) 20 meq TID PEG Last administered on 20:46; Start 10/04/18 at 14:00 Sodium Chloride 1,000 ml @ 1,000 mls/hr 1X ONCE IV Last administered on 20:03; Start 10/07/18 at 20:00; Stop 10/07/18 at 20:29; Status DC Dextrose/Sodium Chloride 1,000 ml @ 75 mls/hr [id number] IV Last administered on 10/08/18 09:01; Start 10/07/18 at 20:30; Stop 10/09/18 at 06:23; Status DC Sodium Chloride 500 ml @ 0 mls/hr 1X ONCE IV Last administered on 10/12/18at 15 :34; Start 10/12/18 at 14:45; Stop 10/12/18 at 14:46; Status DC Sodium Chloride 1,000 ml @ 75 mls/hr [id number] IV Last administered on at 05:20; Start 10/12/18 at 14:45 Active Scripts Active Reported Tamsulosin Hcl 0.4 Mg Cap.er.24h 0.4 Mg PO DAILY Percocet 5-325 Mg Tablet (Oxycodone Hcl/Acetaminophen) 1 Each Tablet 1 Tab PO PRN Q4HRS PRN Anaspaz (Hyoscyamine Sulfate) 0.125 Mg Tab.rapdis 0.125 Mg PO PRN Q4HRS PRN Clonidine Tts-2 (Clonidine) 1 Each Patch.tdwk 1 Patch TD WEEKLY Norvasc (Amlodipine Besylate) 10 Mg Tablet 10 Mg PO DAILY Zoloft (Sertraline Hcl) 50 Mg Tablet 75 Mg PO DAILY Seroquel (Quetiapine Fumarate) 25 Mg Tablet 12.5 Tab PO TID@0900,1300,1700 Protonix (Pantoprazole Sodium) 40 Mg Tablet.dr 40 Mg PO DAILYAC Oxybutynin Chloride 5 Mg Tablet 5 Mg PO [id number] Olanzapine 5 Mg Tablet 2.5 Mg PO PRN Q2HR PRN Mirtazapine 7.5 Mg Tablet 7.5 Mg PO QHS Loperamide (Loperamide Hcl) 2 Mg Capsule 2 Mg PO PRN Q15MIN PRN Glimepiride 2 Mg Tablet 2 Mg PO DAILY Vitamin D3 (Cholecalciferol (Vitamin D3)) 5,000 Unit Tablet 5,000 Unit PO WEEKLY Depakote Sprinkle (Divalproex Sodium) 125 Mg Cap.sprink 250 Mg PO BID Zetia (Ezetimibe) 10 Mg Tablet 10 Mg PO DAILY08 Tylenol (Acetaminophen) 325 Mg Tablet 650 Mg PO PRN Q4HRS PRN EXELON 9.5mg/24hr (Rivastigmine) 1 Each Patch.td24 1 Patch TD DAILY Namenda (Memantine Hcl) 10 Mg Tablet 10 Mg PO BID Aspirin 81 Mg Tab.chew 81 Mg PO DAILY Allergies: Coded Allergies: Penicillins (Verified Allergy, Intermediate, 09/06/18) amoxicillin (Verified Allergy, Intermediate, 09/06/18) I S O L A T I O N *CONTACT* (Verified Allergy, Unknown, 09/22/18) +MRSA nares 09/20/18 Review of System as per HPI or negative General: Alert, Cooperative, No acute distress HEENT: Atraumatic Lungs: Clear to auscultation, Normal air movement Heart: Normal S1, Normal S2, Other (no obvious murmurs, no gallops, clicks or rubs) Abdomen: Normal bowel sounds, Soft Extremities: No cyanosis, Normal pulses Psych/Mental Status: Mood NL VITALS Vital Signs Date Time Temp Pulse Resp B/P (MAP) Pulse Ox O2 Delivery O2 Flow Rate FiO2 10/13/18 05:11 97.9 50 18 121/64 (83) 99 Room Air Labs Laboratory Tests Test 10/11/18 11:20 10/11/18 16:28 10/11/18 19:51 10/11/18 23:32 Glucose (Fingerstick) 134 mg/dL (70-99) 113 mg/dL (70-99) 91 mg/dL (70-99) 106 mg/dL (70-99) Test 10/12/18 05:40 10/12/18 08:05 10/12/18 11:36 10/12/18 16:55 Sodium Level 130 mmol/L (136-145) Potassium Level 4.7 mmol/L (3.5-5.1) Chloride Level 100 mmol/L (98-107) Carbon Dioxide Level 30 mmol/L (21-32) Anion Gap 0 (6-14) Blood Urea Nitrogen 22 mg/dL (8-26) Creatinine 1.7 mg/dL (0.7-1.3) Estimated GFR (Cockcroft-Gault) 39.2 Glucose Level 100 mg/dL (70-99) Calcium Level 8.7 mg/dL (8.5-10.1) Glucose (Fingerstick) 84 mg/dL (70-99) 124 mg/dL (70-99) 88 mg/dL (70-99) Test 10/12/18 20:24 10/13/18 05:50 Glucose (Fingerstick) 101 mg/dL (70-99) White Blood Count 7.4 x10^3/uL (4.0-11.0) Red Blood Count 4.01 x10^6/uL (4.30-5.70) Hemoglobin 11.9 g/dL (13.0-17.5) Hematocrit 36.0 % (39.0-53.0) Mean Corpuscular Volume 90 fL (79-100) Mean Corpuscular Hemoglobin 30 pg (25-35) Mean Corpuscular Hemoglobin Concent 33 g/dL (31-37) Red Cell Distribution Width 14.0 % (11.5-14.5) Platelet Count 248 x10^3/uL (140-400) Sodium Level 140 mmol/L (136-145) Potassium Level 5.1 mmol/L (3.5-5.1) Chloride Level 104 mmol/L (98-107) Carbon Dioxide Level 29 mmol/L (21-32) Anion Gap 7 (6-14) Blood Urea Nitrogen 21 mg/dL (8-26) Creatinine 1.4 mg/dL (0.7-1.3) Estimated GFR (Cockcroft-Gault) 49.0 Glucose Level 99 mg/dL (70-99) Calcium Level 8.5 mg/dL (8.5-10.1) Images EKG - sinus bradycardia, no acute ischemic changes, QTC>450 Assessment/Plan 1. Sinus bradycardia with prolonged QT - stop seroquel. Repeat EKG for QT. Sinus riaz stable without symptoms at rest. Suggest 6 min walk to eval for chronotropic response. Agree with stopping Catapres patch. Continue to monitor , currently no indication for PPM as he is asymptomatic. Re-evaluate and may need to adjust other meds with associated bradycardia if he becomes symptomatic or poor chronotropic response on walk test. 2. hypotension - likely secondary to acute dehydration secondary to c-diff diarrhea. Improved after fluid bolus. 3. acute renal insufficiency secondary to dehydration with diarrhea - Cr this am down to 1.4 from 1.7 yesterday. continue to monitor. 4. c - diff colitis - diarrhea resolving. mgmt per PCP 5. MRSA +, nares - per PCP 6/ diabetes mellitus - per PCP. EKTA YBARRA APRN Oct 13, 2018 10:01
[2018-10-13] MEDS: VANCOMYCIN 125 MG/2.5 ML ORAL SOLUTION. PO SCH ×4 (10:52→21:14)
[2018-10-13] MEDS: LACTOBACILLUS RHAMNOSUS GG 1 CAPSULE. PO SCH (10:52)
[2018-10-13] MEDS: ASPIRIN 81 MG TAB.CHEW PO SCH (10:52)
[2018-10-13] MEDS: DIVALPROEX 125 MG CAP.SPRINK PO SCH ×2 (10:52→21:14)
[2018-10-13] MEDS: MEMANTINE 10 MG TABLET. PO SCH ×2 (10:52→21:14)
[2018-10-13] MEDS: PANTOPRAZOLE 40 MG TABLET. PO SCH (10:53)
[2018-10-13] MEDS: RIVASTIGMINE 9.5MG PATCH. TD SCH (10:53)
[2018-10-13] MEDS: EZETIMIBE 10 MG TABLET PO SCH (10:54)
[2018-10-13] MEDS: TAMSULOSIN 0.4 MG CAP.ER.24H. PO SCH (10:54)
[2018-10-13] MEDS: SERTRALINE 50 MG TABLET. PO SCH (10:54)
[2018-10-13] MEDS: OXYBUTYNIN CHLORIDE 5 MG TABLET PO SCH ×3 (10:54→21:14)
[2018-10-13 11:13] VITALS: BP 108/61
--- NOTE | 2018-10-13 13:22 | PN ---
DATE: SUBJECTIVE: A 78-year-old male DNR. Apparently, he has been in for C. difficile colitis. The patient is resting fairly comfortably and making fairly good progress. The patient has severe Alzheimer dementia type and other than that, he seems to be resting fairly comfortably. OBJECTIVE: VITAL SIGNS: Blood pressure 120/60, respiration 18, pulse 50. GENERAL: Cardiology sees him for his bradycardia. He is afebrile. The patient is alert, but slightly confused and other than that, he seems to be resting fairly comfortably. LUNGS: Diminished. CARDIOVASCULAR: Eddy. ABDOMEN: Soft, nontender, no rebound or guarding. Positive bowel sounds, no hepatosplenomegaly. EXTREMITIES: No clubbing, cyanosis, or edema. PLAN: The patient's stools, he is still having about 4 per day. He is on fluids as well as some vancomycin. We will continue to monitor his electrolytes and make further evaluation on him as indicated. IMPRESSION: C. difficile colitis, diarrhea, bradycardia, acute kidney disease, possible proctitis, colitis. Family does not want to be aggressive with an easy further evaluation on his GI disorders. RITO MOHAMUD MD DR: ISAÍAS/nazia JOB#: [id number] / [id number]
--- NOTE | 2018-10-13 15:19 | PN ---
DATE: 10/12/2018 PSYCHIATRIC PROGRESS NOTE This note covers elements not covered in my initial note 10/12/2018. The patient was seen individually evening of 10/12/2018. He remains confused, but behaviorally, he has been fairly appropriate, not aggressive, disruptive. He is gradually recovering from the C. diff colitis. He does ambulate on his own. REVIEW OF SYSTEMS: No CV, , pulmonary, eye system symptoms on review. Reliability poor. MENTAL STATUS EXAM: Oriented to himself. Insight, judgment, recent and remote memory, attention, concentration, fund of knowledge poor, consistent with his diagnosis mentioned in my initial note. PLAN: No change from initial note. MAN Nilesh DE PAZ MD DR: RUBY/nazia JOB#: [id number] / [id number]
[2018-10-13 15:43] VITALS: BP 136/63
--- NOTE | 2018-10-13 18:32 | PDOC ---
Exam Note: Naman Note: Please also refer to the separate dictated note~for this date of service dictated separately.~Patient seen individually. Discussed the patient with Nursing staff reviewed the chart.~Reviewed interim history and current functioning. Reviewed vital signs,~Labs/ Radiology~and current medications noted below. Continue current treatment with the changes noted in the dictated addendum note Assessment: Vital Signs: Vital Signs Date Time Temp Pulse Resp B/P (MAP) Pulse Ox O2 Delivery O2 Flow Rate FiO2 10/13/18 15:43 97.5 57 20 136/63 (87) 96 Room Air I&O Intake and Output 10/13/18 07:01 Intake Total 2272.72 ml Balance 2272.72 ml Intake Oral 830 ml IV Total 1442.72 ml # Voids 4 Labs: Laboratory Tests Test 10/12/18 20:24 10/13/18 05:50 10/13/18 12:02 10/13/18 16:58 Glucose (Fingerstick) 101 mg/dL (70-99) H 169 mg/dL (70-99) H 105 mg/dL (70-99) H White Blood Count 7.4 x10^3/uL (4.0-11.0) Red Blood Count 4.01 x10^6/uL (4.30-5.70) L Hemoglobin 11.9 g/dL (13.0-17.5) L Hematocrit 36.0 % (39.0-53.0) L Mean Corpuscular Volume 90 fL (79-100) Mean Corpuscular Hemoglobin 30 pg (25-35) Mean Corpuscular Hemoglobin Concent 33 g/dL (31-37) Red Cell Distribution Width 14.0 % (11.5-14.5) Platelet Count 248 x10^3/uL (140-400) Sodium Level 140 mmol/L (136-145) Potassium Level 5.1 mmol/L (3.5-5.1) Chloride Level 104 mmol/L (98-107) Carbon Dioxide Level 29 mmol/L (21-32) Anion Gap 7 (6-14) Blood Urea Nitrogen 21 mg/dL (8-26) Creatinine 1.4 mg/dL (0.7-1.3) H Estimated GFR (Cockcroft-Gault) 49.0 Glucose Level 99 mg/dL (70-99) Calcium Level 8.5 mg/dL (8.5-10.1) Thyroid Stimulating Hormone (TSH) 0.738 uIU/mL (0.358-3.740) Current Medications: Meds: Current Medications Vancomycin HCl (Vancomycin Oral Solution) 125 mg [id number] PO Last administered on 10/13/18 10:52; Start 10/03/18 at 13:00; Stop 10/13/18 at 12:59; Status DC Lactobacillus Rhamnosus (Culturelle) 1 cap TID PO Last administered on 10:52; Start 10/03/18 at 14:00; Stop 10/13/18 at 13:59; Status DC Acetaminophen (Tylenol) 650 mg PRN Q4HRS PRN PO MILD PAIN Last administered on 10/10/18 20:00; Start 10/03/18 at 10:30 Clonidine HCl (Catapres Tts-2) 1 patch WEEKLY TD Last administered on 08:35; Start 10/10/18 at 09:00; Stop 10/12/18 at 14:35; Status DC Hyoscyamine (Anaspaz) 0.125 mg PRN Q4HRS PRN PO stomach cramping ; Start at 10:30 Mirtazapine (Remeron) 7.5 mg QHS PO Last administered on 10/11/18at 22:38; Start 10/03/18 at 21:00 Oxybutynin Chloride (Ditropan) 5 mg [id number] PO Last administered on 10/13/18at 15 :11; Start 10/03/18 at 14:00 Oxycodone/ Acetaminophen (Percocet 5/325) 1 tab PRN Q4HRS PRN PO PAIN; Start at 10:30 Sertraline HCl (Zoloft) 75 mg DAILY PO Last administered on 10/13/18 10:54; Start 10/04/18 at 09:00 Tamsulosin HCl (Flomax) 0.4 mg DAILY PO Last administered on 10/13/18 10:54; Start 10/04/18 at 09:00 Amlodipine Besylate (Norvasc) 10 mg DAILY PO Last administered on 10/11/18at 07: 30; Start 10/04/18 at 09:00; Stop 10/12/18 at 14:36; Status DC Aspirin (Children'S Aspirin) 81 mg DAILYWBKFT PO Last administered on 10:52; Start 10/04/18 at 08:00 Vitamin D (Vitamin D3) 50,000 unit WEEKLY PO Last administered on 10/10/18at 08: 34; Start 10/10/18 at 09:00 Divalproex Sodium (Depakote Sprinkles) 250 mg BID PO Last administered on 10:52; Start 10/03/18 at 21:00 EZETIMIBE (Zetia) 10 mg DAILY08 PO Last administered on 10/13/18 10:54; Start 10/04/18 at 08:00 Glimepiride (Amaryl) 2 mg DAILY PO Last administered on 10/07/18 09:39; Start 10/04/18 at 09:00; Stop 10/07/18 at 20:29; Status DC Loperamide HCl (Imodium) 2 mg PRN Q15MIN PRN PO DIARRHEA Last administered on 20:22; Start 10/03/18 at 10:45 Memantine (Namenda) 10 mg BID PO Last administered on 10/13/18 10:52; Start at 21:00 Olanzapine (ZyPREXA) 2.5 mg PRN Q2HR PRN PO AGITATION Last administered on 10/06 20:21; Start 10/03/18 at 10:45 Pantoprazole Sodium (Protonix) 40 mg DAILYAC PO Last administered on 10/13/18 10:53; Start 10/04/18 at 07:30 Quetiapine Fumarate (SEROquel) 12.5 mg DAILY@0900,1300,1700 PO Last administered on 10/12/18 13:28; Start 10/03/18 at 13:00; Stop 10/13/18 at 12:01 ; Status DC Rivastigmine (Exelon) 1 patch DAILY TD Last administered on 10/13/18 10:53; Start 10/04/18 at 09:00 Potassium Chloride (Klor-Con) 20 meq TID PO Last administered on 10/06/18at 14: 19; Start 10/03/18 at 21:00; Stop 10/07/18 at 13:48; Status DC Potassium Chloride/Sodium Chloride 1,000 ml @ 75 mls/hr [id number] IV Last administered on 10/04/18at 08:20; Start 10/03/18 at 19:30; Stop 10/06/18 at 00:54 ; Status DC Potassium Chloride (KCl Oral Soln) 20 meq TID PEG Last administered on at 20:46; Start 10/04/18 at 14:00 Sodium Chloride 1,000 ml @ 1,000 mls/hr 1X ONCE IV Last administered on at 20:03; Start 10/07/18 at 20:00; Stop 10/07/18 at 20:29; Status DC Dextrose/Sodium Chloride 1,000 ml @ 75 mls/hr [id number] IV Last administered on 10/08/18at 09:01; Start 10/07/18 at 20:30; Stop 10/09/18 at 06:23; Status DC Sodium Chloride 500 ml @ 0 mls/hr 1X ONCE IV Last administered on 10/12/18at 15 :34; Start 10/12/18 at 14:45; Stop 10/12/18 at 14:46; Status DC Sodium Chloride 1,000 ml @ 75 mls/hr [id number] IV Last administered on at 17:41; Start 10/12/18 at 14:45 Vancomycin HCl (Vancomycin Oral Solution) 125 mg [id number] PO Last administered on 10/13/18at 17:41; Start 10/13/18 at 14:45; Stop 10/20/18 at 14:44 Active Scripts Active Reported Tamsulosin Hcl 0.4 Mg Cap.er.24h 0.4 Mg PO DAILY Percocet 5-325 Mg Tablet (Oxycodone Hcl/Acetaminophen) 1 Each Tablet 1 Tab PO PRN Q4HRS PRN Anaspaz (Hyoscyamine Sulfate) 0.125 Mg Tab.rapdis 0.125 Mg PO PRN Q4HRS PRN Clonidine Tts-2 (Clonidine) 1 Each Patch.tdwk 1 Patch TD WEEKLY Norvasc (Amlodipine Besylate) 10 Mg Tablet 10 Mg PO DAILY Zoloft (Sertraline Hcl) 50 Mg Tablet 75 Mg PO DAILY Seroquel (Quetiapine Fumarate) 25 Mg Tablet 12.5 Tab PO TID@0900,1300,1700 Protonix (Pantoprazole Sodium) 40 Mg Tablet.dr 40 Mg PO DAILYAC Oxybutynin Chloride 5 Mg Tablet 5 Mg PO [id number] Olanzapine 5 Mg Tablet 2.5 Mg PO PRN Q2HR PRN Mirtazapine 7.5 Mg Tablet 7.5 Mg PO QHS Loperamide (Loperamide Hcl) 2 Mg Capsule 2 Mg PO PRN Q15MIN PRN Glimepiride 2 Mg Tablet 2 Mg PO DAILY Vitamin D3 (Cholecalciferol (Vitamin D3)) 5,000 Unit Tablet 5,000 Unit PO WEEKLY Depakote Sprinkle (Divalproex Sodium) 125 Mg Cap.sprink 250 Mg PO BID Zetia (Ezetimibe) 10 Mg Tablet 10 Mg PO DAILY08 Tylenol (Acetaminophen) 325 Mg Tablet 650 Mg PO PRN Q4HRS PRN EXELON 9.5mg/24hr (Rivastigmine) 1 Each Patch.td24 1 Patch TD DAILY Namenda (Memantine Hcl) 10 Mg Tablet 10 Mg PO BID Aspirin 81 Mg Tab.chew 81 Mg PO DAILY I have reviewed the current psychotropics carefully including drug interactions. Risk benefit ratio favors no change other than as noted in my dictated progress note. Diagnosis: Problems: (1) Major neurocognitive disorder (2) Dementia, vascular, with depression (3) Anxiety disorder LINO DE PAZ MD Oct 13, 2018 18:32
[2018-10-13 20:45] VITALS: BP 149/71
[2018-10-13] MEDS: MIRTAZAPINE 7.5 MG TABLET. PO SCH (21:14)
[2018-10-13 23:30] VITALS: BP 135/67
[2018-10-14] MEDS: OLANZapine 2.5 MG TABLET PO PRN ×2 (00:27→21:52)
[2018-10-14 05:40] VITALS: BP 186/86
[2018-10-14] MEDS: IV NORMAL SALINE 1,000ML 1,000 ML IV SCH ×2 (06:45→20:05)
[2018-10-14] MEDS: PANTOPRAZOLE 40 MG TABLET. PO SCH (07:30)
[2018-10-14] MEDS: EZETIMIBE 10 MG TABLET PO SCH (08:00)
[2018-10-14] MEDS: ASPIRIN 81 MG TAB.CHEW PO SCH (08:00)
[2018-10-14] MEDS: VANCOMYCIN 125 MG/2.5 ML ORAL SOLUTION. PO SCH ×4 (08:43→21:10)
[2018-10-14] MEDS: SERTRALINE 50 MG TABLET. PO SCH (08:43)
[2018-10-14] MEDS: RIVASTIGMINE 9.5MG PATCH. TD SCH (08:43)
[2018-10-14] MEDS: DIVALPROEX 125 MG CAP.SPRINK PO SCH ×2 (08:43→21:10)
[2018-10-14] MEDS: OXYBUTYNIN CHLORIDE 5 MG TABLET PO SCH ×3 (08:43→21:10)
[2018-10-14] MEDS: POTASSIUM CHLORIDE 20 MEQ/15 ML ORAL LIQUID. PEG SCH ×3 (08:43→20:59)
[2018-10-14] MEDS: MEMANTINE 10 MG TABLET. PO SCH ×2 (08:43→21:09)
[2018-10-14] MEDS: TAMSULOSIN 0.4 MG CAP.ER.24H. PO SCH (08:43)
[2018-10-14 12:45] VITALS: BP 151/61
[2018-10-14 14:24] LABS: CALCIUM 8.8 mg/dL (8.5-10.1); CREATININE 1.4 mg/dL (0.7-1.3); POTASSIUM 5.2 mmol/L (3.5-5.1)
[2018-10-14 15:25] VITALS: BP 146/88
[2018-10-14 19:00] VITALS: BP 136/77
--- NOTE | 2018-10-14 19:56 | PDOC ---
Exam Note: Naman Note: Please also refer to the separate dictated note~for this date of service dictated separately.~Patient seen individually. Discussed the patient with Nursing staff reviewed the chart.~Reviewed interim history and current functioning. Reviewed vital signs,~Labs/ Radiology~and current medications noted below. Continue current treatment with the changes noted in the dictated addendum note Assessment: Vital Signs: Vital Signs Date Time Temp Pulse Resp B/P (MAP) Pulse Ox O2 Delivery O2 Flow Rate FiO2 10/14/18 15:25 98.4 84 18 146/88 (107) 94 Room Air I&O Intake and Output 10/14/18 07:01 Intake Total 1149.47 ml Balance 1149.47 ml Intake Oral 240 ml IV Total 909.47 ml # Voids 3 # Bowel Movements 2 Labs: Laboratory Tests Test 10/13/18 20:40 10/14/18 07:35 10/14/18 12:01 10/14/18 14:02 Glucose (Fingerstick) 126 mg/dL (70-99) H 89 mg/dL (70-99) 156 mg/dL (70-99) H Sodium Level 140 mmol/L (136-145) Potassium Level 5.2 mmol/L (3.5-5.1) H Chloride Level 104 mmol/L (98-107) Carbon Dioxide Level 31 mmol/L (21-32) Anion Gap 5 (6-14) L Blood Urea Nitrogen 15 mg/dL (8-26) Creatinine 1.4 mg/dL (0.7-1.3) H Estimated GFR (Cockcroft-Gault) 49.0 Glucose Level 141 mg/dL (70-99) H Calcium Level 8.8 mg/dL (8.5-10.1) Test 10/14/18 16:48 Glucose (Fingerstick) 125 mg/dL (70-99) H Current Medications: Meds: Current Medications Vancomycin HCl (Vancomycin Oral Solution) 125 mg [id number] PO Last administered on 10/13/18at 10:52; Start 10/03/18 at 13:00; Stop 10/13/18 at 12:59; Status DC Lactobacillus Rhamnosus (Culturelle) 1 cap TID PO Last administered on at 10:52; Start 10/03/18 at 14:00; Stop 10/13/18 at 13:59; Status DC Acetaminophen (Tylenol) 650 mg PRN Q4HRS PRN PO MILD PAIN Last administered on 10/10/18 20:00; Start 10/03/18 at 10:30 Clonidine HCl (Catapres Tts-2) 1 patch WEEKLY TD Last administered on at 08:35; Start 10/10/18 at 09:00; Stop 10/12/18 at 14:35; Status DC Hyoscyamine (Anaspaz) 0.125 mg PRN Q4HRS PRN PO stomach cramping ; Start at 10:30 Mirtazapine (Remeron) 7.5 mg QHS PO Last administered on 10/13/18at 21:14; Start 10/03/18 at 21:00 Oxybutynin Chloride (Ditropan) 5 mg [id number] PO Last administered on 10/14/18at 17 :00; Start 10/03/18 at 14:00 Oxycodone/ Acetaminophen (Percocet 5/325) 1 tab PRN Q4HRS PRN PO PAIN; Start at 10:30 Sertraline HCl (Zoloft) 75 mg DAILY PO Last administered on 10/14/18 08:43; Start 10/04/18 at 09:00 Tamsulosin HCl (Flomax) 0.4 mg DAILY PO Last administered on 10/14/18 08:43; Start 10/04/18 at 09:00 Amlodipine Besylate (Norvasc) 10 mg DAILY PO Last administered on 10/11/18 07: 30; Start 10/04/18 at 09:00; Stop 10/12/18 at 14:36; Status DC Aspirin (Children'S Aspirin) 81 mg [id number] PO Last administered on 08:00; Start 10/04/18 at 08:00 Vitamin D (Vitamin D3) 50,000 unit WEEKLY PO Last administered on 10/10/18at 08: 34; Start 10/10/18 at 09:00 Divalproex Sodium (Depakote Sprinkles) 250 mg BID PO Last administered on 08:43; Start 10/03/18 at 21:00 EZETIMIBE (Zetia) 10 mg [id number] PO Last administered on 10/14/18 08:00; Start 10/04/18 at 08:00 Glimepiride (Amaryl) 2 mg DAILY PO Last administered on 10/07/18 09:39; Start 10/04/18 at 09:00; Stop 10/07/18 at 20:29; Status DC Loperamide HCl (Imodium) 2 mg PRN Q15MIN PRN PO DIARRHEA Last administered on 20:22; Start 10/03/18 at 10:45 Memantine (Namenda) 10 mg BID PO Last administered on 10/14/18 08:43; Start at 21:00 Olanzapine (ZyPREXA) 2.5 mg PRN Q2HR PRN PO AGITATION Last administered on 10/14 00:27; Start 10/03/18 at 10:45 Pantoprazole Sodium (Protonix) 40 mg DAILYAC PO Last administered on 10/14/18 07:30; Start 10/04/18 at 07:30 Quetiapine Fumarate (SEROquel) 12.5 mg DAILY@0900,1300,1700 PO Last administered on 10/12/18 13:28; Start 10/03/18 at 13:00; Stop 10/13/18 at 12:01 ; Status DC Rivastigmine (Exelon) 1 patch DAILY TD Last administered on 10/14/18 08:43; Start 10/04/18 at 09:00 Potassium Chloride (Klor-Con) 20 meq TID PO Last administered on 10/06/18 14: 19; Start 10/03/18 at 21:00; Stop 10/07/18 at 13:48; Status DC Potassium Chloride/Sodium Chloride 1,000 ml @ 75 mls/hr [id number] IV Last administered on 10/04/18 08:20; Start 10/03/18 at 19:30; Stop 10/06/18 at 00:54 ; Status DC Potassium Chloride (KCl Oral Soln) 20 meq TID PEG Last administered on 20:46; Start 10/04/18 at 14:00 Sodium Chloride 1,000 ml @ 1,000 mls/hr 1X ONCE IV Last administered on 20:03; Start 10/07/18 at 20:00; Stop 10/07/18 at 20:29; Status DC Dextrose/Sodium Chloride 1,000 ml @ 75 mls/hr [id number] IV Last administered on 10/08/18at 09:01; Start 10/07/18 at 20:30; Stop 10/09/18 at 06:23; Status DC Sodium Chloride 500 ml @ 0 mls/hr 1X ONCE IV Last administered on 10/12/18at 15 :34; Start 10/12/18 at 14:45; Stop 10/12/18 at 14:46; Status DC Sodium Chloride 1,000 ml @ 75 mls/hr [id number] IV Last administered on at 17:41; Start 10/12/18 at 14:45 Vancomycin HCl (Vancomycin Oral Solution) 125 mg [id number] PO Last administered on 10/14/18at 17:00; Start 10/13/18 at 14:45; Stop 10/20/18 at 14:44 Active Scripts Active Reported Tamsulosin Hcl 0.4 Mg Cap.er.24h 0.4 Mg PO DAILY Percocet 5-325 Mg Tablet (Oxycodone Hcl/Acetaminophen) 1 Each Tablet 1 Tab PO PRN Q4HRS PRN Anaspaz (Hyoscyamine Sulfate) 0.125 Mg Tab.rapdis 0.125 Mg PO PRN Q4HRS PRN Clonidine Tts-2 (Clonidine) 1 Each Patch.tdwk 1 Patch TD WEEKLY Norvasc (Amlodipine Besylate) 10 Mg Tablet 10 Mg PO DAILY Zoloft (Sertraline Hcl) 50 Mg Tablet 75 Mg PO DAILY Seroquel (Quetiapine Fumarate) 25 Mg Tablet 12.5 Tab PO TID@0900,1300,1700 Protonix (Pantoprazole Sodium) 40 Mg Tablet.dr 40 Mg PO DAILYAC Oxybutynin Chloride 5 Mg Tablet 5 Mg PO [id number] Olanzapine 5 Mg Tablet 2.5 Mg PO PRN Q2HR PRN Mirtazapine 7.5 Mg Tablet 7.5 Mg PO QHS Loperamide (Loperamide Hcl) 2 Mg Capsule 2 Mg PO PRN Q15MIN PRN Glimepiride 2 Mg Tablet 2 Mg PO DAILY Vitamin D3 (Cholecalciferol (Vitamin D3)) 5,000 Unit Tablet 5,000 Unit PO WEEKLY Depakote Sprinkle (Divalproex Sodium) 125 Mg Cap.sprink 250 Mg PO BID Zetia (Ezetimibe) 10 Mg Tablet 10 Mg PO [id number] Tylenol (Acetaminophen) 325 Mg Tablet 650 Mg PO PRN Q4HRS PRN EXELON 9.5mg/24hr (Rivastigmine) 1 Each Patch.td24 1 Patch TD DAILY Namenda (Memantine Hcl) 10 Mg Tablet 10 Mg PO BID Aspirin 81 Mg Tab.chew 81 Mg PO DAILY I have reviewed the current psychotropics carefully including drug interactions. Risk benefit ratio favors no change other than as noted in my dictated progress note. Diagnosis: Problems: (1) Major neurocognitive disorder (2) Dementia with behavioral disturbance (3) Dementia, vascular, with depression (4) Impulse control disorder (5) Anxiety disorder LINO DE PAZ MD Oct 14, 2018 19:55
[2018-10-14] MEDS: MIRTAZAPINE 7.5 MG TABLET. PO SCH (21:10)
--- NOTE | 2018-10-14 22:13 | PN ---
DATE: SUBJECTIVE: A 78-year-old male with severe dementia, Alzheimer type, was somewhat agitated and irritated last night. The patient also has been seen for, I believe, C difficile. He is doing better on that regard. Has not had a bowel movement. Agitation being controlled with Zyprexa. He is pretty comfortable this morning without any complications. PHYSICAL EXAMINATION: VITAL SIGNS: Blood pressure 135/67, respiratory rate 18, pulse 60, afebrile. LUNGS: Diminished, but clear. CARDIOVASCULAR: Stable. ABDOMEN: Soft, nontender. PLAN: Continue to monitor the patient accordingly, make further evaluation. ASSESSMENT: C difficile; agitation; and dementia, Alzheimer type. RITO MOHAMUD MD DR: ISAÍAS/nazia JOB#: [id number] / [id number]
--- NOTE | 2018-10-15 01:11 | PN ---
DATE: 10/13/2018 PSYCHIATRIC PROGRESS NOTE This is a late entry of 10/13/2018, covers elements not covered in my initial note. SUBJECTIVE: I met with the patient in the evening. Per nursing report, the patient has been accepted at the nursing facility by the staff, has significant sickness, with inadequate staffing, unable to take him until early next week. Had also been called by nursing staff earlier in the day. The patient had a Cardiology consult. QTC was markedly elevated, and they wondered whether Seroquel could contribute to it. We had gone ahead and stopped the Seroquel. He has been a little more anxious, somewhat labile and his mood was still manageable. REVIEW OF SYSTEMS: No CV, , pulmonary, eye system symptoms on review. I met with him in his room. MENTAL STATUS EXAM: Oriented to himself. Insight, judgment, recent and remote memory, attention, concentration, fund of knowledge poor, consistent with his diagnosis. IMPRESSION: Major neurocognitive disorder, Alzheimer, vascular with delusion, depression, behavioral disturbance. Rest unchanged. Prolonged QTC. PLAN: Stop the Seroquel. Rest continue unchanged. We will use Zyprexa p.r.n. and we will start scheduled Zyprexa. If behavioral dyscontrol problematic, we will consider Depakote. LINO DE PAZ MD DR: RUBY/nazia JOB#: [id number] / [id number]
[2018-10-15 06:22] VITALS: BP 170/74
[2018-10-15 07:12] LABS: CALCIUM 8.4 mg/dL (8.5-10.1); CREATININE 1.4 mg/dL (0.7-1.3); POTASSIUM 4.2 mmol/L (3.5-5.1)
[2018-10-15] MEDS: DIVALPROEX 125 MG CAP.SPRINK PO SCH ×2 (08:31→19:57)
[2018-10-15] MEDS: EZETIMIBE 10 MG TABLET PO SCH (08:31)
[2018-10-15] MEDS: ASPIRIN 81 MG TAB.CHEW PO SCH (08:31)
[2018-10-15] MEDS: SERTRALINE 50 MG TABLET. PO SCH (08:31)
[2018-10-15] MEDS: MEMANTINE 10 MG TABLET. PO SCH ×2 (08:32→19:57)
[2018-10-15] MEDS: TAMSULOSIN 0.4 MG CAP.ER.24H. PO SCH (08:32)
[2018-10-15] MEDS: OXYBUTYNIN CHLORIDE 5 MG TABLET PO SCH ×3 (08:32→19:57)
[2018-10-15] MEDS: PANTOPRAZOLE 40 MG TABLET. PO SCH (08:32)
[2018-10-15] MEDS: VANCOMYCIN 125 MG/2.5 ML ORAL SOLUTION. PO SCH ×4 (08:32→19:58)
[2018-10-15] MEDS: POTASSIUM CHLORIDE 20 MEQ/15 ML ORAL LIQUID. PEG SCH ×3 (08:33→19:58)
[2018-10-15] MEDS: RIVASTIGMINE 9.5MG PATCH. TD SCH (08:33)
[2018-10-15 11:34] VITALS: BP 107/70
[2018-10-15 15:20] VITALS: BP 125/73
[2018-10-15 19:11] VITALS: BP 134/76
[2018-10-15] MEDS: MIRTAZAPINE 7.5 MG TABLET. PO SCH (19:56)
[2018-10-15] MEDS: ACETAMINOPHEN 325 MG TABLET PO PRN (19:56)
[2018-10-15] MEDS: OLANZapine 2.5 MG TABLET PO PRN (19:57)
--- NOTE | 2018-10-15 20:02 | PDOC ---
Exam Note: Naman Note: Please also refer to the separate dictated note~for this date of service dictated separately.~Patient seen individually. Discussed the patient with Nursing staff reviewed the chart.~Reviewed interim history and current functioning. Reviewed vital signs,~Labs/ Radiology~and current medications noted below. Continue current treatment with the changes noted in the dictated addendum note Assessment: Vital Signs: Vital Signs Date Time Temp Pulse Resp B/P (MAP) Pulse Ox O2 Delivery O2 Flow Rate FiO2 10/15/18 19:50 Room Air 10/15/18 19:11 98.4 92 20 134/76 (95) 98 I&O Intake and Output 10/15/18 07:01 Intake Total 1080 ml Balance 1080 ml Intake Oral 1080 ml # Voids 4 Labs: Laboratory Tests Test 10/14/18 20:57 10/15/18 02:38 10/15/18 06:30 10/15/18 07:22 Glucose (Fingerstick) 104 mg/dL (70-99) H 77 mg/dL (70-99) 96 mg/dL (70-99) Sodium Level 140 mmol/L (136-145) Potassium Level 4.2 mmol/L (3.5-5.1) Chloride Level 103 mmol/L (98-107) Carbon Dioxide Level 31 mmol/L (21-32) Anion Gap 6 (6-14) Blood Urea Nitrogen 14 mg/dL (8-26) Creatinine 1.4 mg/dL (0.7-1.3) H Estimated GFR (Cockcroft-Gault) 49.0 Glucose Level 113 mg/dL (70-99) H Calcium Level 8.4 mg/dL (8.5-10.1) L Test 10/15/18 12:02 10/15/18 17:16 10/15/18 19:38 Glucose (Fingerstick) 151 mg/dL (70-99) H 132 mg/dL (70-99) H 166 mg/dL (70-99) H Current Medications: Meds: Current Medications Vancomycin HCl (Vancomycin Oral Solution) 125 mg [id number] PO Last administered on 10/13/18at 10:52; Start 10/03/18 at 13:00; Stop 10/13/18 at 12:59; Status DC Lactobacillus Rhamnosus (Culturelle) 1 cap TID PO Last administered on 10:52; Start 10/03/18 at 14:00; Stop 10/13/18 at 13:59; Status DC Acetaminophen (Tylenol) 650 mg PRN Q4HRS PRN PO MILD PAIN Last administered on 10/15/18 19:56; Start 10/03/18 at 10:30 Clonidine HCl (Catapres Tts-2) 1 patch WEEKLY TD Last administered on 08:35; Start 10/10/18 at 09:00; Stop 10/12/18 at 14:35; Status DC Hyoscyamine (Anaspaz) 0.125 mg PRN Q4HRS PRN PO stomach cramping ; Start at 10:30 Mirtazapine (Remeron) 7.5 mg QHS PO Last administered on 10/15/18 19:56; Start 10/03/18 at 21:00 Oxybutynin Chloride (Ditropan) 5 mg [id number] PO Last administered on 10/15/18 19 :57; Start 10/03/18 at 14:00 Oxycodone/ Acetaminophen (Percocet 5/325) 1 tab PRN Q4HRS PRN PO PAIN; Start at 10:30 Sertraline HCl (Zoloft) 75 mg DAILY PO Last administered on 10/15/18 08:31; Start 10/04/18 at 09:00 Tamsulosin HCl (Flomax) 0.4 mg DAILY PO Last administered on 10/15/18 08:32; Start 10/04/18 at 09:00 Amlodipine Besylate (Norvasc) 10 mg DAILY PO Last administered on 10/11/18 07: 30; Start 10/04/18 at 09:00; Stop 10/12/18 at 14:36; Status DC Aspirin (Children'S Aspirin) 81 mg [id number] PO Last administered on 08:31; Start 10/04/18 at 08:00 Vitamin D (Vitamin D3) 50,000 unit WEEKLY PO Last administered on 10/10/18 08: 34; Start 10/10/18 at 09:00 Divalproex Sodium (Depakote Sprinkles) 250 mg BID PO Last administered on 19:57; Start 10/03/18 at 21:00 EZETIMIBE (Zetia) 10 mg [id number] PO Last administered on 10/15/18 08:31; Start 10/04/18 at 08:00 Glimepiride (Amaryl) 2 mg DAILY PO Last administered on 10/07/18 09:39; Start 10/04/18 at 09:00; Stop 10/07/18 at 20:29; Status DC Loperamide HCl (Imodium) 2 mg PRN Q15MIN PRN PO DIARRHEA Last administered on 20:22; Start 10/03/18 at 10:45 Memantine (Namenda) 10 mg BID PO Last administered on 10/15/18 19:57; Start at 21:00 Olanzapine (ZyPREXA) 2.5 mg PRN Q2HR PRN PO AGITATION Last administered on 10/15 19:57; Start 10/03/18 at 10:45 Pantoprazole Sodium (Protonix) 40 mg DAILYAC PO Last administered on 10/15/18 08:32; Start 10/04/18 at 07:30 Quetiapine Fumarate (SEROquel) 12.5 mg DAILY@0900,1300,1700 PO Last administered on 10/12/18 13:28; Start 10/03/18 at 13:00; Stop 10/13/18 at 12:01 ; Status DC Rivastigmine (Exelon) 1 patch DAILY TD Last administered on 10/15/18 08:33; Start 10/04/18 at 09:00 Potassium Chloride (Klor-Con) 20 meq TID PO Last administered on 10/06/18 14: 19; Start 10/03/18 at 21:00; Stop 10/07/18 at 13:48; Status DC Potassium Chloride/Sodium Chloride 1,000 ml @ 75 mls/hr [id number] IV Last administered on 10/04/18 08:20; Start 10/03/18 at 19:30; Stop 10/06/18 at 00:54 ; Status DC Potassium Chloride (KCl Oral Soln) 20 meq TID PEG Last administered on 20:46; Start 10/04/18 at 14:00 Sodium Chloride 1,000 ml @ 1,000 mls/hr 1X ONCE IV Last administered on at 20:03; Start 10/07/18 at 20:00; Stop 10/07/18 at 20:29; Status DC Dextrose/Sodium Chloride 1,000 ml @ 75 mls/hr [id number] IV Last administered on 10/08/18at 09:01; Start 10/07/18 at 20:30; Stop 10/09/18 at 06:23; Status DC Sodium Chloride 500 ml @ 0 mls/hr 1X ONCE IV Last administered on 10/12/18at 15 :34; Start 10/12/18 at 14:45; Stop 10/12/18 at 14:46; Status DC Sodium Chloride 1,000 ml @ 75 mls/hr [id number] IV Last administered on at 17:41; Start 10/12/18 at 14:45; Stop 10/15/18 at 10:10; Status DC Vancomycin HCl (Vancomycin Oral Solution) 125 mg [id number] PO Last administered on 10/15/18at 19:58; Start 10/13/18 at 14:45; Stop 10/20/18 at 14:44 Active Scripts Active Reported Tamsulosin Hcl 0.4 Mg Cap.er.24h 0.4 Mg PO DAILY Percocet 5-325 Mg Tablet (Oxycodone Hcl/Acetaminophen) 1 Each Tablet 1 Tab PO PRN Q4HRS PRN Anaspaz (Hyoscyamine Sulfate) 0.125 Mg Tab.rapdis 0.125 Mg PO PRN Q4HRS PRN Clonidine Tts-2 (Clonidine) 1 Each Patch.tdwk 1 Patch TD WEEKLY Norvasc (Amlodipine Besylate) 10 Mg Tablet 10 Mg PO DAILY Zoloft (Sertraline Hcl) 50 Mg Tablet 75 Mg PO DAILY Seroquel (Quetiapine Fumarate) 25 Mg Tablet 12.5 Tab PO TID@0900,1300,1700 Protonix (Pantoprazole Sodium) 40 Mg Tablet.dr 40 Mg PO DAILYAC Oxybutynin Chloride 5 Mg Tablet 5 Mg PO [id number] Olanzapine 5 Mg Tablet 2.5 Mg PO PRN Q2HR PRN Mirtazapine 7.5 Mg Tablet 7.5 Mg PO QHS Loperamide (Loperamide Hcl) 2 Mg Capsule 2 Mg PO PRN Q15MIN PRN Glimepiride 2 Mg Tablet 2 Mg PO DAILY Vitamin D3 (Cholecalciferol (Vitamin D3)) 5,000 Unit Tablet 5,000 Unit PO WEEKLY Depakote Sprinkle (Divalproex Sodium) 125 Mg Cap.sprink 250 Mg PO BID Zetia (Ezetimibe) 10 Mg Tablet 10 Mg PO DAILY08 Tylenol (Acetaminophen) 325 Mg Tablet 650 Mg PO PRN Q4HRS PRN EXELON 9.5mg/24hr (Rivastigmine) 1 Each Patch.td24 1 Patch TD DAILY Namenda (Memantine Hcl) 10 Mg Tablet 10 Mg PO BID Aspirin 81 Mg Tab.chew 81 Mg PO DAILY I have reviewed the current psychotropics carefully including drug interactions. Risk benefit ratio favors no change other than as noted in my dictated progress note. Diagnosis: Problems: (1) Anxiety disorder (2) Impulse control disorder (3) Dementia, vascular, with depression (4) Dementia with behavioral disturbance LINO DE PAZ MD Oct 15, 2018 20:02
--- NOTE | 2018-10-15 21:29 | PN ---
DATE: 10/15/2018 SUBJECTIVE: The patient is a 78-year-old male with severe dementia, Alzheimer type and C. difficile who had been treated for that. Doing much better, less agitation with the Zyprexa. OBJECTIVE: VITAL SIGNS: The patient's blood pressure 170/74, respiratory rate 20, pulse 70, afebrile. GENERAL: The patient is alert, but confused, disoriented, covers his head up with the sheet. LUNGS: Diminished but clear. CARDIOVASCULAR: Regular sinus rhythm. ABDOMEN: Soft, nontender. PLAN: The patient will go ahead and probably be transferred back to his nursing facility tomorrow. IMPRESSION: Clostridium difficile colitis, agitation, dementia. RITO MOHAMUD MD DR: ISAÍAS/nazia JOB#: [id number] / [id number]
--- NOTE | 2018-10-16 02:51 | PN ---
DATE: 10/14/2018 PSYCHIATRIC PROGRESS NOTE This late entry 10/14/2018 covers elements, not covered in my initial note. SUBJECTIVE: I met with the patient in the evening. Discussed with ANGELO Khanna. For the most part, the patient is doing better. He does get somewhat paranoid, agitated since we discontinued the Seroquel consequent to his prolonged QTc on the EKG, but he is receiving Zyprexa. REVIEW OF SYSTEMS: No CV, , pulmonary, eye, ENT system symptoms on review. Reliability poor. MENTAL STATUS EXAM: Oriented to himself. Insight, judgment, recent and remote memory, attention, concentration, fund of knowledge poor, consistent with his diagnosis. IMPRESSION: Major neurocognitive disorder, Alzheimer, vascular with delusion, depression, behavioral disturbance; anxiety disorder, unspecified; impulse control disorder, unspecified. PLAN: Continue psychotropics from initial note. Check another EKG to measure the QTC interval prior to the patient's discharge on 10/16/2018 to make sure this is back to normal since the Seroquel has been discontinued, but he is still using the Zyprexa. Continue rest unchanged for now. MAN Nilesh DE PAZ MD DR: RUBY/nazia JOB#: [id number] / [id number]
[2018-10-16 05:10] VITALS: BP 161/81
[2018-10-16] MEDS: POTASSIUM CHLORIDE 20 MEQ/15 ML ORAL LIQUID. PEG SCH ×3 (08:54→20:20)
[2018-10-16] MEDS: ASPIRIN 81 MG TAB.CHEW PO SCH (08:54)
[2018-10-16] MEDS: VANCOMYCIN 125 MG/2.5 ML ORAL SOLUTION. PO SCH ×4 (08:54→20:45)
[2018-10-16] MEDS: EZETIMIBE 10 MG TABLET PO SCH (08:55)
[2018-10-16] MEDS: OXYBUTYNIN CHLORIDE 5 MG TABLET PO SCH ×3 (08:55→20:20)
[2018-10-16] MEDS: PANTOPRAZOLE 40 MG TABLET. PO SCH (08:55)
[2018-10-16] MEDS: SERTRALINE 50 MG TABLET. PO SCH (08:55)
[2018-10-16] MEDS: MEMANTINE 10 MG TABLET. PO SCH ×2 (08:55→20:20)
[2018-10-16] MEDS: TAMSULOSIN 0.4 MG CAP.ER.24H. PO SCH (08:56)
[2018-10-16] MEDS: RIVASTIGMINE 9.5MG PATCH. TD SCH (08:57)
[2018-10-16] MEDS ORDERED: DIVALPROEX 125 MG CAP.SPRINK PO SCH (09:00)
[2018-10-16] MEDS: DIVALPROEX 125 MG CAP.SPRINK PO SCH ×2 (09:02→20:20)
[2018-10-16 10:49] VITALS: BP 121/75
[2018-10-16 15:31] VITALS: BP 123/81
--- NOTE | 2018-10-16 15:58 | PN ---
DATE: 10/16/2018 SUBJECTIVE: The patient is sitting on the edge of the bed comfortably, in no apparent distress. He just went to the bathroom and had a bowel movement, which is well formed. He has not had any further episode of diarrhea for days now. The patient has been very compliant and cooperative, did not display any aggressive behavior. PHYSICAL EXAMINATION: GENERAL: When I examined him this morning, he looked well, pale, cachectic, but no jaundice, cyanosis or thyromegaly. No jugular venous distension. No limb edema. VITAL SIGNS: His heart rate was 66, blood pressure 161/81, temperature was 97.5, respiratory rate was 16, and oxygen saturation was 97% on room air. HEAD, EYES, EARS, NOSE AND THROAT: Showed normocephalic, atraumatic. NECK: Supple. HEART: Showed normal first and second heart sounds with no gallop, rub or murmur. CHEST: Clear to auscultation. No crepitation or rhonchi. ABDOMEN: Scaphoid, soft, nontender. NEUROLOGIC: He is demented, but without any obvious lateralizing sign. The patient ambulates without assistance or assistive devices. His intake was 1100, no output was recorded. LABORATORY DATA: This morning showed a serum sodium 140, potassium 4.2, chloride 103, bicarbonate 31, anion gap of 6, BUN 40, creatinine 1.4, estimated GFR was 49 mL per minute. His glucose was 113, calcium was 8.4. White cell count was 7400, hemoglobin 12, hematocrit 36, MCV 90 and platelet count 248,000. ASSESSMENT: 1. Hypotension and bradycardia, likely due to clonidine effect that was discontinued. The patient has been hemodynamically stable. 2. Clostridium difficile colitis, resolved. The patient has not had any bowel movement. His most recent bowel movement was this morning. It was well formed. He has had no further diarrhea. 3. The patient continued to be positive for methicillin-resistant Staphylococcus aureus in his nostrils. 4. Chronic kidney disease. 5. Benign prostatic hypertrophy. 6. Hypertension. 7. Type 2 diabetes mellitus, seems to be reasonably controlled. 8. Recent sigmoid volvulus, status post decompressive sigmoidoscopy. 9. Hyperkalemia, resolved. His most recent serum potassium was 4.2. PLAN: I will contact the social service technician to see if the patient is accepted at [facility] will discharge him today or tomorrow. DONOVAN PIPER MD DR: MURALI/nazia JOB#: [id number] / [id number]
--- NOTE | 2018-10-16 18:45 | PDOC ---
Exam Note: Naman Note: Please also refer to the separate dictated note~for this date of service dictated separately.~Patient seen individually. Discussed the patient with Nursing staff reviewed the chart.~Reviewed interim history and current functioning. Reviewed vital signs,~Labs/ Radiology~and current medications noted below. Continue current treatment with the changes noted in the dictated addendum note Assessment: Vital Signs: Vital Signs Date Time Temp Pulse Resp B/P (MAP) Pulse Ox O2 Delivery O2 Flow Rate FiO2 10/16/18 15:31 98.1 76 18 123/81 (95) 97 Room Air I&O Intake and Output 10/16/18 07:01 Intake Total 360 ml Balance 360 ml Intake Oral 360 ml # Voids 4 Labs: Laboratory Tests Test 10/15/18 19:38 10/16/18 02:55 10/16/18 07:27 10/16/18 11:26 Glucose (Fingerstick) 166 mg/dL (70-99) H 101 mg/dL (70-99) H 108 mg/dL (70-99) H 171 mg/dL (70-99) H Test 10/16/18 16:58 Glucose (Fingerstick) 92 mg/dL (70-99) Current Medications: Meds: Current Medications Vancomycin HCl (Vancomycin Oral Solution) 125 mg [id number] PO Last administered on 10/13/18at 10:52; Start 10/03/18 at 13:00; Stop 10/13/18 at 12:59; Status DC Lactobacillus Rhamnosus (Culturelle) 1 cap TID PO Last administered on at 10:52; Start 10/03/18 at 14:00; Stop 10/13/18 at 13:59; Status DC Acetaminophen (Tylenol) 650 mg PRN Q4HRS PRN PO MILD PAIN Last administered on 10/15/18at 19:56; Start 10/03/18 at 10:30 Clonidine HCl (Catapres Tts-2) 1 patch WEEKLY TD Last administered on at 08:35; Start 10/10/18 at 09:00; Stop 10/12/18 at 14:35; Status DC Hyoscyamine (Anaspaz) 0.125 mg PRN Q4HRS PRN PO stomach cramping ; Start at 10:30 Mirtazapine (Remeron) 7.5 mg QHS PO Last administered on 10/15/18 19:56; Start 10/03/18 at 21:00 Oxybutynin Chloride (Ditropan) 5 mg [id number] PO Last administered on 10/16/18at 14 :00; Start 10/03/18 at 14:00 Oxycodone/ Acetaminophen (Percocet 5/325) 1 tab PRN Q4HRS PRN PO PAIN; Start at 10:30 Sertraline HCl (Zoloft) 75 mg DAILY PO Last administered on 10/16/18 08:55; Start 10/04/18 at 09:00 Tamsulosin HCl (Flomax) 0.4 mg DAILY PO Last administered on 10/16/18 08:56; Start 10/04/18 at 09:00 Amlodipine Besylate (Norvasc) 10 mg DAILY PO Last administered on 10/11/18 07: 30; Start 10/04/18 at 09:00; Stop 10/12/18 at 14:36; Status DC Aspirin (Children'S Aspirin) 81 mg [id number] PO Last administered on 08:54; Start 10/04/18 at 08:00 Vitamin D (Vitamin D3) 50,000 unit WEEKLY PO Last administered on 10/10/18 08: 34; Start 10/10/18 at 09:00 Divalproex Sodium (Depakote Sprinkles) 250 mg BID PO Last administered on 19:57; Start 10/03/18 at 21:00; Stop 10/15/18 at 20:41; Status DC EZETIMIBE (Zetia) 10 mg DAILY08 PO Last administered on 10/16/18 08:55; Start 10/04/18 at 08:00 Glimepiride (Amaryl) 2 mg DAILY PO Last administered on 10/07/18 09:39; Start 10/04/18 at 09:00; Stop 10/07/18 at 20:29; Status DC Loperamide HCl (Imodium) 2 mg PRN Q15MIN PRN PO DIARRHEA Last administered on at 20:22; Start 10/03/18 at 10:45 Memantine (Namenda) 10 mg BID PO Last administered on 10/16/18 08:55; Start at 21:00 Olanzapine (ZyPREXA) 2.5 mg PRN Q2HR PRN PO AGITATION Last administered on 10/15 19:57; Start 10/03/18 at 10:45 Pantoprazole Sodium (Protonix) 40 mg DAILYAC PO Last administered on 10/16/18 08:55; Start 10/04/18 at 07:30 Quetiapine Fumarate (SEROquel) 12.5 mg DAILY@0900,1300,1700 PO Last administered on 10/12/18 13:28; Start 10/03/18 at 13:00; Stop 10/13/18 at 12:01 ; Status DC Rivastigmine (Exelon) 1 patch DAILY TD Last administered on 10/16/18 08:57; Start 10/04/18 at 09:00 Potassium Chloride (Klor-Con) 20 meq TID PO Last administered on 10/06/18 14: 19; Start 10/03/18 at 21:00; Stop 10/07/18 at 13:48; Status DC Potassium Chloride/Sodium Chloride 1,000 ml @ 75 mls/hr [id number] IV Last administered on 10/04/18 08:20; Start 10/03/18 at 19:30; Stop 10/06/18 at 00:54 ; Status DC Potassium Chloride (KCl Oral Soln) 20 meq TID PEG Last administered on 13:59; Start 10/04/18 at 14:00 Sodium Chloride 1,000 ml @ 1,000 mls/hr 1X ONCE IV Last administered on at 20:03; Start 10/07/18 at 20:00; Stop 10/07/18 at 20:29; Status DC Dextrose/Sodium Chloride 1,000 ml @ 75 mls/hr [id number] IV Last administered on 10/08/18 09:01; Start 10/07/18 at 20:30; Stop 10/09/18 at 06:23; Status DC Sodium Chloride 500 ml @ 0 mls/hr 1X ONCE IV Last administered on 10/12/18 15 :34; Start 10/12/18 at 14:45; Stop 10/12/18 at 14:46; Status DC Sodium Chloride 1,000 ml @ 75 mls/hr [id number] IV Last administered on at 17:41; Start 10/12/18 at 14:45; Stop 10/15/18 at 10:10; Status DC Vancomycin HCl (Vancomycin Oral Solution) 125 mg [id number] PO Last administered on 10/16/18at 17:16; Start 10/13/18 at 14:45; Stop 10/20/18 at 14:44 Divalproex Sodium (Depakote Sprinkles) 250 mg BID PO ; Start 10/16/18 at 09:00; Stop 10/16/18 at 09:00; Status DC Divalproex Sodium (Depakote Sprinkles) 375 mg BID PO Last administered on at 09:02; Start 10/16/18 at 09:00 Active Scripts Active Reported Tamsulosin Hcl 0.4 Mg Cap.er.24h 0.4 Mg PO DAILY Percocet 5-325 Mg Tablet (Oxycodone Hcl/Acetaminophen) 1 Each Tablet 1 Tab PO PRN Q4HRS PRN Anaspaz (Hyoscyamine Sulfate) 0.125 Mg Tab.rapdis 0.125 Mg PO PRN Q4HRS PRN Clonidine Tts-2 (Clonidine) 1 Each Patch.tdwk 1 Patch TD WEEKLY Norvasc (Amlodipine Besylate) 10 Mg Tablet 10 Mg PO DAILY Zoloft (Sertraline Hcl) 50 Mg Tablet 75 Mg PO DAILY Seroquel (Quetiapine Fumarate) 25 Mg Tablet 12.5 Tab PO TID@0900,1300,1700 Protonix (Pantoprazole Sodium) 40 Mg Tablet.dr 40 Mg PO DAILYAC Oxybutynin Chloride 5 Mg Tablet 5 Mg PO [id number] Olanzapine 5 Mg Tablet 2.5 Mg PO PRN Q2HR PRN Mirtazapine 7.5 Mg Tablet 7.5 Mg PO QHS Loperamide (Loperamide Hcl) 2 Mg Capsule 2 Mg PO PRN Q15MIN PRN Glimepiride 2 Mg Tablet 2 Mg PO DAILY Vitamin D3 (Cholecalciferol (Vitamin D3)) 5,000 Unit Tablet 5,000 Unit PO WEEKLY Depakote Sprinkle (Divalproex Sodium) 125 Mg Cap.sprink 250 Mg PO BID Zetia (Ezetimibe) 10 Mg Tablet 10 Mg PO DAILY08 Tylenol (Acetaminophen) 325 Mg Tablet 650 Mg PO PRN Q4HRS PRN EXELON 9.5mg/24hr (Rivastigmine) 1 Each Patch.td24 1 Patch TD DAILY Namenda (Memantine Hcl) 10 Mg Tablet 10 Mg PO BID Aspirin 81 Mg Tab.chew 81 Mg PO DAILY I have reviewed the current psychotropics carefully including drug interactions. Risk benefit ratio favors no change other than as noted in my dictated progress note. Diagnosis: Problems: (1) Dementia with behavioral disturbance (2) Dementia, vascular, with depression (3) Impulse control disorder (4) Anxiety disorder LINO DE PAZ MD Oct 16, 2018 18:45
[2018-10-16 19:13] VITALS: BP 167/82
[2018-10-16] MEDS: ACETAMINOPHEN 325 MG TABLET PO PRN (20:20)
[2018-10-16] MEDS: MIRTAZAPINE 7.5 MG TABLET. PO SCH (20:20)
[2018-10-16] MEDS: OLANZapine 2.5 MG TABLET PO PRN (20:20)
--- NOTE | 2018-10-16 22:04 | PN ---
DATE: 10/15/2018 This is a late entry for 10/15/2018 covers elements not covered in my initial note. SUBJECTIVE: I met with the patient in the evening. Nursing staff had brought him out to the nursing station since he was not staying back in his room, insisting he come out and sit with the nursing staff. He has had no more loose stools for a couple of days. Since we have stopped the Seroquel, he has been a little more anxious, but still manageable, received Zyprexa p.r.n. and we will be repeating EKG for QTC interval before he is discharged on 10/16/2018. REVIEW OF SYSTEMS: No CV, , pulmonary, eye, ENT system symptoms on review. Reliability poor. MENTAL STATUS EXAM: Oriented to himself. Insight, judgment, recent and remote memory, attention, concentration, fund of knowledge poor, consistent with his diagnosis. IMPRESSION: Major neurocognitive disorder, Alzheimer, vascular with delusion, depression, behavioral disturbance. Rest unchanged. PLAN: No change from initial note. Check the EKG. Continue Zyprexa p.r.n. MAN Nilesh DE PAZ MD DR: RUBY/nazia JOB#: [id number] / [id number]
[2018-10-16 23:13] VITALS: BP 154/84
[2018-10-17 05:23] VITALS: BP 172/98
[2018-10-17 08:03] VITALS: BP 153/91
--- NOTE | 2018-10-17 09:25 | CARD ---
MR#: [id number] Date of Study: 10/17/2018 Ordering Physician: EKTA YBARRA, Referring Physician: DONOVAN PIPER Tech: Natalya Gamino RDCS APPROVED REPORT EXAM: Two-dimensional and M-mode echocardiogram with Doppler and color Doppler. Other Information Quality : Good INDICATION Abnormal ECG Bradycardia 2D DIMENSIONS RVDd3.3 (2.9-3.5cm)Left Atrium(2D)2.8 (1.6-4.0cm) IVSd1.1 (0.7-1.1cm)Aortic Root(2D)3.2 (2.0-3.7cm) LVDd3.1 (3.9-5.9cm)PWd1.1 (0.7-1.1cm) LVDs2.3 (2.5-4.0cm)FS (%) 24.6 % SV18.4 mlLVEF(%)50.3 (>50%) Aortic Valve AoV Peak Emmett.107.3cm/sAoV VTI18.8cm AO Peak GR.4.6mmHgAO Mean GR.2mmHg HEMAL (VTI)3.52cm2 Mitral Valve MV E Ayrdcaxe16.0cm/sMV DECEL [id number] MV A Kblthiwp674.5cm/sE/A Ratio0.6 LEFT VENTRICLE The left ventricle cavity is small. There is normal left ventricular wall thickness. Left ventricle s ystolic function is normal. The Ejection Fraction is 55%. Septal motion consistent with conduction ab normality. Transmitral Doppler flow pattern is Grade I-abnormal relaxation pattern. RIGHT VENTRICLE The right ventricle cavity is small. The right ventricular systolic function is normal. ATRIA The left atrium size is normal. The right atrium is small in size. The interatrial septum is intact w ith no evidence for an atrial septal defect or patent foramen ovale as noted on 2-D or Doppler imagin g. AORTIC VALVE The aortic valve is calcified but opens well. Doppler and Color Flow revealed no significant aortic r egurgitation. There is no significant aortic valvular stenosis. MITRAL VALVE The mitral valve is calcified but opens well. There is no evidence of mitral valve prolapse. There is no mitral valve stenosis. Doppler and Color Flow revealed no mitral valve regurgitation noted. TRICUSPID VALVE The tricuspid valve is normal in structure and function. Doppler and Color Flow revealed no tricuspid valve regurgitation noted. There is no tricuspid valve stenosis. PULMONIC VALVE The pulmonic valve is not well visualized. Doppler and Color Flow revealed no pulmonic valvular regur gitation. There is no pulmonic valvular stenosis. GREAT VESSELS The aortic root is normal in size. The ascending aorta is not well seen. The IVC was not visualized. PERICARDIAL EFFUSION There is no evidence of significant pericardial effusion. Critical Notification Critical Value: No <Conclusion> Left ventricle systolic function is normal. The Ejection Fraction is 55%. Transmitral Doppler flow pattern is Grade I-abnormal relaxation pattern. No significant valvular abnormalities. There is no evidence of significant pericardial effusion. Signed by : Sami Fitzgerald, Electronically Approved : 10/17/2018 09:22:49
[2018-10-17] MEDS: VANCOMYCIN 125 MG/2.5 ML ORAL SOLUTION. PO SCH (10:02)
[2018-10-17] MEDS: POTASSIUM CHLORIDE 20 MEQ/15 ML ORAL LIQUID. PEG SCH (10:02)
[2018-10-17] MEDS: DIVALPROEX 125 MG CAP.SPRINK PO SCH (10:03)
[2018-10-17] MEDS: SERTRALINE 50 MG TABLET. PO SCH (10:03)
[2018-10-17] MEDS: EZETIMIBE 10 MG TABLET PO SCH (10:03)
[2018-10-17] MEDS: RIVASTIGMINE 9.5MG PATCH. TD SCH (10:04)
[2018-10-17] MEDS: MEMANTINE 10 MG TABLET. PO SCH (10:04)
[2018-10-17] MEDS: CHOLECALCIFEROL (VITAMIN D3) 50,000 UNIT CAPSULE PO SCH (10:04)
[2018-10-17] MEDS: OXYBUTYNIN CHLORIDE 5 MG TABLET PO SCH (10:04)
[2018-10-17] MEDS: ASPIRIN 81 MG TAB.CHEW PO SCH (10:04)
[2018-10-17] MEDS: TAMSULOSIN 0.4 MG CAP.ER.24H. PO SCH (10:04)
[2018-10-17] MEDS: PANTOPRAZOLE 40 MG TABLET. PO SCH (10:04)
--- NOTE | 2018-10-17 20:29 | DS ---
DATE OF DISCHARGE: 10/17/2018 HOSPITAL COURSE: The patient is a 78-year-old male patient who was originally transferred from [facility] as he had recurrent bouts of Clostridium difficile toxin. It was felt that the patient is easier to manage downstairs as he has been defecating all over the place and going from one resident on another resident's room and therefore he was transferred to [address] [place] [address] and started on oral vancomycin. The patient himself is demented, but denied any nausea or vomiting. Denied any abdominal pain. His diarrhea has gradually subsided. The patient was mostly very pleasant, cooperative and compliant with care and medication and as he remained stable, his diarrhea has largely subsided. A decision was made to discharge him to [facility] in [place]. PHYSICAL EXAMINATION: GENERAL: When I saw him today, he looked well and was clearly in no apparent distress. He was pale, cachectic, but no jaundice, cyanosis, or thyromegaly. No jugular venous distention. No lower limb edema. VITAL SIGNS: His heart rate was 71, blood pressure was 153/91, temperature was 97.4, respiratory rate 20, and oxygen saturation was 96%. HEAD, EYES, EARS, NOSE AND THROAT: Showed that he is normocephalic, atraumatic. NECK: Supple. HEART: Showed normal first and second heart sounds with no gallop, rub or murmur. CHEST: Clear to auscultation. No crepitation or rhonchi. ABDOMEN: Distended, soft, nontender. No guarding or rigidity. No organomegaly. All hernial orifices intact. Bowel sounds are normal. NEUROLOGIC: He was demented, but without any obvious lateralizing sign. All his cranial nerves are intact. He moves extremities without difficulty and ambulates without assistance or assistive devices, although he can be sometimes unsteady and has had fallen a few times without any injury. His intake and output are incompletely recorded. LABORATORY DATA: His most recent lab work showed serum sodium 140, potassium 4.2, chloride 103, bicarbonate 31, anion gap of 6, BUN 14, creatinine 1.4, estimated GFR was 49 mL per minute, his glucose was 130, and calcium was 8.4. White cell count was 7400, hemoglobin 11.9, hematocrit 36, MCV 90 and platelet count of 248,000. DISCHARGE MEDICATIONS: He was discharged to [facility] to continue divalproex 375 mg twice a day, vancomycin 125 mg p.o. q.i.d. for 10 more days, vitamin D 50,000 International Unit once a week, potassium chloride 20 mEq 3 times a day, rivastigmine 1 patch topically daily, tamsulosin 0.4 mg daily, sertraline 75 mg daily, Zetia 10 mg once a day, aspirin 81 mg once a day, Protonix 40 mg once a day, Namenda 10 mg twice a day, mirtazapine 7.5 mg once a day, oxybutynin 5 mg 3 times a day, olanzapine 2.5 mg every 2 hours as needed, loperamide 2 mg 4 times a day as needed, oxycodone/APAP 5/325 one tablet every 4 hours, hyoscyamine 0.125 mg every 4 hours, and Tylenol 650 mg every 4 hours. FINAL DISCHARGE DIAGNOSES: 1. Hypotension with bradycardia, likely due to clonidine effect that was discontinued. The patient has been hemodynamically stable. 2. Clostridium difficile colitis, resolved. The patient has not had any bowel movement. His most recent bowel movement was yesterday morning, it was well formed. 3. The patient continued to be positive for methicillin-resistant Staphylococcus aureus in his nostril. 4. The patient has chronic kidney disease. 5. Benign prostatic hypertrophy. 6. Hypertension. 7. Type 2 diabetes mellitus seems to be reasonably controlled. 8. Recent sigmoid volvulus, status post decompressive sigmoidoscopy. 9. Hyperkalemia, resolved. His most recent serum potassium was 4.2. DONOVAN PIPER MD DR: MURALI/nazia JOB#: [id number] / [id number]
--- NOTE | 2018-10-20 12:24 | PN ---
DATE: 10/12/2018 ADDENDUM The statement #8 should be read hypokalemia rather than hyperkalemia. DONOVAN PIPER MD DR: MURALI/nazia JOB#: [id number] / [id number]
== END 2018-10-17 12:45 | DRG 372 ==
LOC: 1 SOUTH 09:55
PROVIDERS: ADMIT Internal Medicine; ATTEND Internal Medicine
DX: A04.72 Enterocolitis due to Clostridium difficile, not specified as recurrent (principal); N17.9 Acute kidney failure, unspecified; F01.51 Vascular dementia, unspecified severity, with behavioral disturbance; F02.81 Dementia in other diseases classified elsewhere, unspecified severity, with behavioral disturbance; E87.6 Hypokalemia; E11.22 Type 2 diabetes mellitus with diabetic chronic kidney disease; E86.0 Dehydration; E87.5 Hyperkalemia; F32.9 Major depressive disorder, single episode, unspecified; F41.9 Anxiety disorder, unspecified; F63.9 Impulse disorder, unspecified; G30.9 Alzheimer's disease, unspecified; G47.00 Insomnia, unspecified; I12.9 Hypertensive chronic kidney disease with stage 1 through stage 4 chronic kidney disease, or unspecified chronic kidney disease; K21.9 Gastro-esophageal reflux disease without esophagitis; N18.9 Chronic kidney disease, unspecified; N40.0 Benign prostatic hyperplasia without lower urinary tract symptoms; Z66 Do not resuscitate; Z87.891 Personal history of nicotine dependence; I95.9 Hypotension, unspecified; R00.1 Bradycardia, unspecified; B95.62 Methicillin resistant Staphylococcus aureus infection as the cause of diseases classified elsewhere
CPT/HCPCS: 36415; 80048; 80053; 82947; 84443; 85025; 85027; 87641; 93005; 93306; 94618; J7040; 97116; J7030